=== PATIENT | female | born 1990 | race African-American/Black ===

== ENCOUNTER 2017-06-27 12:17 | Emergency (ER) | payer OTHER ==
[2017-06-27 13:11] LABS: Basophils # (Auto) 0.1 K/mm3 (0.0-0.1); Eosinophils # (Auto) 0.2 K/mm3 (0.0-0.4); Eosinophils % (Auto) 2.7 % (0.0-4.3); Hematocrit 42.9 % (30.3-42.9); Hemoglobin 14.4 gm/dl (10.1-14.3); Lymphocytes # (Auto) 1.1 K/mm3 (1.2-5.4); Lymphocytes % (Auto) 20.8 % (13.4-35.0); Mean Corpuscular HGB Conc 34 % (30-34); Mean Corpuscular Hemoglobin 30 pg (28-32); Mean Corpuscular Volume 90 fl (79-97); Monocytes # (Auto) 0.5 K/mm3 (0.0-0.8); Monocytes % (Auto) 9.8 % (0.0-7.3); Platelet Count 253 K/mm3 (140-440); Red Blood Count 4.76 M/mm3 (3.65-5.03); Red Cell Distribution Width 12.7 % (13.2-15.2)
[2017-06-27 13:35] LABS: Bacteria,Urine 1+ /HPF (Negative); Bilirubin,Urine NEG (Negative); Blood,Urine SM (Negative); Color,Urine Yellow (Yellow); Mucus,Urine 2+ /HPF; Protein,Urine <15 mg/dL mg/dL (Negative)
[2017-06-27 13:45] LABS: Alanine Aminotransferase 9 units/L (7-56); Albumin 4.4 g/dL (3.9-5); BUN/Creatinine Ratio 14; Blood Urea Nitrogen 10 mg/dL (7-17); Calcium 9.6 mg/dL (8.4-10.2); Hemolysis Index 4
--- NOTE | 2017-06-27 14:53 | Emergency Department Report ---
ED Abdominal Pain HPI - General Chief Complaint: Abdominal Pain Stated Complaint: PELVIC PAIN Source: patient, family Mode of arrival: Ambulatory Limitations: No Limitations - History of Present Illness Initial Comments: She is a 26-year-old female presents to emergency room with bilateral lower quadrant pain. Patient states that this is been going on for 2 months and is worse with her period. Patient states her last. Was a month ago. Patient denies possibility of . Patient denies dysuria and vaginal discharge. She states the pain is better with rest. Patient states the pain is worse with palpation and movement. Patient states the pain is a 10 out of 10 right now. MD Complaint: abdominal pain -: Sudden, days(s) (3 days) Location: LLQ, RLQ, suprapubic Radiation: none Migration to: no migration Severity: severe Severity scale (0 -10): 9 Quality: stabbing Consistency: constant Improves With: medication, rest Worsens With: movement Associated Symptoms: nausea - Related Data LMP (females 10-50): 1 month Previous Rx's Medication Instructions Recorded Last Taken Type Acetaminophen/Codeine [Tylenol 1 tab PO Q6H PRN #15 tab 06/27/17 Unknown Rx /Codeine # 3 tab] Ciprofloxacin HCl [Cipro] 500 mg PO Q12H 10 Days #20 tablet 06/27/17 Unknown Rx methylPREDNISolone [Medrol] 4 mg PO DAILY 6 Days #1 tab.ds.pk 06/27/17 Unknown Rx Allergies Allergy/AdvReac Type Severity Reaction Status Date / Time aspirin Allergy Hives Verified 06/27/17 12:35 NSAIDS (Non-Steroidal Allergy Hives Verified 06/27/17 12:36 Anti-Inflamma ED Review of Systems ROS: Stated complaint: PELVIC PAIN Other details as noted in HPI Comment: All other systems reviewed and negative Constitutional: denies: chills, fever Eyes: denies: eye pain, eye discharge, vision change ENT: denies: ear pain, throat pain Respiratory: denies: cough, shortness of breath, wheezing Cardiovascular: denies: chest pain, palpitations Endocrine: no symptoms reported Gastrointestinal: abdominal pain, nausea. denies: diarrhea Genitourinary: denies: urgency, dysuria, discharge Musculoskeletal: denies: back pain, joint swelling, arthralgia Skin: denies: rash, lesions Neurological: denies: headache, weakness, paresthesias Psychiatric: denies: anxiety, depression Hematological/Lymphatic: denies: easy bleeding, easy bruising ED Past Medical Hx - Past Medical History Previous Medical History?: Yes Hx Hypertension: No Hx CVA: No Hx Heart Attack/AMI: No Hx Congestive Heart Failure: No Hx Diabetes: No Hx Deep Vein Thrombosis: No Hx Pulmonary Embolism: No Hx GERD: No Hx Liver Disease: No Hx Renal Disease: No Hx of Cancer: No Hx Sickle Cell Disease: No Hx Arthritis: No Hx Headaches / Migraines: Yes Hx Seizures: Yes Hx Kidney Stones: No Hx Psychiatric Treatment: No Hx Asthma: Yes Hx COPD: No Hx Tuberculosis: No Hx Dementia: No Hx HIV: No 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, 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, hypoglycemia - Surgical History Past Surgical History?: Yes Hx Coronary Stent: No Hx Open Heart Surgery: No Hx Pacemaker: No Hx Internal Defibrillator: No Hx Cholecystectomy: Yes Hx Appendectomy: No Hx Breast Surgery: No - Family History Family history: hypertension - Social History Smoking Status: Never Smoker Substance Use Type: None - Medications Home Medications: Home Medications Medication Instructions Recorded Confirmed Last Taken Type Acetaminophen/Codeine [Tylenol 1 tab PO Q6H PRN #15 tab 06/27/17 Unknown Rx /Codeine # 3 tab] Ciprofloxacin HCl [Cipro] 500 mg PO Q12H 10 Days #20 tablet 06/27/17 Unknown Rx methylPREDNISolone [Medrol] 4 mg PO DAILY 6 Days #1 tab.ds.pk 06/27/17 Unknown Rx ED Physical Exam - General Limitations: No Limitations General appearance: alert, in no apparent distress - Head Head exam: Present: atraumatic, normocephalic - Eye Eye exam: Present: normal appearance - ENT ENT exam: Present: mucous membranes moist - Neck Neck exam: Present: normal inspection - Respiratory Respiratory exam: Present: normal lung sounds bilaterally. Absent: respiratory distress - Cardiovascular Cardiovascular Exam: Present: regular rate, normal rhythm. Absent: systolic murmur, diastolic murmur, rubs, gallop - GI/Abdominal GI/Abdominal exam: Present: soft, tenderness (bilateral lower quadrant tenderness to palpation), normal bowel sounds - Extremities Exam Extremities exam: Present: normal inspection - Back Exam Back exam: Present: normal inspection - Neurological Exam Neurological exam: Present: alert, oriented X3 - Psychiatric Psychiatric exam: Present: normal affect, normal mood - Skin Skin exam: Present: warm, dry, intact, normal color. Absent: rash ED Course Vital Signs 06/27/17 06/27/17 06/27/17 12:23 13:03 13:15 Temperature 99.9 F H Pulse Rate 82 Respiratory 16 Rate Blood Pressure 130/79 116/62 Blood Pressure [Left] O2 Sat by Pulse 99 98 98 Oximetry 06/27/17 06/27/17 06/27/17 13:27 13:28 13:31 Temperature 98.5 F Pulse Rate 100 H Respiratory 14 14 Rate Blood Pressure 116/62 Blood Pressure 116/62 [Left] O2 Sat by Pulse 99 99 98 Oximetry 06/27/17 06/27/17 06/27/17 13:45 14:01 14:15 Temperature Pulse Rate Respiratory Rate Blood Pressure 116/62 116/62 116/62 Blood Pressure [Left] O2 Sat by Pulse 99 99 99 Oximetry 06/27/17 06/27/17 06/27/17 14:31 14:45 15:01 Temperature Pulse Rate Respiratory Rate Blood Pressure 116/62 116/62 116/62 Blood Pressure [Left] O2 Sat by Pulse 98 98 100 Oximetry 06/27/17 06/27/17 06/27/17 15:15 15:31 15:45 Temperature Pulse Rate Respiratory Rate Blood Pressure 116/62 116/62 116/62 Blood Pressure [Left] O2 Sat by Pulse 99 98 97 Oximetry 06/27/17 06/27/17 06/27/17 16:01 16:15 16:39 Temperature Pulse Rate Respiratory Rate Blood Pressure 116/62 116/62 103/52 Blood Pressure [Left] O2 Sat by Pulse 99 97 100 Oximetry 06/27/17 06/27/17 06/27/17 16:45 17:00 17:15 Temperature Pulse Rate Respiratory Rate Blood Pressure 103/52 103/58 107/62 Blood Pressure [Left] O2 Sat by Pulse 98 99 99 Oximetry 06/27/17 06/27/17 06/27/17 17:31 17:45 18:00 Temperature Pulse Rate Respiratory Rate Blood Pressure 112/66 121/64 119/61 Blood Pressure [Left] O2 Sat by Pulse 99 99 97 Oximetry 06/27/17 19:00 Temperature Pulse Rate Respiratory Rate Blood Pressure 102/53 Blood Pressure [Left] O2 Sat by Pulse 98 Oximetry - Reevaluation(s) Reevaluation #1: Patient has improved with therapy. Patient stable for discharge. All labs and diagnostics discussed with family and patient. The patient is unable to take NSAIDs due to being allergic, will give patient a Medrol Dosepak. Will treat uti accordingly. 06/27/17 18:44 ED Medical Decision Making - Lab Data Result diagrams: 06/27/17 12:56 06/27/17 12:56 Critical care attestation.: If time is entered above; I have spent that time in minutes in the direct care of this critically ill patient, excluding procedure time. ED Disposition Clinical Impression: Abdominal pain, Ovarian cyst, Urinary tract infection Disposition: - TO HOME OR SELFCARE Is pt being admited?: No Does the pt Need Aspirin: No Condition: Stable Instructions: Ovarian Cyst (ED), Urinary Tract Infection in Women (ED), Abdominal Pain (ED) Additional Instructions: Levi to follow-up with primary care in 3-5 days. Patient to follow up with [facility] within 2-4 days. Patient to increase water. Patient to rest. Patient to return to ER if condition worsens. Start vitamin Prescriptions: Acetaminophen/Codeine [Tylenol /Codeine # 3 tab] 1 tab PO Q6H PRN #15 tab PRN Reason: Pain Ciprofloxacin HCl [Cipro] 500 mg PO Q12H 10 Days #20 tablet methylPREDNISolone [Medrol] 4 mg PO DAILY 6 Days #1 tab.ds.pk Referrals: PRIMARY CARE, [Primary Care Provider] - 3-5 Days Time of Disposition: 18:43
[2017-06-27] MEDS: DILAUDID IM ONE (15:05)
[2017-06-27] MEDS: DILAUDID IV ONE ×2 (15:24→17:52)
[2017-06-27] MEDS: ZOFRAN IV ONE (16:07)
[2017-06-27 16:22] LABS: HCG Qualitative,Urine Negative (Negative)
--- NOTE | 2017-06-27 17:19 | Cat Scan Report ---
FINAL REPORT EXAM: CT ABDOMEN PELVIS WO CON HISTORY: pain TECHNIQUE: CT abdomen and pelvis without intravenous contrast PRIORS: None. FINDINGS: No acute abnormality identified in the lung bases. No focal abnormality identified within the liver parenchyma. Patient is status post cholecystectomy. The spleen demonstrates normal size and attenuation. No pancreatic abnormalities seen. Kidneys demonstrate no evidence for hydronephrosis or nephrolithiasis. The adrenal glands are unremarkable Abdominal aorta is normal in caliber. No pathologically enlarged lymph nodes are identified. No signs of free fluid or free air No evidence of small bowel dilatation. Colon is nondistended. No pericolonic inflammatory change. The appendix is identified and is unremarkable. Urinary bladder is unremarkable. Noted is 1.7 x 2.7 centimeter left adnexal cyst IMPRESSION: 2.7 centimeter left adnexal cyst Status post cholecystectomy
[2017-06-27 19:24] VITALS: BP 102/53
== END 2017-06-27 19:53 | disposition home or self-care (01) ==
LOC: ED 12:17
DX: N83.209 Unspecified ovarian cyst, unspecified side (principal); N39.0 Urinary tract infection, site not specified; G43.909 Migraine, unspecified, not intractable, without status migrainosus; J45.909 Unspecified asthma, uncomplicated; Z88.6 Allergy status to analgesic agent
CPT/HCPCS: 36415; 74176; 80053; 81001; 81025; 85025; 96374; 96375; 96376; 99284; J1170; J2405; J2930

== ENCOUNTER 2017-12-04 14:45 | Emergency (ER) | payer SELFPAY ==
[2017-12-04 15:11] VITALS: BP 118/60
[2017-12-04] MEDS ORDERED: NACL 0.9% 1000 ML 1,000 ML IV ONE ×2 (15:11→21:00)
[2017-12-04 15:37] LABS: Basophils % (Auto) 0.4 % (0.0-1.8); Eosinophils % (Auto) 0.4 % (0.0-4.3); Hematocrit 41.4 % (30.3-42.9); Hemoglobin 14.4 gm/dl (10.1-14.3); Lymphocytes # (Auto) 1.4 K/mm3 (1.2-5.4); Lymphocytes % (Auto) 19.4 % (13.4-35.0); Mean Corpuscular HGB Conc 35 % (30-34); Mean Corpuscular Hemoglobin 30 pg (28-32); Mean Corpuscular Volume 87 fl (79-97); Monocytes # (Auto) 0.5 K/mm3 (0.0-0.8); Monocytes % (Auto) 7.3 % (0.0-7.3); Platelet Count 259 K/mm3 (140-440); Red Blood Count 4.78 M/mm3 (3.65-5.03); Red Cell Distribution Width 13.1 % (13.2-15.2)
[2017-12-04 16:00] LABS: Alanine Aminotransferase 8 units/L (7-56); Albumin 4.7 g/dL (3.9-5); BUN/Creatinine Ratio 10; Blood Urea Nitrogen 7 mg/dL (7-17); Calcium 9.4 mg/dL (8.4-10.2); Hemolysis Index 8
[2017-12-04 16:11] LABS: Bilirubin,Urine NEG (Negative); Blood,Urine NEG (Negative); Color,Urine Yellow (Yellow); Mucus,Urine 3+ /HPF; Sperm,Urine FEW /HPF (NP); Urobilinogen,Urine < 2.0 mg/dL (<2.0)
[2017-12-04] MEDS ORDERED: MORPHINE IM ONE (19:54)
[2017-12-04] MEDS ORDERED: ZOFRAN IV ONE ×2 (19:57→21:00)
[2017-12-04 20:07] LABS: HCG Qualitative,Urine Negative (Negative)
--- NOTE | 2017-12-04 20:20 | Emergency Department Report ---
Blank Doc - Documentation Documentation: Patient complains her right lower quadrant abdominal pain that started 5 days ago the patient states she has a history of ovarian cyst but that is only on the left side. She states the pain is worse with movement especially when walking. On exam the patient is tender to palpation of the right lower quadrant and heeltap produces peritoneal signs. CT of the abdomen will be ordered as as well as pain medication. Care will be taken over by the mid- level provider
[2017-12-04] MEDS ORDERED: MORPHINE IV ONE (21:00)
[2017-12-04] MEDS ORDERED: ROCEPHIN/NS 1 GM/50 ML 1 GM/50 ML BAG IV ONE (21:02)
--- NOTE | 2017-12-04 21:03 | Emergency Department Report ---
ED Abdominal Pain HPI - General Chief Complaint: Abdominal Pain Stated Complaint: PAIN RT OVARY/NAUSEA Time Seen by Provider: 12/04/17 19:34 Source: patient Mode of arrival: Ambulatory Limitations: No Limitations - History of Present Illness Initial Comments: Patient complains her right lower quadrant abdominal pain that started 5 days ago the patient states she has a history of ovarian cyst but that is only on the left side. She states the pain is worse with movement especially when walking. On exam the patient is tender to palpation of the right lower quadrant and heeltap produces peritoneal signs. CT of the abdomen will be ordered as as well as pain medication. Care will be taken over by the mid- level provider Complaint: abdominal pain Onset/Timin -: week(s) Location: RLQ, R flank Radiation: suprapubic, R flank Migration to: no migration Severity: moderate Severity scale (0 -10): 10 Quality: aching, sharp Consistency: constant Improves With: nothing Worsens With: movement Associated Symptoms: nausea, vomiting. denies: diarrhea, fever, constipation, dysuria, melena, hematuria, anorexia, syncope - Related Data LMP Date: 11/20/17 Previous Rx's Medication Instructions Recorded Last Taken Type Acetaminophen/Codeine [Tylenol 1 tab PO Q6H PRN #15 tab 06/27/17 Unknown Rx /Codeine # 3 tab] Ciprofloxacin HCl [Cipro] 500 mg PO Q12H 10 Days #20 tablet 06/27/17 Unknown Rx methylPREDNISolone [Medrol] 4 mg PO DAILY 6 Days #1 tab.ds.pk 06/27/17 Unknown Rx HYDROcodone/APAP 5-325 [[place] 1 each PO Q6HR PRN #10 tablet 10/10/17 Unknown Rx 5/325] Nitrofurantoin Monohyd/M-Cryst 100 mg PO BID #14 capsule 10/10/17 Unknown Rx [Macrobid 100 mg Capsule] Acetaminophen [Tylenol Extra 1,000 mg PO QID PRN #60 tablet 12/04/17 Unknown Rx Strength] Nitrofurantoin Burnett/M-Cryst 100 mg PO BID #14 capsule 12/04/17 Unknown Rx [Macrobid CAP] Allergies Allergy/AdvReac Type Severity Reaction Status Date / Time aspirin Allergy Hives Verified 06/27/17 12:35 codeine Allergy Itching Verified 10/10/17 12:21 NSAIDS (Non-Steroidal Allergy Hives Verified 06/27/17 12:36 Anti-Inflamma ED Review of Systems ROS: Stated complaint: PAIN RT OVARY/NAUSEA Other details as noted in HPI Constitutional: denies: chills, fever Eyes: denies: eye pain, eye discharge, vision change ENT: denies: ear pain, throat pain Respiratory: denies: cough, shortness of breath, wheezing Cardiovascular: denies: chest pain, palpitations Endocrine: no symptoms reported Gastrointestinal: abdominal pain, nausea, vomiting. denies: diarrhea Genitourinary: frequency. denies: urgency, dysuria, discharge Musculoskeletal: back pain Skin: denies: rash, lesions Neurological: denies: headache, weakness, paresthesias Psychiatric: denies: anxiety, depression Hematological/Lymphatic: denies: easy bleeding, easy bruising ED Past Medical Hx - Past Medical History Hx Hypertension: No Hx CVA: No Hx Heart Attack/AMI: No Hx Congestive Heart Failure: No Hx Diabetes: No Hx Deep Vein Thrombosis: No Hx Pulmonary Embolism: No Hx GERD: No Hx Liver Disease: No Hx Renal Disease: No Hx Sickle Cell Disease: No Hx Arthritis: No Hx Headaches / Migraines: Yes Hx Seizures: Yes Hx Kidney Stones: No Hx Psychiatric Treatment: No Hx Asthma: Yes Hx COPD: No Hx Tuberculosis: No Hx Dementia: No Hx HIV: No 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, 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, hypoglycemia - Surgical History Hx Coronary Stent: No Hx Open Heart Surgery: No Hx Pacemaker: No Hx Internal Defibrillator: No Hx Cholecystectomy: Yes Hx Appendectomy: No Hx Breast Surgery: No - Social History Smoking Status: Never Smoker Substance Use Type: None - Medications Home Medications: Home Medications Medication Instructions Recorded Confirmed Last Taken Type Acetaminophen/Codeine [Tylenol 1 tab PO Q6H PRN #15 tab 06/27/17 Unknown Rx /Codeine # 3 tab] Ciprofloxacin HCl [Cipro] 500 mg PO Q12H 10 Days #20 tablet 06/27/17 Unknown Rx methylPREDNISolone [Medrol] 4 mg PO DAILY 6 Days #1 tab.ds.pk 06/27/17 Unknown Rx HYDROcodone/APAP 5-325 [[place] 1 each PO Q6HR PRN #10 tablet 10/10/17 Unknown Rx 5/325] Nitrofurantoin Monohyd/M-Cryst 100 mg PO BID #14 capsule 10/10/17 Unknown Rx [Macrobid 100 mg Capsule] Acetaminophen [Tylenol Extra 1,000 mg PO QID PRN #60 tablet 12/04/17 Unknown Rx Strength] Nitrofurantoin Burnett/M-Cryst 100 mg PO BID #14 capsule 12/04/17 Unknown Rx [Macrobid CAP] ED Physical Exam - General Limitations: No Limitations General appearance: alert, in no apparent distress - Head Head exam: Present: atraumatic, normocephalic - Eye Eye exam: Present: normal appearance - ENT ENT exam: Present: mucous membranes moist - Neck Neck exam: Present: normal inspection - Respiratory Respiratory exam: Present: normal lung sounds bilaterally. Absent: respiratory distress - Cardiovascular Cardiovascular Exam: Present: regular rate, normal rhythm. Absent: systolic murmur, diastolic murmur, rubs, gallop - GI/Abdominal GI/Abdominal exam: Present: soft, tenderness (RLQ ), guarding (mild guarding RLQ ), normal bowel sounds. Absent: distended, rebound, rigid, organomegaly, mass, bruit, pulsatile mass, hernia - Expanded GI/Abdominal Exam Expanded GI/Abdominal exam: Present: tenderness at [place]'s Point. Absent: psoas sign , obturator sign, heel tap sign, Membreno's sign, ascites - Rectal Rectal exam: Present: deferred - Extremities Exam Extremities exam: Present: normal inspection, full ROM. Absent: tenderness - Back Exam Back exam: Present: normal inspection, full ROM. Absent: tenderness, CVA tenderness (R), CVA tenderness (L), muscle spasm, paraspinal tenderness, vertebral tenderness - Neurological Exam Neurological exam: Present: alert, oriented X3, CN II-XII intact, normal gait, reflexes normal - Psychiatric Psychiatric exam: Present: normal affect, normal mood - Skin Skin exam: Present: warm, dry, intact, normal color. Absent: rash ED Course Vital Signs 12/04/17 15:08 Temperature 98.3 F Pulse Rate 96 H Blood Pressure 118/60 O2 Sat by Pulse 100 Oximetry ED Medical Decision Making - Lab Data Result diagrams: 12/04/17 15:25 12/04/17 15:25 Laboratory Tests 12/04/17 12/04/17 12/04/17 15:25 15:25 15:38 WBC 7.1 RBC 4.78 Hgb 14.4 H Hct 41.4 MCV 87 MCH 30 MCHC 35 H RDW 13.1 L Plt Count 259 Lymph % (Auto) 19.4 Burnett % (Auto) 7.3 Eos % (Auto) 0.4 Baso % (Auto) 0.4 Lymph # 1.4 Burnett # 0.5 Eos # 0.0 Baso # 0.0 Seg Neutrophils % 72.5 H Seg Neutrophils # 5.2 Sodium 142 Potassium 3.9 Chloride 104.8 Carbon Dioxide 25 Anion Gap 16 BUN 7 Creatinine 0.7 Estimated GFR > 60 BUN/Creatinine Ratio 10 Glucose 80 Calcium 9.4 Total Bilirubin 0.70 AST 13 ALT 8 Alkaline Phosphatase 68 Total Protein 7.8 Albumin 4.7 Albumin/Globulin Ratio 1.5 Urine Color Yellow Urine Turbidity Cloudy Urine pH 5.0 Ur Specific Gardner 1.023 Urine Protein 30 mg/dl Urine Glucose (UA) Neg Urine Ketones Neg Urine Blood Neg Urine Nitrite Neg Urine Bilirubin Neg Urine Urobilinogen < 2.0 Ur Leukocyte Esterase Mod Urine WBC (Auto) 22.0 H Urine RBC (Auto) 2.0 U Epithel Cells (Auto) 29.0 H Urine Mucus 3+ Urine Yeast (Budding) Few Urine Sperm Few Urine HCG, Qual 12/04/17 19:54 WBC RBC Hgb Hct MCV MCH MCHC RDW Plt Count Lymph % (Auto) Burnett % (Auto) Eos % (Auto) Baso % (Auto) Lymph # Burnett # Eos # Baso # Seg Neutrophils % Seg Neutrophils # Sodium Potassium Chloride Carbon Dioxide Anion Gap BUN Creatinine Estimated GFR BUN/Creatinine Ratio Glucose Calcium Total Bilirubin AST ALT Alkaline Phosphatase Total Protein Albumin Albumin/Globulin Ratio Urine Color Urine Turbidity Urine pH Ur Specific Gardner Urine Protein Urine Glucose (UA) Urine Ketones Urine Blood Urine Nitrite Urine Bilirubin Urine Urobilinogen Ur Leukocyte Esterase Urine WBC (Auto) Urine RBC (Auto) U Epithel Cells (Auto) Urine Mucus Urine Yeast (Budding) Urine Sperm Urine HCG, Qual Negative - Radiology Data Radiology results: report reviewed, image reviewed CT abdomen and pelvis right adnexal cyst, seizures right ovarian cyst lumbar spondylosis - Medical Decision Making Plan pain reduced to 2/10 Rocephin completely clear DC to home on naproxen follow up with [facility] and for wearing cyst patient verbalized understanding and agreement with same, pt is a/o x 3 tolerating po intake without n/v , pt verbalized agreement and understanding with same. to home in stable condition at this time. Critical care attestation.: If time is entered above; I have spent that time in minutes in the direct care of this critically ill patient, excluding procedure time. ED Disposition Clinical Impression: Ovarian cyst Qualifiers: Laterality: right Qualified Code(s): N83.201 - Unspecified ovarian cyst, right side UTI (urinary tract infection) Qualifiers: Urinary tract infection type: acute cystitis Hematuria presence: without hematuria Qualified Code(s): N30.00 - Acute cystitis without hematuria Disposition: TO HOME OR SELFCARE Is pt being admited?: No Does the pt Need Aspirin: No Condition: Stable Instructions: Abdominal Pain (ED), Ovarian Cyst (ED), Urinary Tract Infection in Women (ED) Prescriptions: Acetaminophen [Tylenol Extra Strength] 1,000 mg PO QID PRN #60 tablet PRN Reason: pain Nitrofurantoin Burnett/M-Cryst [Macrobid CAP] 100 mg PO BID #14 capsule Referrals: LYUBOV YATES MD [Staff Physician] - 3-5 Days Forms: Work/School Release Form(ED) Time of Disposition: 22:03
--- NOTE | 2017-12-04 21:30 | Cat Scan Report ---
FINAL REPORT PROCEDURE: CT ABDOMEN PELVIS WO CON TECHNIQUE: Computerized axial tomography of the abdomen and pelvis was performed without intravenous contrast. HISTORY: rlq ab pain COMPARISON: No prior studies are available for comparison. FINDINGS: Visualized lower thorax: No significant abnormality. Liver: Normal size and attenuation. Spleen: Normal size and attenuation. Gallbladder and biliary system: Cholecystectomy. Pancreas: Normal. Adrenals: Normal. Kidneys: Normal. No stones or hydronephrosis. GI tract: Normal. No dilated loops of large or small bowel. Appendix is normal Lymph nodes and mesentery: Normal. Vasculature: Normal. Bladder: Normal. Reproductive organs: Normal uterus. 2.1 cm right adnexal cyst. 2.5 cm left adnexal cyst.. Peritoneum: No free fluid. Musculoskeletal structures: Grade 1 spondylolisthesis at L5-S1 with bilateral pars interarticularis defects of L5. Other: None. IMPRESSION: Adnexal cysts. No dominant mass or obstruction. Normal appendix. Spondylolisthesis with spondylolysis.
== END 2017-12-04 23:06 | disposition home or self-care (01) ==
LOC: ED 14:45
DX: N83.201 Unspecified ovarian cyst, right side (principal); N30.00 Acute cystitis without hematuria; J45.909 Unspecified asthma, uncomplicated; Z90.49 Acquired absence of other specified parts of digestive tract; Z88.6 Allergy status to analgesic agent
CPT/HCPCS: 36415; 74176; 80053; 81001; 81025; 85025; 96365; 96375; 96376; 99284; J0696; J2270; J2405; J7030

== ENCOUNTER 2018-04-28 15:30 | Emergency (ER) | payer OTHER, SELFPAY ==
[2018-04-28 16:34] LABS: Hematocrit 44.2 % (30.3-42.9); Hemoglobin 15.3 gm/dl (10.1-14.3); Mean Corpuscular HGB Conc 35 % (30-34); Mean Corpuscular Volume 89 fl (79-97); Platelet Count 257 K/mm3 (140-440); Red Blood Count 4.96 M/mm3 (3.65-5.03); Red Cell Distribution Width 12.7 % (13.2-15.2)
[2018-04-28 16:45] LABS: BUN/Creatinine Ratio 23; Blood Urea Nitrogen 14 mg/dL (7-17); Calcium 9.9 mg/dL (8.4-10.2); Hemolysis Index 17
[2018-04-28 17:58] LABS: HCG Qualitative,Urine Negative (Negative)
[2018-04-28 18:01] LABS: Bilirubin,Urine NEG (Negative); Blood,Urine NEG (Negative); Color,Urine Yellow (Yellow); Mucus,Urine 3+ /HPF; Protein,Urine <15 mg/dL mg/dL (Negative); Urobilinogen,Urine < 2.0 mg/dL (<2.0)
[2018-04-28] MEDS ORDERED: PERCOCET 5/325 PO PRN (19:42)
[2018-04-28] MEDS ORDERED: ZOFRAN ODT PO ONE (19:42)
[2018-04-28] MEDS ORDERED: ZOFRAN ODT ONE (19:43)
[2018-04-28] MEDS ORDERED: PERCOCET 5/325 ONE (19:43)
--- NOTE | 2018-04-28 21:35 | Emergency Department Report ---
ED Female HPI - General Chief complaint: Urogenital-Female Stated complaint: PAIN RT SIDE/BLOOD IN URINE Time Seen by Provider: 04/28/18 18:40 Source: patient Mode of arrival: Ambulatory Limitations: No Limitations - History of Present Illness Initial comments: 27-year-old female visits emergency department complaining of continued recurrent pelvic pain and dysuria and hematuria with worsening in last night. Patient states she's been having nausea for the last 4 days with little bit of of of diarrhea. States that she is been followed by Dr. Michaud has what is believed to be the endometriosis. However, she has not been confirmed with an ultrasound as of today. She was recently diagnosed with urinary tract infection and taking Macrobid symptoms improve temporarily and then began to emerge. She was seen in the ED for to 5 times in the last year for similar symptoms. States that no one has done a pelvic evaluation on her sexually active. She is having a lot more pelvic cramping and pain, has no known history of any [place] almost or any ovarian cyst. MD Complaint: dysuria, pelvic pain Location: suprapubic Radiation: non-radiating Severity: mild Quality: cramping, dull Consistency: intermittent Improves with: none Worsens with: urination, movement Are you Now?: No Associated Symptoms: dysuria, hematuria. denies: vaginal bleeding, fever/chills, shortness of breath, weakness - Related Data Sexually active: No (states she is a Muslim, and not engage in any sexually active) Previous Rx's Medication Instructions Recorded Last Taken Type methylPREDNISolone [Medrol] 4 mg PO DAILY 6 Days #1 tab.ds.pk 06/27/17 Unknown Rx HYDROcodone/APAP 5-325 [[place] 1 each PO Q6HR PRN #10 tablet 10/10/17 Unknown Rx 5/325] Nitrofurantoin Monohyd/M-Cryst 100 mg PO BID #14 capsule 10/10/17 Unknown Rx [Macrobid 100 mg Capsule] Nitrofurantoin [place]/M-Cryst 100 mg PO BID #14 capsule 12/04/17 Unknown Rx [Macrobid CAP] Acetaminophen [Tylenol Extra 1,000 mg PO TID PRN #60 tablet 03/04/18 Unknown Rx Strength] Ciprofloxacin HCl [Cipro] 500 mg PO Q12H 10 Days #20 tablet 03/04/18 Unknown Rx HYDROcodone/APAP 5-325 [[place] 1 each PO Q6H #10 tablet 03/04/18 Unknown Rx 5-325 mg TAB] HYDROcodone/APAP 5-325 [[place] 1 each PO Q6HR PRN #15 tablet 03/31/18 Unknown Rx 5/325] Nitrofurantoin Monohyd/M-Cryst 100 mg PO BID #14 capsule 03/31/18 Unknown Rx [Macrobid 100 mg Capsule] Phenazopyridine [Pyridium] 100 mg PO TID 2 Days tab 03/31/18 Unknown Rx Acetaminophen [Tylenol Extra 1,000 mg PO QID PRN 3 Days #2 04/27/18 Unknown Rx Strength] tablet Nitrofurantoin Monohyd/M-Cryst 100 mg PO BID #14 capsule 04/27/18 Unknown Rx [Macrobid 100 mg Capsule] Acetaminophen/Codeine [Tylenol 1 tab PO Q6H PRN #15 tab 04/29/18 Unknown Rx /Codeine # 3 tab] Fluconazole [Diflucan] 150 mg PO ONCE #3 tablet 04/29/18 Unknown Rx metroNIDAZOLE [Flagyl] 500 mg PO BID #14 tab 04/29/18 Unknown Rx Allergies Allergy/AdvReac Type Severity Reaction Status Date / Time aspirin Allergy Hives Verified 03/31/18 11:04 NSAIDS (Non-Steroidal Allergy Hives Verified 03/31/18 11:04 Anti-Inflamma ED Review of Systems ROS: Stated complaint: PAIN RT SIDE/BLOOD IN URINE Other details as noted in HPI Constitutional: denies: chills, fever Eyes: denies: eye pain, eye discharge, vision change ENT: denies: ear pain, throat pain Respiratory: denies: cough, shortness of breath, wheezing Cardiovascular: denies: chest pain, palpitations Endocrine: no symptoms reported Gastrointestinal: denies: abdominal pain, nausea, diarrhea Genitourinary: dysuria, hematuria. denies: urgency, discharge Musculoskeletal: denies: back pain, joint swelling, arthralgia Skin: denies: rash, lesions Neurological: denies: headache, weakness, paresthesias Psychiatric: denies: anxiety, depression Hematological/Lymphatic: denies: easy bleeding, easy bruising ED Past Medical Hx - Past Medical History Previous Medical History?: Yes Hx Hypertension: No Hx CVA: No Hx Heart Attack/AMI: No Hx Congestive Heart Failure: No Hx Diabetes: No Hx Deep Vein Thrombosis: No Hx Pulmonary Embolism: No Hx GERD: No Hx Liver Disease: No Hx Renal Disease: No Hx Sickle Cell Disease: No Hx Arthritis: No Hx Headaches / Migraines: Yes Hx Seizures: Yes Hx Kidney Stones: No Hx Psychiatric Treatment: No Hx Asthma: Yes Hx COPD: No Hx Tuberculosis: No Hx Dementia: No Hx HIV: No Additional medical history: Von Willebrand blood disorder, 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, hypoglycemia - Surgical History Past Surgical History?: Yes Hx Coronary Stent: No Hx Open Heart Surgery: No Hx Pacemaker: No Hx Internal Defibrillator: No Hx Cholecystectomy: Yes Hx Appendectomy: No Hx Breast Surgery: No - Social History Smoking Status: Never Smoker Substance Use Type: None - Medications Home Medications: Home Medications Medication Instructions Recorded Confirmed Last Taken Type methylPREDNISolone [Medrol] 4 mg PO DAILY 6 Days #1 tab.ds.pk 06/27/17 Unknown Rx HYDROcodone/APAP 5-325 [[place] 1 each PO Q6HR PRN #10 tablet 10/10/17 Unknown Rx 5/325] Nitrofurantoin Monohyd/M-Cryst 100 mg PO BID #14 capsule 10/10/17 Unknown Rx [Macrobid 100 mg Capsule] Nitrofurantoin [place]/M-Cryst 100 mg PO BID #14 capsule 12/04/17 Unknown Rx [Macrobid CAP] Acetaminophen [Tylenol Extra 1,000 mg PO TID PRN #60 tablet 03/04/18 Unknown Rx Strength] Ciprofloxacin HCl [Cipro] 500 mg PO Q12H 10 Days #20 tablet 03/04/18 Unknown Rx HYDROcodone/APAP 5-325 [[place] 1 each PO Q6H #10 tablet 03/04/18 Unknown Rx 5-325 mg TAB] HYDROcodone/APAP 5-325 [[place] 1 each PO Q6HR PRN #15 tablet 03/31/18 Unknown Rx 5/325] Nitrofurantoin Monohyd/M-Cryst 100 mg PO BID #14 capsule 03/31/18 Unknown Rx [Macrobid 100 mg Capsule] Phenazopyridine [Pyridium] 100 mg PO TID 2 Days tab 03/31/18 Unknown Rx Acetaminophen [Tylenol Extra 1,000 mg PO QID PRN 3 Days #2 04/27/18 Unknown Rx Strength] tablet Nitrofurantoin Monohyd/M-Cryst 100 mg PO BID #14 capsule 04/27/18 Unknown Rx [Macrobid 100 mg Capsule] Acetaminophen/Codeine [Tylenol 1 tab PO Q6H PRN #15 tab 04/29/18 Unknown Rx /Codeine # 3 tab] Fluconazole [Diflucan] 150 mg PO ONCE #3 tablet 04/29/18 Unknown Rx metroNIDAZOLE [Flagyl] 500 mg PO BID #14 tab 04/29/18 Unknown Rx ED Physical Exam - General Limitations: No Limitations General appearance: alert, in no apparent distress - Head Head exam: Present: atraumatic, normocephalic - Eye Eye exam: Present: normal appearance - ENT ENT exam: Present: mucous membranes moist - Neck Neck exam: Present: normal inspection - Respiratory Respiratory exam: Present: normal lung sounds bilaterally. Absent: respiratory distress - Cardiovascular Cardiovascular Exam: Present: regular rate, normal rhythm. Absent: systolic murmur, diastolic murmur, rubs, gallop - GI/Abdominal GI/Abdominal exam: Present: soft, tenderness, normal bowel sounds. Absent: guarding, hyperactive bowel sounds, organomegaly - External exam: Present: erythema (vaginal excoriation and erythema to the inner folds of the labia majora on the crease of the labium minora with all white, curd-like discharge.), other (patient is shaven in the area with scant hair being redistributed some areas of the hair shafts have some erythema) Bi-manual exam: Present: other (there is tenderness at the entrance of the vaginal orifice with some erythema noted and a cloudy, watery discharge, being evacuated.) - Extremities Exam Extremities exam: Present: normal inspection, normal capillary refill. Absent: full ROM - Back Exam Back exam: Present: normal inspection, CVA tenderness (L) - Neurological Exam Neurological exam: Present: alert, oriented X3, CN II-XII intact - Psychiatric Psychiatric exam: Present: normal affect, normal mood - Skin Skin exam: Present: warm, dry, intact, normal color. Absent: rash ED Course Vital Signs 04/28/18 15:56 Temperature 98.6 F Pulse Rate 103 H Respiratory 22 Rate Blood Pressure 119/72 O2 Sat by Pulse 97 Oximetry ED Medical Decision Making - Lab Data Result diagrams: 04/28/18 16:15 04/28/18 16:15 - Radiology Data Radiology results: report reviewed FINAL REPORT PROCEDURE: CT abdomen and pelvis with contrast. TECHNIQUE: Computerized axial tomography of the abdomen and pelvis was performed after the IV injection of iodinated nonionic contrast. HISTORY: Lower abdominal pain. COMPARISON: CT abdomen and pelvis 03/04/2018. FINDINGS: The lung bases are clear. There are no pleural effusions. The heart size is normal. The liver, pancreas and spleen appear normal. Cholecystectomy clips are present. There is mild intrahepatic and moderate extrahepatic biliary dilatation, likely on the basis of the previous cholecystectomy. The common bile duct measures 9.4 millimeters in diameter. If there is concern about pathological biliary obstruction, an ERCP or MRCP are suggested. The adrenal glands are not enlarged. Both kidneys appear normal in size and configuration. The abdominal aorta has a normal caliber. There is no retroperitoneal adenopathy. The unopacified gastrointestinal tract appears normal. A normal appendix is visible. The bladder and uterus appear normal. There are some low- attenuation masses in both adnexal regions. These likely represent ovarian cysts. The largest is on the left side measuring 2.2 centimeters x 2.1 centimeters in cross-section. The regional skeleton appears intact. There is bilateral spondylolysis of L5. There is very minimal grade 1 spon dylolisthesis at L5-S1. An umbilical piercing is noted. IMPRESSION: Probable bilateral ovarian cysts. Bilateral spondylolysis of L5. Biliary dilatation status post cholecystectomy. No definite signs of acute disease in the abdomen or pelvis. Transcribed By: [facility] Dictated By: MIESHA OLSON MD Electronically Authenticated By: MIESHA OLSON MD Signed Date/Time: 04/28/18 2849 Critical care attestation.: If time is entered above; I have spent that time in minutes in the direct care of this critically ill patient, excluding procedure time. ED Disposition Clinical Impression: UTI (urinary tract infection), Dysuria, Ovarian cyst, Vaginal discharge, Dilation of biliary tract Disposition: DC-01 TO HOME OR SELFCARE Is pt being admited?: No Does the pt Need Aspirin: No Condition: Stable Instructions: Biliary Colic (ED), Ovarian Cyst (ED), Vaginitis (ED) Prescriptions: Acetaminophen/Codeine [Tylenol /Codeine # 3 tab] 1 tab PO Q6H PRN #15 tab PRN Reason: Pain Fluconazole [Diflucan] 150 mg PO ONCE #3 tablet metroNIDAZOLE [Flagyl] 500 mg PO BID #14 tab Referrals: [facility] [Provider Group] - 3-5 Days [facility] [Provider Group] - 3-5 Days (Follow-up with gastroenterology. He may need an ERCP to further evaluate the dilation of the biliary duct. I yet had a cholecystectomy in the past. Clips are in place, but there is a possible concern for retained stone) PRIMARY CARE, [Primary Care Provider] - 3-5 Days (Follow with Dr. Michaud of [facility] for further evaluation of your ovarian cyst and endometriosis. Be sure to follow-up for your urine culture so we can adjust your anti-biotics if needed)
[2018-04-28] MEDS ORDERED: MORPHINE ONE (21:43)
[2018-04-28] MEDS ORDERED: ZOFRAN ONE (21:43)
[2018-04-28] MEDS ORDERED: MORPHINE IV ONE (21:52)
[2018-04-28] MEDS ORDERED: ZOFRAN IV ONE (21:52)
--- NOTE | 2018-04-28 23:49 | Cat Scan Report ---
FINAL REPORT PROCEDURE: CT abdomen and pelvis with contrast. TECHNIQUE: Computerized axial tomography of the abdomen and pelvis was performed after the IV inject ion of iodinated nonionic contrast. HISTORY: Lower abdominal pain. COMPARISON: CT abdomen and pelvis 03/04/2018. FINDINGS: The lung bases are clear. There are no pleural effusions. The heart size is normal. The liver, pancre as and spleen appear normal. Cholecystectomy clips are present. There is mild intrahepatic and modera te extrahepatic biliary dilatation, likely on the basis of the previous cholecystectomy. The common b ile duct measures 9.4 millimeters in diameter. If there is concern about pathological biliary obstruc tion, an ERCP or MRCP are suggested. The adrenal glands are not enlarged. Both kidneys appear normal in size and configuration. The abdominal aorta has a normal caliber. There is no retroperitoneal lucia opathy. The unopacified gastrointestinal tract appears normal. A normal appendix is visible. The blad berna and uterus appear normal. There are some low-attenuation masses in both adnexal regions. These li sarath represent ovarian cysts. The largest is on the left side measuring 2.2 centimeters x 2.1 centime ters in cross-section. The regional skeleton appears intact. There is bilateral spondylolysis of L5. There is very minimal grade 1 spondylolisthesis at L5-S1. An umbilical piercing is noted. IMPRESSION: Probable bilateral ovarian cysts. Bilateral spondylolysis of L5. Biliary dilatation status post shanta cystectomy. No definite signs of acute disease in the abdomen or pelvis.
[2018-04-29] MEDS ORDERED: TORADOL ONE (00:27)
[2018-04-29] MEDS ORDERED: REGLAN ONE (00:27)
[2018-04-29] MEDS ORDERED: TORADOL IV ONE (00:28)
[2018-04-29] MEDS ORDERED: REGLAN IV ONE (00:28)
[2018-04-29 01:31] VITALS: BP 121/73
== END 2018-04-29 01:31 | disposition home or self-care (01) ==
LOC: ED 15:30
DX: N39.0 Urinary tract infection, site not specified (principal); G43.909 Migraine, unspecified, not intractable, without status migrainosus; J45.909 Unspecified asthma, uncomplicated; D68.0 Von Willebrand disease; Z88.6 Allergy status to analgesic agent; Z90.49 Acquired absence of other specified parts of digestive tract
CPT/HCPCS: 36415; 74177; 80048; 81001; 81025; 85027; 87086; 87210; 96374; 96375; 99285; J1885; J2270; J2405; J2765; Q9967; Q0162

== ENCOUNTER 2018-07-20 11:32 | Emergency (ER) | payer OTHER, SELFPAY ==
--- NOTE | 2018-07-20 11:39 | Emergency Department Report ---
Blank Doc - Documentation Documentation: This is a 27-year-old female that presents with right lower abdominal pain with nausea. Denies any vomiting. This initial assessment/diagnostic orders/clinical plan/treatment(s) is/are subject to change based on patient's health status, clinical progression and re- assessment by fellow clinical providers in the ED. Further treatment and workup at subsequent clinical providers discretion. Patient/guardians urged not to elope from the ED as their condition may be serious if not clinically assessed and managed. Initial orders include: 1- Patient sent to [facility] for further evaluation and treatment 2- labs 3- UA
[2018-07-20] MEDS ORDERED: NACL 0.9% 1000 ML 1,000 ML IV ONE (12:06)
[2018-07-20] MEDS ORDERED: MORPHINE IV ONE ×2 (12:06→13:26)
[2018-07-20] MEDS ORDERED: ZOFRAN IV ONE ×2 (12:06→13:26)
--- NOTE | 2018-07-20 12:13 | Emergency Department Report ---
ED Abdominal Pain HPI - General Chief Complaint: Abdominal Pain Stated Complaint: RT ABD PAIN/NAUSEA/DIARRHEA Time Seen by Provider: 07/20/18 11:38 Source: patient, old records reviewed Mode of arrival: Ambulatory Limitations: No Limitations - History of Present Illness Initial Comments: 27-year-old female with a past medical history of asthma, seizures, von Willebrand's disease, and previous cholecystectomy presents to the Hospital complaining of right lower quadrant pain radiating to the back 3 or 4 days. Patient sharp, intermittent fluctuates in intensity. Pain became more severe last night described 9/10 in intensity. Patient also had multiple episodes of nonbloody diarrhea and nausea without vomiting. She reports a temperature 100.5 yesterday. He complains of a small amount of dysuria. She states she is a virgin and not sexually active. Patient has been here multiple times in the past for pelvic and abdominal related complaints. Patient was seen here in April and May. She had a CT abdomen and pelvis IV contrast she received April 2018 that was significant for bilateral ovarian cyst and patient was treated for UTI. As per medical record patient was suspected to have endometriosis and was supposed to follow-up with Dr. Michaud. Patient has not followed up with the PMD or specialist due to lack of insurance coverage. Severity scale (0 -10): 9 - Related Data Previous Rx's Medication Instructions Recorded Last Taken Type methylPREDNISolone [Medrol] 4 mg PO DAILY 6 Days #1 tab.ds.pk 06/27/17 Unknown Rx Nitrofurantoin Monohyd/M-Cryst 100 mg PO BID #14 capsule 10/10/17 Unknown Rx [Macrobid 100 mg Capsule] RX: Acetaminophen [Tylenol Extra 1,000 mg PO TID PRN #60 tablet 03/04/18 Unknown Rx Strength] RX: Ciprofloxacin HCl [Cipro] 500 mg PO Q12H 10 Days #20 tablet 03/04/18 Unknown Rx RX: HYDROcodone/APAP 5-325 [[place] 1 each PO Q6H #10 tablet 03/04/18 Unknown Rx 5-325 mg TAB] HYDROcodone/APAP 5-325 [[place] 1 each PO Q6HR PRN #15 tablet 03/31/18 Unknown Rx 5/325] Nitrofurantoin Monohyd/M-Cryst 100 mg PO BID #14 capsule 03/31/18 Unknown Rx [Macrobid 100 mg Capsule] Phenazopyridine [Pyridium] 100 mg PO TID 2 Days tab 03/31/18 Unknown Rx Acetaminophen [Tylenol Extra 1,000 mg PO QID PRN 3 Days #2 04/27/18 Unknown Rx Strength] tablet Nitrofurantoin Monohyd/M-Cryst 100 mg PO BID #14 capsule 04/27/18 Unknown Rx [Macrobid 100 mg Capsule] Fluconazole [Diflucan] 150 mg PO ONCE #3 tablet 04/29/18 Unknown Rx RX: Acetaminophen/Codeine [Tylenol 1 tab PO Q6H PRN #15 tab 04/29/18 Unknown Rx /Codeine # 3 tab] metroNIDAZOLE [Flagyl] 500 mg PO BID #14 tab 04/29/18 Unknown Rx Promethazine [Phenergan TAB] 25 mg PO Q6HR PRN #16 tab 05/30/18 Unknown Rx RX: traMADol [Ultram 50 MG tab] 50 mg PO Q6HR PRN #14 tablet 05/30/18 Unknown Rx Ondansetron [Zofran Odt] 4 mg PO Q8HR PRN #20 tab.rapdis 07/20/18 Unknown Rx RX: HYDROcodone/APAP 5-325 [[place] 1 each PO Q6HR PRN #20 tablet 07/20/18 Unknown Rx 5-325 mg TAB] RX: Nitrofurantoin [place]/M-Cryst 100 mg PO BID #14 capsule 07/20/18 Unknown Rx [Macrobid CAP] Allergies Allergy/AdvReac Type Severity Reaction Status Date / Time aspirin Allergy Hives Verified 03/31/18 11:04 metoclopramide [From Reglan] Allergy Unknown Verified 05/30/18 14:48 NSAIDS (Non-Steroidal Allergy Hives Verified 03/31/18 11:04 Anti-Inflamma ED Review of Systems ROS: Stated complaint: RT ABD PAIN/NAUSEA/DIARRHEA Other details as noted in HPI Comment: All other systems reviewed and negative ED Past Medical Hx - Past Medical History Hx Hypertension: No Hx CVA: No Hx Heart Attack/AMI: No Hx Congestive Heart Failure: No Hx Diabetes: No Hx Deep Vein Thrombosis: No Hx Pulmonary Embolism: No Hx GERD: No Hx Liver Disease: No Hx Renal Disease: No Hx Sickle Cell Disease: No Hx Arthritis: No Hx Headaches / Migraines: Yes Hx Seizures: Yes Hx Kidney Stones: No Hx Psychiatric Treatment: No Hx Asthma: Yes Hx COPD: No Hx Tuberculosis: No Hx Dementia: No Hx HIV: No Additional medical history: Von Willebrand blood disorder, 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, hypoglycemia - Surgical History Past Surgical History?: Yes Hx Coronary Stent: No Hx Open Heart Surgery: No Hx Pacemaker: No Hx Internal Defibrillator: No Hx Cholecystectomy: Yes Hx Appendectomy: No Hx Breast Surgery: No - Social History Smoking Status: Never Smoker Substance Use Type: None - Medications Home Medications: Home Medications Medication Instructions Recorded Confirmed Last Taken Type methylPREDNISolone [Medrol] 4 mg PO DAILY 6 Days #1 tab.ds.pk 06/27/17 Unknown Rx Nitrofurantoin Monohyd/M-Cryst 100 mg PO BID #14 capsule 10/10/17 Unknown Rx [Macrobid 100 mg Capsule] RX: Acetaminophen [Tylenol Extra 1,000 mg PO TID PRN #60 tablet 03/04/18 Unknown Rx Strength] RX: Ciprofloxacin HCl [Cipro] 500 mg PO Q12H 10 Days #20 tablet 03/04/18 Unknown Rx RX: HYDROcodone/APAP 5-325 [[place] 1 each PO Q6H #10 tablet 03/04/18 Unknown Rx 5-325 mg TAB] HYDROcodone/APAP 5-325 [[place] 1 each PO Q6HR PRN #15 tablet 03/31/18 Unknown Rx 5/325] Nitrofurantoin Monohyd/M-Cryst 100 mg PO BID #14 capsule 03/31/18 Unknown Rx [Macrobid 100 mg Capsule] Phenazopyridine [Pyridium] 100 mg PO TID 2 Days tab 03/31/18 Unknown Rx Acetaminophen [Tylenol Extra 1,000 mg PO QID PRN 3 Days #2 04/27/18 Unknown Rx Strength] tablet Nitrofurantoin Monohyd/M-Cryst 100 mg PO BID #14 capsule 04/27/18 Unknown Rx [Macrobid 100 mg Capsule] Fluconazole [Diflucan] 150 mg PO ONCE #3 tablet 04/29/18 Unknown Rx RX: Acetaminophen/Codeine [Tylenol 1 tab PO Q6H PRN #15 tab 04/29/18 Unknown Rx /Codeine # 3 tab] metroNIDAZOLE [Flagyl] 500 mg PO BID #14 tab 04/29/18 Unknown Rx Promethazine [Phenergan TAB] 25 mg PO Q6HR PRN #16 tab 05/30/18 Unknown Rx RX: traMADol [Ultram 50 MG tab] 50 mg PO Q6HR PRN #14 tablet 05/30/18 Unknown Rx Ondansetron [Zofran Odt] 4 mg PO Q8HR PRN #20 tab.rapdis 07/20/18 Unknown Rx RX: HYDROcodone/APAP 5-325 [[place] 1 each PO Q6HR PRN #20 tablet 07/20/18 Unknown Rx 5-325 mg TAB] RX: Nitrofurantoin [place]/M-Cryst 100 mg PO BID #14 capsule 07/20/18 Unknown Rx [Macrobid CAP] ED Physical Exam - General Limitations: No Limitations - Other Other exam information: General: No limitations, patient is alert in no acute distress Head exam: Atraumatic, normocephalic Eyes exam: Normal appearance, pupils equal reactive to light, extraocular movements intact ENT: Moist mucous membrane, normal oropharynx Neck exam: Normal inspection, full range of motion, no meningismus nontender Respiratory exam: Clear to auscultation bilateral, no wheezes, rales, crackles Cardiovascular: Normal rate and rhythm, normal heart sounds Abdomen: Soft, nondistended, right lower quadrant tenderness, with normal bowel sounds, no rebound, or guarding Extremity: Full range of motion normal inspection no deformity Back: Normal Inspection, full range of motion, right flank tenderness N tendernesseurologic: Alert, oriented x3, cranial nerves intact, no motor or sensory deficit Psychiatric: normal affect, normal mood Skin: Warm, dry, intact ED Course Vital Signs 07/20/18 11:49 Temperature 98.3 F Pulse Rate 115 H Respiratory 20 Rate Blood Pressure 114/73 O2 Sat by Pulse 97 Oximetry ED Medical Decision Making - Lab Data Result diagrams: 07/20/18 11:53 07/20/18 11:53 Lab Results 07/20/18 07/20/18 07/20/18 Range/Units 11:51 11:53 11:53 WBC 6.1 (4.5-11.0) K/mm3 RBC 4.54 (3.65-5.03) M/mm3 Hgb 13.8 (10.1-14.3) gm/dl Hct 40.1 (30.3-42.9) % MCV 88 (79-97) fl MCH 30 (28-32) pg MCHC 34 (30-34) % RDW 12.9 L (13.2-15.2) % Plt Count 211 (140-440) K/mm3 Lymph % (Auto) 10.2 L (13.4-35.0) % [place] % (Auto) 9.8 H (0.0-7.3) % Eos % (Auto) 0.7 (0.0-4.3) % Baso % (Auto) 0.5 (0.0-1.8) % Lymph # 0.6 L (1.2-5.4) K/mm3 [place] # 0.6 (0.0-0.8) K/mm3 Eos # 0.0 (0.0-0.4) K/mm3 Baso # 0.0 (0.0-0.1) K/mm3 Seg Neutrophils % 78.8 H (40.0-70.0) % Seg Neutrophils # 4.8 (1.8-7.7) K/mm3 Sodium 143 (137-145) mmol/L Potassium 3.7 (3.6-5.0) mmol/L Chloride 105.6 (98-107) mmol/L Carbon Dioxide 23 (22-30) mmol/L Anion Gap 18 mmol/L BUN 8 (7-17) mg/dL Creatinine 0.7 (0.7-1.2) mg/dL Estimated GFR > 60 ml/min BUN/Creatinine Ratio 11 % Glucose 94 (65-100) mg/dL Calcium 9.7 (8.4-10.2) mg/dL Total Bilirubin 0.80 (0.1-1.2) mg/dL Direct Bilirubin < 0.2 (0-0.2) mg/dL AST 38 (5-40) units/L ALT 62 H (7-56) units/L Alkaline Phosphatase 79 (35-129) units/L Total Protein 8.0 (6.3-8.2) g/dL Albumin 4.5 (3.9-5) g/dL Albumin/Globulin Ratio 1.3 % Lipase 44 (13-60) units/L HCG, Qual (Negative) Urine Color Yellow (Yellow) Urine Turbidity Slightly-cloudy (Clear) Urine pH 5.0 (5.0-7.0) Ur Specific [place] 1.030 (1.003-1.030) Urine Protein <15 mg/dl (Negative) mg/dL Urine Glucose (UA) Neg (Negative) mg/dL Urine Ketones Neg (Negative) mg/dL Urine Blood Mod (Negative) Urine Nitrite Neg (Negative) Urine Bilirubin Neg (Negative) Urine Urobilinogen < 2.0 (<2.0) mg/dL Ur Leukocyte Esterase Lg (Negative) Urine WBC (Auto) 14.0 H (0.0-6.0) /HPF Urine RBC (Auto) 2.0 (0.0-6.0) /HPF U Epithel Cells (Auto) 11.0 (0-13.0) /HPF Urine Bacteria (Auto) 1+ (Negative) /HPF Urine Mucus 3+ /HPF 07/20/18 Range/Units 11:53 WBC (4.5-11.0) K/mm3 RBC (3.65-5.03) M/mm3 Hgb (10.1-14.3) gm/dl Hct (30.3-42.9) % MCV (79-97) fl MCH (28-32) pg MCHC (30-34) % RDW (13.2-15.2) % Plt Count (140-440) K/mm3 Lymph % (Auto) (13.4-35.0) % [place] % (Auto) (0.0-7.3) % Eos % (Auto) (0.0-4.3) % Baso % (Auto) (0.0-1.8) % Lymph # (1.2-5.4) K/mm3 [place] # (0.0-0.8) K/mm3 Eos # (0.0-0.4) K/mm3 Baso # (0.0-0.1) K/mm3 Seg Neutrophils % (40.0-70.0) % Seg Neutrophils # (1.8-7.7) K/mm3 Sodium (137-145) mmol/L Potassium (3.6-5.0) mmol/L Chloride (98-107) mmol/L Carbon Dioxide (22-30) mmol/L Anion Gap mmol/L BUN (7-17) mg/dL Creatinine (0.7-1.2) mg/dL Estimated GFR ml/min BUN/Creatinine Ratio % Glucose (65-100) mg/dL Calcium (8.4-10.2) mg/dL Total Bilirubin (0.1-1.2) mg/dL Direct Bilirubin (0-0.2) mg/dL AST (5-40) units/L ALT (7-56) units/L Alkaline Phosphatase (35-129) units/L Total Protein (6.3-8.2) g/dL Albumin (3.9-5) g/dL Albumin/Globulin Ratio % Lipase (13-60) units/L HCG, Qual Negative (Negative) Urine Color (Yellow) Urine Turbidity (Clear) Urine pH (5.0-7.0) Ur Specific [place] (1.003-1.030) Urine Protein (Negative) mg/dL Urine Glucose (UA) (Negative) mg/dL Urine Ketones (Negative) mg/dL Urine Blood (Negative) Urine Nitrite (Negative) Urine Bilirubin (Negative) Urine Urobilinogen (<2.0) mg/dL Ur Leukocyte Esterase (Negative) Urine WBC (Auto) (0.0-6.0) /HPF Urine RBC (Auto) (0.0-6.0) /HPF U Epithel Cells (Auto) (0-13.0) /HPF Urine Bacteria (Auto) (Negative) /HPF Urine Mucus /HPF - Radiology Data Radiology results: report reviewed PROCEDURE: CT ABDOMEN PELVIS W CON TECHNIQUE: Computerized axial tomography of the abdomen was performed following the IV injection of iodinated nonionic contrast. PROCEDURE: CT ABDOMEN PELVIS W CON TECHNIQUE: Computerized axial tomography of the abdomen and pelvis was performed after the IV injection of iodinated nonionic contrast. CT DOSE LENGTH PRODUCT: 1134.1 mGycm HISTORY: rlq pain, fever COMPARISONS: Prior CT scan abdomen and pelvis 04/28/2018 . FINDINGS: Lower Lung fofana: No focal abnormalities seen. Upper Abdomen: The gallbladder is surgically absent. There is mild prominence of the biliary system often seen after cholecystectomy which is otherwise unremarkable.. The liver is otherwise unremarkable. The adrenal glands, the pancreas and spleen are unremarkable. Kidneys, Ureters and Urinary bladder: No abnormality is seen. Retroperitoneum: The abdominal aorta appears normal. No aneurysm is seen. No retroperitoneal masses are identified. Nonspecific subcentimeter lymph nodes are seen in the retroperitoneum. No pathologically enlarged lymph nodes are identified. Bowel: Loops of small bowel left upper quadrant show mild fluid distention, minimal wall thickening and mild diffuse prominence of the mucosal folds. The appearance suggests a nonspecific enteritis. No obstruction, ascites or free air visualized. Bowel loops otherwise are unremarkable. Normal-appearing appendix is seen in the right lower quadrant. Small umbilical hernia containing adipose tissue is visualized. No herniated loops of bowel are seen. Reproductive organs: The uterus is deviated to the right of midline and otherwise is unremarkable. Cystic change seen in the left ovary measuring approximately 2.5 x 1.8 cm. There is cystic change seen in the left adnexa measuring approximately 2.5 x 1.8 cm. This cystic area is seen in the same location as cystic changes in the left adnexa seen on the CT scan abdomen and pelvis 04/28/2018. This could represent recurrent follicle or other persistent cystic abnormality of the left ovary. Other: No acute bone abnormalities are seen. 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 IMPRESSION: Abnormal appearing small bowel loops left upper quadrant extending inferiorly. The appearance suggests a nonspecific enteritis. Bowel loops otherwise are unremarkable. Cystic change visualized left adnexa. Please see above comments. Clinically indicated pelvic ultrasound could be obtained for further evaluation. No abnormalities are visualized in the right lower quadrant. Normal-appearing appendix is seen. Cholecystectomy. Biliary system mildly prominent often seen after cholecystectomy. If clinically indicated serum bilirubin levels could be obtained to ensure there is no evidence for biliary obstruction. - Medical Decision Making Patient received fluids, Zofran, and Rocephin in the ED for UTI with associated enteritis. CT confirms enteritis, ovarian cysts, without any other acute abnormality. LFTs normal with exception amount ALT elevation. Patient be discharged home with outpatient follow-up and meds - Differential Diagnosis UTI, renal colic, gastroenteritis, ovarian cyst, appendicitis Critical Care Time: No Critical care attestation.: If time is entered above; I have spent that time in minutes in the direct care of this critically ill patient, excluding procedure time. ED Disposition Clinical Impression: UTI (urinary tract infection), Enteritis Disposition: -01 TO HOME OR SELFCARE Is pt being admited?: No Does the pt Need Aspirin: No Condition: Stable Instructions: Urinary Tract Infection in Women (ED), Acute Diarrhea (ED) Additional Instructions: Take the medication as prescribed. Follow up with your doctor or the clinic/doctor provided. Return if symptoms worsen as indicated by your discharge instructions Prescriptions: RX: Nitrofurantoin [place]/M-Cryst [Macrobid CAP] 100 mg PO BID #14 capsule RX: HYDROcodone/APAP 5-325 [[place] 5-325 mg TAB] 1 each PO Q6HR PRN #20 tablet PRN Reason: Pain Ondansetron [Zofran Odt] 4 mg PO Q8HR PRN #20 tab.rapdis PRN Reason: Nausea And Vomiting Referrals: NARDA SCHROEDER MD [Primary Care Provider] - 3-5 Days Time of Disposition: 16:31
[2018-07-20 12:21] LABS: Bacteria,Urine 1+ /HPF (Negative); Bilirubin,Urine NEG (Negative); Blood,Urine MOD (Negative); Color,Urine Yellow (Yellow); Mucus,Urine 3+ /HPF; Protein,Urine <15 mg/dL mg/dL (Negative); Urobilinogen,Urine < 2.0 mg/dL (<2.0)
[2018-07-20 12:24] LABS: Basophils % (Auto) 0.5 % (0.0-1.8); Eosinophils % (Auto) 0.7 % (0.0-4.3); Hematocrit 40.1 % (30.3-42.9); Hemoglobin 13.8 gm/dl (10.1-14.3); Lymphocytes # (Auto) 0.6 K/mm3 (1.2-5.4); Lymphocytes % (Auto) 10.2 % (13.4-35.0); Mean Corpuscular HGB Conc 34 % (30-34); Mean Corpuscular Volume 88 fl (79-97); Monocytes # (Auto) 0.6 K/mm3 (0.0-0.8); Monocytes % (Auto) 9.8 % (0.0-7.3); Platelet Count 211 K/mm3 (140-440); Red Blood Count 4.54 M/mm3 (3.65-5.03); Red Cell Distribution Width 12.9 % (13.2-15.2)
[2018-07-20 12:28] LABS: Alanine Aminotransferase 62 units/L (7-56); Albumin 4.5 g/dL (3.9-5); BUN/Creatinine Ratio 11; Blood Urea Nitrogen 8 mg/dL (7-17); Calcium 9.7 mg/dL (8.4-10.2); Hemolysis Index 8
[2018-07-20 12:32] LABS: Bilirubin,Direct < 0.2 mg/dL (0-0.2)
[2018-07-20] MEDS ORDERED: ROCEPHIN/NS 1 GM/50 ML 1 GM/50 ML BAG IV ONE (13:10)
[2018-07-20] MEDS ORDERED: DILAUDID IV ONE (14:33)
--- NOTE | 2018-07-20 16:10 | Cat Scan Report ---
PROCEDURE: CT ABDOMEN PELVIS W CON TECHNIQUE: Computerized axial tomography of the abdomen was performed following the IV injection of iodinated nonionic contrast. PROCEDURE: CT ABDOMEN PELVIS W CON TECHNIQUE: Computerized axial tomography of the abdomen and pelvis was performed after the IV inject ion of iodinated nonionic contrast. CT DOSE LENGTH PRODUCT: 1134.1 mGycm HISTORY: rlq pain, fever COMPARISONS: Prior CT scan abdomen and pelvis 04/28/2018 . FINDINGS: Lower Lung fofana: No focal abnormalities seen. Upper Abdomen: The gallbladder is surgically absent. There is mild prominence of the biliary system often seen after cholecystectomy which is otherwise unremarkable.. The liver is otherwise unremarkabl e. The adrenal glands, the pancreas and spleen are unremarkable. Kidneys, Ureters and Urinary bladder: No abnormality is seen. Retroperitoneum: The abdominal aorta appears normal. No aneurysm is seen. No retroperitoneal masses a re identified. Nonspecific subcentimeter lymph nodes are seen in the retroperitoneum. No pathologically enlarged ly mph nodes are identified. Bowel: Loops of small bowel left upper quadrant show mild fluid distention, minimal wall thickening and mild diffuse prominence of the mucosal folds. The appearance suggests a nonspecific enteritis. No obstruction, ascites or free air visualized. Bowel loops otherwise are unremarkable. Normal-appearin g appendix is seen in the right lower quadrant. Small umbilical hernia containing adipose tissue is v isualized. No herniated loops of bowel are seen. Reproductive organs: The uterus is deviated to the right of midline and otherwise is unremarkable. C ystic change seen in the left ovary measuring approximately 2.5 x 1.8 cm. There is cystic change seen in the left adnexa measuring approximately 2.5 x 1.8 cm. This cystic area is seen in the same locati on as cystic changes in the left adnexa seen on the CT scan abdomen and pelvis 04/28/2018. This could r epresent recurrent follicle or other persistent cystic abnormality of the left ovary. Other: No acute bone abnormalities are seen. Bilateral spondylolysis visualized at L5 without evidenc e of spondylolisthesis. IMPRESSION: Abnormal appearing small bowel loops left upper quadrant extending inferiorly. The appearance suggest s a nonspecific enteritis. Bowel loops otherwise are unremarkable. Cystic change visualized left adnexa. Please see above comments. Clinically indicated pelvic ultrasou nd could be obtained for further evaluation. No abnormalities are visualized in the right lower quadrant. Normal-appearing appendix is seen. Cholecystectomy. Biliary system mildly prominent often seen after cholecystectomy. If clinically jeff cated serum bilirubin levels could be obtained to ensure there is no evidence for biliary obstruction . This document is electronically signed by Bello Mendez MD., July 20 2018 04:08:36 PM ET
[2018-07-20 16:23] VITALS: BP 110/69
== END 2018-07-20 16:43 | disposition home or self-care (01) ==
LOC: ED 11:32
DX: K52.9 Noninfective gastroenteritis and colitis, unspecified (principal); N39.0 Urinary tract infection, site not specified; J45.909 Unspecified asthma, uncomplicated; Z88.6 Allergy status to analgesic agent; Z88.8 Allergy status to other drugs, medicaments and biological substances
CPT/HCPCS: 36415; 74177; 80048; 80076; 81001; 83690; 84703; 85025; 96361; 96365; 96375; 96376; 99284; J0696; J1170; J2270; J2405; J7030; Q9967

== ENCOUNTER 2018-07-28 11:53 | Emergency (ER) | payer OTHER ==
--- NOTE | 2018-07-28 12:13 | Emergency Department Report ---
Chief Complaint: Nausea/Vomiting/Diarrhea Stated Complaint: RIGHT SIDE ABD PAIN,NAUSEA Time Seen by Provider: 07/28/18 12:12 - HPI History of Present Illness: This is a 27 y.o. female that presents to the ER with pelvic pain and n/v/d x 1 week. Patient states she was seen here last week and symptoms unresolved. Diagnosed with cystitis and enteritis. Referred to [facility] for continued care. States can't followup with [facility] because she owe money. - Exam Vital Signs: Vital Signs 07/28/18 12:14 Temperature 98.6 F Pulse Rate 98 H Respiratory 16 Rate Blood Pressure 109/85 O2 Sat by Pulse 98 Oximetry MSE screening note: Focused history and physical exam performed. Due to findings the following was ordered: Urinalysis and hCG. ACC for further evaluation. ED Disposition for MSE Condition: Stable
[2018-07-28 12:15] VITALS: BP 109/85
[2018-07-28 12:44] LABS: Bacteria,Urine 1+ /HPF (Negative); Bilirubin,Urine NEG (Negative); Blood,Urine NEG (Negative); Color,Urine Yellow (Yellow); Mucus,Urine 3+ /HPF; Protein,Urine <15 mg/dL mg/dL (Negative); Urobilinogen,Urine < 2.0 mg/dL (<2.0)
[2018-07-28 12:45] LABS: HCG Qualitative,Urine Negative (Negative)
[2018-07-28] MEDS ORDERED: ROCEPHIN IM ONE (15:38)
[2018-07-28] MEDS ORDERED: XYLOCAINE 1% MPF 5 mL INFILTRATI ONE (15:38)
[2018-07-28] MEDS ORDERED: TYLENOL PO ONE (15:52)
--- NOTE | 2018-07-28 15:57 | Emergency Department Report ---
ED Dysuria HPI - HPI Chief Complaint: Nausea/Vomiting/Diarrhea Stated Complaint: RIGHT SIDE ABD PAIN,NAUSEA Time Seen by Provider: 07/28/18 12:12 Duration: 5 Days Location of Discomfort: Urethra (dysuria) Severity: Moderate Symptoms: Dysuria: Yes, Frequency: No, Suprapubic Pain: No, Flank Pain: No, Fever: No, Hematuria: No, Abdominal Pain: No, Previous UTI's: Yes Other History: Patient is a 27-year-old female who comes to the ER today complaining of right lower quadrant pain and dysuria. Patient has been to the ER numerous occasions for UTIs. She does not follow up. She's been on Macrobid and Cipro in the past. No urine cultures are noted. Patient is complaining of pain and she has no fever and no CVA tenderness. ED Review of Systems ROS: Stated complaint: RIGHT SIDE ABD PAIN,NAUSEA Other details as noted in HPI Comment: All other systems reviewed and negative Constitutional: denies: chills Eyes: denies: eye pain ENT: denies: throat pain Respiratory: denies: orthopnea Cardiovascular: denies: dyspnea on exertion Gastrointestinal: as per HPI Genitourinary: as per HPI. denies: urgency Musculoskeletal: denies: back pain Skin: denies: rash Neurological: denies: headache Psychiatric: denies: depression Hematological/Lymphatic: denies: easy bleeding ED Past Medical Hx - Past Medical History Hx Hypertension: No Hx CVA: No Hx Heart Attack/AMI: No Hx Congestive Heart Failure: No Hx Diabetes: No Hx Deep Vein Thrombosis: No Hx Pulmonary Embolism: No Hx GERD: No Hx Liver Disease: No Hx Renal Disease: No Hx Sickle Cell Disease: No Hx Arthritis: No Hx Headaches / Migraines: Yes Hx Seizures: Yes Hx Kidney Stones: No Hx Psychiatric Treatment: No Hx Asthma: Yes Hx COPD: No Hx Tuberculosis: No Hx Dementia: No Hx HIV: No Additional medical history: Von Willebrand blood disorder, 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, hypoglycemia - Surgical History Hx Coronary Stent: No Hx Open Heart Surgery: No Hx Pacemaker: No Hx Internal Defibrillator: No Hx Cholecystectomy: Yes Hx Appendectomy: No Hx Breast Surgery: No - Family History Family history: no significant - Social History Smoking Status: Never Smoker Substance Use Type: None - Medications Home Medications: Home Medications Medication Instructions Recorded Confirmed Last Taken Type Sulfamethoxazole/Trimethoprim 1 each PO BID #10 tablet 07/28/18 Unknown Rx [Bactrim DS TAB] Dysuria Exam - Exam General: Vital signs noted. No distress. Alert and acting appropriately. Exam: Yes Moist Mucous Membranes, No CVA Tenderness, No Abdominal Tenderness, No Rigidity or Guarding Labs: Lab Results 07/28/18 Range/Units 12:25 Urine Color Yellow (Yellow) Urine Turbidity Cloudy (Clear) Urine pH 6.0 (5.0-7.0) Ur Specific [place] 1.033 H (1.003-1.030) Urine Protein <15 mg/dl (Negative) mg/dL Urine Glucose (UA) Neg (Negative) mg/dL Urine Ketones Neg (Negative) mg/dL Urine Blood Neg (Negative) Urine Nitrite Neg (Negative) Urine Bilirubin Neg (Negative) Urine Urobilinogen < 2.0 (<2.0) mg/dL Ur Leukocyte Esterase Mod (Negative) Urine WBC (Auto) 13.0 H (0.0-6.0) /HPF Urine RBC (Auto) 1.0 (0.0-6.0) /HPF U Epithel Cells (Auto) 30.0 H (0-13.0) /HPF Urine Bacteria (Auto) 1+ (Negative) /HPF Urine Mucus 3+ /HPF Urine HCG, Qual Negative (Negative) ED Course Vital Signs 07/28/18 12:14 Temperature 98.6 F Pulse Rate 98 H Respiratory 16 Rate Blood Pressure 109/85 O2 Sat by Pulse 98 Oximetry ED Medical Decision Making - Medical Decision Making Labs 07/28/18 12:25 Urine Color Yellow Urine Turbidity Cloudy Urine pH 6.0 Ur Specific [place] 1.033 H Urine Protein <15 mg/dl Urine Glucose (UA) Neg Urine Ketones Neg Urine Blood Neg Urine Nitrite Neg Urine Bilirubin Neg Urine Urobilinogen < 2.0 Ur Leukocyte Esterase Mod Urine WBC (Auto) 13.0 H Urine RBC (Auto) 1.0 U Epithel Cells (Auto) 30.0 H Urine Bacteria (Auto) 1+ Urine Mucus 3+ Urine HCG, Qual Negative Vital Signs 07/28/18 12:14 Temperature 98.6 F Pulse Rate 98 H Respiratory 16 Rate Blood Pressure 109/85 O2 Sat by Pulse 98 Oximetry ua noted rocephin given allergy to nsaids tylenol for pain taking macrobid but no better ct 07/20 n discussed follow up with pt. dc home with pcp follow up Critical care attestation.: If time is entered above; I have spent that time in minutes in the direct care of this critically ill patient, excluding procedure time. ED Disposition Clinical Impression: UTI (urinary tract infection) Disposition: DC-01 TO HOME OR SELFCARE Is pt being admited?: No Does the pt Need Aspirin: No Condition: Stable Instructions: Urinary Tract Infection in Women (ED) Additional Instructions: DIET TOLERATED MEDS ORDERED TODAY IN ER FOLLOW INSTRUCTIONS ON THE BOTTLE FOLLOW UP PCP WITHIN 48 HOURS TO ENSURE YOU ARE GETTING BETTER ACTIVITY TOLERATED MOTRIN OR TYLENOL FOR PAIN OR FEVER RETURN TO THE ER FOR WORSENING SYMPTOMS NOT RELIEVED BY YOUR MEDICATIONS. stop the macrobid Referrals: REJI LABOY [Other] - 3-5 Days Time of Disposition: 15:53
== END 2018-07-28 16:06 | disposition home or self-care (01) ==
LOC: ED 11:53
DX: N39.0 Urinary tract infection, site not specified (principal); G43.909 Migraine, unspecified, not intractable, without status migrainosus; J45.909 Unspecified asthma, uncomplicated; Z90.49 Acquired absence of other specified parts of digestive tract; Z88.6 Allergy status to analgesic agent; Z88.8 Allergy status to other drugs, medicaments and biological substances
CPT/HCPCS: 81001; 81025; 87086; 96372; 99283; J0696

== ENCOUNTER 2018-09-03 11:55 | Emergency (ER) | payer OTHER ==
--- NOTE | 2018-09-03 12:08 | Emergency Department Report ---
Chief Complaint: Abdominal Pain Stated Complaint: N/D BACK PAIN/STOMACH PAIN Time Seen by Provider: 09/03/18 12:02 - HPI History of Present Illness: PMH ENDOMETRIOSIS NICOL[facility]S BALL DO-PAIN [facility] RX VIMPAT- NEURO GIVES HER RECURRENT UTI SEE JENNA AND EMR NO INSURANCE LMP 07/17 [place] NO BLOOD MSE MSE screening note: Focused history and physical exam performed. Due to findings the following was ordered: ED Disposition for MSE Condition: Stable Instructions: Abdominal Pain (ED)
[2018-09-03 12:58] LABS: Hematocrit 39.3 % (30.3-42.9); Hemoglobin 13.9 gm/dl (10.1-14.3); Mean Corpuscular HGB Conc 36 % (30-34); Mean Corpuscular Volume 87 fl (79-97); Platelet Count 199 K/mm3 (140-440); Red Blood Count 4.52 M/mm3 (3.65-5.03); Red Cell Distribution Width 12.9 % (13.2-15.2)
[2018-09-03 13:18] LABS: BUN/Creatinine Ratio 13; Blood Urea Nitrogen 9 mg/dL (7-17); Calcium 9.1 mg/dL (8.4-10.2); Hemolysis Index 6
[2018-09-03 13:29] LABS: Bacteria,Urine 2+ /HPF (Negative); Bilirubin,Urine NEG (Negative); Blood,Urine NEG (Negative); Color,Urine Amber (Yellow); Mucus,Urine 3+ /HPF; Urobilinogen,Urine < 2.0 mg/dL (<2.0)
[2018-09-03 13:30] LABS: HCG Qualitative,Urine Negative (Negative)
[2018-09-03] MEDS ORDERED: MORPHINE IV ONE (14:19)
[2018-09-03] MEDS ORDERED: ZOFRAN IV ONE (14:19)
[2018-09-03 14:27] VITALS: BP 107/57
--- NOTE | 2018-09-03 14:57 | Cat Scan Report ---
CT ABDOMEN PELVIS WITH CONTRAST: HISTORY: Severe right lower quadrant pain. COMPARISON: 07/20/18. TECHNIQUE: Helical CT in 1.25mm intervals following IV contrast. Sagittal and coronal reconstructions. FINDINGS: Lung bases: Normal. Liver: Normal. Biliary system: Cholecystectomy. Pancreas: Normal. Spleen: Normal. Kidneys/ureters/bladder: Normal. Adrenal glands: Normal. Aorta: Normal. Intestines: Within normal limits given no oral contrast was administered. Appendix: Normal. Pelvic viscera: There is a new 1.6 cm peripherally enhancing right ovarian cyst. A left ovarian cyst has increased from 2.7 cm to 3.0 cm. The uterus is unremarkable. Ascites: None. Adenopathy: None. Musculoskeletal: Normal. IMPRESSION: Bilateral ovarian cysts. No acute inflammatory process is identified.
--- NOTE | 2018-09-03 15:18 | Emergency Department Report ---
HPI - General Chief Complaint: Abdominal Pain Time Seen by Provider: 09/03/18 12:02 - HPI HPI: 27-year-old female presents to the ED with lower quadrant pain, dysuria, since yesterday. Rates the pain as 10 out of 10, accompanied by nausea, but no vomiting. Patient denies any fever, chills or night sweats. Has not taking any medications for her symptoms. ED Past Medical Hx - Past Medical History Hx Hypertension: No Hx CVA: No Hx Heart Attack/AMI: No Hx Congestive Heart Failure: No Hx Diabetes: No Hx Deep Vein Thrombosis: No Hx Pulmonary Embolism: No Hx GERD: No Hx Liver Disease: No Hx Renal Disease: No Hx Sickle Cell Disease: No Hx Arthritis: No Hx Headaches / Migraines: Yes Hx Seizures: Yes Hx Kidney Stones: No Hx Psychiatric Treatment: No Hx Asthma: Yes Hx COPD: No Hx Tuberculosis: No Hx Dementia: No Hx HIV: No Additional medical history: Von Willebrand blood disorder, 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, hypoglycemia - Surgical History Hx Coronary Stent: No Hx Open Heart Surgery: No Hx Pacemaker: No Hx Internal Defibrillator: No Hx Cholecystectomy: Yes Hx Appendectomy: No Hx Breast Surgery: No - Social History Smoking Status: Never Smoker Substance Use Type: None - Medications Home Medications: Home Medications Medication Instructions Recorded Confirmed Last Taken Type Cyclobenzaprine [Flexeril] 10 mg PO TID PRN #15 tablet 09/03/18 Unknown Rx Ondansetron [Zofran Odt] 4 mg PO Q8HR #15 tab.rapdis 09/03/18 Unknown Rx Sulfamethoxazole/Trimethoprim 1 each PO BID #10 tablet 09/03/18 Unknown Rx [Bactrim DS TAB] ED Review of Systems ROS: Stated complaint: N/D BACK PAIN/STOMACH PAIN Other details as noted in HPI Comment: All other systems reviewed and negative ENT: denies: ear pain Respiratory: denies: cough Cardiovascular: denies: chest pain Gastrointestinal: abdominal pain, nausea. denies: vomiting Psychiatric: denies: anxiety, depression Physical Exam - Physical Exam Vital Signs: Vital Signs 09/03/18 09/03/18 12:02 14:26 Temperature 98.5 F 99.1 F Pulse Rate 98 H 84 Respiratory 20 16 Rate Blood Pressure 128/77 Blood Pressure 107/57 [Left] O2 Sat by Pulse 98 99 Oximetry Physical Exam: Physical Exam: - General Limitations: No Limitations General appearance: alert, in no apparent distress, obese - Head Head exam: Present: atraumatic, normocephalic - Eye Eye exam: Present: normal appearance - ENT ENT exam: Present: mucous membranes moist - Neck Neck exam: Present: normal inspection - Respiratory Respiratory exam: Present: normal lung sounds bilaterally. Absent: respiratory distress - Cardiovascular Cardiovascular Exam: Present: normal rhythm. Absent: systolic murmur, diastolic murmur, rubs, gallop - GI/Abdominal GI/Abdominal exam: Present: soft, normal bowel sounds, tender right lower quadrant - Extremities Exam Extremities exam: Present: normal inspection - Back Exam Back exam: Present: normal inspection - Neurological Exam Neurological exam: Present: alert, oriented X3 - Psychiatric Psychiatric exam: normal affect and mood - Skin Skin exam: Present: warm, dry, intact, normal color. Absent: rash ED Course Vital Signs 09/03/18 09/03/18 12:02 14:26 Temperature 98.5 F 99.1 F Pulse Rate 98 H 84 Respiratory 20 16 Rate Blood Pressure 128/77 Blood Pressure 107/57 [Left] O2 Sat by Pulse 98 99 Oximetry ED Medical Decision Making - Lab Data Result diagrams: 09/03/18 12:40 09/03/18 12:40 - Medical Decision Making ct findings explained to patient, she voiced understanding. - Differential Diagnosis appendicitis, enteritis, uti, Critical care attestation.: If time is entered above; I have spent that time in minutes in the direct care of this critically ill patient, excluding procedure time. ED Disposition Clinical Impression: UTI (urinary tract infection) Qualifiers: Urinary tract infection type: acute cystitis Hematuria presence: without hematuria Qualified Code(s): N30.00 - Acute cystitis without hematuria Disposition: - TO HOME OR SELFCARE Is pt being admited?: No Does the pt Need Aspirin: No Condition: Stable Instructions: Abdominal Pain (ED) Prescriptions: Sulfamethoxazole/Trimethoprim [Bactrim DS TAB] 1 each PO BID #10 tablet Cyclobenzaprine [Flexeril] 10 mg PO TID PRN #15 tablet PRN Reason: Muscle Spasm Ondansetron [Zofran Odt] 4 mg PO Q8HR #15 tab.rapdis Referrals: NARDA SCHROEDER MD [Primary Care Provider] - 3-5 Days
[2018-09-03] MEDS ORDERED: NORCO 5/325 PO ONE (15:30)
== END 2018-09-03 15:27 | disposition home or self-care (01) ==
LOC: ED 11:55
DX: N39.0 Urinary tract infection, site not specified (principal); G43.909 Migraine, unspecified, not intractable, without status migrainosus; J45.909 Unspecified asthma, uncomplicated; Z88.6 Allergy status to analgesic agent; Z88.8 Allergy status to other drugs, medicaments and biological substances
CPT/HCPCS: 36415; 74177; 80048; 81001; 81025; 85027; 96374; 96375; 99284; J2270; J2405; Q9967

== ENCOUNTER 2018-09-08 12:21 | Emergency (ER) | payer SELFPAY ==
[2018-09-08 13:06] VITALS: BP 119/71
[2018-09-08] MEDS ORDERED: ROCEPHIN IM ONE (13:11)
[2018-09-08] MEDS ORDERED: ULTRAM PO ONE (13:11)
[2018-09-08] MEDS ORDERED: XYLOCAINE 1% MPF 5 mL INFILTRATI ONE (13:11)
--- NOTE | 2018-09-08 13:11 | Emergency Department Report ---
Blank Doc - Documentation Documentation: 27 y o female presents with suprspubic pain,with flank pain x 1 week some N/fever/abd pain finished antibiotics and no relief Ua/utp ordered possible Acute pyelo Meds ordered [facility] evaluate
--- NOTE | 2018-09-08 13:37 | Emergency Department Report ---
ED Abdominal Pain HPI - General Chief Complaint: Abdominal Pain Stated Complaint: R SIDE PAIN/NAUSEA/DIARRHEA/BACK PAIN Time Seen by Provider: 09/08/18 13:03 Source: patient Mode of arrival: Ambulatory Limitations: No Limitations - History of Present Illness Initial Comments: seen multiple times for ongoing abd pain now with fever, recently treated for another UTI nausea, diarrhea states she is a virgin MD Complaint: abdominal pain -: Gradual, days(s) Location: RLQ, suprapubic Radiation: none Migration to: no migration Severity: moderate Severity scale (0 -10): 9 Quality: aching Consistency: constant Improves With: nothing Worsens With: nothing Associated Symptoms: nausea, diarrhea, fever. denies: vomiting, chills - Related Data Previous Rx's Medication Instructions Recorded Last Taken Type Cyclobenzaprine [Flexeril] 10 mg PO TID PRN #15 tablet 09/03/18 Unknown Rx Ondansetron [Zofran Odt] 4 mg PO Q8HR #15 tab.rapdis 09/03/18 Unknown Rx Sulfamethoxazole/Trimethoprim 1 each PO BID #10 tablet 09/03/18 Unknown Rx [Bactrim DS TAB] Acetaminophen/Codeine [Tylenol 1 tab PO Q4HR PRN #18 tablet 09/08/18 Unknown Rx /Codeine # 3 tab] Hyoscyamine Subl [Levsin Sl 0.125 0.125 mg SL Q6HR PRN #20 tab 09/08/18 Unknown Rx TAB] Promethazine [Phenergan] 25 mg PO Q6HR PRN #20 tab 09/08/18 Unknown Rx Allergies Allergy/AdvReac Type Severity Reaction Status Date / Time aspirin Allergy Hives Verified 09/08/18 12:23 metoclopramide [From Reglan] Allergy Unknown Verified 09/08/18 12:23 NSAIDS (Non-Steroidal Allergy Hives Verified 09/08/18 12:23 Anti-Inflamma ED Review of Systems ROS: Stated complaint: R SIDE PAIN/NAUSEA/DIARRHEA/BACK PAIN Other details as noted in HPI Comment: All other systems reviewed and negative Gastrointestinal: as per HPI Genitourinary: as per HPI ED Past Medical Hx - Past Medical History Hx Hypertension: No Hx CVA: No Hx Heart Attack/AMI: No Hx Congestive Heart Failure: No Hx Diabetes: No Hx Deep Vein Thrombosis: No Hx Pulmonary Embolism: No Hx GERD: No Hx Liver Disease: No Hx Renal Disease: No Hx Sickle Cell Disease: No Hx Arthritis: No Hx Headaches / Migraines: Yes Hx Seizures: Yes Hx Kidney Stones: No Hx Psychiatric Treatment: No Hx Asthma: Yes Hx COPD: No Hx Tuberculosis: No Hx Dementia: No Hx HIV: No Additional medical history: Von Willebrand blood disorder, 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, hypoglycemia - Surgical History Hx Coronary Stent: No Hx Open Heart Surgery: No Hx Pacemaker: No Hx Internal Defibrillator: No Hx Cholecystectomy: Yes Hx Appendectomy: No Hx Breast Surgery: No - Social History Smoking Status: Never Smoker Substance Use Type: None - Medications Home Medications: Home Medications Medication Instructions Recorded Confirmed Last Taken Type Cyclobenzaprine [Flexeril] 10 mg PO TID PRN #15 tablet 09/03/18 Unknown Rx Ondansetron [Zofran Odt] 4 mg PO Q8HR #15 tab.rapdis 09/03/18 Unknown Rx Sulfamethoxazole/Trimethoprim 1 each PO BID #10 tablet 09/03/18 Unknown Rx [Bactrim DS TAB] Acetaminophen/Codeine [Tylenol 1 tab PO Q4HR PRN #18 tablet 09/08/18 Unknown Rx /Codeine # 3 tab] Hyoscyamine Subl [Levsin Sl 0.125 0.125 mg SL Q6HR PRN #20 tab 09/08/18 Unknown Rx TAB] Promethazine [Phenergan] 25 mg PO Q6HR PRN #20 tab 09/08/18 Unknown Rx ED Physical Exam - General Limitations: No Limitations General appearance: alert, in no apparent distress - Head Head exam: Present: atraumatic, normocephalic - Eye Eye exam: Present: normal appearance - ENT ENT exam: Present: mucous membranes moist - Neck Neck exam: Present: normal inspection - Respiratory Respiratory exam: Present: normal lung sounds bilaterally. Absent: respiratory distress - Cardiovascular Cardiovascular Exam: Present: regular rate, normal rhythm. Absent: systolic murmur, diastolic murmur, rubs, gallop - GI/Abdominal GI/Abdominal exam: Present: soft, tenderness (RLQ/R adnexal ), normal bowel sounds. Absent: guarding, rebound - Rectal Rectal exam: Present: deferred - Extremities Exam Extremities exam: Present: normal inspection - Back Exam Back exam: Present: normal inspection - Neurological Exam Neurological exam: Present: alert, oriented X3 - Psychiatric Psychiatric exam: Present: normal affect, normal mood - Skin Skin exam: Present: warm, dry, intact, normal color. Absent: rash ED Course Vital Signs 09/08/18 09/08/18 13:04 18:04 Temperature 99.6 F Pulse Rate 97 H Respiratory 18 20 Rate Blood Pressure 119/71 [Right] O2 Sat by Pulse 98 Oximetry ED Medical Decision Making - Lab Data Result diagrams: 09/08/18 15:21 09/08/18 15:21 Lab Results 09/08/18 09/08/18 09/08/18 Range/Units 14:02 15: 15:21 WBC 4.9 (4.5-11.0) K/mm3 RBC 4.38 (3.65-5.03) M/mm3 Hgb 13.5 (10.1-14.3) gm/dl Hct 37.8 (30.3-42.9) % MCV 86 (79-97) fl MCH 31 (28-32) pg MCHC 36 H (30-34) % RDW 12.6 L (13.2-15.2) % Plt Count 196 (140-440) K/mm3 Add Manual Diff Complete Total Counted 100 Seg Neuts % (Manual) 77.0 H (40.0-70.0) % Band Neutrophils % 0 % Lymphocytes % (Manual) 15.0 (13.4-35.0) % Reactive Lymphs % (Man) 0 % Monocytes % (Manual) 7.0 (0.0-7.3) % Eosinophils % (Manual) 1.0 (0.0-4.3) % Basophils % (Manual) 0 (0.0-1.8) % Metamyelocytes % 0 % Myelocytes % 0 % Promyelocytes % 0 % Blast Cells % 0 % Nucleated RBC % Not Reportable Seg Neutrophils # Man 3.8 (1.8-7.7) K/mm3 Band Neutrophils # 0.0 K/mm3 Lymphocytes # (Manual) 0.7 L (1.2-5.4) K/mm3 Abs React Lymphs (Man) 0.0 K/mm3 Monocytes # (Manual) 0.3 (0.0-0.8) K/mm3 Eosinophils # (Manual) 0.0 (0.0-0.4) K/mm3 Basophils # (Manual) 0.0 (0.0-0.1) K/mm3 Metamyelocytes # 0.0 K/mm3 Myelocytes # 0.0 K/mm3 Promyelocytes # 0.0 K/mm3 Blast Cells # 0.0 K/mm3 WBC Morphology Not Reportable Hypersegmented Neuts Not Reportable Hyposegmented Neuts Not Reportable Hypogranular Neuts Not Reportable Smudge Cells Not Reportable Toxic Granulation Not Reportable Toxic Vacuolation Not Reportable Dohle Bodies Not Reportable Pelger-Huet Anomaly Not Reportable Zahra Rods Not Reportable Platelet Estimate Consistent w auto Clumped Platelets Not Reportable Plt Clumps, EDTA Not Reportable Large Platelets 1+ Giant Platelets Not Reportable Platelet Satelliting Not Reportable Plt Morphology Comment Not Reportable RBC Morphology Normal Dimorphic RBCs Not Reportable Polychromasia Not Reportable Hypochromasia Not Reportable Poikilocytosis Not Reportable Anisocytosis Not Reportable Microcytosis Not Reportable Macrocytosis Not Reportable Spherocytes Not Reportable Pappenheimer Bodies Not Reportable Sickle Cells Not Reportable Target Cells Not Reportable Tear Drop Cells Not Reportable Ovalocytes Not Reportable Helmet Cells Not Reportable [place] Bodies Not Reportable [place] Rings Not Reportable [place] Cells Not Reportable Bite Cells Not Reportable Crenated Cell Not Reportable Elliptocytes Not Reportable Acanthocytes (Spur) Not Reportable Rouleaux Not Reportable Hemoglobin C Crystals Not Reportable Schistocytes Not Reportable Malaria parasites Not Reportable Toni Bodies Not Reportable Hem Pathologist Commnt No Sodium 137 (137-145) mmol/L Potassium 4.4 (3.6-5.0) mmol/L Chloride 101.9 (98-107) mmol/L Carbon Dioxide 24 (22-30) mmol/L Anion Gap 16 mmol/L BUN 7 (7-17) mg/dL Creatinine 0.7 (0.7-1.2) mg/dL Estimated GFR > 60 ml/min BUN/Creatinine Ratio 10 % Glucose 82 (65-100) mg/dL Calcium 9.3 (8.4-10.2) mg/dL Total Bilirubin 0.70 (0.1-1.2) mg/dL AST 15 (5-40) units/L ALT 8 (7-56) units/L Alkaline Phosphatase 64 (35-129) units/L Total Protein 7.6 (6.3-8.2) g/dL Albumin 4.4 (3.9-5) g/dL Albumin/Globulin Ratio 1.4 % Lipase 48 (13-60) units/L Urine Color Yellow (Yellow) Urine Turbidity Clear (Clear) Urine pH 5.0 (5.0-7.0) Ur Specific [place] 1.021 (1.003-1.030) Urine Protein <15 mg/dl (Negative) mg/dL Urine Glucose (UA) Neg (Negative) mg/dL Urine Ketones Neg (Negative) mg/dL Urine Blood Neg (Negative) Urine Nitrite Neg (Negative) Urine Bilirubin Neg (Negative) Urine Urobilinogen < 2.0 (<2.0) mg/dL Ur Leukocyte Esterase Sm (Negative) Urine WBC (Auto) 4.0 (0.0-6.0) /HPF Urine RBC (Auto) 2.0 (0.0-6.0) /HPF U Epithel Cells (Auto) 3.0 (0-13.0) /HPF Urine Mucus 2+ /HPF Urine HCG, Qual Negative (Negative) 09/08/18 Range/Units 15:21 WBC (4.5-11.0) K/mm3 RBC (3.65-5.03) M/mm3 Hgb (10.1-14.3) gm/dl Hct (30.3-42.9) % MCV (79-97) fl MCH (28-32) pg MCHC (30-34) % RDW (13.2-15.2) % Plt Count (140-440) K/mm3 Add Manual Diff Total Counted Seg Neuts % (Manual) (40.0-70.0) % Band Neutrophils % % Lymphocytes % (Manual) (13.4-35.0) % Reactive Lymphs % (Man) % Monocytes % (Manual) (0.0-7.3) % Eosinophils % (Manual) (0.0-4.3) % Basophils % (Manual) (0.0-1.8) % Metamyelocytes % % Myelocytes % % Promyelocytes % % Blast Cells % % Nucleated RBC % Seg Neutrophils # Man (1.8-7.7) K/mm3 Band Neutrophils # K/mm3 Lymphocytes # (Manual) (1.2-5.4) K/mm3 Abs React Lymphs (Man) K/mm3 Monocytes # (Manual) (0.0-0.8) K/mm3 Eosinophils # (Manual) (0.0-0.4) K/mm3 Basophils # (Manual) (0.0-0.1) K/mm3 Metamyelocytes # K/mm3 Myelocytes # K/mm3 Promyelocytes # K/mm3 Blast Cells # K/mm3 WBC Morphology TNR Hypersegmented Neuts Hyposegmented Neuts Hypogranular Neuts Smudge Cells Toxic Granulation Toxic Vacuolation Dohle Bodies Pelger-Huet Anomaly Zahra Rods Platelet Estimate Clumped Platelets Plt Clumps, EDTA Large Platelets Giant Platelets Platelet Satelliting Plt Morphology Comment RBC Morphology Dimorphic RBCs Polychromasia Hypochromasia Poikilocytosis Anisocytosis Microcytosis Macrocytosis Spherocytes Pappenheimer Bodies Sickle Cells Target Cells Tear Drop Cells Ovalocytes Helmet Cells Leslie-[place] Bodies [place] Rings [place] Cells Bite Cells Crenated Cell Elliptocytes Acanthocytes (Spur) Rouleaux Hemoglobin C Crystals Schistocytes Malaria parasites Toni Bodies Hem Pathologist Commnt Sodium (137-145) mmol/L Potassium (3.6-5.0) mmol/L Chloride (98-107) mmol/L Carbon Dioxide (22-30) mmol/L Anion Gap mmol/L BUN (7-17) mg/dL Creatinine (0.7-1.2) mg/dL Estimated GFR ml/min BUN/Creatinine Ratio % Glucose (65-100) mg/dL Calcium (8.4-10.2) mg/dL Total Bilirubin (0.1-1.2) mg/dL AST (5-40) units/L ALT (7-56) units/L Alkaline Phosphatase (35-129) units/L Total Protein (6.3-8.2) g/dL Albumin (3.9-5) g/dL Albumin/Globulin Ratio % Lipase (13-60) units/L Urine Color (Yellow) Urine Turbidity (Clear) Urine pH (5.0-7.0) Ur Specific [place] (1.003-1.030) Urine Protein (Negative) mg/dL Urine Glucose (UA) (Negative) mg/dL Urine Ketones (Negative) mg/dL Urine Blood (Negative) Urine Nitrite (Negative) Urine Bilirubin (Negative) Urine Urobilinogen (<2.0) mg/dL Ur Leukocyte Esterase (Negative) Urine WBC (Auto) (0.0-6.0) /HPF Urine RBC (Auto) (0.0-6.0) /HPF U Epithel Cells (Auto) (0-13.0) /HPF Urine Mucus /HPF Urine HCG, Qual (Negative) - Radiology Data Radiology results: report reviewed L ovarian cyst, no torsion - Medical Decision Making ongoing abd pain rlq/r adnexal tenderness neg CT 5 days ago and multiple others as well, outside of ovarian cysts ? endometriosis labs, UA pending receiving IV dilaudid, fluids UA w/ small leukocytes, however no significant WBCs noted. not c/w true UTI- will culture labs include CBC, CMP, lipase- all normal hcg negative PID seems unlikely as patient is a virgin CT showed cysts, otherwise negative 5 days ago I feel that risk of radiation induced malignancy is greater than any benefit of another CT at this time especially with recurrent similar symptoms- appendicitis is still in the differential though I feel it is unlikely w/ negative CT on 09/03 and normal WBC. I recommend strict return precautions as well as follow up with GI and OBGYN. A repeat exam done prior to discharge is benign. - Differential Diagnosis cyst, uti, stone, appy Critical care attestation.: If time is entered above; I have spent that time in minutes in the direct care of this critically ill patient, excluding procedure time. ED Disposition Clinical Impression: Abdominal pain Qualifiers: Abdominal location: right lower quadrant Qualified Code(s): R10.31 - Right lower quadrant pain Disposition: DC- TO HOME OR SELFCARE Is pt being admited?: No Condition: Stable Instructions: Abdominal Pain (ED) Prescriptions: Hyoscyamine Subl [Levsin Sl 0.125 TAB] 0.125 mg SL Q6HR PRN #20 tab PRN Reason: Pain, Moderate (4-6) Promethazine [Phenergan] 25 mg PO Q6HR PRN #20 tab PRN Reason: Nausea Acetaminophen/Codeine [Tylenol /Codeine # 3 tab] 1 tab PO Q4HR PRN #18 tablet PRN Reason: Pain Referrals: PRIMARY CARE, [Primary Care Provider] - 3-5 Days Time of Disposition: 18:25
[2018-09-08] MEDS ORDERED: ZOFRAN ODT PO ONE (13:46)
[2018-09-08] MEDS ORDERED: NORCO 5/325 PO ONE (13:46)
[2018-09-08 14:29] LABS: Bilirubin,Urine NEG (Negative); Blood,Urine NEG (Negative); Color,Urine Yellow (Yellow); Mucus,Urine 2+ /HPF; Protein,Urine <15 mg/dL mg/dL (Negative); Urobilinogen,Urine < 2.0 mg/dL (<2.0)
[2018-09-08 14:32] LABS: HCG Qualitative,Urine Negative (Negative)
[2018-09-08] MEDS ORDERED: LACTATED RINGERS 1,000 ML IV ONE (15:02)
[2018-09-08] MEDS ORDERED: DILAUDID IV ONE ×2 (15:02→17:51)
[2018-09-08] MEDS ORDERED: ZOFRAN IV ONE (15:03)
[2018-09-08 15:57] LABS: Hematocrit 37.8 % (30.3-42.9); Hemoglobin 13.5 gm/dl (10.1-14.3); Mean Corpuscular HGB Conc 36 % (30-34); Mean Corpuscular Volume 86 fl (79-97); Platelet Count 196 K/mm3 (140-440); Red Blood Count 4.38 M/mm3 (3.65-5.03); Red Cell Distribution Width 12.6 % (13.2-15.2)
[2018-09-08 16:12] LABS: Alanine Aminotransferase 8 units/L (7-56); Albumin 4.4 g/dL (3.9-5); BUN/Creatinine Ratio 10; Blood Urea Nitrogen 7 mg/dL (7-17); Calcium 9.3 mg/dL (8.4-10.2); Hemolysis Index 55
--- NOTE | 2018-09-08 16:57 | Ultrasound Report ---
PROCEDURE: US PELVIS DUPLEX DOPPLER COMP TECHNIQUE: HISTORY: R adnexal pain FINDINGS: Real-time ultrasound of the pelvis was performed by transabdominal technique. The uterus measures 7.8 x 3.2 x 4.9 cm. Endometrial stripe measures 0.8 cm which is within normal burns its. The right ovary measures 3.4 x 3.5 x 2.7 cm and the left ovary 2.3 x 3.7 x 2.8 cm. There is a left ov xavi cyst 2.0 x 2.3 x 2.0 cm. There is no evidence of ovarian torsion. IMPRESSION: Left ovarian simple appearing cyst No evidence of ovarian torsion This document is electronically signed by Keith Gross MD., Sep 08 2018 04:55:25 PM ET
[2018-09-08 17:43] LABS: Basophils % (Manual) 0 % (0.0-1.8); Total Cells Counted 100
[2018-09-08 17:45] LABS: Large Platelets 1+; RBC Morphology Normal
[2018-09-08 17:46] LABS: Platelet Estimate Consistent w Auto
[2018-09-08] MEDS ORDERED: ZOFRAN ONE (18:47)
== END 2018-09-08 18:59 | disposition home or self-care (01) ==
LOC: ED 12:21
DX: R10.31 Right lower quadrant pain (principal); J45.909 Unspecified asthma, uncomplicated; G43.909 Migraine, unspecified, not intractable, without status migrainosus; Z88.6 Allergy status to analgesic agent; Z88.7 Allergy status to serum and vaccine
CPT/HCPCS: 36415; 80053; 81001; 81025; 83690; 85007; 85025; 87086; 93975; 96361; 96374; 96375; 96376; 99284; J0696; J1170; J2405; J7120; Q0162

== ENCOUNTER 2018-09-12 23:16 | Emergency (ER) | payer SELFPAY ==
[2018-09-13 00:43] LABS: Eosinophils # (Auto) 0.1 K/mm3 (0.0-0.4); Eosinophils % (Auto) 1.9 % (0.0-4.3); Hematocrit 36.9 % (30.3-42.9); Hemoglobin 12.7 gm/dl (10.1-14.3); Lymphocytes # (Auto) 1.3 K/mm3 (1.2-5.4); Lymphocytes % (Auto) 26.6 % (13.4-35.0); Mean Corpuscular HGB Conc 35 % (30-34); Mean Corpuscular Volume 89 fl (79-97); Monocytes # (Auto) 0.5 K/mm3 (0.0-0.8); Monocytes % (Auto) 9.6 % (0.0-7.3); Platelet Count 235 K/mm3 (140-440); Red Blood Count 4.13 M/mm3 (3.65-5.03); Red Cell Distribution Width 13.2 % (13.2-15.2)
[2018-09-13 01:10] LABS: Alanine Aminotransferase 39 units/L (7-56); Albumin 4.1 g/dL (3.9-5); BUN/Creatinine Ratio 19; Blood Urea Nitrogen 13 mg/dL (7-17); Calcium 9.4 mg/dL (8.4-10.2); Hemolysis Index 10
[2018-09-13] MEDS ORDERED: ZOFRAN IV ONE (02:46)
[2018-09-13] MEDS ORDERED: SUBLIMAZE IV ONE ×3 (02:46→04:18)
[2018-09-13] MEDS ORDERED: NACL 0.9% 1000 ML 1,000 ML IV ONE (03:15)
--- NOTE | 2018-09-13 03:15 | Emergency Department Report ---
HPI - General Chief Complaint: Abdominal Pain Time Seen by Provider: 09/13/18 02:35 - HPI HPI: Room 26 The patient is a 27-year-old female presenting with a chief complaint right lower pelvic pain. The patient states she is pain her lower right pelvis for approximately 1.5 weeks. Patient admits to dysuria and nausea in addition to fever. The patient came to the ED initially when the pain began and had a CT scan of the abdomen performed which revealed a normal appendix and bilateral ovarian cysts. The patient was diagnosed with a UTI and started on antibiotics. The patient states she return to the emergency department 4 days ago for continued pain she had a pelvic ultrasound performed which did not reveal evidence of an ovarian torsion. The patient currently gets her pain score 10/10. Patient denies vaginal discharge Location: [See above] Duration: [See above] Quality: Pain Severity: [See above] Modifying factors: [see above] Context: [see above] Mode of transportation: [not driving] ED Past Medical Hx - Past Medical History Previous Medical History?: Yes Hx Headaches / Migraines: Yes Hx Seizures: Yes Hx Asthma: Yes Additional medical history: Von Willebrand blood disorder, 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, hypoglycemia - Surgical History Past Surgical History?: Yes Hx Cholecystectomy: Yes - Family History Family history: no significant - Social History Smoking Status: Never Smoker Substance Use Type: None (denies illicit drug use) - Medications Home Medications: Home Medications Medication Instructions Recorded Confirmed Last Taken Type Cyclobenzaprine [Flexeril] 10 mg PO TID PRN #15 tablet 09/03/18 Unknown Rx Ondansetron [Zofran Odt] 4 mg PO Q8HR #15 tab.rapdis 09/03/18 Unknown Rx Sulfamethoxazole/Trimethoprim 1 each PO BID #10 tablet 09/03/18 Unknown Rx [Bactrim DS TAB] Acetaminophen/Codeine [Tylenol 1 tab PO Q4HR PRN #18 tablet 09/08/18 Unknown Rx /Codeine # 3 tab] Hyoscyamine Subl [Levsin Sl 0.125 0.125 mg SL Q6HR PRN #20 tab 09/08/18 Unknown Rx TAB] Promethazine [Phenergan] 25 mg PO Q6HR PRN #20 tab 09/08/18 Unknown Rx Ciprofloxacin HCl [Ciprofloxacin 500 mg PO Q12HR #20 tab 05/26/19 Unknown Rx TAB] HYDROcodone/APAP 5-325 [[place] 1 - 2 each PO Q6HR PRN #10 tablet 09/13/18 Unknown Rx 5/325] Phenazopyridine [Pyridium] 200 mg PO TID #6 tab 09/13/18 Unknown Rx Promethazine [Phenergan] 25 mg PO Q6HR PRN #20 tab 09/13/18 Unknown Rx Promethazine [Phenergan] 25 mg [place] Q6HR PRN #5 supp.rect 09/13/18 Unknown Rx metroNIDAZOLE [Flagyl] 500 mg PO Q12HR #14 tab 09/13/18 Unknown Rx ED Review of Systems ROS: Stated complaint: FEVER,RT SIDE PAIN,DIARRHEA,NAUSEA Other details as noted in HPI Constitutional: fever Eyes: denies: eye pain ENT: denies: throat pain Respiratory: no symptoms reported Cardiovascular: denies: chest pain Endocrine: no symptoms reported Gastrointestinal: abdominal pain, nausea. denies: vomiting Genitourinary: dysuria. denies: discharge Musculoskeletal: back pain Neurological: denies: headache Physical Exam - Physical Exam Vital Signs: Vital Signs 09/12/18 09/12/18 09/13/18 23:19 23:52 03:04 Temperature 99.1 F 99.1 F Pulse Rate 93 H 92 H 77 Respiratory 18 18 15 Rate Blood Pressure 116/53 116/53 Blood Pressure 121/74 [Left] O2 Sat by Pulse 99 99 99 Oximetry Physical Exam: GENERAL: The patient is well-developed well-nourished female lying on stretcher not appearing to be in acute distress. [] HEENT: Normocephalic. Atraumatic. Extraocular motions are intact. Patient has moist mucous membranes. NECK: Supple. Trachea midline CHEST/LUNGS: Clear to auscultation. There is no respiratory distress noted. HEART/CARDIOVASCULAR: Regular. There is no tachycardia. There is no gallop rub or murmur. ABDOMEN: Abdomen is soft, mild discomfort to palpation right lower pelvis. Patient has normal bowel sounds. There is no abdominal distention. SKIN: There is no rash. There is no edema. There is no diaphoresis. NEURO: The patient is awake, alert, and oriented. The patient is cooperative. The patient has normal speech MUSCULOSKELETAL: There is no evidence of acute injury. Pelvic: Patient refused ED Course Vital Signs 09/12/18 09/12/1809/13/19 23:19 23:52 03:04 Temperature 99.1 F 99.1 F Pulse Rate 93 H 92 H 77 Respiratory 18 18 15 Rate Blood Pressure 116/53 116/53 Blood Pressure 121/74 [Left] O2 Sat by Pulse 99 99 99 Oximetry ED Medical Decision Making - Lab Data Result diagrams: 09/13/18 00:27 09/13/18 00:27 - Medical Decision Making Patient has had recent CT scan of the abdomen and pelvis which reveals a normal appendix as well as recent pelvic Doppler which does not reveal evidence of ovarian torsion. Patient states that she is refusing a pelvic exam. Also subsequently treated empirically for bacterial vaginosis given her pelvic pain. The patient will also be given a prescription for ciprofloxacin for her UTI. Patient strongly urged to follow-up with an [facility] for reevaluation - Differential Diagnosis ovarian cysts, UTI, bacterial vaginosis Critical care attestation.: If time is entered above; I have spent that time in minutes in the direct care of this critically ill patient, excluding procedure time. ED Disposition Clinical Impression: UTI (urinary tract infection), Abdominal pain, Dysuria Disposition: TO HOME OR SELFCARE Is pt being admited?: No Does the pt Need Aspirin: No Condition: Stable Instructions: Abdominal Pain (ED) Additional Instructions: Return to the emergency department immediately should you develop worsening symptoms, fever, inability to tolerate food or liquid or any other concerns. Prescriptions: Ciprofloxacin HCl [Ciprofloxacin TAB] 500 mg PO Q12HR #20 tab metroNIDAZOLE [Flagyl] 500 mg PO Q12HR #14 tab HYDROcodone/APAP 5-325 [[place] 5/325] 1 - 2 each PO Q6HR PRN #10 tablet PRN Reason: Pain Promethazine [Phenergan] 25 mg PO Q6HR PRN #20 tab PRN Reason: Nausea Promethazine [Phenergan] 25 mg NV Q6HR PRN #5 supp.rect PRN Reason: Vomiting Phenazopyridine [Pyridium] 200 mg PO TID #6 tab Referrals: NARDA SCHROEDER MD [Primary Care Provider] - 3-5 Days LYUBOV YATES MD [Staff Physician] - 3-5 Days [facility] [Provider Group] - 3-5 Days Time of Disposition: 04:30
[2018-09-13 03:30] LABS: Bilirubin,Urine NEG (Negative); Blood,Urine NEG (Negative); Color,Urine Yellow (Yellow); Mucus,Urine 3+ /HPF; Urobilinogen,Urine < 2.0 mg/dL (<2.0)
[2018-09-13] MEDS ORDERED: BENADRYL IV ONE ×2 (04:17→04:18)
[2018-09-13 04:28] VITALS: BP 125/71
== END 2018-09-13 04:45 | disposition home or self-care (01) ==
LOC: ED 23:16
DX: N39.0 Urinary tract infection, site not specified (principal)
CPT/HCPCS: 36415; 80053; 81001; 83690; 84703; 85025; 96361; 96374; 96375; 96376; 99283; J1200; J2405; J3010; J7030

== ENCOUNTER 2018-09-30 14:25 | Emergency (ER) | payer SELFPAY ==
--- NOTE | 2018-09-30 14:47 | Emergency Department Report ---
Blank Doc - Documentation Documentation: This is a 27-year-old female that presents with dysuria and diarrhea. Patient denies being sexual active, stated she is still a virgin. This initial assessment/diagnostic orders/clinical plan/treatment(s) is/are subject to change based on patient's health status, clinical progression and re- assessment by fellow clinical providers in the ED. Further treatment and workup at subsequent clinical providers discretion. Patient/guardians urged not to elope from the ED as their condition may be serious if not clinically assessed and managed. Initial orders include: 1- Patient sent to [facility] for further evaluation and treatment 2- UA
[2018-09-30 15:50] LABS: Bacteria,Urine 1+ /HPF (Negative); Bilirubin,Urine NEG (Negative); Blood,Urine NEG (Negative); Color,Urine Yellow (Yellow); Mucus,Urine 3+ /HPF; Protein,Urine <15 mg/dL mg/dL (Negative); Urobilinogen,Urine < 2.0 mg/dL (<2.0)
[2018-09-30] MEDS ORDERED: NACL 0.9% 1000 ML 1,000 ML IV ONE (17:53)
[2018-09-30] MEDS ORDERED: ZOFRAN IV ONE ×2 (17:53→19:28)
[2018-09-30] MEDS ORDERED: MORPHINE IV ONE (19:28)
--- NOTE | 2018-09-30 19:52 | Emergency Department Report ---
ED Female HPI - General Chief complaint: Urogenital-Female Stated complaint: RT SIDE PAIN/N/D CANT URINATE Time Seen by Provider: 09/30/18 14:45 Source: patient Mode of arrival: Ambulatory Limitations: No Limitations - History of Present Illness Initial comments: This is a 27-year-old female that presents with dysuria and diarrhea. No fever no chills no back pain nausea vomiting this is a recurrent problem for this patient however patient has not follow-up with urology Patient denies being sexual active, stated she is still a virgin. Patient is able to void has just given voided specimen to lab for ua. Complaint: dysuria Onset/Timin -: days(s) Radiation: R flank Severity: moderate Severity scale (0 -10): 4 Quality: aching Consistency: constant Improves with: none Worsens with: urination Are you Now?: No Associated Symptoms: dysuria. denies: vaginal discharge, vaginal bleeding, abdominal pain, nausea/vomiting, headaches, hematuria, rash, shortness of breath, weakness - Related Data Sexually active: No : 0 Para: 0 A: 0 Previous Rx's Medication Instructions Recorded Last Taken Type Cyclobenzaprine [Flexeril] 10 mg PO TID PRN #15 tablet 09/03/18 Unknown Rx Ondansetron [Zofran Odt] 4 mg PO Q8HR #15 tab.rapdis 09/03/18 Unknown Rx Sulfamethoxazole/Trimethoprim 1 each PO BID #10 tablet 09/03/18 Unknown Rx [Bactrim DS TAB] Acetaminophen/Codeine [Tylenol 1 tab PO Q4HR PRN #18 tablet 09/08/18 Unknown Rx /Codeine # 3 tab] Hyoscyamine Subl [Levsin Sl 0.125 0.125 mg SL Q6HR PRN #20 tab 09/08/18 Unknown Rx TAB] Promethazine [Phenergan] 25 mg PO Q6HR PRN #20 tab 09/08/18 Unknown Rx Ciprofloxacin HCl [Ciprofloxacin 500 mg PO Q12HR #20 tab 09/13/18 Unknown Rx TAB] HYDROcodone/APAP 5-325 [[place] 1 - 2 each PO Q6HR PRN #10 tablet 09/13/18 Unknown Rx 5/325] Phenazopyridine [Pyridium] 200 mg PO TID #6 tab 09/13/18 Unknown Rx Promethazine [Phenergan] 25 mg PO Q6HR PRN #20 tab 09/13/18 Unknown Rx Promethazine [Phenergan] 25 mg [place] Q6HR PRN #5 supp.rect 09/13/18 Unknown Rx metroNIDAZOLE [Flagyl] 500 mg PO Q12HR #14 tab 09/13/18 Unknown Rx Acetaminophen/Codeine [Tylenol 1 tab PO Q6H PRN #12 tab 09/30/18 Unknown Rx /Codeine # 3 tab] Ciprofloxacin HCl [Ciprofloxacin 500 mg PO BID 10 Days #20 tab 09/30/18 Unknown Rx TAB] Omeprazole 20 mg PO DAILY #30 capsule.dr 09/30/18 Unknown Rx metroNIDAZOLE [Flagyl] 500 mg PO BID 10 Days #20 tab 09/30/18 Unknown Rx Allergies Allergy/AdvReac Type Severity Reaction Status Date / Time aspirin Allergy Hives Verified 09/08/18 12:23 metoclopramide [From Reglan] Allergy Unknown Verified 09/08/18 12:23 NSAIDS (Non-Steroidal Allergy Hives Verified 09/08/18 12:23 Anti-Inflamma ED Review of Systems ROS: Stated complaint: RT SIDE PAIN/N/D CANT URINATE Other details as noted in HPI Constitutional: denies: chills, fever Eyes: denies: eye pain, eye discharge, vision change ENT: denies: ear pain, throat pain Respiratory: denies: cough, shortness of breath, wheezing Cardiovascular: denies: chest pain, palpitations Endocrine: no symptoms reported Gastrointestinal: abdominal pain (right flank pain ). denies: nausea, vomiting, diarrhea Genitourinary: dysuria, frequency. denies: hematuria, discharge Musculoskeletal: denies: back pain, joint swelling, arthralgia Skin: denies: rash, lesions Neurological: denies: headache, weakness, paresthesias Psychiatric: denies: anxiety, depression Hematological/Lymphatic: denies: easy bleeding, easy bruising ED Past Medical Hx - Past Medical History Previous Medical History?: Yes Hx Hypertension: No Hx CVA: No Hx Heart Attack/AMI: No Hx Congestive Heart Failure: No Hx Diabetes: No Hx Deep Vein Thrombosis: No Hx Pulmonary Embolism: No Hx GERD: No Hx Liver Disease: No Hx Renal Disease: No Hx Sickle Cell Disease: No Hx Arthritis: No Hx Headaches / Migraines: Yes Hx Seizures: Yes Hx Kidney Stones: No Hx Psychiatric Treatment: No Hx Asthma: Yes Hx COPD: No Hx Tuberculosis: No Hx Dementia: No Hx HIV: No Additional medical history: Von Willebrand blood disorder, 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, hypoglycemia - Surgical History Past Surgical History?: Yes Hx Coronary Stent: No Hx Open Heart Surgery: No Hx Pacemaker: No Hx Internal Defibrillator: No Hx Cholecystectomy: Yes Hx Appendectomy: No Hx Breast Surgery: No - Social History Smoking Status: Never Smoker Substance Use Type: None - Medications Home Medications: Home Medications Medication Instructions Recorded Confirmed Last Taken Type Cyclobenzaprine [Flexeril] 10 mg PO TID PRN #15 tablet 09/03/18 Unknown Rx Ondansetron [Zofran Odt] 4 mg PO Q8HR #15 tab.rapdis 09/03/18 Unknown Rx Sulfamethoxazole/Trimethoprim 1 each PO BID #10 tablet 09/03/18 Unknown Rx [Bactrim DS TAB] Acetaminophen/Codeine [Tylenol 1 tab PO Q4HR PRN #18 tablet 09/08/18 Unknown Rx /Codeine # 3 tab] Hyoscyamine Subl [Levsin Sl 0.125 0.125 mg SL Q6HR PRN #20 tab 09/08/18 Unknown Rx TAB] Promethazine [Phenergan] 25 mg PO Q6HR PRN #20 tab 09/08/18 Unknown Rx Ciprofloxacin HCl [Ciprofloxacin 500 mg PO Q12HR #20 tab 09/13/18 Unknown Rx TAB] HYDROcodone/APAP 5-325 [[place] 1 - 2 each PO Q6HR PRN #10 tablet 09/13/18 Unknown Rx 5/325] Phenazopyridine [Pyridium] 200 mg PO TID #6 tab 09/13/18 Unknown Rx Promethazine [Phenergan] 25 mg PO Q6HR PRN #20 tab 09/13/18 Unknown Rx Promethazine [Phenergan] 25 mg [place] Q6HR PRN #5 supp.rect 09/13/18 Unknown Rx metroNIDAZOLE [Flagyl] 500 mg PO Q12HR #14 tab 09/13/18 Unknown Rx Acetaminophen/Codeine [Tylenol 1 tab PO Q6H PRN #12 tab 09/30/18 Unknown Rx /Codeine # 3 tab] Ciprofloxacin HCl [Ciprofloxacin 500 mg PO BID 10 Days #20 tab 09/30/18 Unknown Rx TAB] Omeprazole 20 mg PO DAILY #30 capsule. 09/30/18 Unknown Rx metroNIDAZOLE [Flagyl] 500 mg PO BID 10 Days #20 tab 09/30/18 Unknown Rx ED Physical Exam - General Limitations: No Limitations General appearance: alert, in no apparent distress - Head Head exam: Present: atraumatic, normocephalic - Eye Eye exam: Present: normal appearance, PERRL, EOMI Pupils: Present: normal accommodation - ENT ENT exam: Present: mucous membranes moist - Neck Neck exam: Present: normal inspection, full ROM. Absent: tenderness, lymphadenopathy - Respiratory Respiratory exam: Present: normal lung sounds bilaterally. Absent: respiratory distress, wheezes, stridor, chest wall tenderness - Cardiovascular Cardiovascular Exam: Present: regular rate, normal rhythm, normal heart sounds - GI/Abdominal GI/Abdominal exam: Present: soft, tenderness (superpubic ), normal bowel sounds. Absent: distended, guarding, rebound, rigid, bruit, hernia - Rectal Rectal exam: Present: deferred - External exam: Present: other (pt defers) - Extremities Exam Extremities exam: Present: normal inspection - Back Exam Back exam: Present: normal inspection, full ROM, CVA tenderness (R). Absent: tenderness, CVA tenderness (L), muscle spasm, paraspinal tenderness, vertebral tenderness, rash noted - Neurological Exam Neurological exam: Present: alert, oriented X3, CN II-XII intact, reflexes normal. Absent: normal gait - Psychiatric Psychiatric exam: Present: normal affect, normal mood - Skin Skin exam: Present: warm, dry, intact, normal color. Absent: rash ED Course Vital Signs 09/30/18 09/30/18 09/30/18 14:45 19:45 20:59 Temperature 99 F 97.6 F Pulse Rate 102 H 79 Respiratory 18 17 16 Rate Blood Pressure 125/69 Blood Pressure 103/67 [Left] O2 Sat by Pulse 98 98 Oximetry ED Medical Decision Making - Lab Data Result diagrams: 09/30/18 20:36 09/30/18 20:36 Lab Results 09/30/18 09/30/18 09/30/18 Range/Units 15:13 20:36 20:36 WBC 6.4 (4.5-11.0) K/mm3 RBC 4.43 (3.65-5.03) M/mm3 Hgb 13.6 (10.1-14.3) gm/dl Hct 39.3 (30.3-42.9) % MCV 89 (79-97) fl MCH 31 (28-32) pg MCHC 35 H (30-34) % RDW 13.4 (13.2-15.2) % Plt Count 209 (140-440) K/mm3 Lymph % (Auto) 16.8 (13.4-35.0) % [place] % (Auto) 5.6 (0.0-7.3) % Eos % (Auto) 0.2 (0.0-4.3) % Baso % (Auto) 0.4 (0.0-1.8) % Lymph # 1.1 L (1.2-5.4) K/mm3 [place] # 0.4 (0.0-0.8) K/mm3 Eos # 0.0 (0.0-0.4) K/mm3 Baso # 0.0 (0.0-0.1) K/mm3 Seg Neutrophils % 77.0 H (40.0-70.0) % Seg Neutrophils # 4.9 (1.8-7.7) K/mm3 Sodium 140 (137-145) mmol/L Potassium 4.2 (3.6-5.0) mmol/L Chloride 103.1 (98-107) mmol/L Carbon Dioxide 25 (22-30) mmol/L Anion Gap 16 mmol/L BUN 9 (7-17) mg/dL Creatinine 0.6 L (0.7-1.2) mg/dL Estimated GFR > 60 ml/min BUN/Creatinine Ratio 15 % Glucose 79 (65-100) mg/dL Calcium 9.6 (8.4-10.2) mg/dL Total Bilirubin 0.70 (0.1-1.2) mg/dL AST 19 (5-40) units/L ALT 16 (7-56) units/L Alkaline Phosphatase 72 (35-129) units/L Total Protein 7.7 (6.3-8.2) g/dL Albumin 4.2 (3.9-5) g/dL Albumin/Globulin Ratio 1.2 % Lipase 50 (13-60) units/L HCG, Qual (Negative) Urine Color Yellow (Yellow) Urine Turbidity Cloudy (Clear) Urine pH 5.0 (5.0-7.0) Ur Specific [place] 1.029 (1.003-1.030) Urine Protein <15 mg/dl (Negative) mg/dL Urine Glucose (UA) Neg (Negative) mg/dL Urine Ketones Neg (Negative) mg/dL Urine Blood Neg (Negative) Urine Nitrite Neg (Negative) Urine Bilirubin Neg (Negative) Urine Urobilinogen < 2.0 (<2.0) mg/dL Ur Leukocyte Esterase Sm (Negative) Urine WBC (Auto) 19.0 H (0.0-6.0) /HPF Urine RBC (Auto) 4.0 (0.0-6.0) /HPF U Epithel Cells (Auto) 49.0 H (0-13.0) /HPF Urine Bacteria (Auto) 1+ (Negative) /HPF Urine Mucus 3+ /HPF 09/30/18 Range/Units 20:36 WBC (4.5-11.0) K/mm3 RBC (3.65-5.03) M/mm3 Hgb (10.1-14.3) gm/dl Hct (30.3-42.9) % MCV (79-97) fl MCH (28-32) pg MCHC (30-34) % RDW (13.2-15.2) % Plt Count (140-440) K/mm3 Lymph % (Auto) (13.4-35.0) % [place] % (Auto) (0.0-7.3) % Eos % (Auto) (0.0-4.3) % Baso % (Auto) (0.0-1.8) % Lymph # (1.2-5.4) K/mm3 [place] # (0.0-0.8) K/mm3 Eos # (0.0-0.4) K/mm3 Baso # (0.0-0.1) K/mm3 Seg Neutrophils % (40.0-70.0) % Seg Neutrophils # (1.8-7.7) K/mm3 Sodium (137-145) mmol/L Potassium (3.6-5.0) mmol/L Chloride (98-107) mmol/L Carbon Dioxide (22-30) mmol/L Anion Gap mmol/L BUN (7-17) mg/dL Creatinine (0.7-1.2) mg/dL Estimated GFR ml/min BUN/Creatinine Ratio % Glucose (65-100) mg/dL Calcium (8.4-10.2) mg/dL Total Bilirubin (0.1-1.2) mg/dL AST (5-40) units/L ALT (7-56) units/L Alkaline Phosphatase (35-129) units/L Total Protein (6.3-8.2) g/dL Albumin (3.9-5) g/dL Albumin/Globulin Ratio % Lipase (13-60) units/L HCG, Qual Negative (Negative) Urine Color (Yellow) Urine Turbidity (Clear) Urine pH (5.0-7.0) Ur Specific [place] (1.003-1.030) Urine Protein (Negative) mg/dL Urine Glucose (UA) (Negative) mg/dL Urine Ketones (Negative) mg/dL Urine Blood (Negative) Urine Nitrite (Negative) Urine Bilirubin (Negative) Urine Urobilinogen (<2.0) mg/dL Ur Leukocyte Esterase (Negative) Urine WBC (Auto) (0.0-6.0) /HPF Urine RBC (Auto) (0.0-6.0) /HPF U Epithel Cells (Auto) (0-13.0) /HPF Urine Bacteria (Auto) (Negative) /HPF Urine Mucus /HPF - Radiology Data Radiology results: report reviewed, image reviewed Ordering Physician: YAJAIRA FOWLER NP Date of Service: 09/30/18 Procedure(s): CT abdomen pelvis [facility] Accession Number(s): [id number] cc: YAJAIRA FOWLER NP PROCEDURE: CT ABDOMEN PELVIS CON HISTORY: abd pain FINDINGS: Unenhanced CT of the abdomen and pelvis was performed. The heart is normal in size. There is right middle lobe and lingular linear ate lectasis. ABDOMEN: No suspect focal hepatic lesion is seen. The spleen is normal in size at 9.7 cm. The adrenal glands are within normal limits. No focal pancreatic lesion is seen. There has been a cholecystectomy. There is a punctate right nonobstructing renal calculus coronal image 69. No ureteral calculus or hydronephrosis is seen. There is no small or large bowel obstruction. There is colonic wall thickening which could represent underdistention or mild colitis. Pelvis: There is a normal appendix. There is no evidence of diverticulitis. There is a left ovarian cyst, 2.0 cm. The urinary bladder is within normal limits. There is no free air. There are bilateral pars defects of L5 without anterolisthesis. IMPRESSION: ABDOMEN: Mild colonic wall thickening, underdistention versus mild colitis Pelvis: Left ovarian cyst This document is electronically signed by Keith Gross MD., September 30 2018 07:50:46 PM ET Transcribed By: OLMAN Dictated By: KEITH GROSS MD Electronically Authenticated By: KEITH GROSS MD Signed Date/Time: 09/30/181951 DD/ 35 TD/TT: 09/30/181935 - Medical Decision Making CT Abd Pelvis: Left Ovarian Cyst, no small or large bowel obstruction normal appendix no gallbadder no mass no bleed mild colon wall thickening, UA: pos leuk, and wbc, pt given rocephin 1 gm iv in ed, plan dc to home with rx for flagyl and cipro. tylenol #3, and bentyl pt will follow up with GI and [facility] in 2- 3 days given referral to [facility] pt pain is improved pt dc'd to home in stable condition at this time. Critical care attestation.: If time is entered above; I have spent that time in minutes in the direct care of this critically ill patient, excluding procedure time. ED Disposition Clinical Impression: Dysuria Abdominal pain Qualifiers: Abdominal location: right lower quadrant Qualified Code(s): R10.31 - Right lower quadrant pain UTI (urinary tract infection) Qualifiers: Urinary tract infection type: acute cystitis Hematuria presence: without hematuria Qualified Code(s): N30.00 - Acute cystitis without hematuria Disposition: DC-01 TO HOME OR SELFCARE Is pt being admited?: No Does the pt Need Aspirin: No Condition: Stable Instructions: Urinary Tract Infection in Women (ED), Ovarian Cyst (ED), Abdominal Pain (ED), Diet for Ulcers and Gastritis (ED) Prescriptions: Ciprofloxacin HCl [Ciprofloxacin TAB] 500 mg PO BID 10 Days #20 tab metroNIDAZOLE [Flagyl] 500 mg PO BID 10 Days #20 tab Omeprazole 20 mg PO DAILY #30 capsule. Acetaminophen/Codeine [Tylenol /Codeine # 3 tab] 1 tab PO Q6H PRN #12 tab PRN Reason: Pain , Severe (7-10) Referrals: [facility] [Outside] - 3-5 Days LYUBOV YATES MD [Staff Physician] - 3-5 Days [facility] [Provider Group] - 3-5 Days Forms: Work/School Release Form(ED) Time of Disposition: 21:53
[2018-09-30] MEDS ORDERED: BENADRYL PO ONE (20:11)
[2018-09-30] MEDS ORDERED: ROCEPHIN/NS 1 GM/50 ML 1 GM/50 ML BAG IV ONE (20:11)
[2018-09-30] MEDS ORDERED: NORCO 5/325 PO ONE (20:11)
[2018-09-30 21:00] VITALS: BP 103/67
[2018-09-30 21:10] LABS: Basophils % (Auto) 0.4 % (0.0-1.8); Eosinophils % (Auto) 0.2 % (0.0-4.3); Hematocrit 39.3 % (30.3-42.9); Hemoglobin 13.6 gm/dl (10.1-14.3); Lymphocytes # (Auto) 1.1 K/mm3 (1.2-5.4); Lymphocytes % (Auto) 16.8 % (13.4-35.0); Mean Corpuscular HGB Conc 35 % (30-34); Mean Corpuscular Volume 89 fl (79-97); Monocytes # (Auto) 0.4 K/mm3 (0.0-0.8); Monocytes % (Auto) 5.6 % (0.0-7.3); Platelet Count 209 K/mm3 (140-440); Red Blood Count 4.43 M/mm3 (3.65-5.03); Red Cell Distribution Width 13.4 % (13.2-15.2)
[2018-09-30 21:33] LABS: Alanine Aminotransferase 16 units/L (7-56); Albumin 4.2 g/dL (3.9-5); BUN/Creatinine Ratio 15; Blood Urea Nitrogen 9 mg/dL (7-17); Calcium 9.6 mg/dL (8.4-10.2); Hemolysis Index 8
== END 2018-09-30 22:10 | disposition home or self-care (01) ==
LOC: ED 14:25
DX: N39.0 Urinary tract infection, site not specified (principal); G43.909 Migraine, unspecified, not intractable, without status migrainosus; J45.909 Unspecified asthma, uncomplicated; Z88.6 Allergy status to analgesic agent; Z88.7 Allergy status to serum and vaccine; Z88.8 Allergy status to other drugs, medicaments and biological substances; Z90.49 Acquired absence of other specified parts of digestive tract
CPT/HCPCS: 36415; 74176; 80053; 81001; 83690; 84703; 85025; 87086; 96361; 96374; 96375; 96376; 99284; J0696; J2270; J2405; J7030

== ENCOUNTER 2018-10-04 14:15 | Emergency (ER) | payer SELFPAY ==
[2018-10-04 14:35] VITALS: BP 109/65
--- NOTE | 2018-10-04 15:46 | Event Note ---
ED Screening Note Date of service: 10/04/18 Time: 15:42 ED Screening Note: 27 y/o female complains of abdominal pain. Pain has gotten worst. Was told last week she had a cyst on ovary. Now having diarrhea located lower right quadrant. Patient seen last week for abdominal pain. This initial assessment/diagnostic orders/clinical plan/treatment(s) is/are subject to change based on patients health status, clinical progression and re- assessment by fellow clinical providers in the ED. Further treatment and workup at subsequent clinical providers discretion. Patient/guardian urged not to elope from the ED as their condition may be serious if not clinically assessed and managed. Initial orders include:
[2018-10-04 16:09] LABS: Basophils % (Auto) 0.4 % (0.0-1.8); Eosinophils % (Auto) 0.1 % (0.0-4.3); Hematocrit 40.3 % (30.3-42.9); Lymphocytes # (Auto) 1.2 K/mm3 (1.2-5.4); Lymphocytes % (Auto) 16.9 % (13.4-35.0); Mean Corpuscular HGB Conc 35 % (30-34); Mean Corpuscular Volume 88 fl (79-97); Monocytes # (Auto) 0.8 K/mm3 (0.0-0.8); Monocytes % (Auto) 10.5 % (0.0-7.3); Platelet Count 246 K/mm3 (140-440); Red Blood Count 4.59 M/mm3 (3.65-5.03); Red Cell Distribution Width 13.4 % (13.2-15.2)
[2018-10-04 16:22] LABS: Alanine Aminotransferase 21 units/L (7-56); Albumin 4.7 g/dL (3.9-5); BUN/Creatinine Ratio 17; Blood Urea Nitrogen 10 mg/dL (7-17); Calcium 10.1 mg/dL (8.4-10.2); Hemolysis Index 20
[2018-10-04] MEDS ORDERED: MORPHINE IV ONE (17:35)
[2018-10-04] MEDS ORDERED: ZOFRAN IV ONE (17:35)
[2018-10-04] MEDS ORDERED: NACL 0.9% 1000 ML 1,000 ML IV ONE (17:35)
--- NOTE | 2018-10-04 17:37 | Emergency Department Report ---
ED Female HPI - General Chief complaint: Abdominal Pain Stated complaint: RT SIDE PAIN/DIARRHEA/NOT EATING Time Seen by Provider: 10/04/18 17:21 Source: patient Mode of arrival: Ambulatory Limitations: No Limitations - History of Present Illness Initial comments: This is a 27-year-old female that presents with lower abdominal pain, dysuria and diarrhea. She denies fever ,chills, back pain nausea ,vomiting. She has a history of ovarian cyst and kidney stone from previous visits. He describes pain as intermittent, throbbing, aching pain. This is a recurrent problem for this patient however patient has not follow-up and able to follow up with Dr. Castaneda [employer]. She states that she has an appointment with Dr. Michaud on Friday. Patient denies being sexual active. - Related Data Previous Rx's Medication Instructions Recorded Last Taken Type Cyclobenzaprine [Flexeril] 10 mg PO TID PRN #15 tablet 09/03/18 Unknown Rx Ondansetron [Zofran Odt] 4 mg PO Q8HR #15 tab.rapdis 09/03/18 Unknown Rx Sulfamethoxazole/Trimethoprim 1 each PO BID #10 tablet 09/03/18 Unknown Rx [Bactrim DS TAB] Acetaminophen/Codeine [Tylenol 1 tab PO Q4HR PRN #18 tablet 09/08/18 Unknown Rx /Codeine # 3 tab] Hyoscyamine Subl [Levsin Sl 0.125 0.125 mg SL Q6HR PRN #20 tab 09/08/18 Unknown Rx TAB] Promethazine [Phenergan] 25 mg PO Q6HR PRN #20 tab 09/08/18 Unknown Rx Ciprofloxacin HCl [Ciprofloxacin 500 mg PO Q12HR #20 tab 09/13/18 Unknown Rx TAB] HYDROcodone/APAP 5-325 [[place] 1 - 2 each PO Q6HR PRN #10 tablet 09/13/18 Unknown Rx 5/325] Phenazopyridine [Pyridium] 200 mg PO TID #6 tab 09/13/18 Unknown Rx Promethazine [Phenergan] 25 mg PO Q6HR PRN #20 tab 09/13/18 Unknown Rx Promethazine [Phenergan] 25 mg [place] Q6HR PRN #5 supp.rect 09/13/18 Unknown Rx metroNIDAZOLE [Flagyl] 500 mg PO Q12HR #14 tab 09/13/18 Unknown Rx Acetaminophen/Codeine [Tylenol 1 tab PO Q6H PRN #12 tab 09/30/18 Unknown Rx /Codeine # 3 tab] Ciprofloxacin HCl [Ciprofloxacin 500 mg PO BID 10 Days #20 tab 09/30/18 Unknown Rx TAB] Omeprazole 20 mg PO DAILY #30 capsule. 09/30/18 Unknown Rx metroNIDAZOLE [Flagyl] 500 mg PO BID 10 Days #20 tab 09/30/18 Unknown Rx Ondansetron (Nf) [Zofran TAB] 8 mg PO Q8HR PRN #20 tablet 10/04/18 Unknown Rx traMADol [Ultram 50 MG tab] 50 mg PO Q6HR PRN #20 tablet 10/04/18 Unknown Rx Allergies Allergy/AdvReac Type Severity Reaction Status Date / Time aspirin Allergy Hives Verified 09/08/18 12:23 dicyclomine [From Bentyl] Allergy Unknown Verified 10/04/18 15:42 metoclopramide [From Reglan] Allergy Unknown Verified 09/08/18 12:23 NSAIDS (Non-Steroidal Allergy Hives Verified 09/08/18 12:23 Anti-Inflamma ED Review of Systems ROS: Stated complaint: RT SIDE PAIN/DIARRHEA/NOT EATING Other details as noted in HPI Comment: All other systems reviewed and negative ED Past Medical Hx - Past Medical History Hx Hypertension: No Hx CVA: No Hx Heart Attack/AMI: No Hx Congestive Heart Failure: No Hx Diabetes: No Hx Deep Vein Thrombosis: No Hx Pulmonary Embolism: No Hx GERD: No Hx Liver Disease: No Hx Renal Disease: No Hx Sickle Cell Disease: No Hx Arthritis: No Hx Headaches / Migraines: Yes Hx Seizures: Yes Hx Kidney Stones: No Hx Psychiatric Treatment: No Hx Asthma: Yes Hx COPD: No Hx Tuberculosis: No Hx Dementia: No Hx HIV: No Additional medical history: Von Willebrand blood disorder, 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, hypoglycemia - Surgical History Hx Coronary Stent: No Hx Open Heart Surgery: No Hx Pacemaker: No Hx Internal Defibrillator: No Hx Cholecystectomy: Yes Hx Appendectomy: No Hx Breast Surgery: No - Social History Smoking Status: Never Smoker Substance Use Type: None - Medications Home Medications: Home Medications Medication Instructions Recorded Confirmed Last Taken Type Cyclobenzaprine [Flexeril] 10 mg PO TID PRN #15 tablet 09/03/18 Unknown Rx Ondansetron [Zofran Odt] 4 mg PO Q8HR #15 tab.rapdis 09/03/18 Unknown Rx Sulfamethoxazole/Trimethoprim 1 each PO BID #10 tablet 09/03/18 Unknown Rx [Bactrim DS TAB] Acetaminophen/Codeine [Tylenol 1 tab PO Q4HR PRN #18 tablet 09/08/18 Unknown Rx /Codeine # 3 tab] Hyoscyamine Subl [Levsin Sl 0.125 0.125 mg SL Q6HR PRN #20 tab 09/08/18 Unknown Rx TAB] Promethazine [Phenergan] 25 mg PO Q6HR PRN #20 tab 09/08/18 Unknown Rx Ciprofloxacin HCl [Ciprofloxacin 500 mg PO Q12HR #20 tab 09/13/18 Unknown Rx TAB] HYDROcodone/APAP 5-325 [[place] 1 - 2 each PO Q6HR PRN #10 tablet 09/13/18 Unknown Rx 5/325] Phenazopyridine [Pyridium] 200 mg PO TID #6 tab 09/13/18 Unknown Rx Promethazine [Phenergan] 25 mg PO Q6HR PRN #20 tab 09/13/18 Unknown Rx Promethazine [Phenergan] 25 mg [place] Q6HR PRN #5 supp.rect 09/13/18 Unknown Rx metroNIDAZOLE [Flagyl] 500 mg PO Q12HR #14 tab 09/13/18 Unknown Rx Acetaminophen/Codeine [Tylenol 1 tab PO Q6H PRN #12 tab 09/30/18 Unknown Rx /Codeine # 3 tab] Ciprofloxacin HCl [Ciprofloxacin 500 mg PO BID 10 Days #20 tab 09/30/18 Unknown Rx TAB] Omeprazole 20 mg PO DAILY #30 capsule.dr 09/30/18 Unknown Rx metroNIDAZOLE [Flagyl] 500 mg PO BID 10 Days #20 tab 09/30/18 Unknown Rx Ondansetron (Nf) [Zofran TAB] 8 mg PO Q8HR PRN #20 tablet 10/04/18 Unknown Rx traMADol [Ultram 50 MG tab] 50 mg PO Q6HR PRN #20 tablet 10/04/18 Unknown Rx ED Physical Exam - General Limitations: No Limitations General appearance: alert, in no apparent distress - Head Head exam: Present: atraumatic, normocephalic - Eye Eye exam: Present: normal appearance - ENT ENT exam: Present: mucous membranes moist - Neck Neck exam: Present: normal inspection - Respiratory Respiratory exam: Present: normal lung sounds bilaterally. Absent: respiratory distress - Cardiovascular Cardiovascular Exam: Present: regular rate, normal rhythm. Absent: systolic murmur, diastolic murmur, rubs, gallop - GI/Abdominal GI/Abdominal exam: Present: soft, normal bowel sounds. Absent: distended, tenderness, guarding, rebound, mass, bruit - Extremities Exam Extremities exam: Present: normal inspection - Back Exam Back exam: Present: normal inspection - Neurological Exam Neurological exam: Present: alert, oriented X3 - Psychiatric Psychiatric exam: Present: normal affect, normal mood - Skin Skin exam: Present: warm, dry, intact, normal color. Absent: rash ED Course Vital Signs 10/04/18 10/04/18 14:32 15:42 Temperature 98.1 F 98.1 F Pulse Rate 75 94 H Respiratory 18 18 Rate Blood Pressure 109/65 Blood Pressure 109/65 [Right] O2 Sat by Pulse 100 98 Oximetry ED Medical Decision Making - Lab Data Result diagrams: 10/04/18 15:56 10/04/18 15:56 Laboratory Last Values WBC 7.3 K/mm3 (4.5-11.0) 10/04/18 15:56 RBC 4.59 M/mm3 (3.65-5.03) 10/04/18 15:56 Hgb 14.0 gm/dl (10.1-14.3) 10/04/18 15:56 Hct 40.3 % (30.3-42.9) 10/04/18 15:56 MCV 88 fl (79-97) 10/04/18 15:56 MCH 31 pg (28-32) 10/04/18 15:56 MCHC 35 % (30-34) H 10/04/18 15:56 RDW 13.4 % (13.2-15.2) 10/04/18 15:56 Plt Count 246 K/mm3 (140-440) 10/04/18 15:56 Lymph % (Auto) 16.9 % (13.4-35.0) 10/04/18 15:56 [place] % (Auto) 10.5 % (0.0-7.3) H 10/04/18 15:56 Eos % (Auto) 0.1 % (0.0-4.3) 10/04/18 15:56 Baso % (Auto) 0.4 % (0.0-1.8) 10/04/18 15:56 Lymph # 1.2 K/mm3 (1.2-5.4) 10/04/18 15:56 [place] # 0.8 K/mm3 (0.0-0.8) 10/04/18 15:56 Eos # 0.0 K/mm3 (0.0-0.4) 10/04/18 15:56 Baso # 0.0 K/mm3 (0.0-0.1) 10/04/18 15:56 Seg Neutrophils % 72.1 % (40.0-70.0) H 10/04/18 15:56 Seg Neutrophils # 5.2 K/mm3 (1.8-7.7) 10/04/18 15:56 Sodium 139 mmol/L (137-145) 10/04/18 15:56 Potassium 3.7 mmol/L (3.6-5.0) 10/04/18 15:56 Chloride 102.8 mmol/L (98-107) 10/04/18 15:56 Carbon Dioxide 23 mmol/L (22-30) 10/04/18 15:56 17 mmol/L 10/04/18 15:56 BUN 10 mg/dL (7-17) 10/04/18 15:56 0.6 mg/dL (0.7-1.2) L 10/04/18 15:56 Estimated GFR > 60 ml/min 10/04/18 15:56 17 % 10/04/18 15:56 Glucose 87 mg/dL (65-100) 10/04/18 15:56 Calcium 10.1 mg/dL (8.4-10.2) 10/04/18 15:56 0.70 mg/dL (0.1-1.2) 10/04/18 15:56 AST 18 units/L (5-40) 10/04/18 15:56 ALT 21 units/L (7-56) 10/04/18 15:56 77 units/L (35-129) 10/04/18 15:56 8.2 g/dL (6.3-8.2) 10/04/18 15:56 4.7 g/dL (3.9-5) 10/04/18 15:56 1.3 % 10/04/18 15:56 Yellow (Yellow) 10/04/18 18:25 Cloudy (Clear) 10/04/18 18:25 5.0 (5.0-7.0) 10/04/18 18:25 Ur Specific [place] 1.029 (1.003-1.030) 10/04/18 18:25 30 mg/dl mg/dL (Negative) 10/04/18 18:25 Neg mg/dL (Negative) 10/04/18 18:25 80 mg/dL (Negative) 10/04/18 18:25 Sm (Negative) 10/04/18 18:25 Neg (Negative) 10/04/18 18:25 Neg (Negative) 10/04/18 18:25 < 2.0 mg/dL (<2.0) 10/04/18 18:25 Ur Leukocyte Esterase Lg (Negative) 10/04/18 18:25 55.0 /HPF (0.0-6.0) H 10/04/18 18:25 11.0 /HPF (0.0-6.0) 10/04/18 18:25 U Epithel Cells (Auto) 21.0 /HPF (0-13.0) H 10/04/18 18:25 3+ /HPF 10/04/18 18:25 1+ /HPF 10/04/18 18:25 - Medical Decision Making 27-year-old female presents with a chronic pain due to ovarian cyst/UTI All labs within normal limits in the ED, urinalysis positive for WBC, sign of esterase, Patient received IV normal saline, morphine and Zofran, Rocephin and Toradol in the ED. Patient pain was more tolerable to medication. This patient to follow-up with Dr. Michaud on Friday. Vital signs are normal. Patient is in no acute distress. Patient is feeling moderately better prior to discharge. - Differential Diagnosis endometriosis, UTI, ovarian cyst, irritable bowel syndrome Critical care attestation.: If time is entered above; I have spent that time in minutes in the direct care of this critically ill patient, excluding procedure time. ED Disposition Clinical Impression: Abdominal pain, Chronic pelvic pain in female, UTI (urinary tract infection) Disposition: TO HOME OR SELFCARE Is pt being admited?: No Does the pt Need Aspirin: No Condition: Stable Instructions: Endometriosis (ED), Ovarian Cyst (ED), Abdominal Pain (ED) Additional Instructions: Make sure to follow up with the primary care physician as discussed. Take all your medications as you've been prescribed. If you have any worsening symptoms or develop new symptoms please return to ED immediately. Prescriptions: traMADol [Ultram 50 MG tab] 50 mg PO Q6HR PRN #20 tablet PRN Reason: Pain Ondansetron (Nf) [Zofran TAB] 8 mg PO Q8HR PRN #20 tablet PRN Reason: Nausea Referrals: [facility] [Outside] - 3-5 Days [facility] [Outside] - 3-5 Days [facility] NARDA GHOSH MD [Primary Care Provider] - 3-5 Days LYUBOV MICHAUD MD [Staff Physician] - 3-5 Days Forms: Accompanied Note, Work/School Release Form(ED) Time of Disposition: 20:37
[2018-10-04 18:59] LABS: Bilirubin,Urine NEG (Negative); Blood,Urine SM (Negative); Color,Urine Yellow (Yellow); Mucus,Urine 3+ /HPF; Urobilinogen,Urine < 2.0 mg/dL (<2.0)
[2018-10-04] MEDS ORDERED: ROCEPHIN IV ONE (19:50)
[2018-10-04] MEDS ORDERED: TORADOL IV ONE (19:51)
[2018-10-04] MEDS ORDERED: BENADRYL IV ONE ×2 (19:51→20:41)
[2018-10-04] MEDS ORDERED: ROCEPHIN 250 MG in NACL 0.9% 50 ML IM ONE (21:00)
== END 2018-10-04 22:31 | disposition home or self-care (01) ==
LOC: ED 14:15
DX: N39.0 Urinary tract infection, site not specified (principal); G43.909 Migraine, unspecified, not intractable, without status migrainosus; J45.909 Unspecified asthma, uncomplicated; Z88.6 Allergy status to analgesic agent; Z88.1 Allergy status to other antibiotic agents; Z88.8 Allergy status to other drugs, medicaments and biological substances
CPT/HCPCS: 36415; 80053; 81001; 85025; 87086; 96361; 96365; 96375; 99283; J0696; J1200; J1885; J2270; J2405; J7030

== ENCOUNTER 2018-10-27 01:18 | Emergency (ER) | payer OTHER ==
[2018-10-27 01:26] VITALS: BP 115/69
[2018-10-27 02:01] LABS: Basophils % (Auto) 0.4 % (0.0-1.8); Eosinophils % (Auto) 0.4 % (0.0-4.3); Hematocrit 37.5 % (30.3-42.9); Hemoglobin 12.7 gm/dl (10.1-14.3); Lymphocytes # (Auto) 1.3 K/mm3 (1.2-5.4); Lymphocytes % (Auto) 21.5 % (13.4-35.0); Mean Corpuscular HGB Conc 34 % (30-34); Mean Corpuscular Volume 89 fl (79-97); Monocytes # (Auto) 0.5 K/mm3 (0.0-0.8); Monocytes % (Auto) 8.7 % (0.0-7.3); Platelet Count 207 K/mm3 (140-440); Red Blood Count 4.19 M/mm3 (3.65-5.03); Red Cell Distribution Width 13.6 % (13.2-15.2)
[2018-10-27 02:14] LABS: Alanine Aminotransferase 11 units/L (7-56); Albumin 4.4 g/dL (3.9-5); BUN/Creatinine Ratio 10; Blood Urea Nitrogen 7 mg/dL (7-17); Calcium 9.5 mg/dL (8.4-10.2); Hemolysis Index 10
[2018-10-27 03:09] LABS: Bilirubin,Urine NEG (Negative); Blood,Urine NEG (Negative); Color,Urine Yellow (Yellow); Mucus,Urine 3+ /HPF; Protein,Urine <15 mg/dL mg/dL (Negative); Urobilinogen,Urine < 2.0 mg/dL (<2.0)
[2018-10-27] MEDS ORDERED: MORPHINE IV ONE (03:45)
[2018-10-27] MEDS ORDERED: ZOFRAN IV ONE (03:45)
[2018-10-27] MEDS ORDERED: ZOFRAN ONE (03:47)
[2018-10-27] MEDS ORDERED: MORPHINE ONE (03:48)
--- NOTE | 2018-10-27 04:45 | Emergency Department Report ---
ED Abdominal Pain HPI - General Chief Complaint: Abdominal Pain Stated Complaint: PAIN ON RIGHT SIDE/TROUBLE URINATING/FEVER Time Seen by Provider: 10/27/18 02:49 Source: patient Mode of arrival: Ambulatory Limitations: No Limitations - History of Present Illness Initial Comments: 27-year-old female with right lower quadrant pain, nausea, fever, for the past 2 days worse today. Patient rates symptoms as severe in severity, has not taking any medications for her symptoms. However had similar symptoms in the past, but this one feels Different She Usually Gets Right Lower Quadrant Cramping, but Today She States the Pains Feel Sharp. Complaint: abdominal pain Onset/Timin -: Gradual, days(s) Location: RLQ Severity scale (0 -10): 4 - Related Data Previous Rx's Medication Instructions Recorded Last Taken Type Ondansetron [Zofran Odt] 4 mg PO Q8HR #15 tab.rapdis 09/03/18 Unknown Rx Sulfamethoxazole/Trimethoprim 1 each PO BID #10 tablet 09/03/18 Unknown Rx [Bactrim DS TAB] Acetaminophen/Codeine [Tylenol 1 tab PO Q4HR PRN #18 tablet 09/08/18 Unknown Rx /Codeine # 3 tab] Hyoscyamine Subl [Levsin Sl 0.125 0.125 mg SL Q6HR PRN #20 tab 09/08/18 Unknown Rx TAB] Promethazine [Phenergan] 25 mg PO Q6HR PRN #20 tab 09/08/18 Unknown Rx Ciprofloxacin HCl [Ciprofloxacin 500 mg PO Q12HR #20 tab 09/13/18 Unknown Rx TAB] HYDROcodone/APAP 5-325 [[place] 1 - 2 each PO Q6HR PRN #10 tablet 09/13/18 Unknown Rx 5/325] Phenazopyridine [Pyridium] 200 mg PO TID #6 tab 09/13/18 Unknown Rx Promethazine [Phenergan] 25 mg PO Q6HR PRN #20 tab 09/13/18 Unknown Rx Promethazine [Phenergan] 25 mg [place] Q6HR PRN #5 supp.rect 09/13/18 Unknown Rx metroNIDAZOLE [Flagyl] 500 mg PO Q12HR #14 tab 09/13/18 Unknown Rx Acetaminophen/Codeine [Tylenol 1 tab PO Q6H PRN #12 tab 09/30/18 Unknown Rx /Codeine # 3 tab] Omeprazole 20 mg PO DAILY #30 capsule. 09/30/18 Unknown Rx metroNIDAZOLE [Flagyl] 500 mg PO BID 10 Days #20 tab 09/30/18 Unknown Rx Ondansetron (Nf) [Zofran TAB] 8 mg PO Q8HR PRN #20 tablet 10/04/18 Unknown Rx traMADol [Ultram 50 MG tab] 50 mg PO Q6HR PRN #20 tablet 10/04/18 Unknown Rx Ciprofloxacin HCl [Ciprofloxacin 500 mg PO BID 10 Days #20 tab 10/27/18 Unknown Rx TAB] Cyclobenzaprine [Flexeril 10 MG 10 mg PO TID PRN #15 tablet 10/27/18 Unknown Rx TAB] Allergies Allergy/AdvReac Type Severity Reaction Status Date / Time aspirin Allergy Hives Verified 09/08/18 12:23 dicyclomine [From Bentyl] Allergy Unknown Verified 10/04/18 15:42 metoclopramide [From Reglan] Allergy Unknown Verified 09/08/18 12:23 NSAIDS (Non-Steroidal Allergy Hives Verified 09/08/18 12:23 Anti-Inflamma ED Review of Systems ROS: Stated complaint: PAIN ON RIGHT SIDE/TROUBLE URINATING/FEVER Other details as noted in HPI Comment: All other systems reviewed and negative ENT: denies: ear pain Respiratory: denies: cough Cardiovascular: denies: chest pain Gastrointestinal: abdominal pain, nausea. denies: vomiting, diarrhea ED Past Medical Hx - Past Medical History Previous Medical History?: Yes Hx Hypertension: No Hx CVA: No Hx Heart Attack/AMI: No Hx Congestive Heart Failure: No Hx Diabetes: No Hx Deep Vein Thrombosis: No Hx Pulmonary Embolism: No Hx GERD: No Hx Liver Disease: No Hx Renal Disease: No Hx Sickle Cell Disease: No Hx Arthritis: No Hx Headaches / Migraines: No Hx Seizures: Yes Hx Kidney Stones: No Hx Psychiatric Treatment: No Hx Asthma: Yes Hx COPD: No Hx Tuberculosis: No Hx Dementia: No Hx HIV: No Additional medical history: Von Willebrand blood disorder, 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, hypoglycemia - Surgical History Past Surgical History?: Yes Hx Coronary Stent: No Hx Open Heart Surgery: No Hx Pacemaker: No Hx Internal Defibrillator: No Hx Cholecystectomy: Yes Hx Appendectomy: No Hx Breast Surgery: No - Social History Smoking Status: Never Smoker - Medications Home Medications: Home Medications Medication Instructions Recorded Confirmed Last Taken Type Ondansetron [Zofran Odt] 4 mg PO Q8HR #15 tab.rapdis 09/03/18 Unknown Rx Sulfamethoxazole/Trimethoprim 1 each PO BID #10 tablet 09/03/18 Unknown Rx [Bactrim DS TAB] Acetaminophen/Codeine [Tylenol 1 tab PO Q4HR PRN #18 tablet 09/08/18 Unknown Rx /Codeine # 3 tab] Hyoscyamine Subl [Levsin Sl 0.125 0.125 mg SL Q6HR PRN #20 tab 09/08/18 Unknown Rx TAB] Promethazine [Phenergan] 25 mg PO Q6HR PRN #20 tab 09/08/18 Unknown Rx Ciprofloxacin HCl [Ciprofloxacin 500 mg PO Q12HR #20 tab 09/13/18 Unknown Rx TAB] HYDROcodone/APAP 5-325 [[place] 1 - 2 each PO Q6HR PRN #10 tablet 09/13/18 Unknown Rx 5/325] Phenazopyridine [Pyridium] 200 mg PO TID #6 tab 09/13/18 Unknown Rx Promethazine [Phenergan] 25 mg PO Q6HR PRN #20 tab 09/13/18 Unknown Rx Promethazine [Phenergan] 25 mg [place] Q6HR PRN #5 supp.rect 09/13/18 Unknown Rx metroNIDAZOLE [Flagyl] 500 mg PO Q12HR #14 tab 09/13/18 Unknown Rx Acetaminophen/Codeine [Tylenol 1 tab PO Q6H PRN #12 tab 09/30/18 Unknown Rx /Codeine # 3 tab] Omeprazole 20 mg PO DAILY #30 capsule. 09/30/18 Unknown Rx metroNIDAZOLE [Flagyl] 500 mg PO BID 10 Days #20 tab 09/30/18 Unknown Rx Ondansetron (Nf) [Zofran TAB] 8 mg PO Q8HR PRN #20 tablet 10/04/18 Unknown Rx traMADol [Ultram 50 MG tab] 50 mg PO Q6HR PRN #20 tablet 10/04/18 Unknown Rx Ciprofloxacin HCl [Ciprofloxacin 500 mg PO BID 10 Days #20 tab 10/27/18 Unknown Rx TAB] Cyclobenzaprine [Flexeril 10 MG 10 mg PO TID PRN #15 tablet 10/27/18 Unknown Rx TAB] ED Physical Exam - General Limitations: No Limitations General appearance: alert, in no apparent distress - Head Head exam: Present: atraumatic, normocephalic - Eye Eye exam: Present: normal appearance, PERRL, EOMI Pupils: Present: normal accommodation - ENT ENT exam: Present: normal exam, normal orophraynx - Neck Neck exam: Present: normal inspection - Respiratory Respiratory exam: Present: normal lung sounds bilaterally - Cardiovascular Cardiovascular Exam: Present: regular rate, normal rhythm - GI/Abdominal GI/Abdominal exam: Present: soft, tenderness - Extremities Exam Extremities exam: Present: normal inspection, full ROM - Back Exam Back exam: Present: normal inspection ED Course Vital Signs 10/27/18 10/27/18 01:24 05:10 Temperature 98.0 F Pulse Rate 93 H 79 Respiratory 18 16 Rate Blood Pressure 115/69 [Right] O2 Sat by Pulse 100 97 Oximetry ED Medical Decision Making - Lab Data Result diagrams: 10/27/18 01:34 10/27/18 01:34 Critical care attestation.: If time is entered above; I have spent that time in minutes in the direct care of this critically ill patient, excluding procedure time. ED Disposition Clinical Impression: Abdominal pain Qualifiers: Abdominal location: generalized Qualified Code(s): R10.84 - Generalized abdominal pain Acute cystitis Qualifiers: Hematuria presence: without hematuria Qualified Code(s): N30.00 - Acute cystiti s without hematuria Disposition: - TO HOME OR SELFCARE Is pt being admited?: No Does the pt Need Aspirin: No Condition: Stable Instructions: Abdominal Pain (ED) Prescriptions: Ciprofloxacin HCl [Ciprofloxacin TAB] 500 mg PO BID 10 Days #20 tab Cyclobenzaprine [Flexeril 10 MG TAB] 10 mg PO TID PRN #15 tablet PRN Reason: Muscle Spasm Referrals: NARDA SCHROEDER MD [Primary Care Provider] - 3-5 Days
--- NOTE | 2018-10-27 04:49 | Cat Scan Report ---
CT ABDOMEN AND PELVIS WITH IV CONTRAST INDICATION: rlq pain. COMPARISON: CT 09/30/2018. TECHNIQUE: All CT scans at this facility use dose modulation, automated exposure control, iterative reconstructi on or weight based dosing, when appropriate, to reduce radiation dose to as low as reasonably achieva ble. FINDINGS: Lung Bases: Clear. Skeletal System: No acute abnormality. 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 ABDOMEN: Liver: Normal. Gallbladder: Removed. Bile Ducts: Mild prominence of the common duct may be related to prior cholecystectomy. Pancreas: Normal. Spleen: Normal. Adrenals: Normal. Right Kidney: Normal. Left Kidney: Normal. Stomach and Bowel: Normal. Lymph Nodes: No significant adenopathy. Aorta: No significant abnormality. Additional Findings: None. PELVIS: Colon: Normal . Urinary Bladder and Distal Ureters: Normal. Appendix: Normal. Lymph Nodes: No significant adenopathy. Additional Findings: There is a 2.3 cm left ovarian cyst. This is unchanged. There is trace free flui d in the pelvis, this may be physiologic. IMPRESSION: 1. No acute process in the abdomen or pelvis. 2. The appendix is normal. Signer Name: Fredi Vázquez MD Signed: 10/27/2018 4:45 AM Workstation Name: [email or web address]
== END 2018-10-27 05:10 | disposition home or self-care (01) ==
LOC: ED 01:18
DX: N30.00 Acute cystitis without hematuria (principal); J45.909 Unspecified asthma, uncomplicated; E16.2 Hypoglycemia, unspecified; D68.0 Von Willebrand disease; Z88.6 Allergy status to analgesic agent; Z79.899 Other long term (current) drug therapy; Z88.5 Allergy status to narcotic agent; Z88.7 Allergy status to serum and vaccine; Z90.49 Acquired absence of other specified parts of digestive tract
CPT/HCPCS: 36415; 74177; 80053; 81001; 84703; 85025; 96374; 96375; 99284; J2270; J2405; Q9967

== ENCOUNTER 2018-11-01 21:29 | Emergency (ER) | payer SELFPAY ==
[2018-11-01 23:05] LABS: Basophils % (Auto) 0.4 % (0.0-1.8); Eosinophils # (Auto) 0.1 K/mm3 (0.0-0.4); Eosinophils % (Auto) 0.9 % (0.0-4.3); Hematocrit 38.9 % (30.3-42.9); Hemoglobin 13.5 gm/dl (10.1-14.3); Lymphocytes # (Auto) 1.1 K/mm3 (1.2-5.4); Lymphocytes % (Auto) 14.5 % (13.4-35.0); Mean Corpuscular HGB Conc 35 % (30-34); Mean Corpuscular Volume 89 fl (79-97); Monocytes # (Auto) 0.6 K/mm3 (0.0-0.8); Monocytes % (Auto) 8.4 % (0.0-7.3); Platelet Count 221 K/mm3 (140-440); Red Blood Count 4.38 M/mm3 (3.65-5.03); Red Cell Distribution Width 13.4 % (13.2-15.2)
[2018-11-01 23:20] LABS: Alanine Aminotransferase 10 units/L (7-56); Albumin 4.6 g/dL (3.9-5); BUN/Creatinine Ratio 13; Blood Urea Nitrogen 9 mg/dL (7-17); Calcium 9.5 mg/dL (8.4-10.2); Hemolysis Index 12
[2018-11-02 00:56] LABS: Bilirubin,Urine NEG (Negative); Blood,Urine NEG (Negative); Color,Urine Yellow (Yellow); Mucus,Urine 3+ /HPF; Urobilinogen,Urine < 2.0 mg/dL (<2.0)
[2018-11-02 01:01] LABS: HCG Qualitative,Urine Negative (Negative)
[2018-11-02] MEDS ORDERED: MORPHINE IV ONE (01:01)
[2018-11-02] MEDS ORDERED: ZOFRAN IV ONE ×2 (01:01→04:04)
[2018-11-02] MEDS ORDERED: NACL 0.9% 1000 ML 1,000 ML IV ONE (01:01)
[2018-11-02] MEDS ORDERED: ROCEPHIN/NS 1 GM/50 ML 1 GM/50 ML BAG IV ONE (01:02)
[2018-11-02] MEDS ORDERED: DILAUDID IV ONE (03:06)
[2018-11-02] MEDS ORDERED: REGLAN IV ONE (03:06)
[2018-11-02] MEDS ORDERED: ZOFRAN ONE (04:05)
--- NOTE | 2018-11-02 04:11 | Cat Scan Report ---
CT abdomen pelvis w con INDICATION / CLINICAL INFORMATION: MAIN: RLQ Pain. PELVIC PAIN. NAUSEA. DIARRHEA.. TECHNIQUE: All CT scans at this location are performed using CT dose reduction for ALARA by means of automated e xposure control. COMPARISON: 10/27/2018 FINDINGS: The lower lungs are clear. ABDOMEN: Gallbladder has been removed. The liver, spleen, pancreas and kidneys are normal. No small bowel dilatation. No mesenteric or retroperitoneal adenopathy. Pelvis: The appendix is normal 2 left ovarian cysts are again demonstrated. One of the cysts has undergone rupture since the compari son study. There are no free fluid collections seen in the pelvis. No acute inflammatory findings. Skeletal structures are negative. IMPRESSION: 1. Small left ovarian cyst is partially collapsed due to interval rupture since previous CT scan. 2. No other significant findings. Signer Name: Demetrio Crystal MD Signed: 11/02/2018 4:07 AM Workstation Name: [id number]
--- NOTE | 2018-11-02 04:29 | Emergency Department Report ---
ED Abdominal Pain HPI - General Chief Complaint: Abdominal Pain Stated Complaint: BACK/RIGHT SIDE PAIN,NAUSEA Time Seen by Provider: 11/02/18 00:50 Source: patient Mode of arrival: Ambulatory Limitations: No Limitations - History of Present Illness Initial Comments: Patient is in the past 27-year-old white female with a history of von Willebrand disease, seizures, asthma and chronic low back pain presents to the ED with, no acute onset persistent right lower quadrant pain that radiates diffusely to the lower abdomen and to her flanks bilaterally with intractable nausea and vomiting for the last 24 hours. Patient denies fever, chills, dizziness, diarrhea, vaginal bleeding, vaginal discharge, change in vision, traumatic injury or heavy lifting, cough or chest pain and shortness of breath. MD Complaint: abdominal pain, other (nausea and vomiting) -: Sudden, hour(s) (24) Location: LLQ, RLQ, suprapubic, L flank, R flank Radiation: LLQ, RLQ, bilateral flank Migration to: no migration Severity: severe Severity scale (0 -10): 8 Quality: cramping, aching, sharp Consistency: constant Improves With: nothing Worsens With: movement Associated Symptoms: denies other symptoms, nausea, vomiting. denies: diarrhea, fever, chills, constipation, dysuria, hematemesis, hematochezia, melena, hematuria, anorexia, syncope, other - Related Data LMP Date: 10/19/18 Previous Rx's Medication Instructions Recorded Last Taken Type Ondansetron [Zofran Odt] 4 mg PO Q8HR #15 tab.rapdis 09/03/18 Unknown Rx Acetaminophen/Codeine [Tylenol 1 tab PO Q4HR PRN #18 tablet 09/08/18 Unknown Rx /Codeine # 3 tab] Hyoscyamine Subl [Levsin Sl 0.125 0.125 mg SL Q6HR PRN #20 tab 09/08/18 Unknown Rx TAB] Promethazine [Phenergan] 25 mg PO Q6HR PRN #20 tab 09/08/18 Unknown Rx Ciprofloxacin HCl [Ciprofloxacin 500 mg PO Q12HR #20 tab 09/13/18 Unknown Rx TAB] HYDROcodone/APAP 5-325 [Sheridan 1 - 2 each PO Q6HR PRN #10 tablet 09/13/18 Unknown Rx 5/325] Phenazopyridine [Pyridium] 200 mg PO TID #6 tab 09/13/18 Unknown Rx Promethazine [Phenergan] 25 mg PO Q6HR PRN #20 tab 09/13/18 Unknown Rx Promethazine [Phenergan] 25 mg SD Q6HR PRN #5 supp.rect 09/13/18 Unknown Rx metroNIDAZOLE [Flagyl] 500 mg PO Q12HR #14 tab 09/13/18 Unknown Rx Acetaminophen/Codeine [Tylenol 1 tab PO Q6H PRN #12 tab 09/30/18 Unknown Rx /Codeine # 3 tab] Omeprazole 20 mg PO DAILY #30 capsule. 09/30/18 Unknown Rx metroNIDAZOLE [Flagyl] 500 mg PO BID 10 Days #20 tab 09/30/18 Unknown Rx traMADol [Ultram 50 MG tab] 50 mg PO Q6HR PRN #20 tablet 10/04/18 Unknown Rx Ciprofloxacin HCl [Ciprofloxacin 500 mg PO BID 10 Days #20 tab 10/27/18 Unknown Rx TAB] Cyclobenzaprine [Flexeril 10 MG 10 mg PO TID PRN #15 tablet 10/27/18 Unknown Rx TAB] Acetaminophen/Codeine [Tylenol 1 tab PO Q6H PRN #20 tab 11/02/18 Unknown Rx /Codeine # 3 tab] Docusate Sodium [Move It Along] 100 mg PO QHS PRN #20 tablet 11/02/18 Unknown Rx Ondansetron (Nf) [Zofran TAB] 8 mg PO Q8HR PRN #20 tablet 11/02/18 Unknown Rx Sulfamethoxazole/Trimethoprim 1 each PO Q12H #20 tablet 11/02/18 Unknown Rx [Bactrim DS TAB] Allergies Allergy/AdvReac Type Severity Reaction Status Date / Time aspirin Allergy Hives Verified 09/08/18 12:23 dicyclomine [From Bentyl] Allergy Unknown Verified 10/04/18 15:42 metoclopramide [From Reglan] Allergy Unknown Verified 09/08/18 12:23 NSAIDS (Non-Steroidal Allergy Hives Verified 09/08/18 12:23 Anti-Inflamma ED Review of Systems ROS: Stated complaint: BACK/RIGHT SIDE PAIN,NAUSEA Other details as noted in HPI Constitutional: denies: chills, fever Eyes: denies: eye pain, eye discharge, vision change ENT: denies: ear pain, throat pain Respiratory: denies: cough, shortness of breath, wheezing Cardiovascular: denies: chest pain, palpitations Endocrine: no symptoms reported Gastrointestinal: abdominal pain, nausea, vomiting. denies: diarrhea, constipation, hematemesis, melena Genitourinary: urgency, frequency. denies: discharge Musculoskeletal: back pain, arthralgia, myalgia. denies: joint swelling Skin: denies: rash, lesions Neurological: denies: headache, weakness, paresthesias Psychiatric: denies: anxiety, depression Hematological/Lymphatic: denies: easy bleeding, easy bruising ED Past Medical Hx - Past Medical History Hx Hypertension: No Hx CVA: No Hx Heart Attack/AMI: No Hx Congestive Heart Failure: No Hx Diabetes: No Hx Deep Vein Thrombosis: No Hx Pulmonary Embolism: No Hx GERD: No Hx Liver Disease: No Hx Renal Disease: No Hx Sickle Cell Disease: No Hx Arthritis: No Hx Headaches / Migraines: No Hx Seizures: Yes Hx Kidney Stones: No Hx Psychiatric Treatment: No Hx Asthma: Yes Hx COPD: No Hx Tuberculosis: No Hx Dementia: No Hx HIV: No Additional medical history: Von Willebrand blood disorder, 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, hypoglycemia - Surgical History Hx Coronary Stent: No Hx Open Heart Surgery: No Hx Pacemaker: No Hx Internal Defibrillator: No Hx Cholecystectomy: Yes Hx Appendectomy: No Hx Breast Surgery: No - Social History Smoking Status: Never Smoker Substance Use Type: None - Medications Home Medications: Home Medications Medication Instructions Recorded Confirmed Last Taken Type Ondansetron [Zofran Odt] 4 mg PO Q8HR #15 tab.rapdis 09/03/18 Unknown Rx Acetaminophen/Codeine [Tylenol 1 tab PO Q4HR PRN #18 tablet 09/08/18 Unknown Rx /Codeine # 3 tab] Hyoscyamine Subl [Levsin Sl 0.125 0.125 mg SL Q6HR PRN #20 tab 09/08/18 Unknown Rx TAB] Promethazine [Phenergan] 25 mg PO Q6HR PRN #20 tab 09/08/18 Unknown Rx Ciprofloxacin HCl [Ciprofloxacin 500 mg PO Q12HR #20 tab 09/13/18 Unknown Rx TAB] HYDROcodone/APAP 5-325 [[place] 1 - 2 each PO Q6HR PRN #10 tablet 09/13/18 Unknown Rx 5/325] Phenazopyridine [Pyridium] 200 mg PO TID #6 tab 09/13/18 Unknown Rx Promethazine [Phenergan] 25 mg PO Q6HR PRN #20 tab 09/13/18 Unknown Rx Promethazine [Phenergan] 25 mg SD Q6HR PRN #5 supp.rect 09/13/18 Unknown Rx metroNIDAZOLE [Flagyl] 500 mg PO Q12HR #14 tab 09/13/18 Unknown Rx Acetaminophen/Codeine [Tylenol 1 tab PO Q6H PRN #12 tab 09/30/18 Unknown Rx /Codeine # 3 tab] Omeprazole 20 mg PO DAILY #30 capsule. 09/30/18 Unknown Rx metroNIDAZOLE [Flagyl] 500 mg PO BID 10 Days #20 tab 09/30/18 Unknown Rx traMADol [Ultram 50 MG tab] 50 mg PO Q6HR PRN #20 tablet 10/04/18 Unknown Rx Ciprofloxacin HCl [Ciprofloxacin 500 mg PO BID 10 Days #20 tab 10/27/18 Unknown Rx TAB] Cyclobenzaprine [Flexeril 10 MG 10 mg PO TID PRN #15 tablet 10/27/18 Unknown Rx TAB] Acetaminophen/Codeine [Tylenol 1 tab PO Q6H PRN #20 tab 11/02/18 Unknown Rx /Codeine # 3 tab] Docusate Sodium [Move It Along] 100 mg PO QHS PRN #20 tablet 11/02/18 Unknown Rx Ondansetron (Nf) [Zofran TAB] 8 mg PO Q8HR PRN #20 tablet 11/02/18 Unknown Rx Sulfamethoxazole/Trimethoprim 1 each PO Q12H #20 tablet 11/02/18 Unknown Rx [Bactrim DS TAB] ED Physical Exam - General Limitations: No Limitations General appearance: alert, in no apparent distress - Head Head exam: Present: atraumatic, normocephalic, normal inspection - Eye Eye exam: Present: normal appearance, PERRL, EOMI. Absent: scleral icterus, conjunctival injection, nystagmus, periorbital swelling, periorbital tenderness Pupils: Present: normal accommodation - ENT ENT exam: Present: normal exam, normal orophraynx, mucous membranes moist, TM's normal bilaterally, normal external ear exam - Neck Neck exam: Present: normal inspection, full ROM. Absent: tenderness, meningismus, lymphadenopathy, thyromegaly - Respiratory Respiratory exam: Present: normal lung sounds bilaterally. Absent: respiratory distress, wheezes, rhonchi, stridor, chest wall tenderness, accessory muscle use, decreased breath sounds, prolonged expiratory - Cardiovascular Cardiovascular Exam: Present: regular rate, normal rhythm, normal heart sounds. Absent: systolic murmur, diastolic murmur, rubs, gallop - GI/Abdominal GI/Abdominal exam: Present: soft, tenderness (RLQ, suprapubic area tenderness, no guarding), normal bowel sounds. Absent: hyperactive bowel sounds, hypoactive bowel sounds - Rectal Rectal exam: Present: deferred - Bi-manual exam: Present: other (Deferred, patient declined) - Extremities Exam Extremities exam: Present: normal inspection, full ROM, normal capillary refill. Absent: pedal edema, joint swelling - Back Exam Back exam: Present: normal inspection, full ROM. Absent: tenderness, CVA tenderness (R), CVA tenderness (L), muscle spasm, paraspinal tenderness, vertebral tenderness - Neurological Exam Neurological exam: Present: alert, oriented X3, CN II-XII intact, normal gait, reflexes normal - Psychiatric Psychiatric exam: Present: normal affect, normal mood - Skin Skin exam: Present: warm, dry, intact, normal color. Absent: rash ED Course Vital Signs 11/01/18 11/01/18 11/02/18 21:45 22:37 02:01 Temperature 99.0 F 86 F L Pulse Rate 89 86 Respiratory 18 18 18 Rate Blood Pressure 114/55 114/55 O2 Sat by Pulse 99 99 Oximetry 11/02/18 04:03 Temperature Pulse Rate Respiratory 18 Rate Blood Pressure O2 Sat by Pulse Oximetry - Reevaluation(s) Reevaluation #1: 11/02/18 04:34 Patient is alert and oriented 3 and is not in any distress back pain, the vital signs are stable. Laboratory results are unremarkable except urinalysis which shows significant acute urinary tract infection. Abdomen pelvis CT scan with contrast shows absent gallbladder due to previous cholecystectomy. The liver or muscle sprain, pancreas and kidneys are normal. No small bowel dilatation or mesenteric or retroperitoneal adenopathy. The appendix is normal. There are 2 left ovarian cysts, demonstrated from a previous CT scan of the abdomen pelvis. One of the cyst has undergone parameters since about the previous study. There are no free fluid collection seen in the pelvis. There are no acute inflammatory findings. On reevaluation, patient's pain is well controlled by medications and was discharged home on pain medications and antiemetics as well as antibiotics for UTI. Patient advised to follow-up with [facility] physician or primary care physician in 7-10 days for reevaluation. Patient was advised to return to the ED immediately if symptoms get worse. ED Medical Decision Making - Lab Data Result diagrams: 11/01/18 22:45 11/01/18 22:45 - Radiology Data Radiology results: report reviewed, image reviewed Abdomen pelvis CT scan with contrast shows absent gallbladder due to previous cholecystectomy. The liver or muscle sprain, pancreas and kidneys are normal. No small bowel dilatation or mesenteric or retroperitoneal adenopathy. The appendix is normal. There are 2 left ovarian cysts, demonstrated from a previous CT scan of the abdomen pelvis. One of the cyst has undergone parameters since about the previous study. There are no free fluid collection seen in the pelvis. There are no acute inflammatory findings. - Medical Decision Making Patient is alert and oriented 3 and is not in any distress back pain, the vital signs are stable. Laboratory results are unremarkable except urinalysis which shows significant acute urinary tract infection. Abdomen pelvis CT scan with contrast shows absent gallbladder due to previous cholecystectomy. The liver or muscle sprain, pancreas and kidneys are normal. No small bowel dilatation or mesenteric or retroperitoneal adenopathy. The appendix is normal. There are 2 left ovarian cysts, demonstrated from a previous CT scan of the abdomen pelvis. One of the cyst has undergone parameters since about the previous study. There are no free fluid collection seen in the pelvis. There are no acute inflammatory findings. On reevaluation, patient's pain is well controlled by medications and was discharged home on pain medications and antiemetics as well as antibiotics for UTI. Patient advised to follow-up with [facility] physician or primary care physician in 7-10 days for reevaluation. Patient was advised to return to the ED immediately if symptoms get worse. - Differential Diagnosis appendicitis, ovarian cysts, acute UTI, Kidney stones, acute PID Critical care attestation.: If time is entered above; I have spent that time in minutes in the direct care of this critically ill patient, excluding procedure time. ED Disposition Clinical Impression: Acute urinary tract infection, Nausea and vomiting in adult Abdominal pain Qualifiers: Abdominal location: lower abdomen, unspecified Qualified Code(s): R10.30 - Lower abdominal pain, unspecified Ovarian cyst Qualifiers: Laterality: left Qualified Code(s): N83.202 - Unspecified ovarian cyst, left side Disposition: TO HOME OR SELFCARE Is pt being admited?: No Does the pt Need Aspirin: No Condition: Stable Instructions: Abdominal Pain (ED), Urinary Tract Infection in Women (ED), Ovarian Cyst (ED) Additional Instructions: Take medications with food, drink plenty of fluids and follow up with your primary care physician in 7-10 days for reevaluation. Return to the ED imm ediately if symptoms get worse. Prescriptions: Docusate Sodium [Move It Along] 100 mg PO QHS PRN #20 tablet PRN Reason: Constipation Sulfamethoxazole/Trimethoprim [Bactrim DS TAB] 1 each PO Q12H #20 tablet Acetaminophen/Codeine [Tylenol /Codeine # 3 tab] 1 tab PO Q6H PRN #20 tab PRN Reason: Pain , Severe (7-10) Ondansetron (Nf) [Zofran TAB] 8 mg PO Q8HR PRN #20 tablet PRN Reason: Nausea Referrals: [facility] [Outside] - 3-5 Days Time of Disposition: 04:31 Print Language: ISRAELI
[2018-11-02 04:54] VITALS: BP 110/50
== END 2018-11-02 04:55 | disposition home or self-care (01) ==
LOC: ED 21:29
DX: N39.0 Urinary tract infection, site not specified (principal); R11.2 Nausea with vomiting, unspecified; N83.202 Unspecified ovarian cyst, left side; M54.5 Low back pain; G89.29 Other chronic pain; D68.0 Von Willebrand disease; J45.909 Unspecified asthma, uncomplicated; Z88.6 Allergy status to analgesic agent; Z88.8 Allergy status to other drugs, medicaments and biological substances; Z79.899 Other long term (current) drug therapy
CPT/HCPCS: 36415; 74177; 80053; 81001; 81025; 83690; 85025; 87086; 96365; 96375; 96376; 99284; J0696; J1170; J2270; J2405; J2765; J7030; Q9967

== ENCOUNTER 2018-11-05 22:32 | Emergency (ER) | payer SELFPAY ==
[2018-11-05 22:39] VITALS: BP 119/72
[2018-11-05 23:14] LABS: Bilirubin,Urine NEG (Negative); Blood,Urine MOD (Negative); Color,Urine Yellow (Yellow); HCG Qualitative,Urine Negative (Negative); Mucus,Urine 3+ /HPF; Protein,Urine <15 mg/dL mg/dL (Negative); Urobilinogen,Urine < 2.0 mg/dL (<2.0)
[2018-11-05 23:33] LABS: Basophils % (Auto) 0.4 % (0.0-1.8); Eosinophils # (Auto) 0.1 K/mm3 (0.0-0.4); Eosinophils % (Auto) 1.5 % (0.0-4.3); Hematocrit 39.8 % (30.3-42.9); Hemoglobin 13.6 gm/dl (10.1-14.3); Lymphocytes % (Auto) 16.2 % (13.4-35.0); Mean Corpuscular HGB Conc 34 % (30-34); Mean Corpuscular Volume 90 fl (79-97); Monocytes # (Auto) 0.6 K/mm3 (0.0-0.8); Monocytes % (Auto) 9.7 % (0.0-7.3); Platelet Count 210 K/mm3 (140-440); Red Blood Count 4.44 M/mm3 (3.65-5.03); Red Cell Distribution Width 13.4 % (13.2-15.2)
[2018-11-05 23:52] LABS: BUN/Creatinine Ratio 11; Blood Urea Nitrogen 9 mg/dL (7-17); Calcium 9.2 mg/dL (8.4-10.2); Hemolysis Index 7
[2018-11-06] MEDS ORDERED: ROCEPHIN IM ONE (00:35)
[2018-11-06] MEDS ORDERED: ULTRAM PO ONE (00:36)
[2018-11-06] MEDS ORDERED: XYLOCAINE 1% MPF 5 mL INFILTRATI ONE (00:36)
[2018-11-06] MEDS ORDERED: ZOFRAN ODT PO ONE (00:37)
--- NOTE | 2018-11-06 00:45 | Emergency Department Report ---
ED Abdominal Pain HPI - General Chief Complaint: Abdominal Pain Stated Complaint: PAIN ON RIGHT SIDE/FAINTING/NAUSEA Time Seen by Provider: 11/06/18 00:31 Source: patient Mode of arrival: Ambulatory Limitations: No Limitations - History of Present Illness Initial Comments: pt is a 27 y/o female who presents for persist uti symptoms with right flank pain see on 11/02/2018 tx with macrobid, ? adherence states pain not improved describes pain as 5/10 aching radiating to superpubic there is no vaginal bleeding no vaginal discharge no fever or chills will ct scan from 11/02/2018, there is no n/v no fever or chills Complaint: flank pain Onset/Timin -: week(s) Location: R flank Radiation: suprapubic Migration to: no migration Severity: moderate Severity scale (0 -10): 4 Quality: aching Consistency: constant Improves With: nothing Worsens With: nothing Associated Symptoms: denies: nausea, vomiting, diarrhea, fever, chills, constipation, dysuria, hematemesis, hematochezia, melena, hematuria, anorexia, syncope Treatments Prior to Arrival: NSAIDs - Related Data LMP Date: 10/20/18 Previous Rx's Medication Instructions Recorded Last Taken Type Ondansetron [Zofran Odt] 4 mg PO Q8HR #15 tab.rapdis 09/03/18 Unknown Rx Acetaminophen/Codeine [Tylenol 1 tab PO Q4HR PRN #18 tablet 09/08/18 Unknown Rx /Codeine # 3 tab] Hyoscyamine Subl [Levsin Sl 0.125 0.125 mg SL Q6HR PRN #20 tab 09/08/18 Unknown Rx TAB] Promethazine [Phenergan] 25 mg PO Q6HR PRN #20 tab 09/08/18 Unknown Rx Ciprofloxacin HCl [Ciprofloxacin 500 mg PO Q12HR #20 tab 09/13/18 Unknown Rx TAB] HYDROcodone/APAP 5-325 [[place] 1 - 2 each PO Q6HR PRN #10 tablet 09/13/18 Unknown Rx 5/325] Phenazopyridine [Pyridium] 200 mg PO TID #6 tab 09/13/18 Unknown Rx Promethazine [Phenergan] 25 mg PO Q6HR PRN #20 tab 09/13/18 Unknown Rx Promethazine [Phenergan] 25 mg TN Q6HR PRN #5 supp.rect 09/13/18 Unknown Rx metroNIDAZOLE [Flagyl] 500 mg PO Q12HR #14 tab 09/13/18 Unknown Rx Acetaminophen/Codeine [Tylenol 1 tab PO Q6H PRN #12 tab 09/30/18 Unknown Rx /Codeine # 3 tab] Omeprazole 20 mg PO DAILY #30 capsule.dr 09/30/18 Unknown Rx metroNIDAZOLE [Flagyl] 500 mg PO BID 10 Days #20 tab 09/30/18 Unknown Rx traMADol [Ultram 50 MG tab] 50 mg PO Q6HR PRN #20 tablet 10/04/18 Unknown Rx Ciprofloxacin HCl [Ciprofloxacin 500 mg PO BID 10 Days #20 tab 10/27/18 Unknown Rx TAB] Cyclobenzaprine [Flexeril 10 MG 10 mg PO TID PRN #15 tablet 10/27/18 Unknown Rx TAB] Acetaminophen/Codeine [Tylenol 1 tab PO Q6H PRN #20 tab 11/02/18 Unknown Rx /Codeine # 3 tab] Docusate Sodium [Move It Along] 100 mg PO QHS PRN #20 tablet 11/02/18 Unknown Rx Ondansetron (Nf) [Zofran TAB] 8 mg PO Q8HR PRN #20 tablet 11/02/18 Unknown Rx Sulfamethoxazole/Trimethoprim 1 each PO Q12H #20 tablet 11/02/18 Unknown Rx [Bactrim DS TAB] Ciprofloxacin HCl [Ciprofloxacin 500 mg PO BID 10 Days #20 tab 11/06/18 Unknown Rx TAB] traMADol [Ultram] 50 mg PO Q6HR PRN #12 tablet 11/06/18 Unknown Rx Allergies Allergy/AdvReac Type Severity Reaction Status Date / Time aspirin Allergy Hives Verified 11/05/18 22:40 dicyclomine [From Bentyl] Allergy Unknown Verified 11/05/18 22:40 metoclopramide [From Reglan] Allergy Unknown Verified 11/05/18 22:40 NSAIDS (Non-Steroidal Allergy Hives Verified 11/05/18 22:40 Anti-Inflamma ED Review of Systems ROS: Stated complaint: PAIN ON RIGHT SIDE/FAINTING/NAUSEA Other details as noted in HPI Constitutional: denies: chills, fever Eyes: denies: eye pain, eye discharge, vision change ENT: denies: ear pain, throat pain Respiratory: denies: cough, shortness of breath, wheezing Cardiovascular: denies: chest pain, palpitations Endocrine: no symptoms reported Gastrointestinal: abdominal pain (right flank). denies: nausea, vomiting, diarrhea, constipation, hematemesis, melena, hematochezia Genitourinary: urgency, dysuria, frequency. denies: hematuria, discharge Musculoskeletal: back pain (right flank) Skin: denies: rash, lesions Neurological: denies: headache, weakness, paresthesias Psychiatric: denies: anxiety, depression Hematological/Lymphatic: denies: easy bleeding, easy bruising ED Past Medical Hx - Past Medical History Hx Hypertension: No Hx CVA: No Hx Heart Attack/AMI: No Hx Congestive Heart Failure: No Hx Diabetes: No Hx Deep Vein Thrombosis: No Hx Pulmonary Embolism: No Hx GERD: No Hx Liver Disease: No Hx Renal Disease: No Hx Sickle Cell Disease: No Hx Arthritis: No Hx Headaches / Migraines: No Hx Seizures: Yes Hx Kidney Stones: No Hx Psychiatric Treatment: No Hx Asthma: Yes Hx COPD: No Hx Tuberculosis: No Hx Dementia: No Hx HIV: No Additional medical history: Von Willebrand blood disorder, 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, hypoglycemia - Surgical History Hx Coronary Stent: No Hx Open Heart Surgery: No Hx Pacemaker: No Hx Internal Defibrillator: No Hx Cholecystectomy: Yes Hx Appendectomy: No Hx Breast Surgery: No - Social History Smoking Status: Never Smoker Substance Use Type: None - Medications Home Medications: Home Medications Medication Instructions Recorded Confirmed Last Taken Type Ondansetron [Zofran Odt] 4 mg PO Q8HR #15 tab.rapdis 09/03/18 Unknown Rx Acetaminophen/Codeine [Tylenol 1 tab PO Q4HR PRN #18 tablet 09/08/18 Unknown Rx /Codeine # 3 tab] Hyoscyamine Subl [Levsin Sl 0.125 0.125 mg SL Q6HR PRN #20 tab 09/08/18 Unknown Rx TAB] Promethazine [Phenergan] 25 mg PO Q6HR PRN #20 tab 09/08/18 Unknown Rx Ciprofloxacin HCl [Ciprofloxacin 500 mg PO Q12HR #20 tab 09/13/18 Unknown Rx TAB] HYDROcodone/APAP 5-325 [[place] 1 - 2 each PO Q6HR PRN #10 tablet 09/13/18 Unknown Rx 5/325] Phenazopyridine [Pyridium] 200 mg PO TID #6 tab 09/13/18 Unknown Rx Promethazine [Phenergan] 25 mg PO Q6HR PRN #20 tab 09/13/18 Unknown Rx Promethazine [Phenergan] 25 mg TN Q6HR PRN #5 supp.rect 09/13/18 Unknown Rx metroNIDAZOLE [Flagyl] 500 mg PO Q12HR #14 tab 09/13/18 Unknown Rx Acetaminophen/Codeine [Tylenol 1 tab PO Q6H PRN #12 tab 09/30/18 Unknown Rx /Codeine # 3 tab] Omeprazole 20 mg PO DAILY #30 capsule.dr 09/30/18 Unknown Rx metroNIDAZOLE [Flagyl] 500 mg PO BID 10 Days #20 tab 09/30/18 Unknown Rx traMADol [Ultram 50 MG tab] 50 mg PO Q6HR PRN #20 tablet 10/04/18 Unknown Rx Ciprofloxacin HCl [Ciprofloxacin 500 mg PO BID 10 Days #20 tab 10/27/18 Unknown Rx TAB] Cyclobenzaprine [Flexeril 10 MG 10 mg PO TID PRN #15 tablet 10/27/18 Unknown Rx TAB] Acetaminophen/Codeine [Tylenol 1 tab PO Q6H PRN #20 tab 11/02/18 Unknown Rx /Codeine # 3 tab] Docusate Sodium [Move It Along] 100 mg PO QHS PRN #20 tablet 11/02/18 Unknown Rx Ondansetron (Nf) [Zofran TAB] 8 mg PO Q8HR PRN #20 tablet 11/02/18 Unknown Rx Sulfamethoxazole/Trimethoprim 1 each PO Q12H #20 tablet 11/02/18 Unknown Rx [Bactrim DS TAB] Ciprofloxacin HCl [Ciprofloxacin 500 mg PO BID 10 Days #20 tab 11/06/18 Unknown Rx TAB] traMADol [Ultram] 50 mg PO Q6HR PRN #12 tablet 11/06/18 Unknown Rx ED Physical Exam - General Limitations: No Limitations General appearance: alert, in no apparent distress - Head Head exam: Present: atraumatic, normocephalic - Eye Eye exam: Present: normal appearance, PERRL, EOMI Pupils: Present: normal accommodation - ENT ENT exam: Present: mucous membranes moist - Neck Neck exam: Present: normal inspection, full ROM. Absent: lymphadenopathy - Respiratory Respiratory exam: Present: normal lung sounds bilaterally. Absent: respiratory distress, wheezes, stridor, chest wall tenderness - Cardiovascular Cardiovascular Exam: Present: regular rate, normal rhythm, normal heart sounds. Absent: systolic murmur, diastolic murmur, rubs, gallop - GI/Abdominal GI/Abdominal exam: Present: soft, normal bowel sounds. Absent: distended, tenderness, bruit, hernia - Rectal Rectal exam: Present: deferred - Extremities Exam Extremities exam: Present: normal inspection, full ROM. Absent: tenderness - Back Exam Back exam: Present: normal inspection, full ROM, tenderness, CVA tenderness (R). Absent: CVA tenderness (L), muscle spasm, paraspinal tenderness, vertebral tenderness, rash noted - Neurological Exam Neurological exam: Present: alert, oriented X3, CN II-XII intact, normal gait - Psychiatric Psychiatric exam: Present: normal affect, normal mood - Skin Skin exam: Present: warm, dry, intact, normal color. Absent: rash ED Course Vital Signs 11/05/18 22:35 Temperature 98.2 F Pulse Rate 72 Respiratory 16 Rate Blood Pressure 119/72 O2 Sat by Pulse 100 Oximetry ED Medical Decision Making - Lab Data Result diagrams: 11/05/18 23:11 11/05/18 23:13 Labs 11/05/18 11/05/18 11/05/18 22:53 23:11 23:13 WBC 6.2 RBC 4.44 Hgb 13.6 Hct 39.8 MCV 90 MCH 31 MCHC 34 RDW 13.4 Plt Count 210 Lymph % (Auto) 16.2 [place] % (Auto) 9.7 H Eos % (Auto) 1.5 Baso % (Auto) 0.4 Lymph # 1.0 L [place] # 0.6 Eos # 0.1 Baso # 0.0 Seg Neutrophils % 72.2 H Seg Neutrophils # 4.5 Sodium 141 Potassium 3.7 Chloride 105.0 Carbon Dioxide 27 Anion Gap 13 BUN 9 Creatinine 0.8 Estimated GFR > 60 BUN/Creatinine Ratio 11 Glucose 86 Calcium 9.2 Urine Color Yellow Urine Turbidity Cloudy Urine pH 5.0 Ur Specific [place] 1.021 Urine Protein <15 mg/dl Urine Glucose (UA) Neg Urine Ketones Neg Urine Blood Mod Urine Nitrite Neg Urine Bilirubin Neg Urine Urobilinogen < 2.0 Ur Leukocyte Esterase Mod Urine WBC (Auto) 11.0 H Urine RBC (Auto) 61.0 U Epithel Cells (Auto) 27.0 H Urine Mucus 3+ Urine HCG, Qual Negative - Radiology Data Radiology results: report reviewed, image reviewed Ordering Physician: RANDY ROMO Date of Service: 11/02/18 Procedure(s): CT abdomen pelvis w con Accession Number(s): [id number] cc: RANDY ROMO CT abdomen pelvis w con INDICATION / CLINICAL INFORMATION: MAIN: RLQ Pain. PELVIC PAIN. NAUSEA. DIARRHEA.. TECHNIQUE: All CT scans at this location are performed using CT dose reduction for ALARA by means of automated exposure control. COMPARISON: 10/27/2018 FINDINGS: The lower lungs are clear. ABDOMEN: Gallbladder has been removed. The liver, spleen, pancreas and kidneys are normal. No small bowel dilatation. No mesenteric or retroperitoneal adenopathy. Pelvis: The appendix is normal 2 left ovarian cysts are again demonstrated. One of the cysts has undergone rupture since the comparison study. There are no free fluid collections seen in the pelvis. No acute inflammatory findings. Skeletal structures are negative. IMPRESSION: 1. Small left ovarian cyst is partially collapsed due to interval rupture since previous CT scan. 2. No other significant findings. Signer Name: Demetrio Crystal MD Signed: 11/02/2018 4:07 AM Workstation Name: [id number] Transcribed By: GA Dictated By: Demetrio Crystal MD Electronically Authenticated By: Demetrio Crystal MD Signed Date/Time: 11/02/18406 DD/ 1 TD/TT: - Medical Decision Making CT abd pelvis, bilat ovarian cyst, ua; leuk, this is second visit for this problem tx with macrobid will dc to home with rx for cipro po bid x 10 days, ultram , follow up with [facility] in 2-3 days Critical care attestation.: If time is entered above; I have spent that time in minutes in the direct care of this critically ill patient, excluding procedure time. ED Disposition Clinical Impression: Ovarian cyst Qualifiers: Laterality: bilateral Qualified Code(s): N83.201 - Unspecified ovarian cyst, right side; N83.202 - Unspecified ovarian cyst, left side UTI (urinary tract infection) Qualifiers: Urinary tract infection type: acute cystitis Hematuria presence: without hematuria Qualified Code(s): N30.00 - Acute cystitis without hematuria Disposition: DC-01 TO HOME OR SELFCARE Is pt being admited?: No Does the pt Need Aspirin: No Condition: Stable Instructions: Ovarian Cyst (ED), Urinary Tract Infection in Women (ED) Prescriptions: Ciprofloxacin HCl [Ciprofloxacin TAB] 500 mg PO BID 10 Days #20 tab traMADol [Ultram] 50 mg PO Q6HR PRN #12 tablet PRN Reason: Pain Referrals: MARISELA LAIRD MD [Staff Physician] - 3-5 Days Forms: Work/School Release Form(ED) Time of Disposition: 00:55
== END 2018-11-06 01:45 | disposition home or self-care (01) ==
LOC: ED 22:32
DX: N83.202 Unspecified ovarian cyst, left side (principal); N39.0 Urinary tract infection, site not specified; J45.909 Unspecified asthma, uncomplicated; Z79.899 Other long term (current) drug therapy; Z88.8 Allergy status to other drugs, medicaments and biological substances; Z88.6 Allergy status to analgesic agent
CPT/HCPCS: 36415; 80048; 81001; 81025; 85025; 87086; 96372; 99283; J0696; Q0162

== ENCOUNTER 2018-11-26 04:25 | Emergency (ER) | payer SELFPAY ==
[2018-11-26 04:30] VITALS: BP 125/73
[2018-11-26 05:08] LABS: Basophils % (Auto) 0.5 % (0.0-1.8); Eosinophils # (Auto) 0.2 K/mm3 (0.0-0.4); Eosinophils % (Auto) 3.4 % (0.0-4.3); Hematocrit 36.6 % (30.3-42.9); Hemoglobin 12.8 gm/dl (10.1-14.3); Lymphocytes # (Auto) 1.5 K/mm3 (1.2-5.4); Lymphocytes % (Auto) 26.4 % (13.4-35.0); Mean Corpuscular HGB Conc 35 % (30-34); Mean Corpuscular Volume 89 fl (79-97); Monocytes # (Auto) 0.5 K/mm3 (0.0-0.8); Platelet Count 190 K/mm3 (140-440); Red Blood Count 4.14 M/mm3 (3.65-5.03); Red Cell Distribution Width 13.6 % (13.2-15.2)
[2018-11-26 05:23] LABS: Bilirubin,Urine NEG (Negative); Blood,Urine NEG (Negative); Color,Urine Yellow (Yellow); Mucus,Urine 3+ /HPF; Protein,Urine <15 mg/dL mg/dL (Negative); Urobilinogen,Urine < 2.0 mg/dL (<2.0)
[2018-11-26 05:26] LABS: Alanine Aminotransferase 9 units/L (7-56); Albumin 4.3 g/dL (3.9-5); BUN/Creatinine Ratio 14; Blood Urea Nitrogen 10 mg/dL (7-17); Calcium 9.4 mg/dL (8.4-10.2); Hemolysis Index 10
[2018-11-26] MEDS ORDERED: ZOFRAN IV ONE (05:33)
[2018-11-26] MEDS ORDERED: MORPHINE IV ONE (05:33)
[2018-11-26] MEDS ORDERED: ROCEPHIN/NS 1 GM/50 ML 1 GM/50 ML BAG IV ONE (06:36)
--- NOTE | 2018-11-26 06:41 | Emergency Department Report ---
<AMY BAIRD - Last Filed: 11/26/18 06:57> ED Abdominal Pain HPI - General Chief Complaint: Abdominal Pain Stated Complaint: RT SIDE PAIN, NAUSEA, FEVER Time Seen by Provider: 11/26/18 05:20 Source: patient Mode of arrival: Ambulatory Limitations: No Limitations - History of Present Illness Initial Comments: Patient is a nulliparous 27-year-old white female with past medical history of asthma and seizures who presents to the ED with complaint of acute onset severe right lower quadrant abdominal pain with nausea, vomiting and diarrhea severe low back pain for the last 24 hours. Patient denies fever, chills, dizziness, chest pain, shortness of breath, sore throat, traumatic injury, vaginal bleeding, vaginal discharge, dysuria, urinary frequency and urgency, hematuria, or cough. Patient states that in the last 6 hours, the pain has been worsening and that she is unable to sleep because of pain. Patient was evaluated and treated for this similar pain about a month ago with no findings on abdomen and pelvis CT scan with contrast. MD Complaint: abdominal pain (RLQ Pain), other (Nausea and vomiting, diarrhea) -: Sudden, hour(s) (24) Location: RLQ, suprapubic Radiation: RLQ, suprapubic Migration to: RLQ, suprapubic Severity: severe Severity scale (0 -10): 8 Quality: cramping, aching, sharp Consistency: constant Improves With: nothing Worsens With: movement Associated Symptoms: denies other symptoms, nausea, vomiting, diarrhea. denies: fever, chills, constipation, dysuria, hematemesis, hematochezia, melena, h ematuria, anorexia, syncope - Related Data Previous Rx's Medication Instructions Recorded Last Taken Type Ondansetron [Zofran Odt] 4 mg PO Q8HR #15 tab.rapdis 09/03/18 Unknown Rx Acetaminophen/Codeine [Tylenol 1 tab PO Q4HR PRN #18 tablet 09/08/18 Unknown Rx /Codeine # 3 tab] Hyoscyamine Subl [Levsin Sl 0.125 0.125 mg SL Q6HR PRN #20 tab 09/08/18 Unknown Rx TAB] Promethazine [Phenergan] 25 mg PO Q6HR PRN #20 tab 09/08/18 Unknown Rx Ciprofloxacin HCl [Ciprofloxacin 500 mg PO Q12HR #20 tab 05/26/19 Unknown Rx TAB] HYDROcodone/APAP 5-325 [Harleigh 1 - 2 each PO Q6HR PRN #10 tablet 09/13/18 Unknown Rx 5/325] Promethazine [Phenergan] 25 mg PO Q6HR PRN #20 tab 09/13/18 Unknown Rx Promethazine [Phenergan] 25 mg MA Q6HR PRN #5 supp.rect 09/13/18 Unknown Rx metroNIDAZOLE [Flagyl] 500 mg PO Q12HR #14 tab 09/13/18 Unknown Rx Acetaminophen/Codeine [Tylenol 1 tab PO Q6H PRN #12 tab 09/30/18 Unknown Rx /Codeine # 3 tab] Omeprazole 20 mg PO DAILY #30 capsule. 09/30/18 Unknown Rx metroNIDAZOLE [Flagyl] 500 mg PO BID 10 Days #20 tab 09/30/18 Unknown Rx Ciprofloxacin HCl [Ciprofloxacin 500 mg PO BID 10 Days #20 tab 10/27/18 Unknown Rx TAB] Cyclobenzaprine [Flexeril 10 MG 10 mg PO TID PRN #15 tablet 10/27/18 Unknown Rx TAB] Acetaminophen/Codeine [Tylenol 1 tab PO Q6H PRN #20 tab 11/02/18 Unknown Rx /Codeine # 3 tab] Docusate Sodium [Move It Along] 100 mg PO QHS PRN #20 tablet 11/02/18 Unknown Rx Sulfamethoxazole/Trimethoprim 1 each PO Q12H #20 tablet 11/02/18 Unknown Rx [Bactrim DS TAB] Ciprofloxacin HCl [Ciprofloxacin 500 mg PO BID 10 Days #20 tab 11/06/18 Unknown Rx TAB] traMADol [Ultram] 50 mg PO Q6HR PRN #12 tablet 11/06/18 Unknown Rx Ondansetron (Nf) [Zofran TAB] 8 mg PO Q8HR PRN #20 tablet 11/26/18 Unknown Rx Phenazopyridine [Pyridium] 200 mg PO TID #6 tab 11/26/18 Unknown Rx Allergies Allergy/AdvReac Type Severity Reaction Status Date / Time ketorolac [From Toradol] Allergy Unknown Hives Verified 11/26/18 09:30 aspirin Allergy Hives Verified 11/05/18 22:40 dicyclomine [From Bentyl] Allergy Unknown Verified 11/05/18 22:40 metoclopramide [From Reglan] Allergy Unknown Verified 11/05/18 22:40 NSAIDS (Non-Steroidal Allergy Hives Verified 11/05/18 22:40 Anti-Inflamma ED Review of Systems Comment: All other systems reviewed and negative Constitutional: denies: chills, fever Eyes: denies: eye pain, eye discharge, vision change ENT: denies: ear pain, throat pain Respiratory: denies: cough, shortness of breath, wheezing Cardiovascular: denies: chest pain, palpitations Endocrine: no symptoms reported Gastrointestinal: abdominal pain (RLQ Pain), nausea, vomiting, diarrhea. denies: constipation, hematemesis, melena, hematochezia Genitourinary: denies: urgency, dysuria, discharge Musculoskeletal: denies: back pain, joint swelling, arthralgia Skin: denies: rash, lesions Neurological: denies: headache, weakness, paresthesias Psychiatric: denies: anxiety, depression Hematological/Lymphatic: denies: easy bleeding, easy bruising ED Past Medical Hx - Past Medical History Hx Hypertension: No Hx CVA: No Hx Heart Attack/AMI: No Hx Congestive Heart Failure: No Hx Diabetes: No Hx Deep Vein Thrombosis: No Hx Pulmonary Embolism: No Hx GERD: No Hx Liver Disease: No Hx Renal Disease: No Hx Sickle Cell Disease: No Hx Arthritis: No Hx Headaches / Migraines: No Hx Seizures: Yes Hx Kidney Stones: No Hx Psychiatric Treatment: No Hx Asthma: Yes Hx COPD: No Hx Tuberculosis: No Hx Dementia: No Hx HIV: No Additional medical history: Von Willebrand blood disorder, 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, hypoglycemia - Surgical History Hx Coronary Stent: No Hx Open Heart Surgery: No Hx Pacemaker: No Hx Internal Defibrillator: No Hx Cholecystectomy: Yes Hx Appendectomy: No Hx Breast Surgery: No - Social History Smoking Status: Never Smoker Substance Use Type: None - Medications Home Medications: Home Medications Medication Instructions Recorded Confirmed Last Taken Type Ondansetron [Zofran Odt] 4 mg PO Q8HR #15 tab.rapdis 09/03/18 Unknown Rx Acetaminophen/Codeine [Tylenol 1 tab PO Q4HR PRN #18 tablet 09/08/18 Unknown Rx /Codeine # 3 tab] Hyoscyamine Subl [Levsin Sl 0.125 0.125 mg SL Q6HR PRN #20 tab 09/08/18 Unknown Rx TAB] Promethazine [Phenergan] 25 mg PO Q6HR PRN #20 tab 09/08/18 Unknown Rx Ciprofloxacin HCl [Ciprofloxacin 500 mg PO Q12HR #20 tab 09/13/18 Unknown Rx TAB] HYDROcodone/APAP 5-325 [Harleigh 1 - 2 each PO Q6HR PRN #10 tablet 09/13/18 Unknown Rx 5/325] Promethazine [Phenergan] 25 mg PO Q6HR PRN #20 tab 09/13/18 Unknown Rx Promethazine [Phenergan] 25 mg MA Q6HR PRN #5 supp.rect 09/13/18 Unknown Rx metroNIDAZOLE [Flagyl] 500 mg PO Q12HR #14 tab 09/13/18 Unknown Rx Acetaminophen/Codeine [Tylenol 1 tab PO Q6H PRN #12 tab 09/30/18 Unknown Rx /Codeine # 3 tab] Omeprazole 20 mg PO DAILY #30 capsule.dr 09/30/18 Unknown Rx metroNIDAZOLE [Flagyl] 500 mg PO BID 10 Days #20 tab 09/30/18 Unknown Rx Ciprofloxacin HCl [Ciprofloxacin 500 mg PO BID 10 Days #20 tab 10/27/18 Unknown Rx TAB] Cyclobenzaprine [Flexeril 10 MG 10 mg PO TID PRN #15 tablet 10/27/18 Unknown Rx TAB] Acetaminophen/Codeine [Tylenol 1 tab PO Q6H PRN #20 tab 11/02/18 Unknown Rx /Codeine # 3 tab] Docusate Sodium [Move It Along] 100 mg PO QHS PRN #20 tablet 11/02/18 Unknown Rx Sulfamethoxazole/Trimethoprim 1 each PO Q12H #20 tablet 11/02/18 Unknown Rx [Bactrim DS TAB] Ciprofloxacin HCl [Ciprofloxacin 500 mg PO BID 10 Days #20 tab 11/06/18 Unknown Rx TAB] traMADol [Ultram] 50 mg PO Q6HR PRN #12 tablet 11/06/18 Unknown Rx Ondansetron (Nf) [Zofran TAB] 8 mg PO Q8HR PRN #20 tablet 11/26/18 Unknown Rx Phenazopyridine [Pyridium] 200 mg PO TID #6 tab 11/26/18 Unknown Rx ED Physical Exam - General Limitations: No Limitations General appearance: alert, in no apparent distress - Head Head exam: Present: atraumatic, normocephalic, normal inspection - Eye Eye exam: Present: normal appearance, PERRL, EOMI Pupils: Present: normal accommodation - ENT ENT exam: Present: normal exam, normal orophraynx, mucous membranes moist, TM's normal bilaterally, normal external ear exam - Neck Neck exam: Present: normal inspection, full ROM. Absent: tenderness, men ingismus, lymphadenopathy - Respiratory Respiratory exam: Present: normal lung sounds bilaterally. Absent: respiratory distress, wheezes, rales, rhonchi, chest wall tenderness, prolonged expiratory - Cardiovascular Cardiovascular Exam: Present: regular rate, normal rhythm, normal heart sounds. Absent: systolic murmur, diastolic murmur, rubs, gallop - GI/Abdominal GI/Abdominal exam: Present: soft, tenderness (RLQ tenderness with guarding and rebound), guarding, rebound, normal bowel sounds. Absent: hyperactive bowel sounds, hypoactive bowel sounds, organomegaly - Rectal Rectal exam: Present: deferred - Extremities Exam Extremities exam: Present: normal inspection, full ROM, normal capillary refill - Back Exam Back exam: Present: normal inspection, full ROM. Absent: tenderness, CVA tenderness (R), CVA tenderness (L), muscle spasm, paraspinal tenderness, vertebral tenderness - Neurological Exam Neurological exam: Present: alert, oriented X3, CN II-XII intact, normal gait, reflexes normal - Psychiatric Psychiatric exam: Present: normal affect, normal mood - Skin Skin exam: Present: warm, dry, intact, normal color. Absent: rash ED Course - Reevaluation(s) Reevaluation #1: 11/26/18 06:57 This is a 27-year-old white female who presented to the ED with complaint of right lower quadrant abdominal pain with nausea and vomiting and diarrhea for 24 hours. Lab test results are unremarkable including urinalysis. Abdomen pelvis CT scan with contrast and pelvic ultrasound tests are pending. Patient was treated for pain in the ED and is currently resting comfortably with pain well controlled. Patient care was transferred to my colleague Ms. Rodrigue Crocker PA-C at shift change. ED Medical Decision Making - Lab Data Result diagrams: 11/26/18 04:41 11/26/18 04:41 - Medical Decision Making Patient is resting comfortably in the room after being medicated with pain m edication. Patient is currently awaiting abdominal pelvic CT scan with contrast and pelvic ultrasound tests to begin. Patient care was transferred to my colleague Rodrigue Lizzette CHEATHAM at shift change at 0700 hours. Ms. Husain shall review all imaging reports and make appropriate disposition on the patient. - Differential Diagnosis Appendicitis; Ovarian cyst; Acute UTI; Colitis, ectopic , PID ED Disposition Clinical Impression: Acute abdominal pain in right lower quadrant, Nausea and vomiting in adult, UTI (urinary tract infection) Disposition: - TO HOME OR SELFCARE Is pt being admited?: No Does the pt Need Aspirin: No Condition: Stable Instructions: Urinary Tract Infection in Women (ED), Acute Nausea and Vomiting (ED), Abdominal Pain (ED) Additional Instructions: Make sure to follow up with the [facility] as discussed. Take all your medications as you've been prescribed. If you have any worsening symptoms or develop new symptoms please return to ED immediately. Prescriptions: Phenazopyridine [Pyridium] 200 mg PO TID #6 tab Ondansetron (Nf) [Zofran TAB] 8 mg PO Q8HR PRN #20 tablet PRN Reason: Nausea Referrals: [facility] [Provider Group] - 3-5 Days [facility] [Provider Group] - 3-5 Days [facility] [Outside] - 3-5 Days ETHAN MICHAUD MD [Staff Physician] - 3-5 Days Forms: Accompanied Note, Work/School Release Form(ED) <LIZZETTE HUSAIN - Last Filed: 11/29/18 08:50> ED Review of Systems ROS: Stated complaint: RT SIDE PAIN, NAUSEA, FEVER Other details as noted in HPI ED Course Vital Signs 11/26/18 11/26/18 04:27 06:39 Temperature 98.1 F Pulse Rate 74 Respiratory 18 16 Rate Blood Pressure 125/73 O2 Sat by Pulse 98 Oximetry ED Medical Decision Making - Lab Data Result diagrams: 11/26/18 04:41 11/26/18 04:41 - Radiology Data Radiology results: report reviewed, image reviewed Transabdominal pelvic ultrasound INDICATION: Right lower quadrant pain FINDINGS: The uterus measures 6.7 x 3.5 x 3.7 cm. Endometrial stripe is normal at 5 mm. The right ovary measures 3.7 x 1.7 x 2 cm and appears normal. There is good arterial flow to the right ovary with no evidence of torsion and no ovarian cysts or masses seen. Left ovary is not seen. No masses or free fluid. IMPRESSION: The left ovary is not seen. Otherwise negative study with right ovary normal. Signer Name: Boogie Aaron MD Signed: 11/26/2018 7:28 AM Workstation Name: [id number] Transcribed By: EUGENIA Dictated By: Boogie Aaron MD Electronically Authenticated By: Boogie Aaron MD Signed Date/Time: 11/26/[address] of the abdomen and pelvis with contrast INDICATION: Right lower quadrant pain since yesterday COMPARISON: 11/02/2018 FINDINGS: The lung bases are clear. Gallbladder has been removed. Slight prominence of the biliary tree is unchanged. The liver, spleen, pancreas, adrenal glands and kidneys are normal and unchanged. No fluid or adenopathy in the upper abdomen. CT of the pelvis again shows a 2.6 and 2.4 cm left ovarian cyst with trace free fluid. The right ovary appears normal. Appendix is again seen to be normal. Terminal ileum is unremarkable. No diverticulosis or diverticulitis. No hernia or bowel obstruction. There is relatively large amount of stool in colon suggesting constipation. IMPRESSION: Probable constipation. Left ovarian cysts without free fluid. No right lower quadrant abnormality. Automated exposure control was utilized to diminish radiation dose. Signer Name: Boogie Aaron MD Signed: 11/26/2018 8:05 AM Workstation Name: [id number] Transcribed By: EUGENIA Dictated By: Boogie Aaron MD Electronically Authenticated By: Boogie Aaron MD Signed Date/Time: 11/26/18 0805 - Medical Decision Making This 27-year-old female with the history of endometriosis presents with lower pelvic pain. Patient has a long history of right pelvic pain. Patient told me she had followed up with Dr. Michaud [facility] who she is currently waiting to have surgery done waiting on her finances. I discussed with her to be a follow-up with the [facility]. Patient received a dose of Toradol in the ED before discharge. Discussed patient to take Motrin as needed for pain I discussed CT scan findings with the patient as well as ultrasound scan findings with the patient. 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 Referral was given to patient. Critical care attestation.: If time is entered above; I have spent that time in minutes in the direct care of this critically ill patient, excluding procedure time. ED Disposition Is pt being admited?: No Does the pt Need Aspirin: No Time of Disposition: 08:32
--- NOTE | 2018-11-26 07:33 | Ultrasound Report ---
Transabdominal pelvic ultrasound INDICATION: Right lower quadrant pain FINDINGS: The uterus measures 6.7 x 3.5 x 3.7 cm. Endometrial stripe is normal at 5 mm. The right ova ry measures 3.7 x 1.7 x 2 cm and appears normal. There is good arterial flow to the right ovary with no evidence of torsion and no ovarian cysts or masses seen. Left ovary is not seen. No masses or free fluid. IMPRESSION: The left ovary is not seen. Otherwise negative study with right ovary normal. Signer Name: Boogie Aaron MD Signed: 11/26/2018 7:28 AM Workstation Name: [id number]
--- NOTE | 2018-11-26 08:10 | Cat Scan Report ---
CT of the abdomen and pelvis with contrast INDICATION: Right lower quadrant pain since yesterday COMPARISON: 11/02/2018 FINDINGS: The lung bases are clear. Gallbladder has been removed. Slight prominence of the biliary tr ee is unchanged. The liver, spleen, pancreas, adrenal glands and kidneys are normal and unchanged. No fluid or adenopathy in the upper abdomen. CT of the pelvis again shows a 2.6 and 2.4 cm left ovarian cyst with trace free fluid. The right ovar y appears normal. Appendix is again seen to be normal. Terminal ileum is unremarkable. No diverticulo sis or diverticulitis. No hernia or bowel obstruction. There is relatively large amount of stool in c olon suggesting constipation. IMPRESSION: Probable constipation. Left ovarian cysts without free fluid. No right lower quadrant abn ormality. Automated exposure control was utilized to diminish radiation dose. Signer Name: Boogie Aaron MD Signed: 11/26/2018 8:05 AM Workstation Name: [id number]
[2018-11-26] MEDS ORDERED: TORADOL IV ONE (09:07)
[2018-11-26] MEDS ORDERED: TORADOL ONE (09:11)
== END 2018-11-26 09:31 | disposition home or self-care (01) ==
LOC: ED 04:25
DX: N39.0 Urinary tract infection, site not specified (principal); R11.2 Nausea with vomiting, unspecified; R19.7 Diarrhea, unspecified; J45.909 Unspecified asthma, uncomplicated; M54.5 Low back pain; Z79.899 Other long term (current) drug therapy; Z88.6 Allergy status to analgesic agent; Z88.5 Allergy status to narcotic agent; Z88.7 Allergy status to serum and vaccine
CPT/HCPCS: 36415; 74177; 76856; 80053; 81001; 83690; 84703; 85025; 87086; 96365; 96375; 99284; J0696; J2270; J2405; Q9967; J1885

== ENCOUNTER 2018-12-05 23:00 | Emergency (ER) | payer SELFPAY ==
[2018-12-05 23:25] VITALS: BP 118/65
[2018-12-05 23:42] LABS: Basophils % (Auto) 0.5 % (0.0-1.8); Eosinophils # (Auto) 0.1 K/mm3 (0.0-0.4); Eosinophils % (Auto) 1.6 % (0.0-4.3); Hematocrit 39.3 % (30.3-42.9); Hemoglobin 13.7 gm/dl (10.1-14.3); Lymphocytes # (Auto) 0.9 K/mm3 (1.2-5.4); Lymphocytes % (Auto) 16.6 % (13.4-35.0); Mean Corpuscular HGB Conc 35 % (30-34); Mean Corpuscular Volume 89 fl (79-97); Monocytes # (Auto) 0.4 K/mm3 (0.0-0.8); Monocytes % (Auto) 8.2 % (0.0-7.3); Platelet Count 230 K/mm3 (140-440); Red Cell Distribution Width 13.5 % (13.2-15.2)
[2018-12-06 00:05] LABS: Alanine Aminotransferase 10 units/L (7-56); Albumin 4.5 g/dL (3.9-5); BUN/Creatinine Ratio 8; Blood Urea Nitrogen 6 mg/dL (7-17); Calcium 9.4 mg/dL (8.4-10.2); Hemolysis Index 11
[2018-12-06 01:03] LABS: Bilirubin,Urine NEG (Negative); Blood,Urine NEG (Negative); Color,Urine Yellow (Yellow); Mucus,Urine 3+ /HPF; Protein,Urine <15 mg/dL mg/dL (Negative); Urobilinogen,Urine < 2.0 mg/dL (<2.0)
--- NOTE | 2018-12-06 01:36 | Emergency Department Report ---
ED Abdominal Pain HPI - General Chief Complaint: Abdominal Pain Stated Complaint: LOWER RIGHT ABD PAIN, N/V, DIARRHEA Time Seen by Provider: 12/06/18 01:29 Source: patient Mode of arrival: Ambulatory Limitations: No Limitations - History of Present Illness Initial Comments: Patient is a 27-year-old female presents to the emergency room with complaints o f right lower quadrant abdominal pain that began 2 days ago. she has associated nausea and diarrhea. She is having a few episodes of diarrhea today. Denies any emesis, fever, urinary symptoms, hematochezia, melena. She has been evaluated in the ED on multiple occasions for RLQ abdominal pain, she has had CT abd/pelvis this year. She has a past abdominal surgery history of cholecystectomy. Last menstrual cycle November 09. - Related Data Previous Rx's Medication Instructions Recorded Last Taken Type Ondansetron [Zofran Odt] 4 mg PO Q8HR #15 tab.rapdis 09/03/18 Unknown Rx Acetaminophen/Codeine [Tylenol 1 tab PO Q4HR PRN #18 tablet 09/08/18 Unknown Rx /Codeine # 3 tab] Hyoscyamine Subl [Levsin Sl 0.125 0.125 mg SL Q6HR PRN #20 tab 09/08/18 Unknown Rx TAB] Promethazine [Phenergan] 25 mg PO Q6HR PRN #20 tab 09/08/18 Unknown Rx Ciprofloxacin HCl [Ciprofloxacin 500 mg PO Q12HR #20 tab 09/13/18 Unknown Rx TAB] HYDROcodone/APAP 5-325 [[place] 1 - 2 each PO Q6HR PRN #10 tablet 09/13/18 Unknown Rx 5/325] Promethazine [Phenergan] 25 mg PO Q6HR PRN #20 tab 09/13/18 Unknown Rx Promethazine [Phenergan] 25 mg SD Q6HR PRN #5 supp.rect 09/13/18 Unknown Rx metroNIDAZOLE [Flagyl] 500 mg PO Q12HR #14 tab 09/13/18 Unknown Rx Acetaminophen/Codeine [Tylenol 1 tab PO Q6H PRN #12 tab 09/30/18 Unknown Rx /Codeine # 3 tab] Omeprazole 20 mg PO DAILY #30 capsule. 09/30/18 Unknown Rx metroNIDAZOLE [Flagyl] 500 mg PO BID 10 Days #20 tab 09/30/18 Unknown Rx Ciprofloxacin HCl [Ciprofloxacin 500 mg PO BID 10 Days #20 tab 10/27/18 Unknown Rx TAB] Cyclobenzaprine [Flexeril 10 MG 10 mg PO TID PRN #15 tablet 10/27/18 Unknown Rx TAB] Acetaminophen/Codeine [Tylenol 1 tab PO Q6H PRN #20 tab 11/02/18 Unknown Rx /Codeine # 3 tab] Docusate Sodium [Move It Along] 100 mg PO QHS PRN #20 tablet 11/02/18 Unknown Rx Sulfamethoxazole/Trimethoprim 1 each PO Q12H #20 tablet 11/02/18 Unknown Rx [Bactrim DS TAB] Ciprofloxacin HCl [Ciprofloxacin 500 mg PO BID 10 Days #20 tab 11/06/18 Unknown Rx TAB] traMADol [Ultram] 50 mg PO Q6HR PRN #12 tablet 11/06/18 Unknown Rx Ondansetron (Nf) [Zofran TAB] 8 mg PO Q8HR PRN #20 tablet 11/26/18 Unknown Rx Phenazopyridine [Pyridium] 200 mg PO TID #6 tab 11/26/18 Unknown Rx Hyoscyamine Subl [Levsin Sl 0.125 0.125 mg SL Q6HR PRN #10 tab 12/06/18 Unknown Rx TAB] Ondansetron [Zofran Odt] 4 mg PO Q8HR PRN #10 tab.rapdis 12/06/18 Unknown Rx cephALEXin [Keflex] 500 mg PO BID 7 Days #14 capsule 12/06/18 Unknown Rx Allergies Allergy/AdvReac Type Severity Reaction Status Date / Time ketorolac [From Toradol] Allergy Unknown Hives Verified 11/26/18 09:30 aspirin Allergy Hives Verified 11/05/18 22:40 dicyclomine [From Bentyl] Allergy Unknown Verified 11/05/18 22:40 metoclopramide [From Reglan] Allergy Unknown Verified 11/05/18 22:40 NSAIDS (Non-Steroidal Allergy Hives Verified 11/05/18 22:40 Anti-Inflamma ED Review of Systems ROS: Stated complaint: LOWER RIGHT ABD PAIN, N/V, DIARRHEA Other details as noted in HPI Comment: All other systems reviewed and negative ED Past Medical Hx - Past Medical History Previous Medical History?: Yes Hx Hypertension: No Hx CVA: No Hx Heart Attack/AMI: No Hx Congestive Heart Failure: No Hx Diabetes: No Hx Deep Vein Thrombosis: No Hx Pulmonary Embolism: No Hx GERD: No Hx Liver Disease: No Hx Renal Disease: No Hx Sickle Cell Disease: No Hx Arthritis: No Hx Headaches / Migraines: No Hx Seizures: Yes Hx Kidney Stones: No Hx Psychiatric Treatment: No Hx Asthma: Yes Hx COPD: No Hx Tuberculosis: No Hx Dementia: No Hx HIV: No Additional medical history: Von Willebrand blood disorder, 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, hypoglycemia - Surgical History Past Surgical History?: Yes Hx Coronary Stent: No Hx Open Heart Surgery: No Hx Pacemaker: No Hx Internal Defibrillator: No Hx Cholecystectomy: Yes Hx Appendectomy: No Hx Breast Surgery: No - Social History Smoking Status: Never Smoker Substance Use Type: None - Medications Home Medications: Home Medications Medication Instructions Recorded Confirmed Last Taken Type Ondansetron [Zofran Odt] 4 mg PO Q8HR #15 tab.rapdis 09/03/18 Unknown Rx Acetaminophen/Codeine [Tylenol 1 tab PO Q4HR PRN #18 tablet 09/08/18 Unknown Rx /Codeine # 3 tab] Hyoscyamine Subl [Levsin Sl 0.125 0.125 mg SL Q6HR PRN #20 tab 09/08/18 Unknown Rx TAB] Promethazine [Phenergan] 25 mg PO Q6HR PRN #20 tab 09/08/18 Unknown Rx Ciprofloxacin HCl [Ciprofloxacin 500 mg PO Q12HR #20 tab 09/13/18 Unknown Rx TAB] HYDROcodone/APAP 5-325 [[place] 1 - 2 each PO Q6HR PRN #10 tablet 09/13/18 Unknown Rx 5/325] Promethazine [Phenergan] 25 mg PO Q6HR PRN #20 tab 09/13/18 Unknown Rx Promethazine [Phenergan] 25 mg SD Q6HR PRN #5 supp.rect 09/13/18 Unknown Rx metroNIDAZOLE [Flagyl] 500 mg PO Q12HR #14 tab 09/13/18 Unknown Rx Acetaminophen/Codeine [Tylenol 1 tab PO Q6H PRN #12 tab 09/30/18 Unknown Rx /Codeine # 3 tab] Omeprazole 20 mg PO DAILY #30 capsule.dr 09/30/18 Unknown Rx metroNIDAZOLE [Flagyl] 500 mg PO BID 10 Days #20 tab 09/30/18 Unknown Rx Ciprofloxacin HCl [Ciprofloxacin 500 mg PO BID 10 Days #20 tab 10/27/18 Unknown Rx TAB] Cyclobenzaprine [Flexeril 10 MG 10 mg PO TID PRN #15 tablet 10/27/18 Unknown Rx TAB] Acetaminophen/Codeine [Tylenol 1 tab PO Q6H PRN #20 tab 11/02/18 Unknown Rx /Codeine # 3 tab] Docusate Sodium [Move It Along] 100 mg PO QHS PRN #20 tablet 11/02/18 Unknown Rx Sulfamethoxazole/Trimethoprim 1 each PO Q12H #20 tablet 11/02/18 Unknown Rx [Bactrim DS TAB] Ciprofloxacin HCl [Ciprofloxacin 500 mg PO BID 10 Days #20 tab 11/06/18 Unknown Rx TAB] traMADol [Ultram] 50 mg PO Q6HR PRN #12 tablet 11/06/18 Unknown Rx Ondansetron (Nf) [Zofran TAB] 8 mg PO Q8HR PRN #20 tablet 11/26/18 Unknown Rx Phenazopyridine [Pyridium] 200 mg PO TID #6 tab 11/26/18 Unknown Rx Hyoscyamine Subl [Levsin Sl 0.125 0.125 mg SL Q6HR PRN #10 tab 12/06/18 Unknown Rx TAB] Ondansetron [Zofran Odt] 4 mg PO Q8HR PRN #10 tab.rapdis 12/06/18 Unknown Rx cephALEXin [Keflex] 500 mg PO BID 7 Days #14 capsule 12/06/18 Unknown Rx ED Physical Exam - General Limitations: No Limitations General appearance: alert, in no apparent distress - Head Head exam: Present: atraumatic, normocephalic - Eye Eye exam: Present: normal appearance - ENT ENT exam: Present: mucous membranes moist - Respiratory Respiratory exam: Present: normal lung sounds bilaterally. Absent: respiratory distress, wheezes, rales, rhonchi, stridor, accessory muscle use, decreased breath sounds, prolonged expiratory - Cardiovascular Cardiovascular Exam: Present: regular rate, normal rhythm, normal heart sounds. Absent: systolic murmur, diastolic murmur, rubs, gallop - GI/Abdominal GI/Abdominal exam: Present: soft, tenderness (RLQ), normal bowel sounds. Absent: distended, guarding, rebound, rigid - External exam: Present: other (pt declined examination ) - Back Exam Back exam: Absent: CVA tenderness (R), CVA tenderness (L) - Neurological Exam Neurological exam: Present: alert, oriented X3 - Psychiatric Psychiatric exam: Present: normal affect, normal mood - Skin Skin exam: Present: warm, dry, intact ED Course Vital Signs 12/05/18 12/06/18 23:21 04:13 Temperature 98.1 F Pulse Rate 86 86 Respiratory 14 16 Rate Blood Pressure 118/65 O2 Sat by Pulse 100 97 Oximetry ED Medical Decision Making - Lab Data Result diagrams: 12/05/18 23:29 12/05/18 23:29 Lab Results 12/05/18 12/05/18 12/05/18 Range/Units 23:29 23:29 23:29 WBC 5.4 (4.5-11.0) K/mm3 RBC 4.40 (3.65-5.03) M/mm3 Hgb 13.7 (10.1-14.3) gm/dl Hct 39.3 (30.3-42.9) % MCV 89 (79-97) fl MCH 31 (28-32) pg MCHC 35 H (30-34) % RDW 13.5 (13.2-15.2) % Plt Count 230 (140-440) K/mm3 Lymph % (Auto) 16.6 (13.4-35.0) % [place] % (Auto) 8.2 H (0.0-7.3) % Eos % (Auto) 1.6 (0.0-4.3) % Baso % (Auto) 0.5 (0.0-1.8) % Lymph # 0.9 L (1.2-5.4) K/mm3 [place] # 0.4 (0.0-0.8) K/mm3 Eos # 0.1 (0.0-0.4) K/mm3 Baso # 0.0 (0.0-0.1) K/mm3 Seg Neutrophils % 73.1 H (40.0-70.0) % Seg Neutrophils # 3.9 (1.8-7.7) K/mm3 Sodium 142 (137-145) mmol/L Potassium 3.7 (3.6-5.0) mmol/L Chloride 104.7 (98-107) mmol/L Carbon Dioxide 24 (22-30) mmol/L Anion Gap 17 mmol/L BUN 6 L (7-17) mg/dL Creatinine 0.8 (0.7-1.2) mg/dL Estimated GFR > 60 ml/min BUN/Creatinine Ratio 8 % Glucose 72 (65-100) mg/dL Calcium 9.4 (8.4-10.2) mg/dL Total Bilirubin 0.40 (0.1-1.2) mg/dL AST 15 (5-40) units/L ALT 10 (7-56) units/L Alkaline Phosphatase 66 (35-129) units/L Total Protein 7.5 (6.3-8.2) g/dL Albumin 4.5 (3.9-5) g/dL Albumin/Globulin Ratio 1.5 % Lipase 63 H (13-60) units/L HCG, Qual Negative (Negative) Urine Color (Yellow) Urine Turbidity (Clear) Urine pH (5.0-7.0) Ur Specific [place] (1.003-1.030) Urine Protein (Negative) mg/dL Urine Glucose (UA) (Negative) mg/dL Urine Ketones (Negative) mg/dL Urine Blood (Negative) Urine Nitrite (Negative) Urine Bilirubin (Negative) Urine Urobilinogen (<2.0) mg/dL Ur Leukocyte Esterase (Negative) Urine WBC (Auto) (0.0-6.0) /HPF Urine RBC (Auto) (0.0-6.0) /HPF U Epithel Cells (Auto) (0-13.0) /HPF Urine Mucus /HPF 12/06/ Range/Units 00:26 WBC (4.5-11.0) K/mm3 RBC (3.65-5.03) M/mm3 Hgb (10.1-14.3) gm/dl Hct (30.3-42.9) % MCV (79-97) fl MCH (28-32) pg MCHC (30-34) % RDW (13.2-15.2) % Plt Count (140-440) K/mm3 Lymph % (Auto) (13.4-35.0) % [place] % (Auto) (0.0-7.3) % Eos % (Auto) (0.0-4.3) % Baso % (Auto) (0.0-1.8) % Lymph # (1.2-5.4) K/mm3 [place] # (0.0-0.8) K/mm3 Eos # (0.0-0.4) K/mm3 Baso # (0.0-0.1) K/mm3 Seg Neutrophils % (40.0-70.0) % Seg Neutrophils # (1.8-7.7) K/mm3 Sodium (137-145) mmol/L Potassium (3.6-5.0) mmol/L Chloride (98-107) mmol/L Carbon Dioxide (22-30) mmol/L Anion Gap mmol/L BUN (7-17) mg/dL Creatinine (0.7-1.2) mg/dL Estimated GFR ml/min BUN/Creatinine Ratio % Glucose (65-100) mg/dL Calcium (8.4-10.2) mg/dL Total Bilirubin (0.1-1.2) mg/dL AST (5-40) units/L ALT (7-56) units/L Alkaline Phosphatase (35-129) units/L Total Protein (6.3-8.2) g/dL Albumin (3.9-5) g/dL Albumin/Globulin Ratio % Lipase (13-60) units/L HCG, Qual (Negative) Urine Color Yellow (Yellow) Urine Turbidity Slightly-cloudy (Clear) Urine pH 7.0 (5.0-7.0) Ur Specific [place] 1.023 (1.003-1.030) Urine Protein <15 mg/dl (Negative) mg/dL Urine Glucose (UA) Neg (Negative) mg/dL Urine Ketones Neg (Negative) mg/dL Urine Blood Neg (Negative) Urine Nitrite Neg (Negative) Urine Bilirubin Neg (Negative) Urine Urobilinogen < 2.0 (<2.0) mg/dL Ur Leukocyte Esterase Sm (Negative) Urine WBC (Auto) 7.0 H (0.0-6.0) /HPF Urine RBC (Auto) 9.0 (0.0-6.0) /HPF U Epithel Cells (Auto) 10.0 (0-13.0) /HPF Urine Mucus 3+ /HPF - Radiology Data Radiology results: report reviewed Transabdominal pelvic ultrasound INDICATION / CLINICAL INFORMATION: RLQ pain, hx of ovarian cysts. COMPARISON: None available. FINDINGS: The uterus measures 7.1 x 3.5 x 4.9 cm. The endometrial stripe measures 9.7 mm AP. No fibroids are seen. The right ovary measures 1.9 x 1.5 x 1.5 cm. The left ovary is not seen. There is normal blood flow to the right ovary on Doppler exam. No free fluid is seen. Images of the urinary bladder are normal. IMPRESSION: Negative study. Signer Name: Joao Olivo MD Signed: 12/06/2018 3:02 AM Workstation Name: [id number] Transcribed By: RT Dictated By: Joao Olivo MD Electronically Authenticated By: Joao Olivo MD Signed Date/Time: 12/06/18 0302 ULTRASOUND ABDOMEN, LIMITED (RIGHT UPPER QUADRANT) INDICATION: RLQ pain. COMPARISON: CT of the abdomen and pelvis 11/26/2018. FINDINGS: PANCREAS: No significant abnormality. LIVER: No significant abnormality. GALLBLADDER: Surgically absent. BILE DUCTS: No significant abnormality. Common bile duct measures 5.8 mm. FREE FLUID: None. ADDITIONAL FINDINGS: Images of the right kidney are normal. IMPRESSION: Prior cholecystectomy. No abnormality in the right upper quadrant. Signer Name: Joao Olivo MD Signed: 12/06/2018 3:04 AM Workstation Name: [id number] Transcribed By: RT Dictated By: Joao Olivo MD Electronically Authenticated By: Joao Olivo MD Signed Date/Time: 12/06/18 0304 - Medical Decision Making Patient is a 27-year-old female presents to the emergency room with complaints of right lower quadrant abdominal pain that began 2 days ago. she has associated nausea and diarrhea. She is having a few episodes of diarrhea today. Denies any emesis, fever, urinary symptoms, hematochezia, melena. She has been evaluated in the ED on multiple occasions for RLQ abdominal pain, she has had CT abd/pelvis this year. She has a past abdominal surgery history of cholecystectomy. Last menstrual cycle November 09. vitals are normal. on exam: pt has RLQ, no guarding, no rebound, no peritoneal signs. upon further review pt has a hx of chronic RLQ abdominal pain. pt has had 7 CT abd/pelvis with IV contrast and each one showed a normal appendix. had a further discussion with pt. 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 Maicol Michaud would like her to have a laparoscopy but she states she cannot have it due to financial reasons. due to frequent UTIs while in the ED offered pt to due a pelvic examination and obtain swabs for wet prep and G/C, pt states she is a virgin and does not want to have the pelvic exam completely, pt states Dr. Michaud already did the swabs and they "were normal" and she does not want another exam. discussed with pt the risks associated with frequent CTs due to the radiation and involved pt in the medical decision making process, pt states she will defer CT at this time and have an abdominal US and pelvic US, I discussed with pt that a transvaginal US is a better test for evaluating the ovaries, pt states because she is a virgin she does not want to have a transvaginal US. I will order pelvic and abdominal US without the transvaginal view. pts vitals are normal, she is afebrile, and has a normal HR. labs are stable. no leukocytosis. UA with WBCs and small amount of leukocyte esterase. pelvic US shows: The uterus measures 7.1 x 3.5 x 4.9 cm. The endometrial stripe measures 9.7 mm AP. No fibroids are seen. The right ovary measures 1.9 x 1.5 x 1.5 cm. The left ovary is not seen. There is normal blood flow to the right ovary on Doppler exam. No free fluid is seen. Images of the urinary bladder are normal. abdominal US shows: prior cholcystectomy otherwise no acute process. pt has a very low Dowell score making appendicitis unlikely. advised pt to have a repeat abdominal exam in the next 48 hours by either a PCP or GI doctor. pt states she has not seen an GI doctor during this process. will have pt follow up with GI in the next 2 days. pt given prescription for zofran, levsin, and keflex. advised to take medication as prescribed. discussed with pt to drink plenty of water and eat a bland diet. advised pt to follow up with Dr. Michaud, DIABETES TRAINER in the next 2- 3 days. return to the emergency room immediately for any new or worsening symptoms. pt asked for narcotic pain medication. looked pt up on the drug monitoring system pt received 12 tablets of tylenol #3 on 11/29/18, 10 tablets of tylenol #3 on 11/06/18, tramadol 12 tablets on 11/06/18 (the same day), 20 tablets of tylenol #3 on 11/02/18, 10 tablets of tylenol #3 on 10/30/18, these are just for november and october there are several more. it appears pt is hospital hopping and I fear exhibiting drug seeking behavior. due to safety concerns, I will not be prescribing narcotic pain medications and will give pt the appropriate referrals. - Differential Diagnosis colitis, enteritis, ovarian cyst/torsion/abscess, endometriosis, appdendici Critical care attestation.: If time is entered above; I have spent that time in minutes in the direct care of this critically ill patient, excluding procedure time. ED Disposition Clinical Impression: Nausea Abdominal pain Qualifiers: Abdominal location: right lower quadrant Qualified Code(s): R10.31 - Right lower quadrant pain Diarrhea Qualifiers: Diarrhea type: unspecified type Qualified Code(s): R19.7 - Diarrhea, unspecified UTI (urinary tract infection) Qualifiers: Urinary tract infection type: acute cystitis Hematuria presence: without hematuria Qualified Code(s): N30.00 - Acute cystitis without hematuria Disposition: TO HOME OR SELFCARE Is pt being admited?: No Does the pt Need Aspirin: No Condition: Stable Instructions: Urinary Tract Infection in Women (ED), Abdominal Pain (ED) Prescriptions: cephALEXin [Keflex] 500 mg PO BID 7 Days #14 capsule Hyoscyamine Subl [Levsin Sl 0.125 TAB] 0.125 mg SL Q6HR PRN #10 tab PRN Reason: abdominal pain Ondansetron [Zofran Odt] 4 mg PO Q8HR PRN #10 tab.rapdis PRN Reason: Nausea And Vomiting [facility] [Primary Care Provider[facility] - 2-3 Days MAICOL MICHAUD MD [Staff Physician] - 2-3 Days [facility] [Provider Group] - 2-3 Days Time of Disposition: 03:52 Print Language: SPANISH
[2018-12-06] MEDS ORDERED: ZOFRAN ODT PO ONE (02:11)
[2018-12-06] MEDS ORDERED: LEVSIN SL SL ONE (02:11)
[2018-12-06] MEDS ORDERED: TYLENOL PO ONE (02:11)
--- NOTE | 2018-12-06 03:07 | Ultrasound Report ---
Transabdominal pelvic ultrasound INDICATION / CLINICAL INFORMATION: RLQ pain, hx of ovarian cysts. COMPARISON: None available. FINDINGS: The uterus measures 7.1 x 3.5 x 4.9 cm. The endometrial stripe measures 9.7 mm AP. No fibroids are se en. The right ovary measures 1.9 x 1.5 x 1.5 cm. The left ovary is not seen. There is normal blood fl ow to the right ovary on Doppler exam. No free fluid is seen. Images of the urinary bladder are neeraj l. IMPRESSION: Negative study. Signer Name: Joao Olivo MD Signed: 12/06/2018 3:02 AM Workstation Name: [id number]
--- NOTE | 2018-12-06 03:09 | Ultrasound Report ---
ULTRASOUND ABDOMEN, LIMITED (RIGHT UPPER QUADRANT) INDICATION: RLQ pain. COMPARISON: CT of the abdomen and pelvis 11/26/2018. FINDINGS: PANCREAS: No significant abnormality. LIVER: No significant abnormality. GALLBLADDER: Surgically absent. BILE DUCTS: No significant abnormality. Common bile duct measures 5.8 mm. FREE FLUID: None. ADDITIONAL FINDINGS: Images of the right kidney are normal. IMPRESSION: Prior cholecystectomy. No abnormality in the right upper quadrant. Signer Name: Joao Olivo MD Signed: 12/06/2018 3:04 AM Workstation Name: [id number]
== END 2018-12-06 04:13 | disposition home or self-care (01) ==
LOC: ED 23:00
DX: N39.0 Urinary tract infection, site not specified (principal); J45.909 Unspecified asthma, uncomplicated; Z88.6 Allergy status to analgesic agent; Z88.5 Allergy status to narcotic agent; Z88.8 Allergy status to other drugs, medicaments and biological substances; Z79.899 Other long term (current) drug therapy; Z88.7 Allergy status to serum and vaccine
CPT/HCPCS: 36415; 76705; 76856; 80053; 81001; 83690; 84703; 85025; 99284; Q0162

== ENCOUNTER 2021-06-02 13:09 | Observation (INO) | payer SELFPAY ==
[2021-06-02] MEDS ORDERED: SODIUM CHLORIDE 0.9% 500 ML 500 ML IV ONE (15:32)
[2021-06-02] MEDS ORDERED: HYDROmorphone 1 MG/1 ML INJ IV ONE ×3 (15:32→20:22)
[2021-06-02] MEDS ORDERED: ONDANSETRON 4 MG/2 ML INJ IV ONE (15:32)
--- NOTE | 2021-06-02 15:35 | Emergency Department Report ---
ED General Adult HPI - General Chief complaint: Abdominal Pain Stated complaint: Abdominal pain Time Seen by Provider: 06/02/21 15:13 Source: patient, RN notes reviewed, old records reviewed Mode of arrival: Ambulatory Limitations: No Limitations - History of Present Illness Initial comments: The patient was evaluated in the emergency department for symptoms described in the history of present illness. He/she was evaluated in the context of the global COVID-19 pandemic, which necessitated consideration that the patient might be at risk for infection with the virus that causes COVID-19. Institutional protocols and algorithms that pertain to the evaluation of patients at risk for COVID-19 are in a state of rapid change based on information released by regulatory bodies including the CDC and federal and state organizations. These policies and algorithms were followed during the patient's care in the emergency department. Please note that these policies, procedures and recommendations changed on a rapid basis. The patient is a 30-year-old female. Her past medical history is complex. Patient reports a history of endometriosis which is chronic, and reports that on May 10 of last month, she had a 7 cm left-sided ovarian cystectomy performed, at a hospital in [place]. 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 She complains of left lower quadrant abdominal pain, with no fever, no cough, no vomiting, positive nausea, no dysuria, and 3 days of diarrhea. She reports no recent antibiotic use. She reports that she is a virgin. Her pain is sharp and increases with palpation and decreases with rest. -: Gradual, days(s) Location: abdomen Radiation: abdomen Severity scale (0 -10): 10 Quality: aching Consistency: constant Improves with: rest Worsens with: movement - Related Data Previous Rx's Medication Instructions Recorded Last Taken Type Ondansetron [Zofran Odt] 4 mg PO Q8HR #15 tab.rapdis 09/03/18 Unknown Rx Acetaminophen/Codeine [Tylenol 1 tab PO Q4HR PRN #18 tablet 09/08/18 Unknown Rx /Codeine # 3 tab] Hyoscyamine Subl [Levsin Sl 0.125 0.125 mg SL Q6HR PRN #20 tab 09/08/18 Unknown Rx TAB] Promethazine [Phenergan] 25 mg PO Q6HR PRN #20 tab 09/08/18 Unknown Rx Ciprofloxacin HCl [Ciprofloxacin 500 mg PO Q12HR #20 tab 09/13/18 Unknown Rx TAB] HYDROcodone/APAP 5-325 [[place] 1 - 2 each PO Q6HR PRN #10 tablet 09/13/18 Unknown Rx 5/325] Promethazine [Phenergan] 25 mg PO Q6HR PRN #20 tab 09/13/18 Unknown Rx Promethazine [Phenergan] 25 mg [place] Q6HR PRN #5 supp.rect 09/13/18 Unknown Rx metroNIDAZOLE [Flagyl] 500 mg PO Q12HR #14 tab 09/13/18 Unknown Rx Acetaminophen/Codeine [Tylenol 1 tab PO Q6H PRN #12 tab 09/30/18 Unknown Rx /Codeine # 3 tab] Omeprazole 20 mg PO DAILY #30 capsule.dr 09/30/18 Unknown Rx metroNIDAZOLE [Flagyl] 500 mg PO BID 10 Days #20 tab 09/30/18 Unknown Rx Ciprofloxacin HCl [Ciprofloxacin 500 mg PO BID 10 Days #20 tab 10/27/18 Unknown Rx TAB] Cyclobenzaprine [Flexeril 10 MG 10 mg PO TID PRN #15 tablet 10/27/18 Unknown Rx TAB] Acetaminophen/Codeine [Tylenol 1 tab PO Q6H PRN #20 tab 11/02/18 Unknown Rx /Codeine # 3 tab] Docusate Sodium [Move It Along] 100 mg PO QHS PRN #20 tablet 11/02/18 Unknown Rx Sulfamethoxazole/Trimethoprim 1 each PO Q12H #20 tablet 11/02/18 Unknown Rx [Bactrim DS TAB] Ciprofloxacin HCl [Ciprofloxacin 500 mg PO BID 10 Days #20 tab 11/06/18 Unknown Rx TAB] traMADoL [Ultram] 50 mg PO Q6HR PRN #12 tablet 11/06/18 Unknown Rx Ondansetron (Nf) [Zofran TAB] 8 mg PO Q8HR PRN #20 tablet 11/26/18 Unknown Rx Phenazopyridine [Pyridium] 200 mg PO TID #6 tab 11/26/18 Unknown Rx Hyoscyamine Subl [Levsin Sl 0.125 0.125 mg SL Q6HR PRN #10 tab 12/06/18 Unknown Rx TAB] Ondansetron [Zofran Odt] 4 mg PO Q8HR PRN #10 tab.rapdis 12/06/18 Unknown Rx cephALEXin [Keflex] 500 mg PO BID 7 Days #14 capsule 12/06/18 Unknown Rx Allergies Allergy/AdvReac Type Severity Reaction Status Date / Time ketorolac [From Toradol] Allergy Unknown Hives Verified 11/26/18 09:30 aspirin Allergy Hives Verified 11/05/18 22:40 dicyclomine [From Bentyl] Allergy Unknown Verified 11/05/18 22:40 metoclopramide [From Reglan] Allergy Unknown Verified 11/05/18 22:40 NSAIDS (Non-Steroidal Allergy Hives Verified 11/05/18 22:40 Anti-Inflamma ED Review of Systems ROS: Stated complaint: POST OP SURGERY COMPLICATION Other details as noted in HPI Constitutional: denies: fever ENT: denies: epistaxis Respiratory: denies: cough Cardiovascular: denies: chest pain Gastrointestinal: abdominal pain, nausea. denies: vomiting Genitourinary: denies: dysuria Musculoskeletal: back pain Neurological: denies: weakness Hematological/Lymphatic: denies: easy bleeding ED Past Medical Hx - Past Medical History Previous Medical History?: Yes Hx Hypertension: No Hx CVA: No Hx Heart Attack/AMI: No Hx Congestive Heart Failure: No Hx Diabetes: No Hx Deep Vein Thrombosis: No Hx Pulmonary Embolism: No Hx GERD: No Hx Liver Disease: No Hx Renal Disease: No Hx Sickle Cell Disease: No Hx Arthritis: No Hx Headaches / Migraines: No Hx Seizures: Yes Hx Kidney Stones: No Hx Psychiatric Treatment: No Hx Asthma: Yes Hx COPD: No Hx Tuberculosis: No Hx Dementia: No Hx HIV: No Additional medical history: Von Willebrand blood disorder, 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, hypoglycemia, Left ovarian cyst - Surgical History Hx Coronary Stent: No Hx Open Heart Surgery: No Hx Pacemaker: No Hx Internal Defibrillator: No Hx Cholecystectomy: Yes Hx Appendectomy: No Hx Breast Surgery: No Additional Surgical History: Left ovarian cyst surgery - Social History Smoking Status: Never Smoker Substance Use Type: None - Medications Home Medications: Home Medications Medication Instructions Recorded Confirmed Last Taken Type Ondansetron [Zofran Odt] 4 mg PO Q8HR #15 tab.rapdis 09/03/18 Unknown Rx Acetaminophen/Codeine [Tylenol 1 tab PO Q4HR PRN #18 tablet 09/08/18 Unknown Rx /Codeine # 3 tab] Hyoscyamine Subl [Levsin Sl 0.125 0.125 mg SL Q6HR PRN #20 tab 09/08/18 Unknown Rx TAB] Promethazine [Phenergan] 25 mg PO Q6HR PRN #20 tab 09/08/18 Unknown Rx Ciprofloxacin HCl [Ciprofloxacin 500 mg PO Q12HR #20 tab 09/13/18 Unknown Rx TAB] HYDROcodone/APAP 5-325 [[place] 1 - 2 each PO Q6HR PRN #10 tablet 09/13/18 Unknown Rx 5/325] Promethazine [Phenergan] 25 mg PO Q6HR PRN #20 tab 09/13/18 Unknown Rx Promethazine [Phenergan] 25 mg [place] Q6HR PRN #5 supp.rect 09/13/18 Unknown Rx metroNIDAZOLE [Flagyl] 500 mg PO Q12HR #14 tab 09/13/18 Unknown Rx Acetaminophen/Codeine [Tylenol 1 tab PO Q6H PRN #12 tab 09/30/18 Unknown Rx /Codeine # 3 tab] Omeprazole 20 mg PO DAILY #30 capsule. 09/30/18 Unknown Rx metroNIDAZOLE [Flagyl] 500 mg PO BID 10 Days #20 tab 09/30/18 Unknown Rx Ciprofloxacin HCl [Ciprofloxacin 500 mg PO BID 10 Days #20 tab 10/27/18 Unknown Rx TAB] Cyclobenzaprine [Flexeril 10 MG 10 mg PO TID PRN #15 tablet 10/27/18 Unknown Rx TAB] Acetaminophen/Codeine [Tylenol 1 tab PO Q6H PRN #20 tab 11/02/18 Unknown Rx /Codeine # 3 tab] Docusate Sodium [Move It Along] 100 mg PO QHS PRN #20 tablet 11/02/18 Unknown Rx Sulfamethoxazole/Trimethoprim 1 each PO Q12H #20 tablet 11/02/18 Unknown Rx [Bactrim DS TAB] Ciprofloxacin HCl [Ciprofloxacin 500 mg PO BID 10 Days #20 tab 11/06/18 Unknown Rx TAB] traMADoL [Ultram] 50 mg PO Q6HR PRN #12 tablet 11/06/18 Unknown Rx Ondansetron (Nf) [Zofran TAB] 8 mg PO Q8HR PRN #20 tablet 11/26/18 Unknown Rx Phenazopyridine [Pyridium] 200 mg PO TID #6 tab 11/26/18 Unknown Rx Hyoscyamine Subl [Levsin Sl 0.125 0.125 mg SL Q6HR PRN #10 tab 12/06/18 Unknown Rx TAB] Ondansetron [Zofran Odt] 4 mg PO Q8HR PRN #10 tab.rapdis 12/06/18 Unknown Rx cephALEXin [Keflex] 500 mg PO BID 7 Days #14 capsule 12/06/18 Unknown Rx ED Physical Exam - General Limitations: No Limitations General appearance: alert, in no apparent distress - Head Head exam: Present: atraumatic, normocephalic - Eye Eye exam: Present: normal appearance, EOMI. Absent: nystagmus - ENT ENT exam: Present: normal exam, normal orophraynx, mucous membranes moist, normal external ear exam - Neck Neck exam: Present: normal inspection, full ROM. Absent: tenderness, meningismus - Respiratory Respiratory exam: Present: normal lung sounds bilaterally. Absent: respiratory distress, wheezes, rales, rhonchi, stridor, decreased breath sounds - Cardiovascular Cardiovascular Exam: Present: regular rate, normal rhythm, normal heart sounds. Absent: bradycardia, tachycardia, irregular rhythm, systolic murmur, diastolic murmur, rubs, gallop - GI/Abdominal GI/Abdominal exam: Present: soft, tenderness, guarding. Absent: distended, rebound, rigid, pulsatile mass - Extremities Exam Extremities exam: Present: normal inspection, full ROM, other (2+ pulses noted in the bilateral upper and lower extremities. There is no palpable cord. negative Homans sign. Muscular compartments are soft. The pelvis is stable.). Absent: pedal edema, calf tenderness - Back Exam Back exam: Present: normal inspection, full ROM. Absent: tenderness, CVA tenderness (R), CVA tenderness (L), paraspinal tenderness, vertebral tenderness - Neurological Exam Neurological exam: Present: alert, oriented X3, normal gait, other (No facial droop. Tongue midline. Extraocular movements intact bilaterally. Facial sensation intact to light touch in V1, V2, V3 distribution bilaterally. 5 and a 5 strength in 4 extremities. Sensation intact to light touch in 4 extremities.). Absent: motor sensory deficit - Psychiatric Psychiatric exam: Present: normal affect, normal mood - Skin Skin exam: Present: warm, dry, intact, normal color. Absent: rash ED Course Vital Signs 06/02/21 15:05 Temperature 99.6 F Pulse Rate 95 H Respiratory 20 Rate Blood Pressure 117/70 [Right] O2 Sat by Pulse 100 Oximetry - Reevaluation(s) Reevaluation #1: 06/02/21 15:56 Differential diagnosis, including but not limited to: Postsurgical complication, abscess, endometriosis, ovarian cyst, ovarian torsion, recurrent cyst Assessment and plan 30-year-old female with complex gynecologic surgical history, presenting today with a complaint of left lower quadrant abdominal pain after having had surgical intervention about 2 weeks ago at another hospital in [place]. She does not have a fever, and she is afebrile with reassuring vital signs. Surgical sites appear to be clean, without redness, pus or streaking. We will treat her symptoms aggressively, obtain appropriate laboratory studies, transabdominal left lower quadrant ultrasound to evaluate ovarian anatomy, and CT scan of the abdomen pelvis with intravenous and oral contrast. Reassess after completion of the aforementioned diagnostics. I discussed this with the patient. She is agreeable to this plan of care 06/02/21 20:19 Ultrasound negative for acute findings. Urinalysis pending. Patient has required multiple doses of pain medication. In addition, in spite of aggressive fluid resuscitation, her lactic acid is up trending. Urinalysis is pending at this time. CT scan of the abdomen pelvis is reviewed and appreciated. I contacted the food service order clerk on-call, Dr. Hugo We discussed the patient's history, physical, laboratory studies imaging studies, clinical impression. Patient will be admitted to Dr. Hugo's service for supportive care, and observation. She recommends no antibiotics at this time. I discussed this with the patient. She is agreeable to this plan of care. I suspect that this is an exacerbation of the patient's chronic endometriosis pain, I also suspect that her lactic acidosis is likely a type II lactic acidosis. Therefore, admission for pain control, hydration, fluids, supportive care, and serial abdominal exams is appropriate. ED Medical Decision Making - Lab Data Result diagrams: 06/02/21 16:16 06/02/21 16:16 Vital Signs 06/02/21 15:05 Temperature 99.6 F Pulse Rate 95 H Respiratory 20 Rate Blood Pressure 117/70 [Right] O2 Sat by Pulse 100 Oximetry Lab Results 06/02/21 06/02/21 06/02/21 Range/Units 16:16 16:16 16:16 WBC 5.1 (4.5-11.0) K/mm3 RBC 3.99 (3.65-5.03) M/mm3 Hgb 11.7 (10.1-14.3) gm/dl Hct 35.8 (30.3-42.9) % MCV 90 (79-97) fl MCH 30 (28-32) pg MCHC 33 (30-34) % RDW 14.0 (13.2-15.2) % Plt Count 205 (140-440) K/mm3 Lymph % (Auto) 18.8 (13.4-35.0) % [place] % (Auto) 6.7 (0.0-7.3) % Eos % (Auto) 2.4 (0.0-4.3) % Baso % (Auto) 0.5 (0.0-1.8) % Lymph # (Auto) 1.0 L (1.2-5.4) K/mm3 [place] # (Auto) 0.3 (0.0-0.8) K/mm3 Eos # (Auto) 0.1 (0.0-0.4) K/mm3 Baso # (Auto) 0.0 (0.0-0.1) K/mm3 Seg Neutrophils % 71.6 H (40.0-70.0) % Seg Neutrophils # 3.6 (1.8-7.7) K/mm3 PT 14.3 (12.2-14.9) Sec. INR 1.00 (0.87-1.13) Sodium 139 (137-145) mmol/L Potassium 3.9 (3.6-5.0) mmol/L Chloride 108.8 H (98-107) mmol/L Carbon Dioxide 19 L (22-30) mmol/L Anion Gap 15 mmol/L BUN 7 (7-17) mg/dL Creatinine 0.5 L (0.6-1.2) mg/dL Estimated GFR > 60 ml/min BUN/Creatinine Ratio 14 % Glucose 84 (65-100) mg/dL Lactic Acid (0.7-2.0) mmol/L Calcium 8.5 (8.4-10.2) mg/dL Magnesium (1.7-2.3) mg/dL Total Bilirubin 0.30 (0.1-1.2) mg/dL Direct Bilirubin < 0.2 (0-0.2) mg/dL Indirect Bilirubin 0.1 mg/dL AST 13 (5-40) units/L ALT 9 (7-56) units/L Alkaline Phosphatase 66 (35-129) units/L Total Creatine Kinase (30-135) units/L Total Protein 6.9 (6.3-8.2) g/dL Albumin 4.0 (3.9-5) g/dL Albumin/Globulin Ratio 1.4 % HCG, Quant (0-4) mIU/mL 06/02/21 06/02/21 06/02/21 Range/Units 16:16 16:16 16:16 WBC (4.5-11.0) K/mm3 RBC (3.65-5.03) M/mm3 Hgb (10.1-14.3) gm/dl Hct (30.3-42.9) % MCV (79-97) fl MCH (28-32) pg MCHC (30-34) % RDW (13.2-15.2) % Plt Count (140-440) K/mm3 Lymph % (Auto) (13.4-35.0) % [place] % (Auto) (0.0-7.3) % Eos % (Auto) (0.0-4.3) % Baso % (Auto) (0.0-1.8) % Lymph # (Auto) (1.2-5.4) K/mm3 [place] # (Auto) (0.0-0.8) K/mm3 Eos # (Auto) (0.0-0.4) K/mm3 Baso # (Auto) (0.0-0.1) K/mm3 Seg Neutrophils % (40.0-70.0) % Seg Neutrophils # (1.8-7.7) K/mm3 PT (12.2-14.9) Sec. INR (0.87-1.13) Sodium (137-145) mmol/L Potassium (3.6-5.0) mmol/L Chloride (98-107) mmol/L Carbon Dioxide (22-30) mmol/L Anion Gap mmol/L BUN (7-17) mg/dL Creatinine (0.6-1.2) mg/dL Estimated GFR ml/min BUN/Creatinine Ratio % Glucose (65-100) mg/dL Lactic Acid 2.50 H* (0.7-2.0) mmol/L Calcium (8.4-10.2) mg/dL Magnesium 1.70 (1.7-2.3) mg/dL Total Bilirubin (0.1-1.2) mg/dL Direct Bilirubin (0-0.2) mg/dL Indirect Bilirubin mg/dL AST (5-40) units/L ALT (7-56) units/L Alkaline Phosphatase (35-129) units/L Total Creatine Kinase 40 (30-135) units/L Total Protein (6.3-8.2) g/dL Albumin (3.9-5) g/dL Albumin/Globulin Ratio % HCG, Quant < 2 (0-4) mIU/mL - Radiology Data Radiology results: report reviewed, image reviewed ULTRASOUND PELVIS INDICATION: llq abd pain, s/p ov cystectomy. TECHNIQUE: Transabdominal. Duplex Color Doppler used: Yes. COMPARISON: Pelvic ultrasound 12/06/2018 FINDINGS: Uterus: Not imaged. Right Ovary --not imaged Left Ovary-- Normal. Measures 6.5 x 2.8 x 5.6 cm. Blood flow: Normal. Cyst or mass: Slightly complex left ovarian corpus luteal cyst with few internal echoes measures 2.4 x 2.2 x 2.0 cm Urinary Bladder: Normal. Free Fluid: None. Additional Findings: None. IMPRESSION: 1. 2.4 cm left ovarian corpus luteal cyst. No torsion or free fluid. 2. Uterus and right ovary not imaged on this limited pelvic ultrasound Signer Name: Cordell Gallego MD Signed: 06/02/2021 5:27 PM Workstation Name: [id number] CT ABDOMEN AND PELVIS WITH CONTRAST INDICATION / CLINICAL INFORMATION: llq abd pain s/p left ov cystectomy. iv/oral. TECHNIQUE: Axial CT images were obtained through the abdomen and pelvis after 100 cc Omnipaque [address] scans at this location are performed using CT dose reduction for ALARA by means of automated exposure control. COMPARISON: CT 11/26/2018 FINDINGS: LOWER CHEST: No significant abnormality. LIVER: No significant abnormality. GALLBLADDER: Cholecystectomy. BILE DUCTS: The extrahepatic common bile duct is mildly dilated at 8 mm but this can be seen normally in postcholecystectomy state PANCREAS: No significant abnormality. SPLEEN: No significant abnormality. ADRENALS: No significant abnormality. RIGHT KIDNEY / URETER: No significant abnormality. LEFT KIDNEY / URETER: No significant abnormality. STOMACH / SMALL BOWEL: No significant abnormality. COLON: No significant abnormality. APPENDIX: Not visualized. PERITONEUM: Trace amount of mildly complex fluid in the pelvis in the right perirectal space. No free air. LYMPH NODES: No significant adenopathy. AORTA / ARTERIES: No significant abnormality. IVC / VEINS: No significant abnormality. URINARY BLADDER: No significant abnormality. REPRODUCTIVE ORGANS: There are multiple left ovarian cysts, largest measuring approximately 2.4 cm. ADDITIONAL FINDINGS: Tiny fat-containing inguinal hernia. SKELETAL SYSTEM: Bilateral pars defects at L5. No aggressive osseous lesion. There is a stimul ator lead near the right S3 foramen. IMPRESSION: 1. Multiple left ovarian cysts. Trace fluid in the pelvis is nonspecific but could be related to prior cystectomy . Otherwise, no acute abnormality identified. Signer Name: Bello Pickens MD Signed: 06/02/2021 6:36 PM Workstation Name: [id number] Critical care attestation.: If time is entered above; I have spent that time in minutes in the direct care of this critically ill patient, excluding procedure time. ED Disposition Clinical Impression: Acute abdominal pain in left lower quadrant, Ovarian cyst Disposition: 09 ADMITTED INPATIENT Is pt being admited?: Yes Does the pt Need Aspirin: No Condition: Good Instructions: Abdominal Pain (ED) Referrals: PRIMARY MD ALYSSA [Primary Care Provider] - 3-5 Days
[2021-06-02 16:44] LABS: Basophils % (Auto) 0.5 % (0.0-1.8); Eosinophils # (Auto) 0.1 K/mm3 (0.0-0.4); Eosinophils % (Auto) 2.4 % (0.0-4.3); Hematocrit 35.8 % (30.3-42.9); Hemoglobin 11.7 gm/dl (10.1-14.3); Lymphocytes % (Auto) 18.8 % (13.4-35.0); Mean Corpuscular HGB Conc 33 % (30-34); Mean Corpuscular Volume 90 fl (79-97); Monocytes # (Auto) 0.3 K/mm3 (0.0-0.8); Monocytes % (Auto) 6.7 % (0.0-7.3); Platelet Count 205 K/mm3 (140-440); Red Blood Count 3.99 M/mm3 (3.65-5.03)
[2021-06-02 17:06] LABS: Alanine Aminotransferase 9 units/L (7-56); Blood Urea Nitrogen 7 mg/dL (7-17); Calcium 8.5 mg/dL (8.4-10.2); Hemolysis Index 7
[2021-06-02 17:25] LABS: BUN/Creatinine Ratio 14; Bilirubin,Direct < 0.2 mg/dL (0-0.2)
[2021-06-02] MEDS ORDERED: LACTATED RINGERS 2,000 ML IV ONE (17:34)
--- NOTE | 2021-06-02 18:32 | Ultrasound Report ---
ULTRASOUND PELVIS INDICATION: llq abd pain, s/p ov cystectomy. TECHNIQUE: Transabdominal. Duplex Color Doppler used: Yes. COMPARISON: Pelvic ultrasound 12/06/2018 FINDINGS: Uterus: Not imaged. Right Ovary --not imaged Left Ovary-- Normal. Measures 6.5 x 2.8 x 5.6 cm. Blood flow: Normal. Cyst or mass: Slightly complex left ovarian corpus luteal cyst with few internal echoes measures 2.4 x 2.2 x 2.0 cm Urinary Bladder: Normal. Free Fluid: None. Additional Findings: None. IMPRESSION: 1. 2.4 cm left ovarian corpus luteal cyst. No torsion or free fluid. 2. Uterus and right ovary not imaged on this limited pelvic ultrasound Signer Name: Cordell Gallego MD Signed: 06/02/2021 6:27 PM Workstation Name: [id number]
--- NOTE | 2021-06-02 19:41 | Cat Scan Report ---
CT ABDOMEN AND PELVIS WITH CONTRAST INDICATION / CLINICAL INFORMATION: llq abd pain s/p left ov cystectomy. iv/oral. TECHNIQUE: Axial CT images were obtained through the abdomen and pelvis after 100 cc Omnipaque [address] scans at this location are performed using CT dose reduction for ALARA by means of automated exposure control. COMPARISON: CT 11/26/2018 FINDINGS: LOWER CHEST: No significant abnormality. LIVER: No significant abnormality. GALLBLADDER: Cholecystectomy. BILE DUCTS: The extrahepatic common bile duct is mildly dilated at 8 mm but this can be seen normally in postcholecystectomy state PANCREAS: No significant abnormality. SPLEEN: No significant abnormality. ADRENALS: No significant abnormality. RIGHT KIDNEY / URETER: No significant abnormality. LEFT KIDNEY / URETER: No significant abnormality. STOMACH / SMALL BOWEL: No significant abnormality. COLON: No significant abnormality. APPENDIX: Not visualized. PERITONEUM: Trace amount of mildly complex fluid in the pelvis in the right perirectal space. No free air. LYMPH NODES: No significant adenopathy. AORTA / ARTERIES: No significant abnormality. IVC / VEINS: No significant abnormality. URINARY BLADDER: No significant abnormality. REPRODUCTIVE ORGANS: There are multiple left ovarian cysts, largest measuring approximately 2.4 cm. ADDITIONAL FINDINGS: Tiny fat-containing inguinal hernia. SKELETAL SYSTEM: Bilateral pars defects at L5. No aggressive osseous lesion. There is a stimulator le ad near the right S3 foramen. IMPRESSION: 1. Multiple left ovarian cysts. Trace fluid in the pelvis is nonspecific but could be related to prio r cystectomy . Otherwise, no acute abnormality identified. Signer Name: Bello Pickens MD Signed: 06/02/2021 7:36 PM Workstation Name: [id number]
--- NOTE | 2021-06-02 21:02 | Event Note ---
Date: 06/02/21 Pt chart reviewed. Does not appear to have a surgical abdomen, pelvic abscess, or need for surgical interventions at this time. Will admit for pain management and hydration. Will start antibx should pt spike temp and treat for PID. Will evaluate pt once on mother baby as she is stable at this time and has been evaluated by ED provider.
[2021-06-02] MEDS ORDERED: NALOXONE 0.4 MG/1 ML INJ IV PRN (21:04)
[2021-06-02] MEDS ORDERED: ACETAMINOPHEN 325 MG TAB PO PRN (21:04)
[2021-06-02] MEDS ORDERED: LOPERAMIDE 2 MG CAP PO ONE (21:08)
--- NOTE | 2021-06-02 21:24 | History and Physical Report ---
History of Present Illness Date of examination: 06/02/21 Date of admission: 06/02/21 Chief complaint: left side pain History of present illness: Pt presents c/o left side pain afte having had drainage of 7cm left ovarian cyst in [place] on May 10. States she lives in [place] and was her to spend time with family. States she had a CT scan a week post op due to pain the evaluate her bowel for obstruction that was negative/normal as per pt.She was told that she had a lot of scarring and she was treated for endmetrial implants on bladder and on right pelvic side wall. Pt has had gall bladder, appendix, right ovary and left tube removed. States she was alden only 500mg of tylenol per day prior to admission. States she was not eating very well while home in [place] due to the pain. Pt states she is having diarrhea but his this is apart of her flares with the endometriosis. She feels the pain she is having at this time is different from her usual flares. She states it starts at belly button and extends to left groin aware and has a stabbing sensation. Pt was noted to have elevated lactic acid and ER provider felt this should warrant admission and observation for s/sx of sepsis given pt had surgery 2 weeks ago. Pt has endometriosis and chronic pelvic pain. Studies on admission show a corupus leuteal cyst that is 2cm on the left and no acute processes to indicate TOA, PID, acute post op infections. All of pt vitals are normal and white count is normal. Pt has been given multiple dose of narcotics as she is allergic to toradol and NSAIDS. Pt history is also sign ificant for Von Willebrands dz, herniated disc and recurrent ovarian cyst, endometriosis, abd.She has had failed thearapy on depo provera, ocps, [place] for the endmetriosis. Initially was stage 4 but after recent sx was told she is stage 2. Pt admitted for pain management, hydration, and observaton for an s/sx of infection. Past History Past Medical History: seizure, other (see hpi; endometriosis. 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) Family/Genetic History: other (see ER notes) Social history: other (see ER notes) Medications and Allergies Allergies Allergy/AdvReac Type Severity Reaction Status Date / Time ketorolac [From Toradol] Allergy Unknown Hives Verified 11/26/18 09:30 aspirin Allergy Hives Verified 11/05/18 22:40 dicyclomine [From Bentyl] Allergy Unknown Verified 11/05/18 22:40 metoclopramide [From Reglan] Allergy Unknown Verified 11/05/18 22:40 NSAIDS (Non-Steroidal Allergy Hives Verified 11/05/18 22:40 Anti-Inflamma Home Medications Medication Instructions Recorded Confirmed Last Taken Type Ondansetron [Zofran Odt] 4 mg PO Q8HR #15 tab.rapdis 09/03/18 Unknown Rx Acetaminophen/Codeine [Tylenol 1 tab PO Q4HR PRN #18 tablet 09/08/18 Unknown Rx /Codeine # 3 tab] Hyoscyamine Subl [Levsin Sl 0.125 0.125 mg SL Q6HR PRN #20 tab 09/08/18 Unknown Rx TAB] Promethazine [Phenergan] 25 mg PO Q6HR PRN #20 tab 09/08/18 Unknown Rx Ciprofloxacin HCl [Ciprofloxacin 500 mg PO Q12HR #20 tab 09/13/18 Unknown Rx TAB] HYDROcodone/APAP 5-325 [[place] 1 - 2 each PO Q6HR PRN #10 tablet 09/13/18 Unknown Rx 5/325] Promethazine [Phenergan] 25 mg PO Q6HR PRN #20 tab 09/13/18 Unknown Rx Promethazine [Phenergan] 25 mg [place] Q6HR PRN #5 supp.rect 09/13/18 Unknown Rx metroNIDAZOLE [Flagyl] 500 mg PO Q12HR #14 tab 09/13/18 Unknown Rx Acetaminophen/Codeine [Tylenol 1 tab PO Q6H PRN #12 tab 09/30/18 Unknown Rx /Codeine # 3 tab] Omeprazole 20 mg PO DAILY #30 capsule. 09/30/18 Unknown Rx metroNIDAZOLE [Flagyl] 500 mg PO BID 10 Days #20 tab 09/30/18 Unknown Rx Ciprofloxacin HCl [Ciprofloxacin 500 mg PO BID 10 Days #20 tab 10/27/18 Unknown Rx TAB] Cyclobenzaprine [Flexeril 10 MG 10 mg PO TID PRN #15 tablet 10/27/18 Unknown Rx TAB] Acetaminophen/Codeine [Tylenol 1 tab PO Q6H PRN #20 tab 11/02/18 Unknown Rx /Codeine # 3 tab] Docusate Sodium [Move It Along] 100 mg PO QHS PRN #20 tablet 11/02/18 Unknown Rx Sulfamethoxazole/Trimethoprim 1 each PO Q12H #20 tablet 11/02/18 Unknown Rx [Bactrim DS TAB] Ciprofloxacin HCl [Ciprofloxacin 500 mg PO BID 10 Days #20 tab 11/06/18 Unknown Rx TAB] traMADoL [Ultram] 50 mg PO Q6HR PRN #12 tablet 11/06/18 Unknown Rx Ondansetron (Nf) [Zofran TAB] 8 mg PO Q8HR PRN #20 tablet 11/26/18 Unknown Rx Phenazopyridine [Pyridium] 200 mg PO TID #6 tab 11/26/18 Unknown Rx Hyoscyamine Subl [Levsin Sl 0.125 0.125 mg SL Q6HR PRN #10 tab 12/06/18 Unknown Rx TAB] Ondansetron [Zofran Odt] 4 mg PO Q8HR PRN #10 tab.rapdis 12/06/18 Unknown Rx cephALEXin [Keflex] 500 mg PO BID 7 Days #14 capsule 12/06/18 Unknown Rx Active Meds: Active Medications Acetaminophen (Acetaminophen 325 Mg Tab) 650 mg PO Q4H PRN PRN Reason: Pain MILD(1-3)/Fever >100.5/VALENZUELA Hydrocodone Bitart/Acetaminophen (Hydrocodone/Acetaminophen 5-325 Mg Tab) 2 each PO Q6H PRN PRN Reason: Pain, Moderate (4-6) Dextrose/Lactated Ringer's (D5lr) 1,000 mls @ 125 mls/hr IV DIRECT QING Loperamide HCl (Loperamide 2 Mg Cap) 2 mg PO ONCE ONE Stop: 06/02/21 21:09 Morphine Sulfate (Morphine 2 Mg/1 Ml Inj) 2 mg IV Q4H PRN PRN Reason: Pain, Moderate (4-6) Morphine Sulfate (Morphine 4 Mg/1 Ml Inj) 4 mg IV Q4H PRN PRN Reason: Pain , Severe (7-10) Naloxone HCl (Naloxone 0.4 Mg/1 Ml Inj) 0.1 mg IV Q2MIN PRN PRN Reason: Res Rate </= 8 or 02 SAT < 92% Ondansetron HCl (Ondansetron 4 Mg/2 Ml Inj) 4 mg IV Q8H PRN PRN Reason: Nausea And Vomiting Sodium Chloride (Sodium Chloride 0.9% 10 Ml Flush Syringe) 10 ml IV BID QING Sodium Chloride (Sodium Chloride 0.9% 10 Ml Flush Syringe) 10 ml IV PRN PRN PRN Reason: LINE FLUSH - Vital Signs Vital signs: Vital Signs Temp Pulse Resp BP Pulse Ox 99.6 F 95 H 20 117/70 100 06/02/21 15:05 06/02/21 15:05 06/02/21 15:05 06/02/21 15:05 06/02/21 15:05 Temp Pulse Resp BP Pulse Ox 99.6 F 95 H 20 117/70 100 06/02/21 15:05 06/02/21 15:05 06/02/21 15:05 06/02/21 15:05 06/02/21 15:05 - Physical Exam Cardiovascular: Normal S1, Normal S2 Lungs: Positive: Clear to auscultation, Normal air movement Abdomen: Positive: normal appearance, soft, tenderness (mild to deep palpation of left jordon and LLQ), other (all incisions well healed c/d/i. appropriate tenderness and incision site at umbilicus. several scars noted. +small fullness of left inquinal region vs right and point of discomfor for the pt.). Negative: distention, guarding Genitourinary (Female): Positive: other (deferred) Extremities: Positive: normal. Negative: tenderness, edema Deep Tendon Reflex Grade: Normal +2 Results Result Diagrams: 06/02/21 16:16 06/02/21 16:16 Abnormal lab results 06/02/21 06/02/21 06/02/21 Range/Units 16:16 16:16 16:16 Lymph # (Auto) 1.0 L (1.2-5.4) K/mm3 Seg Neutrophils % 71.6 H (40.0-70.0) % Chloride 108.8 H (98-107) mmol/L Carbon Dioxide 19 L (22-30) mmol/L Creatinine 0.5 L (0.6-1.2) mg/dL Lactic Acid 2.50 H* (0.7-2.0) mmol/L 06/02/21 Range/Units 18:03 Lymph # (Auto) (1.2-5.4) K/mm3 Seg Neutrophils % (40.0-70.0) % Chloride (98-107) mmol/L Carbon Dioxide (22-30) mmol/L Creatinine (0.6-1.2) mg/dL Lactic Acid 2.80 H* (0.7-2.0) mmol/L All other labs normal. Assessment and Plan - Patient Problems (1) Acute abdominal pain in left lower quadrant Current Visit: Yes Status: Acute Plan to address problem: -obs -pain management -iv hydration (2) Elevated lactic acid level Current Visit: Yes Status: Acute Plan to address problem: -will hydrate at this time -d/c acetominophen in case drug related -consult IM if remains elevated -findings and plan of care d/w pt and questions were addressed and answered (3) Ovarian cyst Current Visit: Yes Status: Acute Qualifiers: Laterality: left Qualified Code(s): N83.202 - Unspecified ovarian cyst, left side Plan to address problem: -appears to to corups luteal cyst or could be residual simple cyst that was drained 2 weeks ago. Pt states cyst was not removed but was drained (4) Endometriosis determined by laparoscopy Current Visit: Yes Status: Acute Plan to address problem: -pain management -pt has failed all therapies that this provider would implement. She desires f/u with endometriosis specialist and has this contact information. I agree with with. -will cont po an Iv pain meds for now -has relief of pain with the heating pad -pt understands disease process and pain levels goals. All questions were addressed and answered. (5) Inguinal hernia Current Visit: Yes Status: Acute Plan to address problem: -was noted on CT -will consults general surgery for imput regarding this and pt pain.
[2021-06-02 21:30] LABS: Bacteria,Urine 1+ /HPF (Negative); Bilirubin,Urine NEG (Negative); Blood,Urine NEG (Negative); Color,Urine Straw (Yellow); Mucus,Urine FEW /HPF; Protein,Urine <15 mg/dL mg/dL (Negative); Urobilinogen,Urine < 2.0 mg/dL (<2.0)
[2021-06-03] MEDS: ONDANSETRON 4 MG/2 ML INJ IV PRN ×3 (01:35→17:29)
[2021-06-03] MEDS: D5W/LACTATED RINGERS 1,000 ML IV SCH ×3 (01:35→15:31)
[2021-06-03] MEDS: levETIRAcetam 500 MG/5 ML ORAL LIQD PO SCH ×3 (01:35→21:57)
[2021-06-03] MEDS: LACOSAMIDE 100 MG TAB PO SCH ×3 (01:35→22:06)
[2021-06-03] MEDS: MORPHINE 4 MG/1 ML INJ IV PRN ×2 (01:35→06:20)
[2021-06-03] MEDS: HYDROcodone/ACETAMINOPHEN 5-325 MG TAB PO PRN ×2 (02:43→08:35)
[2021-06-03] MEDS: MORPHINE 2 MG/1 ML INJ IV PRN ×3 (11:06→19:47)
--- NOTE | 2021-06-03 13:17 | Consultation ---
History of Present Illness Consult date: 06/03/21 Requesting physician: ZIA DOMINGUEZ - History of present illness History of present illness: Pt presents c/o left side pain afte having had drainage of 7cm left ovarian cyst in [place] on May 10. States she lives in [place] and was here to spend time with family. States she had a CT scan a week post op due to pain the evaluate her bowel for obstruction that was negative/normal as per pt.She was told that she had a lot of scarring and she was treated for endometrial implants on bladder and on right pelvic side wall. Pt has had gall bladder, appendix, right ovary and left tube removed. She also had a bladder stimulator placed in [place] 3 months ago. States she was not eating very well while home in [place] due to the pain. Pt states she is having diarrhea but his this is apart of her flares with the endometriosis. She feels the pain she is having at this time is different from her usual flares. She states it starts at belly button and extends to left groin aware and has a stabbing sensation. Pt was noted to have elevated lactic acid and ER provider felt this should warrant admission and observation for s/sx of sepsis given pt had surgery 2 weeks ago. Pt has endometriosis and chronic pelvic pain. Studies on admission show a corupus leuteal cyst that is 2cm on the left and no acute processes to indicate TOA, PID, acute post op infections. All of pt vitals are normal and white count is normal. Pt has been given multiple dose of narcotics as she is allergic to toradol and NSAIDS. Pt history is also significant for Von Willebrands ds, herniated disc and recurrent ovarian cyst, endometriosis, abd. CT of abdo images and report reviewed. No sign of any inguinal hernia on the alissa ges. The report does mention small inguinal hernias but I am not sure I can see them. If herias are present the would not be large enough to be producing any abdominal pain. Imagess and report reviewed with radiologist Dr. Bello Pickens. He states that he meant to say a small umbilical hernia. CT also with device in the posterior lower back subcut tissue. Catheter from the device is traversing the back and may be in the retroperitoneum in the pelvis. There is also some artifact or air near the tip of the catheter. Dr. Pickens states that there is no evidence of injury to the rectum that only artifact is present. Past History Social history: other (see ER notes) Medications and Allergies Allergies Allergy/AdvReac Type Severity Reaction Status Date / Time ketorolac [From Toradol] Allergy Unknown Hives Verified 11/26/18 09:30 aspirin Allergy Hives Verified 11/05/18 22:40 dicyclomine [From Bentyl] Allergy Unknown Verified 11/05/18 22:40 metoclopramide [From Reglan] Allergy Unknown Verified 11/05/18 22:40 NSAIDS (Non-Steroidal Allergy Hives Verified 11/05/18 22:40 Anti-Inflamma Home Medications Medication Instructions Recorded Confirmed Last Taken Type Ondansetron [Zofran Odt] 4 mg PO Q8HR #15 tab.rapdis 09/03/18 Unknown Rx Acetaminophen/Codeine [Tylenol 1 tab PO Q4HR PRN #18 tablet 09/08/18 Unknown Rx /Codeine # 3 tab] Hyoscyamine Subl [Levsin Sl 0.125 0.125 mg SL Q6HR PRN #20 tab 09/08/18 Unknown Rx TAB] Promethazine [Phenergan] 25 mg PO Q6HR PRN #20 tab 09/08/18 Unknown Rx Ciprofloxacin HCl [Ciprofloxacin 500 mg PO Q12HR #20 tab 09/13/18 Unknown Rx TAB] HYDROcodone/APAP 5-325 [[place] 1 - 2 each PO Q6HR PRN #10 tablet 09/13/18 Unknown Rx 5/325] Promethazine [Phenergan] 25 mg PO Q6HR PRN #20 tab 09/13/18 Unknown Rx Promethazine [Phenergan] 25 mg [place] Q6HR PRN #5 supp.rect 09/13/18 Unknown Rx metroNIDAZOLE [Flagyl] 500 mg PO Q12HR #14 tab 09/13/18 Unknown Rx Acetaminophen/Codeine [Tylenol 1 tab PO Q6H PRN #12 tab 09/30/18 Unknown Rx /Codeine # 3 tab] Omeprazole 20 mg PO DAILY #30 capsule. 09/30/18 Unknown Rx metroNIDAZOLE [Flagyl] 500 mg PO BID 10 Days #20 tab 09/30/18 Unknown Rx Ciprofloxacin HCl [Ciprofloxacin 500 mg PO BID 10 Days #20 tab 10/27/18 Unknown Rx TAB] Cyclobenzaprine [Flexeril 10 MG 10 mg PO TID PRN #15 tablet 10/27/18 Unknown Rx TAB] Acetaminophen/Codeine [Tylenol 1 tab PO Q6H PRN #20 tab 11/02/18 Unknown Rx /Codeine # 3 tab] Docusate Sodium [Move It Along] 100 mg PO QHS PRN #20 tablet 11/02/18 Unknown Rx Sulfamethoxazole/Trimethoprim 1 each PO Q12H #20 tablet 11/02/18 Unknown Rx [Bactrim DS TAB] Ciprofloxacin HCl [Ciprofloxacin 500 mg PO BID 10 Days #20 tab 11/06/18 Unknown Rx TAB] traMADoL [Ultram] 50 mg PO Q6HR PRN #12 tablet 11/06/18 Unknown Rx Ondansetron (Nf) [Zofran TAB] 8 mg PO Q8HR PRN #20 tablet 11/26/18 Unknown Rx Phenazopyridine [Pyridium] 200 mg PO TID #6 tab 11/26/18 Unknown Rx Hyoscyamine Subl [Levsin Sl 0.125 0.125 mg SL Q6HR PRN #10 tab 12/06/18 Unknown Rx TAB] Ondansetron [Zofran Odt] 4 mg PO Q8HR PRN #10 tab.rapdis 12/06/18 Unknown Rx cephALEXin [Keflex] 500 mg PO BID 7 Days #14 capsule 12/06/18 Unknown Rx Active Meds: Active Medications Dextrose/Lactated Ringer's (D5lr) 1,000 mls @ 125 mls/hr IV DIRECT QING Last Admin: 06/03/21 08:44 Dose: 125 mls/hr Lacosamide (Lacosamide 100 Mg Tab) 200 mg PO Q12HR REPLACED BY [facility] Last Admin: 06/03/21 10:36 Dose: Not Given Levetiracetam (Levetiracetam 500 Mg/5 Ml Oral Liqd) 500 mg PO BID REPLACED BY [facility] Last Admin: 06/03/21 10:36 Dose: Not Given Morphine Sulfate (Morphine 2 Mg/1 Ml Inj) 2 mg IV Q4H PRN PRN Reason: Pain, Moderate (4-6) Last Admin: 06/03/21 11:06 Dose: 2 mg Morphine Sulfate (Morphine 4 Mg/1 Ml Inj) 4 mg IV Q4H PRN PRN Reason: Pain , Severe (7-10) Last Admin: 06/03/21 06:20 Dose: 4 mg Naloxone HCl (Naloxone 0.4 Mg/1 Ml Inj) 0.1 mg IV Q2MIN PRN PRN Reason: Res Rate </= 8 or 02 SAT < 92% Ondansetron HCl (Ondansetron 4 Mg/2 Ml Inj) 4 mg IV Q8H PRN PRN Reason: Nausea And Vomiting Last Admin: 06/03/21 08:35 Dose: 4 mg Oxycodone HCl (Oxycodone 5 Mg Tab) 5 mg PO Q6H PRN PRN Reason: Pain, Moderate (4-6) Sodium Chloride (Sodium Chloride 0.9% 10 Ml Flush Syringe) 10 ml IV BID QING Last Admin: 06/02/21 22:04 Dose: 10 ml Sodium Chloride (Sodium Chloride 0.9% 10 Ml Flush Syringe) 10 ml IV PRN PRN PRN Reason: LINE FLUSH Exam Vital Signs Temp Pulse Resp BP Pulse Ox 99.6 F 95 H 20 117/70 100 06/02/21 15:05 06/02/21 15:05 06/02/21 15:05 06/02/21 15:05 06/02/21 15:05 - General physical appearance Positive: well developed - Eyes Positive: PERRL - Neck Positive: no masses, no bruits, trachea midline - Respiratory Positive: normal expansion - Cardiovascular Rhythm: regular - Extremities Extremities: no ischemia, No edema - Abdomen Abdomen: Present: soft, tender. Absent: guarding, rigid Hernia: umbilical - Integumentary no rash - Neurologic Neurologic: alert and oriented to time, place and person, motor strength and sensation are grossly intact, CN II-XII intact Results - Labs 06/02/21 16:16 06/02/21 16:16 Abnormal lab results 06/02/21 06/02/21 06/02/21 Range/Units 16:16 16:16 16:16 Lymph # (Auto) 1.0 L (1.2-5.4) K/mm3 Seg Neutrophils % 71.6 H (40.0-70.0) % Chloride 108.8 H (98-107) mmol/L Carbon Dioxide 19 L (22-30) mmol/L Creatinine 0.5 L (0.6-1.2) mg/dL Lactic Acid 2.50 H* (0.7-2.0) mmol/L Ur Specific [place] (1.003-1.030) 06/02/21 06/02/21 06/02/21 Range/Units 18:03 18:24 20:56 Lymph # (Auto) (1.2-5.4) K/mm3 Seg Neutrophils % (40.0-70.0) % Chloride (98-107) mmol/L Carbon Dioxide (22-30) mmol/L Creatinine (0.6-1.2) mg/dL Lactic Acid 2.80 H* 6.50 H* (0.7-2.0) mmol/L Ur Specific [place] 1.040 H (1.003-1.030) Diabetes panel 06/02/21 Range/Units 16:16 Sodium 139 (137-145) mmol/L Potassium 3.9 (3.6-5.0) mmol/L Chloride 108.8 H (98-107) mmol/L Carbon Dioxide 19 L (22-30) mmol/L BUN 7 (7-17) mg/dL Creatinine 0.5 L (0.6-1.2) mg/dL Glucose 84 (65-100) mg/dL Calcium 8.5 (8.4-10.2) mg/dL AST 13 (5-40) units/L ALT 9 (7-56) units/L Alkaline Phosphatase 66 (35-129) units/L Total Protein 6.9 (6.3-8.2) g/dL Albumin 4.0 (3.9-5) g/dL Calcium panel 06/02/21 Range/Units 16:16 Calcium 8.5 (8.4-10.2) mg/dL Albumin 4.0 (3.9-5) g/dL Pituitary panel 06/02/21 Range/Units 16:16 Sodium 139 (137-145) mmol/L Potassium 3.9 (3.6-5.0) mmol/L Chloride 108.8 H (98-107) mmol/L Carbon Dioxide 19 L (22-30) mmol/L BUN 7 (7-17) mg/dL Creatinine 0.5 L (0.6-1.2) mg/dL Glucose 84 (65-100) mg/dL Calcium 8.5 (8.4-10.2) mg/dL Adrenal panel 02/12/22 Range/Units 16:16 Sodium 139 (137-145) mmol/L Potassium 3.9 (3.6-5.0) mmol/L Chloride 108.8 H (98-107) mmol/L Carbon Dioxide 19 L (22-30) mmol/L BUN 7 (7-17) mg/dL Creatinine 0.5 L (0.6-1.2) mg/dL Glucose 84 (65-100) mg/dL Calcium 8.5 (8.4-10.2) mg/dL Total Bilirubin 0.30 (0.1-1.2) mg/dL AST 13 (5-40) units/L ALT 9 (7-56) units/L Alkaline Phosphatase 66 (35-129) units/L Total Protein 6.9 (6.3-8.2) g/dL Albumin 4.0 (3.9-5) g/dL Assessment and Plan Patient with abdominal pain referable to round umbilical hernia there is some properitoneal fat that appears to be incarcerated. She is advised that this is not a surgical emergency. There is no danger to the discomfort. She has worn abdominal binders in the past and this will likely help. In addition that is possible that with the multiple laparoscopic explorations and endometriosis that she may have an endometrial implant in the umbilical hernia. Again there is no surgical emergency with this. The CAT scan is of interest with the bladder stimulator. I am currently unable to review images from [place] but will try to review images with Dr. Wagoner in radiology today and potentially dialogue with the [place] physicians future.
[2021-06-03] MEDS: oxyCODONE 5 MG TAB PO PRN ×2 (17:30→22:58)
[2021-06-04] MEDS: MORPHINE 2 MG/1 ML INJ IV PRN ×3 (01:01→12:44)
[2021-06-04] MEDS: D5W/LACTATED RINGERS 1,000 ML IV SCH (05:29)
[2021-06-04] MEDS: MORPHINE 4 MG/1 ML INJ IV PRN (09:50)
[2021-06-04] MEDS: ONDANSETRON 4 MG/2 ML INJ IV PRN (09:50)
[2021-06-04] MEDS: LACOSAMIDE 100 MG TAB PO SCH (09:56)
[2021-06-04] MEDS: levETIRAcetam 500 MG/5 ML ORAL LIQD PO SCH (09:56)
--- NOTE | 2021-06-04 12:20 | Progress Note ---
Assessment and Plan Lactic acid normalized at 0.9 S/p Gen Surg evaluation of inguinal hernia with no concern for immediate intervention Pain controlled with roxicodone Discussed no intervention from [employer]SEM[employer] LINE UPHOLSTERER aspect necessary at this time. Will discuss clearance with Gen Surg for possible discharge today. - Patient Problems (1) Acute abdominal pain in left lower quadrant Current Visit: Yes Status: Acute (2) Elevated lactic acid level Current Visit: Yes Status: Resolved (3) Endometriosis determined by laparoscopy Current Visit: Yes Status: Acute (4) Ovarian cyst Current Visit: Yes Status: Acute Qualifiers: Laterality: left Qualified Code(s): N83.202 - Unspecified ovarian cyst, left side Subjective - Subjective Date of service: 06/04/21 Principal diagnosis: acute pelvic pain, s/p laparoscopy, endometriosis Interval history: Patient lying in bed in no apparent distress. Notes some discomfort, but overall pain controlled. Tolerating diet. Patient reports: appetite normal, voiding normally, pain well controlled, ambulating normally Objective - Vital Signs Latest vital signs: Vital Signs Temp Pulse Pulse Resp Resp BP BP 06/04/21 07:33 98.5 F 76 18 104/63 06/04/21 06:00 18 06/04/21 05:30 18 06/04/21 04:00 98.1 F 76 18 101/56 06/04/21 01:31 18 06/04/21 01:01 18 06/04/21 00:14 98.4 F 79 18 102/68 06/03/21 23:58 18 06/03/21 22:58 18 06/03/21 22:00 80 18 18 06/03/21 21:12 85 18 106/62 06/03/21 21:11 98.3 F 89 18 94/53 06/03/21 20:17 18 06/03/21 19:47 18 06/03/21 18:30 18 06/03/21 17:20 98.4 F 77 18 96/55 Pulse Ox 06/04/21 07:33 97 06/04/21 06:00 06/04/21 05:30 06/04/21 04:00 98 06/04/21 01:31 06/04/21 01:01 06/04/21 00:14 99 06/03/21 23:58 06/03/21 22:58 06/03/21 22:00 99 06/03/21 21:12 06/03/21 21:11 99 06/03/21 20:17 06/03/21 19:47 06/03/21 18:30 06/03/21 17:20 99 Intake and Output 06/03/21 06/04/21 06/04/21 23:59 07:59 15:59 Intake Total 1480 240 120 Balance 1480 240 120 Intake: IV 1000 D5lr 1,000 ml @ 125 mls/ 1000 hr IV DIRECT QING Rx#: [id number] Oral 480 240 120 Other: Total, Intake Amount 120 120 120 Voiding Method Toilet # Voids 2 Void 1 1 1 - Exam Cardiovascular: Present: Regular rate Lungs: Present: Normal air movement Abdomen: Present: normal appearance, soft, tenderness, other (laparoscopic incisions well-healing ) Extremities: Present: normal
--- NOTE | 2021-06-04 12:41 | Event Note ---
Date: 06/04/[address] Casey, previous on-call provider who received call from general surgery provider. Dr. Nixon evaluated patient and believes she is stable for discharge. No surgical intervention required at this time. Will discharge patient home today with appropriate follow up.
--- NOTE | 2021-06-04 12:42 | Discharge Summary ---
Providers - Providers Date of Admission: 06/02/21 21:04 Date of discharge: 06/04/21 Attending physician: ZIA CASEY 06/02/21 20:02 Consult to Physician [CONS] Urgent Comment: Dr. Leblanc spoke with Dr. Casey @ 2008 Consulting Provider: STEW MCGARRY Physician Instructions: Reason For Exam: Acute left lower quadrant abdominal 06/03/21 11:01 Consult to Physician [CONS] Routine Comment: provider called and Dr. Casey spoke with him Consulting Provider: ANY CAIN Physician Instructions: please evaluate Reason For Exam: LLQ pain, inguineal hernia on CT Primary care physician: PROGRESS WORKER Hospitalization Condition: Fair Hospital course: Patient presented c/o left side pain s/p laparoscopic drainage of 7cm left ovarian cyst in CT on May 10. Noted to have elevated lactic acid on intiall presentation. Admitted for fluid hydration and pain management. CT scan completed and notable for ovarian cyst, corpus luteum vs residual from previous surgery. Umbilical hernia also noted, but no incarceration of bowel. Harware in bladder from previous placement of stimulator seen. Evaluated by SPACE BUYER and Gen Surg and nor surgical intervention necessary. Hardware in proper place per Gen Surg after discussion with radiology and patient's provider who placed it in [place]. Repeat lactic acid normal x2. Pain improved with pain medication. Stable for discharge home on HD # 2. Disposition: 01 HOME / SELF CARE / HOMELESS Final Discharge Diagnosis (Prints w/discharge instructions): Acute Abdominal Pain - Discharge Diagnoses (1) Acute abdominal pain in left lower quadrant Status: Acute Comment: improving (2) Elevated lactic acid level Status: Resolved (3) Endometriosis determined by laparoscopy Status: Acute (4) Ovarian cyst Status: Acute Qualifiers: Laterality: left Qualified Code(s): N83.202 - Unspecified ovarian cyst, left side Core Measure Documentation - Palliative Care Palliative Care/ Comfort Measures: Not Applicable - Core Measures Any of the following diagnoses?: none Exam - Constitutional Vitals: Temp Pulse Resp BP Pulse Ox 98.5 F 76 18 104/63 97 06/04/21 07:33 06/04/21 07:33 06/04/21 07:33 06/04/21 07:33 06/04/21 07:33 General appearance: Present: no acute distress - Respiratory Respiratory effort: normal - Extremities Extremities: no ischemia, No edema - Abdominal General gastrointestinal: Present: soft, non-distended, other (laparoscopic incisions well-healing) Female genitourinary: Present: deferred Plan Activity: advance as tolerated Weight Bearing Status: Full Weight Bearing Diet: regular Wound: keep clean and dry Follow up with: PRIMARY CARE, [Primary Care Provider] - 3-5 Days ZIA CASEY MD [Staff Physician] - 7 Days Prescriptions: oxyCODONE [roxiCODONE] 5 mg PO Q6HR PRN #15 tablet PRN Reason: Pain
[2021-06-04 13:43] VITALS: BP 117/86
== END 2021-06-04 13:45 | disposition home or self-care (01) ==
LOC: ED 13:09 → OB 21:04
PROVIDERS: ADMIT Obstetrics & Gynecology; ATTEND Obstetrics & Gynecology
DX: R10.32 Left lower quadrant pain (principal); Z20.822 Contact with and (suspected) exposure to COVID-19; N83.202 Unspecified ovarian cyst, left side; R74.02 Elevation of levels of lactic acid dehydrogenase [LDH]; N80.9 Endometriosis, unspecified; R56.9 Unspecified convulsions; J45.909 Unspecified asthma, uncomplicated; K40.90 Unilateral inguinal hernia, without obstruction or gangrene, not specified as recurrent; Z79.899 Other long term (current) drug therapy; Z98.890 Other specified postprocedural states
CPT/HCPCS: 36415; 74177; 76857; 80048; 80076; 81001; 82140; 82550; 83735; 84702; 85025; 85610; 96361; 96374; 96375; 96376; 99285; G0378; J1170; J2270; J2405; J7040; J7120; J7121; Q9967; U0003; J7060

== ENCOUNTER 2021-06-09 17:43 | Emergency (ER) | payer MEDICAID ==
[2021-06-09 18:41] VITALS: BP 104/43
[2021-06-09 21:22] LABS: Bacteria,Urine 1+ /HPF (Negative); Bilirubin,Urine NEG (Negative); Blood,Urine SM (Negative); Color,Urine Yellow (Yellow); Mucus,Urine FEW /HPF; Protein,Urine <15 mg/dL mg/dL (Negative); Urobilinogen,Urine < 2.0 mg/dL (<2.0)
[2021-06-09 22:09] LABS: Alanine Aminotransferase 67 units/L (7-56); Albumin 4.5 g/dL (3.9-5); Blood Urea Nitrogen 8 mg/dL (7-17); Calcium 9.3 mg/dL (8.4-10.2); Hemolysis Index 4
[2021-06-09 22:21] LABS: BUN/Creatinine Ratio 11; Basophils % (Auto) 0.7 % (0.0-1.8); Eosinophils # (Auto) 0.2 K/mm3 (0.0-0.4); Eosinophils % (Auto) 4.1 % (0.0-4.3); Hematocrit 36.9 % (30.3-42.9); Hemoglobin 12.7 gm/dl (10.1-14.3); Lymphocytes # (Auto) 1.5 K/mm3 (1.2-5.4); Lymphocytes % (Auto) 28.4 % (13.4-35.0); Mean Corpuscular HGB Conc 35 % (30-34); Mean Corpuscular Volume 89 fl (79-97); Monocytes # (Auto) 0.4 K/mm3 (0.0-0.8); Monocytes % (Auto) 7.4 % (0.0-7.3); Platelet Count 249 K/mm3 (140-440); Red Blood Count 4.15 M/mm3 (3.65-5.03); Red Cell Distribution Width 13.9 % (13.2-15.2)
[2021-06-10] MEDS ORDERED: ONDANSETRON 4 MG ODT TAB PO STA (00:50)
[2021-06-10] MEDS ORDERED: HYDROcodone/ACETAMINOPHEN 5-325 MG TAB PO STA (00:50)
--- NOTE | 2021-06-10 02:59 | Ultrasound Report ---
ULTRASOUND PELVIS INDICATION / CLINICAL INFORMATION: left pelvic pain. TECHNIQUE: Transabdominal and Transvaginal. Duplex Color Doppler used: Yes. COMPARISON: CT dated 06/02/2021 FINDINGS: UTERUS: The uterus measures 7.4 x 3.9 x 4.8 cm. The uterus demonstrates a normal sonographic appeara nce. The endometrial stripe measures 0.5 cm. RIGHT ADNEXA: Right ovary is not visualized and reported to be surgically absent. No suspicious cysti c or solid mass in the right adnexa. LEFT ADNEXA: No significant ovarian cyst or mass. Normal color Doppler blood flow. URINARY BLADDER: No significant abnormality. FREE FLUID: None. ADDITIONAL FINDINGS: None. IMPRESSION: No significant sonographic abnormality of the pelvis. Signer Name: Boogie Loo MD Signed: 06/10/2021 2:54 AM Workstation Name: [id number]
--- NOTE | 2021-06-10 04:49 | Emergency Department Report ---
ED Female HPI - General Chief complaint: Abdominal Pain Stated complaint: LT SIDE PAIN/FEVER/NAUSEA Time Seen by Provider: 06/09/21 22:38 Source: patient Mode of arrival: Ambulatory Limitations: No Limitations - History of Present Illness Initial comments: 30-year-old female presents emerge department complaining of chronic pelvic pain which she attempted to have surgically corrected on May 10 with a cyst extracted from the left lower submammary emergency pain since that time for the something else may be going on so she wanted get checked out here in emergency department patient reports no dizziness, no chills no fever chills or sweats. N o nausea, no vomiting no hematuria or dysuria currently not sexually active no vaginal discharge or bleeding no flank plain pain MD Complaint: pelvic pain Location: suprapubic Radiation: non-radiating Severity: mild Quality: dull Consistency: constant Improves with: none Worsens with: none Are you Now?: No Associated Symptoms: denies: nausea/vomiting - Related Data Sexually active: No Previous Rx's Medication Instructions Recorded Last Taken Type Ondansetron [Zofran Odt] 4 mg PO Q8HR #15 tab.rapdis 09/03/18 Unknown Rx Acetaminophen/Codeine [Tylenol 1 tab PO Q4HR PRN #18 tablet 09/08/18 Unknown Rx /Codeine # 3 tab] Hyoscyamine Subl [Levsin Sl 0.125 0.125 mg SL Q6HR PRN #20 tab 09/08/18 Unknown Rx TAB] Promethazine [Phenergan] 25 mg PO Q6HR PRN #20 tab 09/08/18 Unknown Rx Ciprofloxacin HCl [Ciprofloxacin 500 mg PO Q12HR #20 tab 09/13/18 Unknown Rx TAB] HYDROcodone/APAP 5-325 [[place] 1 - 2 each PO Q6HR PRN #10 tablet 09/13/18 Unknown Rx 5/325] Promethazine [Phenergan] 25 mg PO Q6HR PRN #20 tab 09/13/18 Unknown Rx Promethazine [Phenergan] 25 mg CA Q6HR PRN #5 supp.rect 09/13/18 Unknown Rx metroNIDAZOLE [Flagyl] 500 mg PO Q12HR #14 tab 09/13/18 Unknown Rx Acetaminophen/Codeine [Tylenol 1 tab PO Q6H PRN #12 tab 09/30/18 Unknown Rx /Codeine # 3 tab] Omeprazole 20 mg PO DAILY #30 capsule. 09/30/18 Unknown Rx metroNIDAZOLE [Flagyl] 500 mg PO BID 10 Days #20 tab 09/30/18 Unknown Rx Ciprofloxacin HCl [Ciprofloxacin 500 mg PO BID 10 Days #20 tab 10/27/18 Unknown Rx TAB] Cyclobenzaprine [Flexeril 10 MG 10 mg PO TID PRN #15 tablet 10/27/18 Unknown Rx TAB] Acetaminophen/Codeine [Tylenol 1 tab PO Q6H PRN #20 tab 11/02/18 Unknown Rx /Codeine # 3 tab] Docusate Sodium [Move It Along] 100 mg PO QHS PRN #20 tablet 11/02/18 Unknown Rx Sulfamethoxazole/Trimethoprim 1 each PO Q12H #20 tablet 11/02/18 Unknown Rx [Bactrim DS TAB] Ciprofloxacin HCl [Ciprofloxacin 500 mg PO BID 10 Days #20 tab 11/06/18 Unknown Rx TAB] Ondansetron (Nf) [Zofran TAB] 8 mg PO Q8HR PRN #20 tablet 11/26/18 Unknown Rx Phenazopyridine [Pyridium] 200 mg PO TID #6 tab 11/26/18 Unknown Rx Hyoscyamine Subl [Levsin Sl 0.125 0.125 mg SL Q6HR PRN #10 tab 12/06/18 Unknown Rx TAB] Ondansetron [Zofran Odt] 4 mg PO Q8HR PRN #10 tab.rapdis 12/06/18 Unknown Rx cephALEXin [Keflex] 500 mg PO BID 7 Days #14 capsule 12/06/18 Unknown Rx oxyCODONE [roxiCODONE] 5 mg PO Q6HR PRN #15 tablet 06/04/21 Unknown Rx traMADoL [Ultram 50 MG tab] 50 mg PO Q6HR PRN #12 tablet 06/10/21 Unknown Rx Allergies Allergy/AdvReac Type Severity Reaction Status Date / Time ketorolac [From Toradol] Allergy Unknown Hives Verified 06/09/21 18:40 aspirin Allergy Hives Verified 06/09/21 18:40 dicyclomine [From Bentyl] Allergy Unknown Verified 06/09/21 18:40 metoclopramide [From Reglan] Allergy Unknown Verified 06/09/21 18:40 NSAIDS (Non-Steroidal Allergy Hives Verified 06/09/21 18:40 Anti-Inflamma ED Review of Systems ROS: Stated complaint: LT SIDE PAIN/FEVER/NAUSEA Other details as noted in HPI Comment: All other systems reviewed and negative ED Past Medical Hx - Past Medical History Hx Hypertension: No Hx CVA: No Hx Heart Attack/AMI: No Hx Congestive Heart Failure: No Hx Diabetes: No Hx Deep Vein Thrombosis: No Hx Pulmonary Embolism: No Hx GERD: No Hx Liver Disease: No Hx Renal Disease: No Hx Sickle Cell Disease: No Hx Arthritis: No Hx Headaches / Migraines: No Hx Seizures: Yes Hx Kidney Stones: No Hx Psychiatric Treatment: No Hx Asthma: Yes Hx COPD: No Hx Tuberculosis: No Hx Dementia: No Hx HIV: No Additional medical history: Von Willebrand blood disorder, 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, hypoglycemia, Left ovarian cyst - Surgical History Hx Coronary Stent: No Hx Open Heart Surgery: No Hx Pacemaker: No Hx Internal Defibrillator: No Hx Cholecystectomy: Yes Hx Appendectomy: No Hx Breast Surgery: No Additional Surgical History: Left ovarian cyst surgery - Social History Smoking Status: Never Smoker - Medications Home Medications: Home Medications Medication Instructions Recorded Confirmed Last Taken Type Ondansetron [Zofran Odt] 4 mg PO Q8HR #15 tab.rapdis 09/03/18 Unknown Rx Acetaminophen/Codeine [Tylenol 1 tab PO Q4HR PRN #18 tablet 09/08/18 Unknown Rx /Codeine # 3 tab] Hyoscyamine Subl [Levsin Sl 0.125 0.125 mg SL Q6HR PRN #20 tab 09/08/18 Unknown Rx TAB] Promethazine [Phenergan] 25 mg PO Q6HR PRN #20 tab 09/08/18 Unknown Rx Ciprofloxacin HCl [Ciprofloxacin 500 mg PO Q12HR #20 tab 09/13/18 Unknown Rx TAB] HYDROcodone/APAP 5-325 [[place] 1 - 2 each PO Q6HR PRN #10 tablet 09/13/18 Unknown Rx 5/325] Promethazine [Phenergan] 25 mg PO Q6HR PRN #20 tab 09/13/18 Unknown Rx Promethazine [Phenergan] 25 mg CA Q6HR PRN #5 supp.rect 09/13/18 Unknown Rx metroNIDAZOLE [Flagyl] 500 mg PO Q12HR #14 tab 09/13/18 Unknown Rx Acetaminophen/Codeine [Tylenol 1 tab PO Q6H PRN #12 tab 09/30/18 Unknown Rx /Codeine # 3 tab] Omeprazole 20 mg PO DAILY #30 capsule.dr 09/30/18 Unknown Rx metroNIDAZOLE [Flagyl] 500 mg PO BID 10 Days #20 tab 09/30/18 Unknown Rx Ciprofloxacin HCl [Ciprofloxacin 500 mg PO BID 10 Days #20 tab 10/27/18 Unknown Rx TAB] Cyclobenzaprine [Flexeril 10 MG 10 mg PO TID PRN #15 tablet 10/27/18 Unknown Rx TAB] Acetaminophen/Codeine [Tylenol 1 tab PO Q6H PRN #20 tab 11/02/18 Unknown Rx /Codeine # 3 tab] Docusate Sodium [Move It Along] 100 mg PO QHS PRN #20 tablet 11/02/18 Unknown Rx Sulfamethoxazole/Trimethoprim 1 each PO Q12H #20 tablet 11/02/18 Unknown Rx [Bactrim DS TAB] Ciprofloxacin HCl [Ciprofloxacin 500 mg PO BID 10 Days #20 tab 11/06/18 Unknown Rx TAB] Ondansetron (Nf) [Zofran TAB] 8 mg PO Q8HR PRN #20 tablet 11/26/18 Unknown Rx Phenazopyridine [Pyridium] 200 mg PO TID #6 tab 11/26/18 Unknown Rx Hyoscyamine Subl [Levsin Sl 0.125 0.125 mg SL Q6HR PRN #10 tab 12/06/18 Unknown Rx TAB] Ondansetron [Zofran Odt] 4 mg PO Q8HR PRN #10 tab.rapdis 12/06/18 Unknown Rx cephALEXin [Keflex] 500 mg PO BID 7 Days #14 capsule 12/06/18 Unknown Rx oxyCODONE [roxiCODONE] 5 mg PO Q6HR PRN #15 tablet 06/04/21 Unknown Rx traMADoL [Ultram 50 MG tab] 50 mg PO Q6HR PRN #12 tablet 06/10/21 Unknown Rx ED Physical Exam - General Limitations: No Limitations General appearance: alert, in no apparent distress - Head Head exam: Present: atraumatic, normocephalic - Eye Eye exam: Present: normal appearance, PERRL Pupils: Present: normal accommodation - ENT ENT exam: Present: normal exam, mucous membranes moist - Neck Neck exam: Present: normal inspection - Respiratory Respiratory exam: Present: normal lung sounds bilaterally. Absent: respiratory distress - Cardiovascular Cardiovascular Exam: Present: regular rate, normal rhythm. Absent: systolic murmur, diastolic murmur, rubs, gallop - GI/Abdominal GI/Abdominal exam: Present: soft, tenderness (Left adnexal region. Abdomen soft), normal bowel sounds, other (. No Rovsing, no Mcnulty Wright, no [place] sign,). Absent: distended, organomegaly, mass, pulsatile mass - Extremities Exam Extremities exam: Present: normal inspection - Back Exam Back exam: Present: normal inspection. Absent: CVA tenderness (R), CVA tenderness (L) - Neurological Exam Neurological exam: Present: alert, oriented X3, CN II-XII intact, normal gait - Psychiatric Psychiatric exam: Present: normal affect, normal mood - Skin Skin exam: Present: warm, dry, intact, normal color. Absent: rash, diaphoretic, erythema, urticaria, vesicles ED Course Vital Signs 06/09/21 06/10/21 18:40 01:00 Temperature 98.9 F Pulse Rate 63 Respiratory 18 14 Rate Blood Pressure 104/43 [Right] O2 Sat by Pulse 97 Oximetry ED Medical Decision Making - Lab Data Result diagrams: 06/09/21 21:04 06/09/21 21:04 - Radiology Data Radiology results: [place] [address] Ultrasound Report Signed Patient: BARBARA PATEL MR#: [id number] : 1990 Acct:[id number] Age/Sex: 30 / F ADM Date: 06/09/21 Loc: ED Attending Dr: Ordering Physician: RANDY LEBLANC Date of Service: 06/10/21 Procedure(s): US transvaginal Accession Number(s): [id number] cc: RANDY LEBLANC ULTRASOUND PELVIS INDICATION / CLINICAL INFORMATION: left pelvic pain. TECHNIQUE: Transabdominal and Transvaginal. Duplex Color Doppler used: Yes. COMPARISON: CT dated 06/02/2021 FINDINGS: UTERUS: The uterus measures 7.4 x 3.9 x 4.8 cm. The uterus demonstrates a normal sonographic appearance. The endometrial stripe measures 0.5 cm. RIGHT ADNEXA: Right ovary is not visualized and reported to be surgically absent. No suspicious cystic or solid mass in the right adnexa. LEFT ADNEXA: No significant ovarian cyst or mass. Normal color Doppler blood flow. URINARY BLADDER: No significant abnormality. FREE FLUID: None. ADDITIONAL FINDINGS: None. IMPRESSION: No significant sonographic abnormality of the pelvis. Signer Name: Marco A Loo MD Signed: 06/10/2021 2:54 AM Workstation Name: [id number] [id number] Transcribed By: JS Dictated By: MARCO A LOO MD Electronically Authenticated By: MARCO A LOO MD Signed Date/Time: 06/10/21253 DD/ 2 TD/TT: Critical care attestation.: If time is entered above; I have spent that time in minutes in the direct care of this critically ill patient, excluding procedure time. ED Disposition Clinical Impression: Pelvic pain Disposition: HOME / SELF CARE / HOMELESS Is pt being admited?: No Does the pt Need Aspirin: No Condition: Stable Instructions: Abdominal Pain (ED), Pain Without a Known Cause, Pelvic Pain, Female Additional Instructions: Pelvic ultrasound showed no abnormalities it is imperative that you follow-up with [facility] for definitive treatment of this chronic recurrent pelvic pain Prescriptions: traMADoL [Ultram 50 MG tab] 50 mg PO Q6HR PRN #12 tablet PRN Reason: Pain Referrals: PRIMARY CARE, [Primary Care Provider] - 3-5 Days [facility] [Provider Group] - 3-5 Days
== END 2021-06-10 06:11 | disposition home or self-care (01) ==
LOC: ED 17:43
DX: R10.2 Pelvic and perineal pain (principal); J45.909 Unspecified asthma, uncomplicated; Z90.49 Acquired absence of other specified parts of digestive tract; Z88.6 Allergy status to analgesic agent; Z88.3 Allergy status to other anti-infective agents
CPT/HCPCS: 36415; 76830; 76856; 80053; 81001; 83690; 84703; 85025; 87086; 99284; J3490; Q0162

== ENCOUNTER 2021-07-02 13:07 | Emergency (ER) | payer SELFPAY ==
[2021-07-02 14:11] VITALS: BP 112/68
[2021-07-02] MEDS ORDERED: MORPHINE 4 MG/1 ML INJ IV ONE ×2 (14:50→17:58)
[2021-07-02] MEDS ORDERED: ONDANSETRON 4 MG/2 ML INJ IV ONE (14:51)
--- NOTE | 2021-07-02 15:15 | Emergency Department Report ---
ED Abdominal Pain HPI - General Chief Complaint: Abdominal Pain Stated Complaint: RT SIDE PAIN/NAUSEA/DIARRHEA Time Seen by Provider: 07/02/21 14:32 Source: patient Mode of arrival: Ambulatory Limitations: No Limitations - History of Present Illness Initial Comments: 30-year-old female with a past medical history of von Willebrand disease, seizures, endometriosis, right oophorectomy, and left ovarian cyst presents to the emergency department for evaluation of left lower quadrant pain that radiates to her back and started on Friday. She states that she has also had diarrhea and fever with a T-max of 101. She states that she has been taking [id number] Tylenol along with her prescription oxycodone without improvement. She denies dysuria, nausea, vomiting, and vaginal discharge. She states that she has had similar pain in the past when she had a large ovarian cyst. MD Complaint: abdominal pain -: Gradual, days(s) (To) Location: LLQ Radiation: L flank, back Severity: severe Severity scale (0 -10): 10 Quality: aching Consistency: constant Associated Symptoms: diarrhea, fever. denies: nausea, vomiting, chills, dysuria, hematemesis, melena, hematuria, anorexia, syncope Treatments Prior to Arrival: NSAIDs, prescription analgesics - Related Data LMP Date: 06/17/21 Previous Rx's Medication Instructions Recorded Last Taken Type Ondansetron [Zofran Odt] 4 mg PO Q8HR #15 tab.rapdis 09/03/18 Unknown Rx Acetaminophen/Codeine [Tylenol 1 tab PO Q4HR PRN #18 tablet 09/08/18 Unknown Rx /Codeine # 3 tab] Hyoscyamine Subl [Levsin Sl 0.125 0.125 mg SL Q6HR PRN #20 tab 09/08/18 Unknown Rx TAB] Promethazine [Phenergan] 25 mg PO Q6HR PRN #20 tab 09/08/18 Unknown Rx Ciprofloxacin HCl [Ciprofloxacin 500 mg PO Q12HR #20 tab 09/13/18 Unknown Rx TAB] HYDROcodone/APAP 5-325 [[place] 1 - 2 each PO Q6HR PRN #10 tablet 09/13/18 Unknown Rx 5/325] Promethazine [Phenergan] 25 mg PO Q6HR PRN #20 tab 09/13/18 Unknown Rx Promethazine [Phenergan] 25 mg [place] Q6HR PRN #5 supp.rect 09/13/18 Unknown Rx metroNIDAZOLE [Flagyl] 500 mg PO Q12HR #14 tab 09/13/18 Unknown Rx Acetaminophen/Codeine [Tylenol 1 tab PO Q6H PRN #12 tab 09/30/18 Unknown Rx /Codeine # 3 tab] Omeprazole 20 mg PO DAILY #30 capsule.dr 09/30/18 Unknown Rx metroNIDAZOLE [Flagyl] 500 mg PO BID 10 Days #20 tab 09/30/18 Unknown Rx Ciprofloxacin HCl [Ciprofloxacin 500 mg PO BID 10 Days #20 tab 10/27/18 Unknown Rx TAB] Cyclobenzaprine [Flexeril 10 MG 10 mg PO TID PRN #15 tablet 10/27/18 Unknown Rx TAB] Acetaminophen/Codeine [Tylenol 1 tab PO Q6H PRN #20 tab 11/02/18 Unknown Rx /Codeine # 3 tab] Docusate Sodium [Move It Along] 100 mg PO QHS PRN #20 tablet 11/02/18 Unknown Rx Sulfamethoxazole/Trimethoprim 1 each PO Q12H #20 tablet 11/02/18 Unknown Rx [Bactrim DS TAB] Ciprofloxacin HCl [Ciprofloxacin 500 mg PO BID 10 Days #20 tab 11/06/18 Unknown Rx TAB] Ondansetron (Nf) [Zofran TAB] 8 mg PO Q8HR PRN #20 tablet 11/26/18 Unknown Rx Phenazopyridine [Pyridium] 200 mg PO TID #6 tab 11/26/18 Unknown Rx Hyoscyamine Subl [Levsin Sl 0.125 0.125 mg SL Q6HR PRN #10 tab 12/06/18 Unknown Rx TAB] Ondansetron [Zofran Odt] 4 mg PO Q8HR PRN #10 tab.rapdis 12/06/18 Unknown Rx cephALEXin [Keflex] 500 mg PO BID 7 Days #14 capsule 12/06/18 Unknown Rx oxyCODONE [roxiCODONE] 5 mg PO Q6HR PRN #15 tablet 06/04/21 Unknown Rx traMADoL [Ultram 50 MG tab] 50 mg PO Q6HR PRN #12 tablet 06/10/21 Unknown Rx traMADoL [Ultram 50 MG tab] 50 mg PO Q6HR PRN 5 Days #12 tablet 06/10/21 Unknown Rx Allergies Allergy/AdvReac Type Severity Reaction Status Date / Time ketorolac [From Toradol] Allergy Unknown Hives Verified 06/09/21 18:40 aspirin Allergy Hives Verified 06/09/21 18:40 dicyclomine [From Bentyl] Allergy Unknown Verified 06/09/21 18:40 metoclopramide [From Reglan] Allergy Unknown Verified 06/09/21 18:40 NSAIDS (Non-Steroidal Allergy Hives Verified 06/09/21 18:40 Anti-Inflamma ED Review of Systems ROS: Stated complaint: RT SIDE PAIN/NAUSEA/DIARRHEA Other details as noted in HPI Comment: All other systems reviewed and negative Constitutional: fever. denies: chills, diaphoresis, malaise, weakness Eyes: denies: eye pain ENT: denies: ear pain Respiratory: denies: cough, orthopnea, shortness of breath, SOB with exertion, SOB at rest Cardiovascular: denies: chest pain, palpitations, dyspnea on exertion, orthopnea, edema, syncope, paroxysmal nocturnal dyspnea Endocrine: no symptoms reported Gastrointestinal: abdominal pain, diarrhea. denies: nausea, vomiting, hemate mesis, melena, hematochezia Genitourinary: denies: urgency, dysuria, frequency, hematuria, discharge, abnormal menses Musculoskeletal: back pain. denies: joint swelling Skin: denies: rash, lesions Neurological: denies: headache, weakness, numbness, paresthesias, abnormal gait Psychiatric: denies: anxiety, depression Hematological/Lymphatic: denies: easy bleeding, easy bruising ED Past Medical Hx - Past Medical History Hx Hypertension: No Hx CVA: No Hx Heart Attack/AMI: No Hx Congestive Heart Failure: No Hx Diabetes: No Hx Deep Vein Thrombosis: No Hx Pulmonary Embolism: No Hx GERD: No Hx Liver Disease: No Hx Renal Disease: No Hx Sickle Cell Disease: No Hx Arthritis: No Hx Headaches / Migraines: No Hx Seizures: Yes Hx Kidney Stones: No Hx Psychiatric Treatment: No Hx Asthma: Yes Hx COPD: No Hx Tuberculosis: No Hx Dementia: No Hx HIV: No Additional medical history: Von Willebrand blood disorder, 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, hypoglycemia, Left ovarian cyst - Surgical History Hx Coronary Stent: No Hx Open Heart Surgery: No Hx Pacemaker: No Hx Internal Defibrillator: No Hx Cholecystectomy: Yes Hx Appendectomy: No Hx Breast Surgery: No Additional Surgical History: Left ovarian cyst surgery - Social History Smoking Status: Never Smoker - Medications Home Medications: Home Medications Medication Instructions Recorded Confirmed Last Taken Type Ondansetron [Zofran Odt] 4 mg PO Q8HR #15 tab.rapdis 09/03/18 Unknown Rx Acetaminophen/Codeine [Tylenol 1 tab PO Q4HR PRN #18 tablet 09/08/18 Unknown Rx /Codeine # 3 tab] Hyoscyamine Subl [Levsin Sl 0.125 0.125 mg SL Q6HR PRN #20 tab 09/08/18 Unknown Rx TAB] Promethazine [Phenergan] 25 mg PO Q6HR PRN #20 tab 09/08/18 Unknown Rx Ciprofloxacin HCl [Ciprofloxacin 500 mg PO Q12HR #20 tab 09/13/18 Unknown Rx TAB] HYDROcodone/APAP 5-325 [[place] 1 - 2 each PO Q6HR PRN #10 tablet 09/13/18 Unknown Rx 5/325] Promethazine [Phenergan] 25 mg PO Q6HR PRN #20 tab 09/13/18 Unknown Rx Promethazine [Phenergan] 25 mg MI Q6HR PRN #5 supp.rect 09/13/18 Unknown Rx metroNIDAZOLE [Flagyl] 500 mg PO Q12HR #14 tab 09/13/18 Unknown Rx Acetaminophen/Codeine [Tylenol 1 tab PO Q6H PRN #12 tab 09/30/18 Unknown Rx /Codeine # 3 tab] Omeprazole 20 mg PO DAILY #30 capsule. 09/30/18 Unknown Rx metroNIDAZOLE [Flagyl] 500 mg PO BID 10 Days #20 tab 09/30/18 Unknown Rx Ciprofloxacin HCl [Ciprofloxacin 500 mg PO BID 10 Days #20 tab 10/27/18 Unknown Rx TAB] Cyclobenzaprine [Flexeril 10 MG 10 mg PO TID PRN #15 tablet 10/27/18 Unknown Rx TAB] Acetaminophen/Codeine [Tylenol 1 tab PO Q6H PRN #20 tab 11/02/18 Unknown Rx /Codeine # 3 tab] Docusate Sodium [Move It Along] 100 mg PO QHS PRN #20 tablet 11/02/18 Unknown Rx Sulfamethoxazole/Trimethoprim 1 each PO Q12H #20 tablet 11/02/18 Unknown Rx [Bactrim DS TAB] Ciprofloxacin HCl [Ciprofloxacin 500 mg PO BID 10 Days #20 tab 11/06/18 Unknown Rx TAB] Ondansetron (Nf) [Zofran TAB] 8 mg PO Q8HR PRN #20 tablet 11/26/18 Unknown Rx Phenazopyridine [Pyridium] 200 mg PO TID #6 tab 11/26/18 Unknown Rx Hyoscyamine Subl [Levsin Sl 0.125 0.125 mg SL Q6HR PRN #10 tab 12/06/18 Unknown Rx TAB] Ondansetron [Zofran Odt] 4 mg PO Q8HR PRN #10 tab.rapdis 12/06/18 Unknown Rx cephALEXin [Keflex] 500 mg PO BID 7 Days #14 capsule 12/06/18 Unknown Rx oxyCODONE [roxiCODONE] 5 mg PO Q6HR PRN #15 tablet 06/04/21 Unknown Rx traMADoL [Ultram 50 MG tab] 50 mg PO Q6HR PRN #12 tablet 06/10/21 Unknown Rx traMADoL [Ultram 50 MG tab] 50 mg PO Q6HR PRN 5 Days #12 tablet 06/10/21 Unknown Rx ED Physical Exam - General Limitations: No Limitations General appearance: alert, in no apparent distress - Head Head exam: Present: atraumatic, normocephalic - Eye Eye exam: Present: normal appearance. Absent: conjunctival injection - Neck Neck exam: Present: normal inspection. Absent: tenderness, lymphadenopathy - Respiratory Respiratory exam: Present: normal lung sounds bilaterally. Absent: respiratory distress, wheezes, rales, rhonchi, stridor, chest wall tenderness, accessory muscle use - Cardiovascular Cardiovascular Exam: Present: tachycardia, normal heart sounds - GI/Abdominal GI/Abdominal exam: Present: soft, tenderness (Left lower quadrant), normal bowel sounds. Absent: distended, guarding, rebound, rigid - Extremities Exam Extremities exam: Present: normal inspection - Back Exam Back exam: Present: normal inspection. Absent: tenderness, CVA tenderness (R), CVA tenderness (L) - Neurological Exam Neurological exam: Present: alert, oriented X3 - Psychiatric Psychiatric exam: Present: normal affect, normal mood - Skin Skin exam: Present: warm, dry, intact, normal color ED Course Vital Signs 07/02/21 14:07 Temperature 98.2 F Pulse Rate 107 H Respiratory 14 Rate Blood Pressure 112/68 [Right] O2 Sat by Pulse 97 Oximetry - Reevaluation(s) Reevaluation #1: Pain improved and patient states that she feels a lot better. 07/02/21 19:00 ED Medical Decision Making - Lab Data Result diagrams: 07/02/21 16:01 07/02/21 16:01 - Radiology Data Radiology results: report reviewed CT of the abdomen and pelvis with IV contrast IMPRESSION: 1. The large bowel is decompressed and not well evaluated. However there appears to be mucosal hyperemia best seen in the rectum and sigmoid colon. Can correlate for colitis. 2. The extra hepatic and intrahepatic biliary ductal dilation has progressed since prior examination. Correlate for cholestatic labs. 3. 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 - Medical Decision Making 30-year-old female with a past medical history of von Willebrand disease, seizures, endometriosis, right oophorectomy, and left ovarian cyst presents to the emergency department for evaluation of left lower quadrant pain that radiate s to her back and started on Friday. She states that she has also had diarrhea and fever with a T-max of 101. She states that she has been taking [id number]-vnccyif Tylenol along with her prescription oxycodone without improvement. She denies dysuria, nausea, vomiting, and vaginal discharge. She states that she has had similar pain in the past when she had a large ovarian cyst. No gross abnormalities noted to the labs. WBC and LFTs are within normal limits. No acute abnormalities noted on CT scan of the abdomen and pelvis, but more chronic conditions noted. Patient has been seen for same type of pain 1 month ago with similar results and was advised to follow-up with her primary care provider or GI, but patient has not been able to follow-up yet. She was once again advised to follow-up with her primary care provider or GI or IT SUPPORT ANALYST. All results were reviewed with patient and she verbalized understanding of and agreement with plan of care. - Differential Diagnosis Diverticulitis, left ovarian cyst, kidney stone, pyelonephritis Critical care attestation.: If time is entered above; I have spent that time in minutes in the direct care of this critically ill patient, excluding procedure time. ED Disposition Clinical Impression: Abdominal pain Qualifiers: Abdominal location: left lower quadrant Qualified Code(s): R10.32 - Left lower quadrant pain Disposition: HOME / SELF CARE / HOMELESS Is pt being admited?: No Does the pt Need Aspirin: No Condition: Stable Instructions: Abdominal Pain, Adult, Ovte-hv-Motf, Abdominal Pain (ED) Additional Instructions: Follow-up with gastroenterology for further evaluation and management. Referrals: EDWARD HADDAD MD [Staff Physician] - 3-5 Days Time of Disposition: 18:30
[2021-07-02 16:42] LABS: Hematocrit 34.9 % (30.3-42.9); Mean Corpuscular HGB Conc 35 % (30-34); Mean Corpuscular Volume 87 fl (79-97); Platelet Count 219 K/mm3 (140-440); Red Cell Distribution Width 13.2 % (13.2-15.2)
[2021-07-02 16:59] LABS: Alanine Aminotransferase 9 units/L (7-56); Albumin 4.5 g/dL (3.9-5); Blood Urea Nitrogen 9 mg/dL (7-17); Calcium 9.6 mg/dL (8.4-10.2); Hemolysis Index 17
[2021-07-02 17:01] LABS: BUN/Creatinine Ratio 18
--- NOTE | 2021-07-02 17:52 | Cat Scan Report ---
CT abdomen pelvis w con INDICATION: fever, LLQ abdominal pain. COMPARISON: CT abdomen and pelvis from June 02, 2021 TECHNIQUE: Abdominal and pelvic CT exam performed. All CT scans at this location are performed using CT dose reduction for ALARA by means of automated exposure control. FINDINGS: CT ABDOMEN and PELVIS: Lung Bases: No significant abnormality. Liver: Mild intrahepatic biliary ductal dilation appears slightly worse. Biliary: Common bile duct appears more dilated 1.2 cm and previously 9 mm. Gallbladder is surgically absent. Spleen: No significant abnormality. Pancreas: No significant abnormality. Adrenals: No significant abnormality. Kidneys: No significant abnormality. Lymphatics: No lymphadenopathy. Vasculature: No significant abnormality. Bowel: Rectum is decompressed but there is mucosal hyperemia involving the rectum and sigmoid colon. The transverse and descending colon also are not distended and not well evaluated. Appendix is been s urgically removed. Pelvis: Small quantity of rectouterine fluid. Osseous Structures: No aggressive osseous lesion. Bilateral L5 pars defects. 3 mm anterolisthesis. Additional Findings: None IMPRESSION: 1. The large bowel is decompressed and not well evaluated. However there appears to be mucosal hypere denny best seen in the rectum and sigmoid colon. Can correlate for colitis. 2. The extra hepatic and intrahepatic biliary ductal dilation has progressed since prior examination. Correlate for cholestatic labs. 3. 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 Signer Name: Kiel Erickson MD Signed: 07/02/2021 5:47 PM Workstation Name: [id number]
[2021-07-02 18:12] LABS: Bilirubin,Urine NEG (Negative); Blood,Urine NEG (Negative); Color,Urine Amber (Yellow); Mucus,Urine 3+ /HPF; Urobilinogen,Urine < 2.0 mg/dL (<2.0)
== END 2021-07-02 19:04 | disposition home or self-care (01) ==
LOC: ED 13:07
DX: R10.32 Left lower quadrant pain (principal); Z90.49 Acquired absence of other specified parts of digestive tract; Z88.6 Allergy status to analgesic agent; Z88.8 Allergy status to other drugs, medicaments and biological substances; Z91.09 Other allergy status, other than to drugs and biological substances; R56.9 Unspecified convulsions
CPT/HCPCS: 36415; 74177; 80053; 81001; 83690; 84703; 85027; 96374; 96375; 96376; 99284; J2270; J2405; Q9967

== ENCOUNTER 2021-07-25 10:24 | Emergency (ER) | payer SELFPAY ==
[2021-07-25 11:46] LABS: Bacteria,Urine 2+ /HPF (Negative); Bilirubin,Urine NEG (Negative); Blood,Urine NEG (Negative); Color,Urine Yellow (Yellow); Mucus,Urine 3+ /HPF; Protein,Urine <15 mg/dL mg/dL (Negative); Urobilinogen,Urine < 2.0 mg/dL (<2.0)
[2021-07-25 11:48] LABS: HCG Qualitative,Urine Negative (Negative)
--- NOTE | 2021-07-25 12:29 | Ultrasound Report ---
ULTRASOUND PELVIS INDICATION: Abdominal Pain. TECHNIQUE: Transabdominal. Duplex Color Doppler used: Yes. COMPARISON: Pelvic ultrasound from 06/10/2021. FINDINGS: Uterus: Present. Size: 6.8 x 3.4 x 3.5 cm. Endometrial complex: Normal measuring 0.6 cm. Mass lesions: None. Additional findings: None. Right Ovary: Not seen. No significant right adnexal abnormality. Left Ovary: Size: 2.1 x 1.6 x 2.3 cm Blood flow: Normal. Cyst or mass: A 1.2 cm follicle is seen without other solid or cystic lesions. Urinary Bladder: Normal. Free Fluid: None. Additional Findings: None. IMPRESSION: No significant abnormality of the pelvis to explain the patient's pain. Signer Name: Yunier Ruiz MD Signed: 07/25/2021 12:25 PM Workstation Name: [id number]
--- NOTE | 2021-07-25 12:29 | Emergency Department Report ---
ED Abdominal Pain HPI - General Chief Complaint: Abdominal Pain Stated Complaint: LT LOW PAIN Time Seen by Provider: 07/25/21 11:35 Source: patient Mode of arrival: Ambulatory Limitations: No Limitations - History of Present Illness Initial Comments: 30 Y F with PMH of " emotional induced SZ " left ovary cyst and right ovary removed reports LLQ pain for about 2 to 3 days with nausea and denies V/D. Patient reports concerns that her left ovary is twisting like her right ovary did. No other symptoms reported. MD Complaint: abdominal pain Onset/Timin -: days(s) (2) Location: LLQ Radiation: none Migration to: no migration Severity scale (0 -10): 10 Quality: sharp Worsens With: movement Associated Symptoms: nausea. denies: vomiting, diarrhea, fever, dysuria - Related Data Previous Rx's Medication Instructions Recorded Last Taken Type Ondansetron [Zofran Odt] 4 mg PO Q8HR #15 tab.rapdis 09/03/18 Unknown Rx Acetaminophen/Codeine [Tylenol 1 tab PO Q4HR PRN #18 tablet 09/08/18 Unknown Rx /Codeine # 3 tab] Hyoscyamine Subl [Levsin Sl 0.125 0.125 mg SL Q6HR PRN #20 tab 09/08/18 Unknown Rx TAB] Promethazine [Phenergan] 25 mg PO Q6HR PRN #20 tab 09/08/18 Unknown Rx Ciprofloxacin HCl [Ciprofloxacin 500 mg PO Q12HR #20 tab 09/13/18 Unknown Rx TAB] HYDROcodone/APAP 5-325 [[place] 1 - 2 each PO Q6HR PRN #10 tablet 09/13/18 Unknown Rx 5/325] Promethazine [Phenergan] 25 mg PO Q6HR PRN #20 tab 09/13/18 Unknown Rx Promethazine [Phenergan] 25 mg [place] Q6HR PRN #5 supp.rect 09/13/18 Unknown Rx metroNIDAZOLE [Flagyl] 500 mg PO Q12HR #14 tab 09/13/18 Unknown Rx Acetaminophen/Codeine [Tylenol 1 tab PO Q6H PRN #12 tab 09/30/18 Unknown Rx /Codeine # 3 tab] Omeprazole 20 mg PO DAILY #30 capsule. 09/30/18 Unknown Rx metroNIDAZOLE [Flagyl] 500 mg PO BID 10 Days #20 tab 09/30/18 Unknown Rx Ciprofloxacin HCl [Ciprofloxacin 500 mg PO BID 10 Days #20 tab 10/27/18 Unknown Rx TAB] Cyclobenzaprine [Flexeril 10 MG 10 mg PO TID PRN #15 tablet 10/27/18 Unknown Rx TAB] Acetaminophen/Codeine [Tylenol 1 tab PO Q6H PRN #20 tab 11/02/18 Unknown Rx /Codeine # 3 tab] Docusate Sodium [Move It Along] 100 mg PO QHS PRN #20 tablet 11/02/18 Unknown Rx Sulfamethoxazole/Trimethoprim 1 each PO Q12H #20 tablet 11/02/18 Unknown Rx [Bactrim DS TAB] Ciprofloxacin HCl [Ciprofloxacin 500 mg PO BID 10 Days #20 tab 11/06/18 Unknown Rx TAB] Ondansetron (Nf) [Zofran TAB] 8 mg PO Q8HR PRN #20 tablet 11/26/18 Unknown Rx Phenazopyridine [Pyridium] 200 mg PO TID #6 tab 11/26/18 Unknown Rx Hyoscyamine Subl [Levsin Sl 0.125 0.125 mg SL Q6HR PRN #10 tab 12/06/18 Unknown Rx TAB] Ondansetron [Zofran Odt] 4 mg PO Q8HR PRN #10 tab.rapdis 12/06/18 Unknown Rx cephALEXin [Keflex] 500 mg PO BID 7 Days #14 capsule 12/06/18 Unknown Rx oxyCODONE [roxiCODONE] 5 mg PO Q6HR PRN #15 tablet 06/04/21 Unknown Rx traMADoL [Ultram 50 MG tab] 50 mg PO Q6HR PRN #12 tablet 06/10/21 Unknown Rx traMADoL [Ultram 50 MG tab] 50 mg PO Q6HR PRN 5 Days #12 tablet 06/10/21 Unknown Rx Acetaminophen/Codeine [Tylenol 1 tab PO Q6H PRN 3 Days #12 tab 07/25/21 Unknown Rx /Codeine # 3 tab] Nitrofurantoin Mcdowell/M-Cryst 100 mg PO Q12HR 7 Days #14 capsule 07/25/21 Unknown Rx [Macrobid CAP] Ondansetron [Zofran Odt] 4 mg PO Q12HR PRN 3 Days #6 07/25/21 Unknown Rx tab.rapdis Allergies Allergy/AdvReac Type Severity Reaction Status Date / Time ketorolac [From Toradol] Allergy Unknown Hives Verified 06/09/21 18:40 aspirin Allergy Hives Verified 06/09/21 18:40 dicyclomine [From Bentyl] Allergy Unknown Verified 06/09/21 18:40 metoclopramide [From Reglan] Allergy Unknown Verified 06/09/21 18:40 NSAIDS (Non-Steroidal Allergy Hives Verified 06/09/21 18:40 Anti-Inflamma ED Review of Systems ROS: Stated complaint: LT LOW PAIN Other details as noted in HPI Constitutional: denies: chills, fever Eyes: denies: eye pain, eye discharge, vision change ENT: denies: ear pain, throat pain Respiratory: denies: cough, shortness of breath, wheezing Cardiovascular: denies: chest pain, palpitations Endocrine: no symptoms reported Gastrointestinal: abdominal pain, nausea. denies: vomiting, diarrhea Genitourinary: denies: urgency, dysuria, discharge Musculoskeletal: denies: back pain, joint swelling, arthralgia Skin: denies: rash, lesions Neurological: denies: headache, weakness, paresthesias Psychiatric: denies: anxiety, depression Hematological/Lymphatic: denies: easy bleeding, easy bruising ED Past Medical Hx - Past Medical History Hx Hypertension: No Hx CVA: No Hx Heart Attack/AMI: No Hx Congestive Heart Failure: No Hx Diabetes: No Hx Deep Vein Thrombosis: No Hx Pulmonary Embolism: No Hx GERD: No Hx Liver Disease: No Hx Renal Disease: No Hx Sickle Cell Disease: No Hx Arthritis: No Hx Headaches / Migraines: No Hx Seizures: Yes Hx Kidney Stones: No Hx Psychiatric Treatment: No Hx Asthma: Yes Hx COPD: No Hx Tuberculosis: No Hx Dementia: No Hx HIV: No Additional medical history: Von Willebrand blood disorder, 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, hypoglycemia, Left ovarian cyst - Surgical History Hx Coronary Stent: No Hx Open Heart Surgery: No Hx Pacemaker: No Hx Internal Defibrillator: No Hx Cholecystectomy: Yes Hx Appendectomy: No Hx Breast Surgery: No Additional Surgical History: Left ovarian cyst surgery - Social History Smoking Status: Never Smoker Substance Use Type: None - Medications Home Medications: Home Medications Medication Instructions Recorded Confirmed Last Taken Type Ondansetron [Zofran Odt] 4 mg PO Q8HR #15 tab.rapdis 09/03/18 Unknown Rx Acetaminophen/Codeine [Tylenol 1 tab PO Q4HR PRN #18 tablet 09/08/18 Unknown Rx /Codeine # 3 tab] Hyoscyamine Subl [Levsin Sl 0.125 0.125 mg SL Q6HR PRN #20 tab 09/08/18 Unknown Rx TAB] Promethazine [Phenergan] 25 mg PO Q6HR PRN #20 tab 09/08/18 Unknown Rx Ciprofloxacin HCl [Ciprofloxacin 500 mg PO Q12HR #20 tab 09/13/18 Unknown Rx TAB] HYDROcodone/APAP 5-325 [[place] 1 - 2 each PO Q6HR PRN #10 tablet 09/13/18 Unknown Rx 5/325] Promethazine [Phenergan] 25 mg PO Q6HR PRN #20 tab 09/13/18 Unknown Rx Promethazine [Phenergan] 25 mg [place] Q6HR PRN #5 supp.rect 09/13/18 Unknown Rx metroNIDAZOLE [Flagyl] 500 mg PO Q12HR #14 tab 09/13/18 Unknown Rx Acetaminophen/Codeine [Tylenol 1 tab PO Q6H PRN #12 tab 09/30/18 Unknown Rx /Codeine # 3 tab] Omeprazole 20 mg PO DAILY #30 capsule. 09/30/18 Unknown Rx metroNIDAZOLE [Flagyl] 500 mg PO BID 10 Days #20 tab 09/30/18 Unknown Rx Ciprofloxacin HCl [Ciprofloxacin 500 mg PO BID 10 Days #20 tab 10/27/18 Unknown Rx TAB] Cyclobenzaprine [Flexeril 10 MG 10 mg PO TID PRN #15 tablet 10/27/18 Unknown Rx TAB] Acetaminophen/Codeine [Tylenol 1 tab PO Q6H PRN #20 tab 11/02/18 Unknown Rx /Codeine # 3 tab] Docusate Sodium [Move It Along] 100 mg PO QHS PRN #20 tablet 11/02/18 Unknown Rx Sulfamethoxazole/Trimethoprim 1 each PO Q12H #20 tablet 11/02/18 Unknown Rx [Bactrim DS TAB] Ciprofloxacin HCl [Ciprofloxacin 500 mg PO BID 10 Days #20 tab 11/06/18 Unknown Rx TAB] Ondansetron (Nf) [Zofran TAB] 8 mg PO Q8HR PRN #20 tablet 11/26/18 Unknown Rx Phenazopyridine [Pyridium] 200 mg PO TID #6 tab 11/26/18 Unknown Rx Hyoscyamine Subl [Levsin Sl 0.125 0.125 mg SL Q6HR PRN #10 tab 12/06/18 Unknown Rx TAB] Ondansetron [Zofran Odt] 4 mg PO Q8HR PRN #10 tab.rapdis 12/06/18 Unknown Rx cephALEXin [Keflex] 500 mg PO BID 7 Days #14 capsule 12/06/18 Unknown Rx oxyCODONE [roxiCODONE] 5 mg PO Q6HR PRN #15 tablet 06/04/21 Unknown Rx traMADoL [Ultram 50 MG tab] 50 mg PO Q6HR PRN #12 tablet 06/10/21 Unknown Rx traMADoL [Ultram 50 MG tab] 50 mg PO Q6HR PRN 5 Days #12 tablet 06/10/21 Unknown Rx Acetaminophen/Codeine [Tylenol 1 tab PO Q6H PRN 3 Days #12 tab 07/25/21 Unknown Rx /Codeine # 3 tab] Nitrofurantoin [place]/M-Cryst 100 mg PO Q12HR 7 Days #14 capsule 07/25/21 Unknown Rx [Macrobid CAP] Ondansetron [Zofran Odt] 4 mg PO Q12HR PRN 3 Days #6 07/25/21 Unknown Rx tab.rapdis ED Physical Exam - General Limitations: No Limitations General appearance: alert, in no apparent distress - Head Head exam: Present: atraumatic, normocephalic - Eye Eye exam: Present: normal appearance - ENT ENT exam: Present: mucous membranes moist - Neck Neck exam: Present: normal inspection - Respiratory Respiratory exam: Present: normal lung sounds bilaterally. Absent: respiratory distress - Cardiovascular Cardiovascular Exam: Present: regular rate, normal rhythm. Absent: systolic murmur, diastolic murmur, rubs, gallop - GI/Abdominal GI/Abdominal exam: Present: soft, tenderness (LLQ), normal bowel sounds. Absent: rebound, mass - Extremities Exam Extremities exam: Present: normal inspection - Back Exam Back exam: Present: normal inspection - Neurological Exam Neurological exam: Present: alert, oriented X3 - Psychiatric Psychiatric exam: Present: normal affect, normal mood - Skin Skin exam: Present: warm, dry, intact, normal color. Absent: rash ED Course Vital Signs 07/25/21 07/25/21 07/25/21 10:40 10:47 12:28 Temperature 98 F 99.1 F Pulse Rate 102 H 100 H Respiratory 16 16 18 Rate Blood Pressure 126/79 Blood Pressure 116/77 [Left] O2 Sat by Pulse 97 99 99 Oximetry 07/25/21 07/25/21 07/25/21 14:22 16:35 17:19 Temperature 98.4 F Pulse Rate 86 Respiratory 16 16 18 Rate Blood Pressure Blood Pressure 109/62 [Left] O2 Sat by Pulse 99 Oximetry VS stable at D/C ED Medical Decision Making - Lab Data Result diagrams: 07/25/21 12:36 07/25/21 12:36 - Radiology Data Radiology results: report reviewed US - no acute process noted CT - diffuse colitis noted, no other acute findings noted - Medical Decision Making 30 Y F with LLQ pain for about 2 days with N. denies D/V PMH -right ovary surgical removed and left ovary cyst US - no acute process noted per report CT - diffuse colitis noted, no other acute findings noted per report see imagine report for official reading. results discussed with patient and pain has decrease. stable for D/C home. Abx to be sent to RX due to wbc and bacteria in urine - denies dysuria patient to follow up with PCP and report to back to ER if pain increase or symptoms get worst. patient agrees with plan of care and verbalized understanding. Lab Results 07/25/21 07/25/21 07/25/21 Range/Units 11:10 12:36 12:36 WBC 5.9 (4.5-11.0) K/mm3 RBC 4.44 (3.65-5.03) M/mm3 Hgb 13.0 (10.1-14.3) gm/dl Hct 38.8 (30.3-42.9) % MCV 88 (79-97) fl MCH 29 (28-32) pg MCHC 33 (30-34) % RDW 13.6 (13.2-15.2) % Plt Count 246 (140-440) K/mm3 Lymph % (Auto) 14.3 (13.4-35.0) % Mcdowell % (Auto) 6.7 (0.0-7.3) % Eos % (Auto) 1.2 (0.0-4.3) % Baso % (Auto) 0.5 (0.0-1.8) % Lymph # (Auto) 0.8 L (1.2-5.4) K/mm3 Mcdowell # (Auto) 0.4 (0.0-0.8) K/mm3 Eos # (Auto) 0.1 (0.0-0.4) K/mm3 Baso # (Auto) 0.0 (0.0-0.1) K/mm3 Seg Neutrophils % 77.3 H (40.0-70.0) % Seg Neutrophils # 4.6 (1.8-7.7) K/mm3 Sodium (137-145) mmol/L Potassium (3.6-5.0) mmol/L Chloride (98-107) mmol/L Carbon Dioxide (22-30) mmol/L Anion Gap mmol/L BUN (7-17) mg/dL Creatinine (0.6-1.2) mg/dL Estimated GFR ml/min BUN/Creatinine Ratio % Glucose (65-100) mg/dL Calcium (8.4-10.2) mg/dL Total Bilirubin (0.1-1.2) mg/dL AST (5-40) units/L ALT (7-56) units/L Alkaline Phosphatase (35-129) units/L Total Protein (6.3-8.2) g/dL Albumin (3.9-5) g/dL Albumin/Globulin Ratio % Lipase 30 (13-60) units/L Urine Color Yellow (Yellow) Urine Turbidity Slightly-cloudy (Clear) Urine pH 5.0 (5.0-7.0) Ur Specific Clifford 1.033 H (1.003-1.030) Urine Protein <15 mg/dl (Negative) mg/dL Urine Glucose (UA) Neg (Negative) mg/dL Urine Ketones Neg (Negative) mg/dL Urine Blood Neg (Negative) Urine Nitrite Neg (Negative) Urine Bilirubin Neg (Negative) Urine Urobilinogen < 2.0 (<2.0) mg/dL Ur Leukocyte Esterase Tr (Negative) Urine WBC (Auto) 85.0 H (0.0-6.0) /HPF Urine RBC (Auto) 2.0 (0.0-6.0) /HPF U Epithel Cells (Auto) 79.0 H (0-13.0) /HPF Urine Bacteria (Auto) 2+ (Negative) /HPF Urine Mucus 3+ /HPF Urine HCG, Qual Negative (Negative) 07/25/21 Range/Units 12:36 WBC (4.5-11.0) K/mm3 RBC (3.65-5.03) M/mm3 Hgb (10.1-14.3) gm/dl Hct (30.3-42.9) % MCV (79-97) fl MCH (28-32) pg MCHC (30-34) % RDW (13.2-15.2) % Plt Count (140-440) K/mm3 Lymph % (Auto) (13.4-35.0) % Mcdowell % (Auto) (0.0-7.3) % Eos % (Auto) (0.0-4.3) % Baso % (Auto) (0.0-1.8) % Lymph # (Auto) (1.2-5.4) K/mm3 Mcdowell # (Auto) (0.0-0.8) K/mm3 Eos # (Auto) (0.0-0.4) K/mm3 Baso # (Auto) (0.0-0.1) K/mm3 Seg Neutrophils % (40.0-70.0) % Seg Neutrophils # (1.8-7.7) K/mm3 Sodium 139 (137-145) mmol/L Potassium 4.2 (3.6-5.0) mmol/L Chloride 105.0 (98-107) mmol/L Carbon Dioxide 24 (22-30) mmol/L Anion Gap 14 mmol/L BUN 8 (7-17) mg/dL Creatinine 0.5 L (0.6-1.2) mg/dL Estimated GFR > 60 ml/min BUN/Creatinine Ratio 16 % Glucose 89 (65-100) mg/dL Calcium 9.7 (8.4-10.2) mg/dL Total Bilirubin 0.50 (0.1-1.2) mg/dL AST 42 H (5-40) units/L ALT 49 (7-56) units/L Alkaline Phosphatase 92 (35-129) units/L Total Protein 8.3 H (6.3-8.2) g/dL Albumin 4.7 (3.9-5) g/dL Albumin/Globulin Ratio 1.3 % Lipase (13-60) units/L Urine Color (Yellow) Urine Turbidity (Clear) Urine pH (5.0-7.0) Ur Specific Clifford (1.003-1.030) Urine Protein (Negative) mg/dL Urine Glucose (UA) (Negative) mg/dL Urine Ketones (Negative) mg/dL Urine Blood (Negative) Urine Nitrite (Negative) Urine Bilirubin (Negative) Urine Urobilinogen (<2.0) mg/dL Ur Leukocyte Esterase (Negative) Urine WBC (Auto) (0.0-6.0) /HPF Urine RBC (Auto) (0.0-6.0) /HPF U Epithel Cells (Auto) (0-13.0) /HPF Urine Bacteria (Auto) (Negative) /HPF Urine Mucus /HPF Urine HCG, Qual (Negative) Vital Signs 07/25/21 07/25/21 07/25/21 10:40 10:47 12:28 Temperature 98 F 99.1 F Pulse Rate 102 H 100 H Respiratory 16 16 18 Rate Blood Pressure 126/79 Blood Pressure 116/77 [Left] O2 Sat by Pulse 97 99 99 Oximetry 07/25/21 07/25/21 07/25/21 14:22 16:35 17:19 Temperature 98.4 F Pulse Rate 86 Respiratory 16 16 18 Rate Blood Pressure Blood Pressure 109/62 [Left] O2 Sat by Pulse 99 Oximetry Critical care attestation.: If time is entered above; I have spent that time in minutes in the direct care of this critically ill patient, excluding procedure time. ED Disposition Clinical Impression: Acute abdominal pain in left lower quadrant, Ovarian cyst, Colitis Disposition: 01 HOME / SELF CARE / HOMELESS Is pt being admited?: No Condition: Stable Instructions: Abdominal Pain, Adult, Ovarian Cyst, Colitis, Abdominal Pain (ED) Prescriptions: Nitrofurantoin Mcdowell/M-Cryst [Macrobid CAP] 100 mg PO Q12HR 7 Days #14 capsule Acetaminophen/Codeine [Tylenol /Codeine # 3 tab] 1 tab PO Q6H PRN 3 Days #12 tab PRN Reason: Pain , Severe (7-10) Ondansetron [Zofran Odt] 4 mg PO Q12HR PRN 3 Days #6 tab.rapdis PRN Reason: Nausea And Vomiting Referrals: KHANG SALAZAR MD [Primary Care Provider] - 3-5 Days
[2021-07-25] MEDS: MORPHINE 4 MG/1 ML INJ IV ONE ×2 (12:46→14:22)
[2021-07-25] MEDS: SODIUM CHLORIDE 0.9% 1000 ML 1,000 ML IV ONE (12:46)
[2021-07-25] MEDS: ONDANSETRON 4 MG/2 ML INJ IV ONE (12:46)
[2021-07-25 13:31] LABS: Alanine Aminotransferase 49 units/L (7-56); Albumin 4.7 g/dL (3.9-5); Blood Urea Nitrogen 8 mg/dL (7-17); Calcium 9.7 mg/dL (8.4-10.2); Hemolysis Index 61
[2021-07-25 13:44] LABS: BUN/Creatinine Ratio 16
--- NOTE | 2021-07-25 14:52 | Cat Scan Report ---
CT ABDOMEN AND PELVIS WITH CONTRAST INDICATION / CLINICAL INFORMATION: Diffuse abdominal pain. TECHNIQUE: Axial CT images were obtained through the abdomen and pelvis after Isovue-300, 100 cc IV c ontrast. All CT scans at this location are performed using CT dose reduction for ALARA by means of a utomated exposure control. COMPARISON: 07/02/2021. FINDINGS: LOWER CHEST: No significant abnormality. LIVER: No significant abnormality. GALLBLADDER: Previous cholecystectomy. BILE DUCTS: No significant abnormality. PANCREAS: No significant abnormality. SPLEEN: No significant abnormality. ADRENALS: No significant abnormality. RIGHT KIDNEY / URETER: No significant abnormality. LEFT KIDNEY / URETER: No significant abnormality. STOMACH / SMALL BOWEL: No significant abnormality. COLON: Mild diffuse colonic thickening greater distally. APPENDIX: Surgically absent. PERITONEUM: No free fluid. No free air. No fluid collection. LYMPH NODES: No significant adenopathy. VASCULAR STRUCTURES: No significant abnormality. URINARY BLADDER: No significant abnormality. REPRODUCTIVE ORGANS: No significant abnormality. ADDITIONAL FINDINGS: None. SKELETAL SYSTEM: No significant abnormality. IMPRESSION: Mild diffuse colitis. Signer Name: Didier Anaya MD Signed: 07/25/2021 2:47 PM Workstation Name: [id number]
[2021-07-25 14:56] LABS: Basophils % (Auto) 0.5 % (0.0-1.8); Eosinophils # (Auto) 0.1 K/mm3 (0.0-0.4); Eosinophils % (Auto) 1.2 % (0.0-4.3); Hematocrit 38.8 % (30.3-42.9); Lymphocytes # (Auto) 0.8 K/mm3 (1.2-5.4); Lymphocytes % (Auto) 14.3 % (13.4-35.0); Mean Corpuscular HGB Conc 33 % (30-34); Mean Corpuscular Volume 88 fl (79-97); Monocytes # (Auto) 0.4 K/mm3 (0.0-0.8); Monocytes % (Auto) 6.7 % (0.0-7.3); Red Blood Count 4.44 M/mm3 (3.65-5.03); Red Cell Distribution Width 13.6 % (13.2-15.2)
[2021-07-25 15:58] LABS: Platelet Count 246 K/mm3 (140-440)
[2021-07-25] MEDS: HYDROcodone/ACETAMINOPHEN 5-325 MG TAB PO ONE (16:35)
[2021-07-25] MEDS: ONDANSETRON 4 MG ODT TAB PO ONE (16:35)
[2021-07-25 17:20] VITALS: BP 109/62
== END 2021-07-25 17:19 | disposition home or self-care (01) ==
LOC: ED 10:24
DX: N83.209 Unspecified ovarian cyst, unspecified side (principal); R10.32 Left lower quadrant pain; Z88.6 Allergy status to analgesic agent; Z88.5 Allergy status to narcotic agent; Z88.8 Allergy status to other drugs, medicaments and biological substances
CPT/HCPCS: 36415; 74177; 76856; 80053; 81001; 81025; 83690; 85025; 87086; 96361; 96374; 96375; 96376; 99284; J2270; J2405; J7030; Q9967; J3490; Q0162

== ENCOUNTER 2021-09-01 10:54 | Emergency (ER) | payer SELFPAY ==
[2021-09-01 14:03] LABS: Basophils % (Auto) 0.4 % (0.0-1.8); Eosinophils % (Auto) 0.2 % (0.0-4.3); Hematocrit 37.4 % (30.3-42.9); Hemoglobin 12.5 gm/dl (10.1-14.3); Lymphocytes # (Auto) 1.6 K/mm3 (1.2-5.4); Lymphocytes % (Auto) 20.2 % (13.4-35.0); Mean Corpuscular HGB Conc 33 % (30-34); Mean Corpuscular Volume 86 fl (79-97); Monocytes # (Auto) 0.6 K/mm3 (0.0-0.8); Monocytes % (Auto) 7.1 % (0.0-7.3); Platelet Count 294 K/mm3 (140-440); Red Blood Count 4.36 M/mm3 (3.65-5.03); Red Cell Distribution Width 13.6 % (13.2-15.2)
[2021-09-01 14:19] LABS: Alanine Aminotransferase 12 units/L (7-56); Albumin 4.8 g/dL (3.9-5); Blood Urea Nitrogen 12 mg/dL (7-17); Calcium 9.6 mg/dL (8.4-10.2); Hemolysis Index 5
[2021-09-01 14:20] LABS: BUN/Creatinine Ratio 17
[2021-09-01] MEDS ORDERED: MORPHINE 4 MG/1 ML INJ IM ONE (14:46)
[2021-09-01] MEDS ORDERED: ONDANSETRON 4 MG ODT TAB PO ONE (14:46)
[2021-09-01 15:43] LABS: Bacteria,Urine 4+ /HPF (Negative); Bilirubin,Urine NEG (Negative); Blood,Urine NEG (Negative); Color,Urine Yellow (Yellow); Mucus,Urine 3+ /HPF; Urobilinogen,Urine < 2.0 mg/dL (<2.0)
[2021-09-01 15:51] LABS: HCG Qualitative,Urine Negative (Negative)
--- NOTE | 2021-09-01 16:01 | Cat Scan Report ---
CT ABDOMEN AND PELVIS WITHOUT CONTRAST INDICATION: LLQ pain. TECHNIQUE: Axial CT images were obtained through the abdomen and pelvis without IV contrast. All CT scans at [facility] location are performed using CT dose reduction for ALARA by means of automated exposure control. COMPARISON: None available. FINDINGS: LOWER CHEST: No significant abnormality. LIVER: No significant abnormality. GALLBLADDER: Surgically absent BILE DUCTS: No significant abnormality. PANCREAS: No significant abnormality. SPLEEN: No significant abnormality. ADRENALS: No significant abnormality. RIGHT KIDNEY and URETER: No significant abnormality. LEFT KIDNEY and URETER: No significant abnormality. STOMACH and SMALL BOWEL: No significant abnormality. COLON: No significant abnormality. APPENDIX: Surgically absent. PERITONEUM: No free fluid. No free air. No fluid collection. LYMPH NODES: No significant adenopathy. AORTA and ARTERIES: No significant abnormality. IVC and VEINS: No significant abnormality. URINARY BLADDER: No significant abnormality. REPRODUCTIVE ORGANS: No significant abnormality. ADDITIONAL FINDINGS: Right STEM device tip in right presacral space SKELETAL SYSTEM: No significant abnormality. IMPRESSION: 1. No significant abnormality. Signer Name: Cordell Gallego MD Signed: 09/01/2021 3:56 PM Workstation Name: [id number]
[2021-09-01] MEDS ORDERED: LIDOCAINE-MPF (1%) 10 MG/1 ML VIAL 5 ML INFILTRATI ONE (16:05)
--- NOTE | 2021-09-01 16:11 | Emergency Department Report ---
ED Abdominal Pain HPI - General Chief Complaint: Abdominal Pain Stated Complaint: PAIN LFT SIDE/NAUSEA Time Seen by Provider: 09/01/21 14:46 Source: patient Mode of arrival: Ambulatory Limitations: No Limitations - History of Present Illness Initial Comments: 30-year-old female with a past medical history of seizures and endometriosis presents to the emergency department for evaluation of 1 day history of left lower quadrant pain and diarrhea. She denies fever, nausea, vomiting, dysuria, and vaginal discharge. She also states that she has been having vaginal bleeding for the last 10 days and also states that she recently was started on a new control method per her UNSTACKER. MD Complaint: abdominal pain -: Gradual, days(s) (1) Location: LLQ Radiation: none Migration to: no migration Severity: severe Severity scale (0 -10): 10 Quality: cramping, aching Consistency: constant Associated Symptoms: diarrhea. denies: nausea, vomiting, fever, chills, constipation, dysuria, hematemesis, hematochezia, melena, hematuria, anorexia, syncope - Related Data LMP Date: 09/01/21 Previous Rx's Medication Instructions Recorded Last Taken Type Ondansetron [Zofran Odt] 4 mg PO Q8HR #15 tab.rapdis 09/03/18 Unknown Rx Acetaminophen/Codeine [Tylenol 1 tab PO Q4HR PRN #18 tablet 09/08/18 Unknown Rx /Codeine # 3 tab] Hyoscyamine Subl [Levsin Sl 0.125 0.125 mg SL Q6HR PRN #20 tab 09/08/18 Unknown Rx TAB] Promethazine [Phenergan] 25 mg PO Q6HR PRN #20 tab 09/08/18 Unknown Rx Ciprofloxacin HCl [Ciprofloxacin 500 mg PO Q12HR #20 tab 09/13/18 Unknown Rx TAB] HYDROcodone/APAP 5-325 [[place] 1 - 2 each PO Q6HR PRN #10 tablet 09/13/18 Unknown Rx 5/325] Promethazine [Phenergan] 25 mg PO Q6HR PRN #20 tab 09/13/18 Unknown Rx Promethazine [Phenergan] 25 mg IA Q6HR PRN #5 supp.rect 09/13/18 Unknown Rx metroNIDAZOLE [Flagyl] 500 mg PO Q12HR #14 tab 09/13/18 Unknown Rx Acetaminophen/Codeine [Tylenol 1 tab PO Q6H PRN #12 tab 09/30/18 Unknown Rx /Codeine # 3 tab] Omeprazole 20 mg PO DAILY #30 capsule. 09/30/18 Unknown Rx metroNIDAZOLE [Flagyl] 500 mg PO BID 10 Days #20 tab 09/30/18 Unknown Rx Ciprofloxacin HCl [Ciprofloxacin 500 mg PO BID 10 Days #20 tab 10/27/18 Unknown Rx TAB] Cyclobenzaprine [Flexeril 10 MG 10 mg PO TID PRN #15 tablet 10/27/18 Unknown Rx TAB] Acetaminophen/Codeine [Tylenol 1 tab PO Q6H PRN #20 tab 11/02/18 Unknown Rx /Codeine # 3 tab] Docusate Sodium [Move It Along] 100 mg PO QHS PRN #20 tablet 11/02/18 Unknown Rx Sulfamethoxazole/Trimethoprim 1 each PO Q12H #20 tablet 11/02/18 Unknown Rx [Bactrim DS TAB] Ciprofloxacin HCl [Ciprofloxacin 500 mg PO BID 10 Days #20 tab 11/06/18 Unknown Rx TAB] Ondansetron (Nf) [Zofran TAB] 8 mg PO Q8HR PRN #20 tablet 11/26/18 Unknown Rx Phenazopyridine [Pyridium] 200 mg PO TID #6 tab 11/26/18 Unknown Rx Hyoscyamine Subl [Levsin Sl 0.125 0.125 mg SL Q6HR PRN #10 tab 12/06/18 Unknown Rx TAB] Ondansetron [Zofran Odt] 4 mg PO Q8HR PRN #10 tab.rapdis 12/06/18 Unknown Rx cephALEXin [Keflex] 500 mg PO BID 7 Days #14 capsule 12/06/18 Unknown Rx oxyCODONE [roxiCODONE] 5 mg PO Q6HR PRN #15 tablet 06/04/21 Unknown Rx traMADoL [Ultram 50 MG tab] 50 mg PO Q6HR PRN #12 tablet 06/10/21 Unknown Rx traMADoL [Ultram 50 MG tab] 50 mg PO Q6HR PRN 5 Days #12 tablet 06/10/21 Unknown Rx Acetaminophen/Codeine [Tylenol 1 tab PO Q6H PRN 3 Days #12 tab 07/25/21 Unknown Rx /Codeine # 3 tab] Nitrofurantoin [place]/M-Cryst 100 mg PO Q12HR 7 Days #14 capsule 07/25/21 Unknown Rx [Macrobid CAP] Ondansetron [Zofran Odt] 4 mg PO Q12HR PRN 3 Days #6 07/25/21 Unknown Rx tab.rapdis cephALEXin [Keflex] 500 mg PO Q12HR #14 cap 09/01/21 Unknown Rx Allergies Allergy/AdvReac Type Severity Reaction Status Date / Time ketorolac [From Toradol] Allergy Unknown Hives Verified 06/09/21 18:40 aspirin Allergy Hives Verified 06/09/21 18:40 dicyclomine [From Bentyl] Allergy Unknown Verified 06/09/21 18:40 metoclopramide [From Reglan] Allergy Unknown Verified 06/09/21 18:40 NSAIDS (Non-Steroidal Allergy Hives Verified 06/09/21 18:40 Anti-Inflamma ED Review of Systems ROS: Stated complaint: PAIN LFT SIDE/NAUSEA Other details as noted in HPI Comment: All other systems reviewed and negative Constitutional: denies: chills, fever, malaise, weakness Eyes: denies: eye pain ENT: denies: congestion Respiratory: denies: cough, shortness of breath, SOB with exertion, SOB at rest, stridor, wheezing Cardiovascular: denies: chest pain, palpitations, dyspnea on exertion, orthopnea, edema, syncope, paroxysmal nocturnal dyspnea Gastrointestinal: abdominal pain. denies: nausea, vomiting, diarrhea, hematemesis, melena, hematochezia Genitourinary: denies: urgency, dysuria, frequency, hematuria, discharge, abnormal menses Musculoskeletal: denies: back pain Skin: denies: rash, lesions Neurological: denies: headache, weakness, numbness, confusion, abnormal gait Psychiatric: denies: anxiety, depression Hematological/Lymphatic: denies: easy bleeding, easy bruising ED Past Medical Hx - Past Medical History Hx Hypertension: No Hx CVA: No Hx Heart Attack/AMI: No Hx Congestive Heart Failure: No Hx Diabetes: No Hx Deep Vein Thrombosis: No Hx Pulmonary Embolism: No Hx GERD: No Hx Liver Disease: No Hx Renal Disease: No Hx Sickle Cell Disease: No Hx Arthritis: No Hx Headaches / Migraines: No Hx Seizures: Yes Hx Kidney Stones: No Hx Psychiatric Treatment: No Hx Asthma: Yes Hx COPD: No Hx Tuberculosis: No Hx Dementia: No Hx HIV: No Additional medical history: Von Willebrand blood disorder, 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, hypoglycemia, Left ovarian cyst - Surgical History Hx Coronary Stent: No Hx Open Heart Surgery: No Hx Pacemaker: No Hx Internal Defibrillator: No Hx Cholecystectomy: Yes Hx Appendectomy: No Hx Breast Surgery: No Additional Surgical History: Left ovarian cyst surgery - Social History Smoking Status: Never Smoker Substance Use Type: None - Medications Home Medications: Home Medications Medication Instructions Recorded Confirmed Last Taken Type Ondansetron [Zofran Odt] 4 mg PO Q8HR #15 tab.rapdis 09/03/18 Unknown Rx Acetaminophen/Codeine [Tylenol 1 tab PO Q4HR PRN #18 tablet 09/08/18 Unknown Rx /Codeine # 3 tab] Hyoscyamine Subl [Levsin Sl 0.125 0.125 mg SL Q6HR PRN #20 tab 09/08/18 Unknown Rx TAB] Promethazine [Phenergan] 25 mg PO Q6HR PRN #20 tab 09/08/18 Unknown Rx Ciprofloxacin HCl [Ciprofloxacin 500 mg PO Q12HR #20 tab 09/13/18 Unknown Rx TAB] HYDROcodone/APAP 5-325 [[place] 1 - 2 each PO Q6HR PRN #10 tablet 09/13/18 Unknown Rx 5/325] Promethazine [Phenergan] 25 mg PO Q6HR PRN #20 tab 09/13/18 Unknown Rx Promethazine [Phenergan] 25 mg IA Q6HR PRN #5 supp.rect 09/13/18 Unknown Rx metroNIDAZOLE [Flagyl] 500 mg PO Q12HR #14 tab 09/13/18 Unknown Rx Acetaminophen/Codeine [Tylenol 1 tab PO Q6H PRN #12 tab 09/30/18 Unknown Rx /Codeine # 3 tab] Omeprazole 20 mg PO DAILY #30 capsule.dr 09/30/18 Unknown Rx metroNIDAZOLE [Flagyl] 500 mg PO BID 10 Days #20 tab 09/30/18 Unknown Rx Ciprofloxacin HCl [Ciprofloxacin 500 mg PO BID 10 Days #20 tab 10/27/18 Unknown Rx TAB] Cyclobenzaprine [Flexeril 10 MG 10 mg PO TID PRN #15 tablet 10/27/18 Unknown Rx TAB] Acetaminophen/Codeine [Tylenol 1 tab PO Q6H PRN #20 tab 11/02/18 Unknown Rx /Codeine # 3 tab] Docusate Sodium [Move It Along] 100 mg PO QHS PRN #20 tablet 11/02/18 Unknown Rx Sulfamethoxazole/Trimethoprim 1 each PO Q12H #20 tablet 11/02/18 Unknown Rx [Bactrim DS TAB] Ciprofloxacin HCl [Ciprofloxacin 500 mg PO BID 10 Days #20 tab 11/06/18 Unknown Rx TAB] Ondansetron (Nf) [Zofran TAB] 8 mg PO Q8HR PRN #20 tablet 11/26/18 Unknown Rx Phenazopyridine [Pyridium] 200 mg PO TID #6 tab 11/26/18 Unknown Rx Hyoscyamine Subl [Levsin Sl 0.125 0.125 mg SL Q6HR PRN #10 tab 12/06/18 Unknown Rx TAB] Ondansetron [Zofran Odt] 4 mg PO Q8HR PRN #10 tab.rapdis 12/06/18 Unknown Rx cephALEXin [Keflex] 500 mg PO BID 7 Days #14 capsule 12/06/18 Unknown Rx oxyCODONE [roxiCODONE] 5 mg PO Q6HR PRN #15 tablet 06/04/21 Unknown Rx traMADoL [Ultram 50 MG tab] 50 mg PO Q6HR PRN #12 tablet 06/10/21 Unknown Rx traMADoL [Ultram 50 MG tab] 50 mg PO Q6HR PRN 5 Days #12 tablet 06/10/21 Unknown Rx Acetaminophen/Codeine [Tylenol 1 tab PO Q6H PRN 3 Days #12 tab 07/25/21 Unknown Rx /Codeine # 3 tab] Nitrofurantoin [place]/M-Cryst 100 mg PO Q12HR 7 Days #14 capsule 07/25/21 Unknown Rx [Macrobid CAP] Ondansetron [Zofran Odt] 4 mg PO Q12HR PRN 3 Days #6 07/25/21 Unknown Rx tab.rapdis cephALEXin [Keflex] 500 mg PO Q12HR #14 cap 09/01/21 Unknown Rx ED Physical Exam - General Limitations: No Limitations General appearance: alert, in no apparent distress - Head Head exam: Present: atraumatic, normocephalic - Eye Eye exam: Present: normal appearance. Absent: conjunctival injection - Neck Neck exam: Present: normal inspection, full ROM. Absent: tenderness, lymphadenopathy - Respiratory Respiratory exam: Present: normal lung sounds bilaterally. Absent: respiratory distress, wheezes, rales, rhonchi, stridor, chest wall tenderness - Cardiovascular Cardiovascular Exam: Present: regular rate, normal heart sounds - GI/Abdominal GI/Abdominal exam: Present: soft, tenderness (Left lower quadrant), guarding, normal bowel sounds. Absent: distended, rebound, rigid - Extremities Exam Extremities exam: Present: normal inspection, normal capillary refill. Absent: pedal edema, joint swelling, calf tenderness - Back Exam Back exam: Present: normal inspection. Absent: CVA tenderness (R), CVA tenderness (L), paraspinal tenderness, vertebral tenderness - Neurological Exam Neurological exam: Present: alert, oriented X3, normal gait - Psychiatric Psychiatric exam: Present: normal affect, normal mood - Skin Skin exam: Present: warm, dry, intact, normal color ED Course Vital Signs 09/01/21 11:16 Temperature 98.7 F Pulse Rate 97 H Respiratory 18 Rate Blood Pressure 107/62 O2 Sat by Pulse 97 Oximetry ED Medical Decision Making - Lab Data Result diagrams: 09/01/21 13:33 09/01/21 13:33 - Radiology Data Radiology results: report reviewed CT abdomen pelvis without contrast: FINDINGS: LOWER CHEST: No significant abnormality. LIVER: No significant abnormality. GALLBLADDER: Surgically absent BILE DUCTS: No significant abnormality. PANCREAS: No significant abnormality. SPLEEN: No significant abnormality. ADRENALS: No significant abnormality. RIGHT KIDNEY and URETER: No significant abnormality. LEFT KIDNEY and URETER: No significant abnormality. STOMACH and SMALL BOWEL: No significant abnormality. COLON: No significant abnormality. APPENDIX: Surgically absent. PERITONEUM: No free fluid. No free air. No fluid collection. LYMPH NODES: No significant adenopathy. AORTA and ARTERIES: No significant abnormality. IVC and VEINS: No significant abnormality. URINARY BLADDER: No significant abnormality. REPRODUCTIVE ORGANS: No significant abnormality. ADDITIONAL FINDINGS: Right STEM device tip in right presacral space SKELETAL SYSTEM: No significant abnormality. IMPRESSION: 1. No significant abnormality. - Medical Decision Making 30-year-old female with a past medical history of seizures and endometriosis presents to the emergency department for evaluation of 1 day history of left lower quadrant pain and diarrhea. She denies fever, nausea, vomiting, dysuria, and vaginal discharge. She also states that she has been having vaginal bleeding for the last 10 days and also states that she recently was started on a new control method per her UNSTACKER. No abnormalities noted on labs. Urine positive for urinary tract infection. No acute abnormalities noted on CT scan. Patient will be treated with 1 dose of Rocephin 1 g IM while in the emergency department and discharged home with 7-day course of Keflex. She is advised to take medications as prescribed and follow- up with primary care provider if no improvement or worsening symptoms. She verbalizes understanding of and agreement with plan of care. Laboratory Last Values WBC 8.0 K/mm3 (4.5-11.0) 09/01/21 13:33 RBC 4.36 M/mm3 (3.65-5.03) 09/01/21 13:33 Hgb 12.5 gm/dl (10.1-14.3) 09/01/21 13:33 Hct 37.4 % (30.3-42.9) 09/01/21 13:33 MCV 86 fl (79-97) 09/01/21 13:33 MCH 29 pg (28-32) 09/01/21 13:33 MCHC 33 % (30-34) 09/01/21 13:33 RDW 13.6 % (13.2-15.2) 09/01/21 13:33 Plt Count 294 K/mm3 (140-440) 09/01/21 13:33 Lymph % (Auto) 20.2 % (13.4-35.0) 09/01/21 13:33 [place] % (Auto) 7.1 % (0.0-7.3) 09/01/21 13:33 Eos % (Auto) 0.2 % (0.0-4.3) 09/01/21 13:33 Baso % (Auto) 0.4 % (0.0-1.8) 09/01/21 13:33 Lymph # (Auto) 1.6 K/mm3 (1.2-5.4) 09/01/21 13:33 [place] # (Auto) 0.6 K/mm3 (0.0-0.8) 09/01/21 13:33 Eos # (Auto) 0.0 K/mm3 (0.0-0.4) 09/01/21 13:33 Baso # (Auto) 0.0 K/mm3 (0.0-0.1) 09/01/21 13:33 Seg Neutrophils % 72.1 % (40.0-70.0) H 09/01/21 13:33 Seg Neutrophils # 5.8 K/mm3 (1.8-7.7) 09/01/21 13:33 Sodium 140 mmol/L (137-145) 09/01/21 13:33 Potassium 3.8 mmol/L (3.6-5.0) 09/01/21 13:33 Chloride 101.7 mmol/L (98-107) 09/01/21 13:33 Carbon Dioxide 27 mmol/L (22-30) 09/01/21 13:33 Anion Gap 15 mmol/L 09/01/21 13:33 BUN 12 mg/dL (7-17) 09/01/21 13:33 Creatinine 0.7 mg/dL (0.6-1.2) 09/01/21 13:33 Estimated GFR > 60 ml/min 09/01/21 13:33 BUN/Creatinine Ratio 17 % 09/01/21 13:33 Glucose 85 mg/dL (65-100) 09/01/21 13:33 Calcium 9.6 mg/dL (8.4-10.2) 09/01/21 13:33 Total Bilirubin 0.50 mg/dL (0.1-1.2) 09/01/21 13:33 AST 13 units/L (5-40) 09/01/21 13:33 ALT 12 units/L (7-56) 09/01/21 13:33 Alkaline Phosphatase 80 units/L (35-129) 09/01/21 13:33 Total Protein 8.1 g/dL (6.3-8.2) 09/01/21 13:33 Albumin 4.8 g/dL (3.9-5) 09/01/21 13:33 Albumin/Globulin Ratio 1.5 % 09/01/21 13:33 HCG, Qual Negative (Negative) 09/01/21 13:33 Urine Color Yellow (Yellow) 09/01/21 Unknown Urine Turbidity Slightly-cloudy (Clear) 09/01/21 Unknown Urine pH 5.0 (5.0-7.0) 09/01/21 Unknown Ur Specific [place] 1.030 (1.003-1.030) 09/01/21 Unknown Urine Protein 30 mg/dl mg/dL (Negative) 09/01/21 Unknown Urine Glucose (UA) Neg mg/dL (Negative) 09/01/21 Unknown Urine Ketones Tr mg/dL (Negative) 09/01/21 Unknown Urine Blood Neg (Negative) 09/01/21 Unknown Urine Nitrite Neg (Negative) 09/01/21 Unknown Urine Bilirubin Neg (Negative) 09/01/21 Unknown Urine Urobilinogen < 2.0 mg/dL (<2.0) 09/01/21 Unknown Ur Leukocyte Esterase Mod (Negative) 09/01/21 Unknown Urine WBC (Auto) 12.0 /HPF (0.0-6.0) H 09/01/21 Unknown Urine RBC (Auto) 1.0 /HPF (0.0-6.0) 09/01/21 Unknown U Epithel Cells (Auto) 36.0 /HPF (0-13.0) H 09/01/21 Unknown Urine Bacteria (Auto) 4+ /HPF (Negative) 09/01/21 Unknown Urine Mucus 3+ /HPF 09/01/21 Unknown Urine HCG, Qual Negative (Negative) 09/01/21 Unknown Critical care attestation.: If time is entered above; I have spent that time in minutes in the direct care of this critically ill patient, excluding procedure time. ED Disposition Clinical Impression: LLQ pain UTI (urinary tract infection) Qualifiers: Urinary tract infection type: acute cystitis Hematuria presence: without hematuria Qualified Code(s): N30.00 - Acute cystitis without hematuria Disposition: HOME / SELF CARE / HOMELESS Is pt being admited?: No Does the pt Need Aspirin: No Condition: Stable Instructions: Abdominal Pain (ED), Antibiotic Medicine, Adult, [id number], Abdominal Pain, Adult, [id number], Urinary Tract Infection, Adult, [id number] Additional Instructions: Take medications as prescribed. Follow-up with primary care provider or UNSTACKER for further evaluation and management. Return to the emergency department as needed. Prescriptions: cephALEXin [Keflex] 500 mg PO Q12HR #14 cap Referrals: PRIMARY CARE, [Primary Care Provider] - 3-5 Days Time of Disposition: 16:14
[2021-09-01] MEDS ORDERED: oxyCODONE /ACETAMINOPHEN 5-325MG TAB PO ONE (16:20)
[2021-09-01 17:02] VITALS: BP 122/78
== END 2021-09-01 17:00 | disposition home or self-care (01) ==
LOC: ED 10:54
DX: R10.32 Left lower quadrant pain (principal); N39.0 Urinary tract infection, site not specified; Z88.6 Allergy status to analgesic agent; Z88.8 Allergy status to other drugs, medicaments and biological substances; J45.909 Unspecified asthma, uncomplicated
CPT/HCPCS: 36415; 74176; 80053; 81001; 81025; 84703; 85025; 87086; 96372; 99284; J0696; J2270; J3490; Q0162

== ENCOUNTER 2022-01-03 03:20 | Emergency (ER) | payer SELFPAY ==
[2022-01-03] MEDS ORDERED: ONDANSETRON 4 MG/2 ML INJ IV STA (06:06)
[2022-01-03] MEDS ORDERED: MORPHINE 4 MG/1 ML INJ IV STA (06:06)
[2022-01-03 07:28] LABS: Basophils % (Auto) 0.3 % (0.0-1.8); Hematocrit 40.1 % (30.3-42.9); Hemoglobin 13.7 gm/dl (10.1-14.3); Lymphocytes # (Auto) 0.8 K/mm3 (1.2-5.4); Lymphocytes % (Auto) 11.6 % (13.4-35.0); Mean Corpuscular HGB Conc 34 % (30-34); Mean Corpuscular Volume 85 fl (79-97); Monocytes # (Auto) 0.4 K/mm3 (0.0-0.8); Monocytes % (Auto) 5.6 % (0.0-7.3); Platelet Count 267 K/mm3 (140-440); Red Blood Count 4.74 M/mm3 (3.65-5.03); Red Cell Distribution Width 13.5 % (13.2-15.2)
--- NOTE | 2022-01-03 07:32 | Ultrasound Report ---
Pelvic Ultrasound HISTORY: Abdominal Pain. TECHNIQUE: Grayscale and color imaging performed. COMPARISON: CT abdomen/pelvis from 09/01/2021 FINDINGS: Uterus measures 6.5 x 3.4 x 3.2 cm with endometrial echocomplex measuring 6 mm. Right ovary not visualized. Left ovary measures 2.0 x 1.4 x 2.0 cm with simple 1 cm cyst/follicle. No free fluid. IMPRESSION: 1. Right ovary not visualized. 2. Small left ovarian follicle. Signer Name: Emeka Hamilton MD Signed: 01/03/2022 7:28 AM Workstation Name: [id number]
[2022-01-03 07:50] LABS: Alanine Aminotransferase 76 units/L (7-56); Albumin 4.8 g/dL (3.9-5); Blood Urea Nitrogen 14 mg/dL (7-17); Calcium 10.2 mg/dL (8.4-10.2); Hemolysis Index 2
[2022-01-03] MEDS ORDERED: SODIUM CHLORIDE 0.9% 1000 ML 1,000 ML IV ONE (07:50)
[2022-01-03] MEDS ORDERED: MORPHINE 4 MG/1 ML INJ IV ONE (07:50)
[2022-01-03] MEDS ORDERED: ONDANSETRON 4 MG/2 ML INJ IV ONE (07:50)
[2022-01-03 08:07] LABS: BUN/Creatinine Ratio 23; Bilirubin,Direct < 0.2 mg/dL (0-0.2)
--- NOTE | 2022-01-03 09:07 | Emergency Department Report ---
ED Female HPI - General Chief complaint: Abdominal Pain Stated complaint: RT SIDE PAIN/NAUSEA Time Seen by Provider: 01/03/22 07:43 Source: patient Mode of arrival: Ambulatory Limitations: No Limitations - History of Present Illness Initial comments: This is a 31-year-old female nontoxic, well nourished in appearance, no acute signs of distress presents to the ED with c/o of nausea and vomiting, pelvic pain, and lower abdominal pain x several days. Patient describes vomiting as food content and yellow gastric acid. Patient describes abdominal pain as cramping and aching with level of 8/10. Denies any radiation of pain. Patient denies chest pain, short of breath, fever, hemoptysis, blood in stool, chills, headache, stiff neck, numbness or tingling. Patient denies any diarrhea or constipation. Denies any blood in stool. Denies any vaginal discharge or urinary symptoms. Patient denies any recent travels. HX includes ovarian torsi on. MD Complaint: pelvic pain, other (lower abdominal pain) -: days(s) Radiation: non-radiating Severity: mild Severity scale (0 -10): 8 Quality: cramping, aching Consistency: constant Improves with: none Worsens with: none Are you Now?: No Associated Symptoms: abdominal pain, nausea/vomiting. denies: vaginal disc harge, vaginal bleeding, fever/chills, headaches, loss of appetite, dysuria, hematuria, rash, seizure, shortness of breath, syncope, weakness - Related Data Previous Rx's Medication Instructions Recorded Last Taken Type Ondansetron [Zofran Odt] 4 mg PO Q8HR #15 tab.rapdis 09/03/18 Unknown Rx Acetaminophen/Codeine [Tylenol 1 tab PO Q4HR PRN #18 tablet 09/08/18 Unknown Rx /Codeine # 3 tab] Hyoscyamine Subl [Levsin Sl 0.125 0.125 mg SL Q6HR PRN #20 tab 09/08/18 Unknown Rx TAB] Promethazine [Phenergan] 25 mg PO Q6HR PRN #20 tab 09/08/18 Unknown Rx Ciprofloxacin HCl [Ciprofloxacin 500 mg PO Q12HR #20 tab 09/13/18 Unknown Rx TAB] HYDROcodone/APAP 5-325 [[place] 1 - 2 each PO Q6HR PRN #10 tablet 09/13/18 Unknown Rx 5/325] Promethazine [Phenergan] 25 mg PO Q6HR PRN #20 tab 09/13/18 Unknown Rx Promethazine [Phenergan] 25 mg FL Q6HR PRN #5 supp.rect 09/13/18 Unknown Rx metroNIDAZOLE [Flagyl] 500 mg PO Q12HR #14 tab 09/13/18 Unknown Rx Acetaminophen/Codeine [Tylenol 1 tab PO Q6H PRN #12 tab 09/30/18 Unknown Rx /Codeine # 3 tab] Omeprazole 20 mg PO DAILY #30 capsule. 09/30/18 Unknown Rx metroNIDAZOLE [Flagyl] 500 mg PO BID 10 Days #20 tab 09/30/18 Unknown Rx Ciprofloxacin HCl [Ciprofloxacin 500 mg PO BID 10 Days #20 tab 10/27/18 Unknown Rx TAB] Cyclobenzaprine [Flexeril 10 MG 10 mg PO TID PRN #15 tablet 10/27/18 Unknown Rx TAB] Acetaminophen/Codeine [Tylenol 1 tab PO Q6H PRN #20 tab 11/02/18 Unknown Rx /Codeine # 3 tab] Docusate Sodium [Move It Along] 100 mg PO QHS PRN #20 tablet 11/02/18 Unknown Rx Sulfamethoxazole/Trimethoprim 1 each PO Q12H #20 tablet 11/02/18 Unknown Rx [Bactrim DS TAB] Ciprofloxacin HCl [Ciprofloxacin 500 mg PO BID 10 Days #20 tab 11/06/18 Unknown Rx TAB] Ondansetron (Nf) [Zofran TAB] 8 mg PO Q8HR PRN #20 tablet 11/26/18 Unknown Rx Phenazopyridine [Pyridium] 200 mg PO TID #6 tab 11/26/18 Unknown Rx Hyoscyamine Subl [Levsin Sl 0.125 0.125 mg SL Q6HR PRN #10 tab 12/06/18 Unknown Rx TAB] Ondansetron [Zofran Odt] 4 mg PO Q8HR PRN #10 tab.rapdis 12/06/18 Unknown Rx cephALEXin [Keflex] 500 mg PO BID 7 Days #14 capsule 12/06/18 Unknown Rx oxyCODONE [roxiCODONE] 5 mg PO Q6HR PRN #15 tablet 06/04/21 Unknown Rx traMADoL [Ultram 50 MG tab] 50 mg PO Q6HR PRN #12 tablet 06/10/21 Unknown Rx traMADoL [Ultram 50 MG tab] 50 mg PO Q6HR PRN 5 Days #12 tablet 06/10/21 Unknown Rx Acetaminophen/Codeine [Tylenol 1 tab PO Q6H PRN 3 Days #12 tab 07/25/21 Unknown Rx /Codeine # 3 tab] Nitrofurantoin Schley/M-Cryst 100 mg PO Q12HR 7 Days #14 capsule 07/25/21 Unknown Rx [Macrobid CAP] Ondansetron [Zofran Odt] 4 mg PO Q12HR PRN 3 Days #6 07/25/21 Unknown Rx tab.rapdis cephALEXin [Keflex] 500 mg PO Q12HR #14 cap 09/01/21 Unknown Rx Acetaminophen/Codeine [Tylenol 1 tab PO Q6H PRN #12 tab 01/03/22 Unknown Rx /Codeine # 3 tab] Ondansetron [Zofran Odt] 4 mg PO Q8HR PRN #12 tab.rapdis 01/03/22 Unknown Rx cephALEXin [Keflex] 500 mg PO Q8H #21 cap 01/03/22 Unknown Rx Allergies Allergy/AdvReac Type Severity Reaction Status Date / Time ketorolac [From Toradol] Allergy Unknown Hives Verified 06/09/21 18:40 aspirin Allergy Hives Verified 06/09/21 18:40 dicyclomine [From Bentyl] Allergy Unknown Verified 06/09/21 18:40 metoclopramide [From Reglan] Allergy Unknown Verified 06/09/21 18:40 NSAIDS (Non-Steroidal Allergy Hives Verified 06/09/21 18:40 Anti-Inflamma ED Review of Systems ROS: Stated complaint: RT SIDE PAIN/NAUSEA Other details as noted in HPI Comment: All other systems reviewed and negative Constitutional: denies: chills, fever Eyes: denies: eye pain, eye discharge, vision change ENT: denies: ear pain, throat pain Respiratory: denies: cough, shortness of breath, wheezing Cardiovascular: denies: chest pain, palpitations Endocrine: no symptoms reported Gastrointestinal: abdominal pain, nausea, vomiting. denies: diarrhea, constipation, hematemesis, melena, hematochezia Genitourinary: denies: urgency, dysuria, discharge Musculoskeletal: denies: back pain, joint swelling, arthralgia Skin: denies: rash, lesions Neurological: denies: headache, weakness, paresthesias Psychiatric: denies: anxiety, depression Hematological/Lymphatic: denies: easy bleeding, easy bruising ED Past Medical Hx - Past Medical History Hx Hypertension: No Hx CVA: No Hx Heart Attack/AMI: No Hx Congestive Heart Failure: No Hx Diabetes: No Hx Deep Vein Thrombosis: No Hx Pulmonary Embolism: No Hx GERD: No Hx Liver Disease: No Hx Renal Disease: No Hx Sickle Cell Disease: No Hx Arthritis: No Hx Headaches / Migraines: No Hx Seizures: Yes Hx Kidney Stones: No Hx Psychiatric Treatment: No Hx Asthma: Yes Hx COPD: No Hx Tuberculosis: No Hx Dementia: No Hx HIV: No Additional medical history: Von Willebrand blood disorder, 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, hypoglycemia, Left ovarian cyst - Surgical History Hx Coronary Stent: No Hx Open Heart Surgery: No Hx Pacemaker: No Hx Internal Defibrillator: No Hx Cholecystectomy: Yes Hx Appendectomy: No Hx Breast Surgery: No Additional Surgical History: Left ovarian cyst surgery - Social History Smoking Status: Never Smoker Substance Use Type: None - Medications Home Medications: Home Medications Medication Instructions Recorded Confirmed Last Taken Type Ondansetron [Zofran Odt] 4 mg PO Q8HR #15 tab.rapdis 09/03/18 Unknown Rx Acetaminophen/Codeine [Tylenol 1 tab PO Q4HR PRN #18 tablet 09/08/18 Unknown Rx /Codeine # 3 tab] Hyoscyamine Subl [Levsin Sl 0.125 0.125 mg SL Q6HR PRN #20 tab 09/08/18 Unknown Rx TAB] Promethazine [Phenergan] 25 mg PO Q6HR PRN #20 tab 09/08/18 Unknown Rx Ciprofloxacin HCl [Ciprofloxacin 500 mg PO Q12HR #20 tab 09/13/18 Unknown Rx TAB] HYDROcodone/APAP 5-325 [[place] 1 - 2 each PO Q6HR PRN #10 tablet 09/13/18 Unknown Rx 5/325] Promethazine [Phenergan] 25 mg PO Q6HR PRN #20 tab 09/13/18 Unknown Rx Promethazine [Phenergan] 25 mg FL Q6HR PRN #5 supp.rect 09/13/18 Unknown Rx metroNIDAZOLE [Flagyl] 500 mg PO Q12HR #14 tab 09/13/18 Unknown Rx Acetaminophen/Codeine [Tylenol 1 tab PO Q6H PRN #12 tab 09/30/18 Unknown Rx /Codeine # 3 tab] Omeprazole 20 mg PO DAILY #30 capsule. 09/30/18 Unknown Rx metroNIDAZOLE [Flagyl] 500 mg PO BID 10 Days #20 tab 09/30/18 Unknown Rx Ciprofloxacin HCl [Ciprofloxacin 500 mg PO BID 10 Days #20 tab 10/27/18 Unknown Rx TAB] Cyclobenzaprine [Flexeril 10 MG 10 mg PO TID PRN #15 tablet 10/27/18 Unknown Rx TAB] Acetaminophen/Codeine [Tylenol 1 tab PO Q6H PRN #20 tab 11/02/18 Unknown Rx /Codeine # 3 tab] Docusate Sodium [Move It Along] 100 mg PO QHS PRN #20 tablet 11/02/18 Unknown Rx Sulfamethoxazole/Trimethoprim 1 each PO Q12H #20 tablet 11/02/18 Unknown Rx [Bactrim DS TAB] Ciprofloxacin HCl [Ciprofloxacin 500 mg PO BID 10 Days #20 tab 11/06/18 Unknown Rx TAB] Ondansetron (Nf) [Zofran TAB] 8 mg PO Q8HR PRN #20 tablet 11/26/18 Unknown Rx Phenazopyridine [Pyridium] 200 mg PO TID #6 tab 11/26/18 Unknown Rx Hyoscyamine Subl [Levsin Sl 0.125 0.125 mg SL Q6HR PRN #10 tab 12/06/18 Unknown Rx TAB] Ondansetron [Zofran Odt] 4 mg PO Q8HR PRN #10 tab.rapdis 12/06/18 Unknown Rx cephALEXin [Keflex] 500 mg PO BID 7 Days #14 capsule 12/06/18 Unknown Rx oxyCODONE [roxiCODONE] 5 mg PO Q6HR PRN #15 tablet 06/04/21 Unknown Rx traMADoL [Ultram 50 MG tab] 50 mg PO Q6HR PRN #12 tablet 06/10/21 Unknown Rx traMADoL [Ultram 50 MG tab] 50 mg PO Q6HR PRN 5 Days #12 tablet 06/10/21 Unknown Rx Acetaminophen/Codeine [Tylenol 1 tab PO Q6H PRN 3 Days #12 tab 07/25/21 Unknown Rx /Codeine # 3 tab] Nitrofurantoin Sch[place]/M-Cryst 100 mg PO Q12HR 7 Days #14 capsule 07/25/21 Unknown Rx [Macrobid CAP] Ondansetron [Zofran Odt] 4 mg PO Q12HR PRN 3 Days #6 07/25/21 Unknown Rx tab.rapdis cephALEXin [Keflex] 500 mg PO Q12HR #14 cap 09/01/21 Unknown Rx Acetaminophen/Codeine [Tylenol 1 tab PO Q6H PRN #12 tab 01/03/22 Unknown Rx /Codeine # 3 tab] Ondansetron [Zofran Odt] 4 mg PO Q8HR PRN #12 tab.rapdis 01/03/22 Unknown Rx cephALEXin [Keflex] 500 mg PO Q8H #21 cap 01/03/22 Unknown Rx ED Physical Exam - General Limitations: No Limitations General appearance: alert, in no apparent distress - Head Head exam: Present: atraumatic, normocephalic - Eye Eye exam: Present: normal appearance - Neck Neck exam: Present: normal inspection, full ROM. Absent: lymphadenopathy - Respiratory Respiratory exam: Present: normal lung sounds bilaterally. Absent: respiratory distress, wheezes, rales, rhonchi, stridor, chest wall tenderness, accessory muscle use, decreased breath sounds, prolonged expiratory - Cardiovascular Cardiovascular Exam: Present: regular rate, normal rhythm, normal heart sounds. Absent: bradycardia, tachycardia, irregular rhythm, systolic murmur, diastolic murmur, rubs, gallop - GI/Abdominal GI/Abdominal exam: Present: soft, tenderness (lower bilateral abdomen ), normal bowel sounds. Absent: distended, guarding, rebound, rigid, diminished bowel sounds - Extremities Exam Extremities exam: Present: full ROM - Back Exam Back exam: Present: normal inspection, full ROM. Absent: tenderness, CVA tenderness (R), CVA tenderness (L), muscle spasm, paraspinal tenderness, vertebral tenderness, rash noted - Neurological Exam Neurological exam: Present: alert, oriented X3, normal gait - Psychiatric Psychiatric exam: Present: normal affect, normal mood - Skin Skin exam: Present: warm, dry, intact, normal color. Absent: rash ED Course Vital Signs 01/03/22 04:11 Temperature 99.1 F Pulse Rate 94 H Respiratory 18 Rate Blood Pressure 124/74 [Right] O2 Sat by Pulse 99 Oximetry - Reevaluation(s) Reevaluation #1: 01/03/22 09:12 Patient is speaking in full sentences with no signs of distress noted. ED Medical Decision Making - Lab Data Result diagrams: 01/03/22 07:05 01/03/22 07:05 Lab Results 01/03/22 01/03/22 01/03/22 Range/Units 07:05 07:05 07:05 WBC 6.8 (4.5-11.0) K/mm3 RBC 4.74 (3.65-5.03) M/mm3 Hgb 13.7 (10.1-14.3) gm/dl Hct 40.1 (30.3-42.9) % MCV 85 (79-97) fl MCH 29 (28-32) pg MCHC 34 (30-34) % RDW 13.5 (13.2-15.2) % Plt Count 267 (140-440) K/mm3 Lymph % (Auto) 11.6 L (13.4-35.0) % Schley % (Auto) 5.6 (0.0-7.3) % Eos % (Auto) 0.0 (0.0-4.3) % Baso % (Auto) 0.3 (0.0-1.8) % Lymph # (Auto) 0.8 L (1.2-5.4) K/mm3 Schley # (Auto) 0.4 (0.0-0.8) K/mm3 Eos # (Auto) 0.0 (0.0-0.4) K/mm3 Baso # (Auto) 0.0 (0.0-0.1) K/mm3 Seg Neutrophils % 82.5 H (40.0-70.0) % Seg Neutrophils # 5.6 (1.8-7.7) K/mm3 Sodium 138 (137-145) mmol/L Potassium 4.1 (3.6-5.0) mmol/L Chloride 103.1 (98-107) mmol/L Carbon Dioxide 22 (22-30) mmol/L Anion Gap 17 mmol/L BUN 14 (7-17) mg/dL Creatinine 0.6 (0.6-1.2) mg/dL Estimated GFR > 60 ml/min BUN/Creatinine Ratio 23 % Glucose 103 H (65-100) mg/dL Calcium 10.2 (8.4-10.2) mg/dL Total Bilirubin 0.70 (0.1-1.2) mg/dL Direct Bilirubin < 0.2 (0-0.2) mg/dL Indirect Bilirubin 0.5 mg/dL AST 53 H (5-40) units/L ALT 76 H (7-56) units/L Alkaline Phosphatase 83 (35-129) units/L Total Protein 8.3 H (6.3-8.2) g/dL Albumin 4.8 (3.9-5) g/dL Albumin/Globulin Ratio 1.4 % Lipase 41 (13-60) units/L HCG, Qual Negative (Negative) Urine Color (Yellow) Urine Turbidity (Clear) Specific [place] (Man) (1.003-1.030) Ur Protein (Man) (Negative) mg/dL Ur Ketones (Man) (Negative) Ur Nitrite (Man) (Negative) Ur Reducing Substances Urine Bilirubin (Man) (Negative) Urine Ictotest Leukocyte Esterase (Man) (Negative) Urine WBC (Auto) (0.0-6.0) /HPF Urine RBC (Auto) (0.0-6.0) /HPF U Epithel Cells (Auto) (0-13.0) /HPF Urine RBC (Manual) (Negative) Urine Mucus /HPF 01/03/22 Range/Units 10:31 WBC (4.5-11.0) K/mm3 RBC (3.65-5.03) M/mm3 Hgb (10.1-14.3) gm/dl Hct (30.3-42.9) % MCV (79-97) fl MCH (28-32) pg MCHC (30-34) % RDW (13.2-15.2) % Plt Count (140-440) K/mm3 Lymph % (Auto) (13.4-35.0) % Schley % (Auto) (0.0-7.3) % Eos % (Auto) (0.0-4.3) % Baso % (Auto) (0.0-1.8) % Lymph # (Auto) (1.2-5.4) K/mm3 [place] # (Auto) (0.0-0.8) K/mm3 Eos # (Auto) (0.0-0.4) K/mm3 Baso # (Auto) (0.0-0.1) K/mm3 Seg Neutrophils % (40.0-70.0) % Seg Neutrophils # (1.8-7.7) K/mm3 Sodium (137-145) mmol/L Potassium (3.6-5.0) mmol/L Chloride (98-107) mmol/L Carbon Dioxide (22-30) mmol/L Anion Gap mmol/L BUN (7-17) mg/dL Creatinine (0.6-1.2) mg/dL Estimated GFR ml/min BUN/Creatinine Ratio % Glucose (65-100) mg/dL Calcium (8.4-10.2) mg/dL Total Bilirubin (0.1-1.2) mg/dL Direct Bilirubin (0-0.2) mg/dL Indirect Bilirubin mg/dL AST (5-40) units/L ALT (7-56) units/L Alkaline Phosphatase (35-129) units/L Total Protein (6.3-8.2) g/dL Albumin (3.9-5) g/dL Albumin/Globulin Ratio % Lipase (13-60) units/L HCG, Qual (Negative) Urine Color Yellow (Yellow) Urine Turbidity Cloudy (Clear) Specific [place] (Man) 1.030 (1.003-1.030) Ur Protein (Man) 1+ (Negative) mg/dL Ur Ketones (Man) 5mg/dl (Negative) Ur Nitrite (Man) Negative (Negative) Ur Reducing Substances Not Reportable Urine Bilirubin (Man) Small (Negative) Urine Ictotest Not Reportable Leukocyte Esterase (Man) Small (Negative) Urine WBC (Auto) 18.0 H (0.0-6.0) /HPF Urine RBC (Auto) 2.0 (0.0-6.0) /HPF U Epithel Cells (Auto) 14.0 H (0-13.0) /HPF Urine RBC (Manual) 4+ (Negative) Urine Mucus 3+ /HPF - Radiology Data [facility] [address] [place] [address] Cat Scan Report Signed Patient: BARBARA PATEL MR#: [id number] : 1990 Acct:[id number] Age/Sex: 31 / F ADM Date: 01/03/22 Loc: ED Attending Dr: Ordering Physician: LINA COOPER NP Date of Service: 01/03/22 Procedure(s): CT abdomen pelvis w con Accession Number(s): [id number] cc: LINA COOPER NP CT ABDOMEN AND PELVIS WITH IV CONTRAST INDICATION: low abdominal pain w/ n/v-PO AND IV CONTRAST. COMPARISON: Pelvic ultrasound earlier today. CT 09/01/2021. TECHNIQUE: All CT scans at this facility use dose modulation, automated exposure control, iterative reconstruction or weight based dosing, when appropriate, to reduce radiation dose to as low as reasonably achievable. FINDINGS: Lung Bases: No significant abnormality. Skeletal System: No acute abnormality. 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 ABDOMEN: Liver: No significant abnormality. Gallbladder: Removed. Bile Ducts: Mild common duct dilatation may be related to prior cholecystectomy. Adrenals: No significant abnormality. Right Kidney: No significant abnormality. Left Kidney: No significant abnormality. Pancreas: No significant abnormality. Spleen: No significant abnormality. Upper GI tract: No significant abnormality. Lymph Nodes: No significant adenopathy. Aorta: No significant abnormality. Additional Findings: No significant abnormality. PELVIS: Colon: No acute abnormality. Urinary Bladder and Distal Ureters: No significant abnormality. Appendix: Removed. Lymph Nodes: No significant adenopathy. Additional Findings: None. IMPRESSION: 1. No acute process in the abdomen or pelvis. 2. Incidental findings, as above. Signer Name: Fredi Vázquez MD Signed: 01/03/2022 12:21 PM Workstation Name: [id number] Transcribed By: Dictated By: Fredi Vázquez MD Electronically Authenticated By: Fredi Vázquez MD Signed Date/Time: 01/03/22 1221 DD/ 1216 TD/TT: [facility] [address] [place] [address] Ultrasound Report Signed with Addenda Patient: BARBARA PATEL MR#: [id number] : 1990 Acct:[id number] Age/Sex: 31 / F ADM Date: 01/03/22 Loc: ED Attending Dr: Ordering Physician: RANDY LEBLANC Date of Service: 01/03/22 Procedure(s): US pelvic complete Accession Number(s): [id number] cc: RANDY LEBLANC ADDENDUM There is preserved blood flow in the left ovary. Signer Name: Emeka Hamilton MD Signed: 01/03/2022 9:09 AM Workstation Name: [id number] Addendum Transcribed By: AJ Addendum Dictated By: Emeka Hamilton MD Addendum Electronically Authenticated By: Emeka Hamilton MD Addendum Signed Date/Time: 01/03/22908 DD/ TD/TT: / Pelvic Ultrasound HISTORY: Abdominal Pain. TECHNIQUE: Grayscale and color imaging performed. COMPARISON: CT abdomen/pelvis from 09/01/2021 FINDINGS: Uterus measures 6.5 x 3.4 x 3.2 cm with endometrial echocomplex measuring 6 mm. Right ovary not visualized. Left ovary measures 2.0 x 1.4 x 2.0 cm with simple 1 cm cyst/follicle. No free fluid. IMPRESSION: 1. Right ovary not visualized. 2. Small left ovarian follicle. Signer Name: Emeka Hamilton MD Signed: 01/03/2022 7:28 AM Workstation Name: [id number] Transcribed By: Dictated By: Emeka Hamilton MD Electronically Authenticated By: Emeka Hamilton MD Signed Date/Time: 01/03/22727 DD/ 4 TD/TT: -- [Addendum Report Added by Emeka Hamilton MD at 2022-01-03 09:15:06] [facility] [address] [place] [address] Ultrasound Report Signed Patient: BARBARA PATEL MR#: [id number] : 1990 Acct:[id number] Age/Sex: 31 / F ADM Date: 01/03/22 Loc: ED Attending Dr: Ordering Physician: RANDY LEBLANC Date of Service: 01/03/22 Procedure(s): US pelvic complete Accession Number(s): [id number] cc: RANDY LEBLANC Pelvic Ultrasound HISTORY: Abdominal Pain. TECHNIQUE: Grayscale and color imaging performed. COMPARISON: CT abdomen/pelvis from 09/01/2021 FINDINGS: Uterus measures 6.5 x 3.4 x 3.2 cm with endometrial echocomplex measuring 6 mm. Right ovary not visualized. Left ovary measures 2.0 x 1.4 x 2.0 cm with simple 1 cm cyst/follicle. No free fluid. IMPRESSION: 1. Right ovary not visualized. 2. Small left ovarian follicle. Signer Name: Emeka Hamilton MD Signed: 01/03/2022 7:28 AM Workstation Name: [id number] Transcribed By: AJ Dictated By: Emeka Hamilton MD Electronically Authenticated By: Emeka Hamilton MD Signed Date/Time: 01/03/22727 DD/ 4 TD/TT: - Medical Decision Making This is a 31-year-old female that presents with abdominal pain, n/v, and ovarian cyst. Patient is stable and was examined by me. Labs obtained. UA obtained. CT of abdomen and US pelvic obtained and dictated by the radiologist. Patient is notified of the report with no questions noted by the patient. Vital signs are stable prior to discharge. Patient received medical treatment in the ED which patient stated symptoms has resovled and subsided. Was instructed note to operate any machinery due to possible drowsiness and stated someone will drive the patient home. A by mouth challenge has been obtained and patient tolerated well with no nausea vomiting. Patient was also instructed to Follow-up with a primary care doctor in 3-5 days or if symptoms worsen and continue return to emergency room as soon as possible. At time of discharge, the patient does not seem toxic or ill in appearance. No acute signs of distress noted. Patient agrees to discharge treatment plan of care. No further questions noted by the patient. Critical care attestation.: If time is entered above; I have spent that time in minutes in the direct care of this critically ill patient, excluding procedure time. ED Disposition Clinical Impression: Abdominal pain Qualifiers: Abdominal location: left lower quadrant Qualified Code(s): R10.32 - Left lower quadrant pain Acute cystitis Qualifiers: Hematuria presence: without hematuria Qualified Code(s): N30.00 - Acute cystitis without hematuria Ovarian cyst Qualifiers: Laterality: left Qualified Code(s): N83.202 - Unspecified ovarian cyst, left side Disposition: 01 HOME / SELF CARE / HOMELESS Is pt being admited?: No Does the pt Need Aspirin: No Condition: Stable Instructions: Abdominal Pain (ED), Urinary Tract Infection, Adult, [id number] Additional Instructions: Follow-up with a primary care and OBGYN doctor in 3-5 days or if symptoms worsen and continue return to emergency room as soon as possible. Prescriptions: cephALEXin [Keflex] 500 mg PO Q8H #21 cap Acetaminophen/Codeine [Tylenol /Codeine # 3 tab] 1 tab PO Q6H PRN #12 tab PRN Reason: Pain , Severe (7-10) Ondansetron [Zofran Odt] 4 mg PO Q8HR PRN #12 tab.rapdis PRN Reason: Nausea Referrals: PRIMARY CAREMD [Primary Care Provider] - 3-5 Days KHANG SALAZAR MD [Staff Physician] - 3-5 Days [facility] [Provider Group] - 3-5 Days [facility] [Provider Group] - 3-5 Days [facility] [Provider Group] - 3-5 Days Time of Disposition: 12:39
[2022-01-03] MEDS ORDERED: HYDROmorphone 1 MG/1 ML INJ IV ONE ×2 (10:05→13:00)
[2022-01-03 11:42] LABS: Mucus,Urine 3+ /HPF
[2022-01-03 12:04] LABS: Color,Urine Yellow (Yellow)
--- NOTE | 2022-01-03 12:25 | Cat Scan Report ---
CT ABDOMEN AND PELVIS WITH IV CONTRAST INDICATION: low abdominal pain w/ n/v-PO AND IV CONTRAST. COMPARISON: Pelvic ultrasound earlier today. CT 09/01/2021. TECHNIQUE: All CT scans at this facility use dose modulation, automated exposure control, iterative reconstructi on or weight based dosing, when appropriate, to reduce radiation dose to as low as reasonably achieva ble. FINDINGS: Lung Bases: No significant abnormality. Skeletal System: No acute abnormality. 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 ABDOMEN: Liver: No significant abnormality. Gallbladder: Removed. Bile Ducts: Mild common duct dilatation may be related to prior cholecystectomy. Adrenals: No significant abnormality. Right Kidney: No significant abnormality. Left Kidney: No significant abnormality. Pancreas: No significant abnormality. Spleen: No significant abnormality. Upper GI tract: No significant abnormality. Lymph Nodes: No significant adenopathy. Aorta: No significant abnormality. Additional Findings: No significant abnormality. PELVIS: Colon: No acute abnormality. Urinary Bladder and Distal Ureters: No significant abnormality. Appendix: Removed. Lymph Nodes: No significant adenopathy. Additional Findings: None. IMPRESSION: 1. No acute process in the abdomen or pelvis. 2. Incidental findings, as above. Signer Name: Fredi Vázquez MD Signed: 01/03/2022 12:21 PM Workstation Name: [email or web address]
[2022-01-03 14:18] VITALS: BP 114/72
== END 2022-01-03 14:17 | disposition home or self-care (01) ==
LOC: ED 03:20
DX: R10.30 Lower abdominal pain, unspecified (principal); N30.00 Acute cystitis without hematuria; N83.209 Unspecified ovarian cyst, unspecified side; R56.9 Unspecified convulsions; J45.909 Unspecified asthma, uncomplicated; Z90.49 Acquired absence of other specified parts of digestive tract; Z88.1 Allergy status to other antibiotic agents; Z88.0 Allergy status to penicillin; Z91.09 Other allergy status, other than to drugs and biological substances
CPT/HCPCS: 36415; 74177; 76856; 80048; 80076; 81001; 83690; 84703; 85025; 87086; 96361; 96374; 96375; 96376; 99284; J1170; J2270; J2405; J7030; Q9967